=== PATIENT | male | born 1945 | race Caucasian/White ===

== ENCOUNTER → 2016-04-27 | Outpatient (CLI) | payer MEDICARE, OTHER ==
[~2016-04-27] MED LIST: ACET-77 PO; ACET-93 PO; ALLO100T PO; AMLO5TAB2 PO; ASP81TEC PO; ASPI-999 PO; ATOR80TA76 PO; CLOP75TA28 PO; CPR500T PO; LISI-552 PO; LISI40TA PO; METO-274 PO; METO-352 PO; MTP50T PO; NITR0.4T SL; TERA2CAP13 PO; TERA2CAP4 PO; UBID100C17 PO; VICODIN PO
--- NOTE | 2016-04-27 15:31 | Diagnostic Imaging Report ---
PROCEDURE: MRI left upper extremity without contrast. TECHNIQUE: Multiplanar, multisequence MR imaging of the left shoulder was performed without contrast. COMPARISON: None available. INDICATION: Left shoulder pain and weakness. Difficulty raising arm above head. FINDINGS: Rotator cuff: There is a chronic massive superior rotator cuff tear with complete tears of both the supraspinatus and infraspinatus. The torn fibers are retracted centrally to the level of the glenohumeral joint. There is severe fatty atrophy of both the supraspinatus and infraspinatus muscle bellies. Tendinopathy of the subscapularis without full-thickness tear. Teres minor is normal. Glenoid labrum: There is degenerative free edge fraying of the posterior glenoid labrum. No displaced labral tear. Long head of biceps: Long head of biceps is normal in position and intracapsular segment is intact with mild tendinopathy. Bones and cartilage: No fracture of the humeral head. There is superior subluxation of the humeral head due to chronic full-thickness rotator cuff tear. There is associated undersurface remodeling of the acromion. Moderate hypertrophic degenerative change of the acromioclavicular joint. Soft tissues: Mild synovitis of the glenohumeral joint. No appreciable effusion. No MRI findings to suggest adhesive capsulitis. IMPRESSION: 1. Chronic massive superior rotator cuff tear with complete tears of both the supraspinatus and infraspinatus. The torn fibers are retracted centrally to the glenohumeral joint and have a frayed appearance. There is associated severe fatty atrophy of the supraspinatus and infraspinatus muscle bellies. 2. Long head of biceps is intact with mild intracapsular tendinopathy. 3. Moderate degenerative changes of acromioclavicular joint with inferior projecting spurs. 4. Superior subluxation of the humeral head due to chronic full-thickness cuff tear, which results in undersurface remodeling of the acromion. Dictated by: Dictated on workstation # [id number]
== END ==
LOC: RAD 13:10
PROVIDERS: ATTEND Orthopaedic Surgery
DX: M75.102 Unspecified rotator cuff tear or rupture of left shoulder, not specified as traumatic (principal); M19.012 Primary osteoarthritis, left shoulder; S43.082 Other subluxation of left shoulder joint
CPT/HCPCS: 73221

== ENCOUNTER 2016-06-13 08:30 | Outpatient (RCR) | payer MEDICARE, OTHER | END 2016-06-13 09:11 | disposition home or self-care (01) | PROVIDERS: ATTEND Nurse Practitioner Family | DX: M75.102 Unspecified rotator cuff tear or rupture of left shoulder, not specified as traumatic (principal) ==

== ENCOUNTER → 2018-04-10 | Outpatient (CLI) | payer MEDICARE, OTHER ==
[~2018-04-10] MED LIST changes: -AMLO5TAB2 PO; +AMLO5TAB7 PO; -METO-274 PO; +METO-395 PO
--- NOTE | 2018-04-10 11:22 | Diagnostic Imaging Report ---
CLINICAL INDICATION: Patient with left leg swelling. COMPARISON: None. PROCEDURE: Real-time left lower extremity venous Doppler duplex evaluation is performed from the inguinal region through the popliteal fossa. The calf venous structures are also evaluated. FINDINGS: The deep venous system is well visualized and is easily compressible. There is no evidence of deep venous thrombosis, valvular incompetence, or significant collateral circulation. IMPRESSION: There is no ultrasound Doppler evidence of deep venous thrombosis in the left lower extremity. Dictated by: Dictated on workstation # [id number]
== END ==
LOC: RAD 10:29
PROVIDERS: ATTEND Nurse Practitioner Family
DX: M79.89 Other specified soft tissue disorders (principal)

== ENCOUNTER → 2018-04-17 | Outpatient (CLI) | payer MEDICARE, OTHER ==
[2018-04-17 10:46] LABS: ALBUMIN 4.1 GM/DL (3.2-4.5); BILIRUBIN,DIRECT 0.2 MG/DL (0.0-0.3); BILIRUBIN,INDIRECT 0.2 MG/DL; BILIRUBIN,TOTAL 0.4 MG/DL (0.1-1.0); TOTAL PROTEIN 7.1 GM/DL (6.4-8.2)
== END ==
LOC: LAB 10:09
PROVIDERS: ATTEND Internal Medicine Cardiovascular Disease
DX: E78.2 Mixed hyperlipidemia (principal); I25.10 Atherosclerotic heart disease of native coronary artery without angina pectoris; I10 Essential (primary) hypertension; E66.9 Obesity, unspecified; Z82.5 Family history of asthma and other chronic lower respiratory diseases
CPT/HCPCS: 36415; 80061; 80076

== ENCOUNTER → 2018-05-10 | Outpatient (CLI) | payer MEDICARE, OTHER ==
[~2018-05-10] MED LIST changes: -AMLO5TAB7 PO; +AMLO5TAB9 PO
== END ==
LOC: CARD 09:33
PROVIDERS: ATTEND Internal Medicine Cardiovascular Disease
DX: I25.10 Atherosclerotic heart disease of native coronary artery without angina pectoris (principal); I10 Essential (primary) hypertension; E78.2 Mixed hyperlipidemia; E66.9 Obesity, unspecified; Z82.5 Family history of asthma and other chronic lower respiratory diseases
CPT/HCPCS: 93306

== ENCOUNTER → 2018-05-15 | Outpatient (CLI) | payer MEDICARE, OTHER ==
[~2018-05-15] MED LIST changes: +CATHETER FLUSH 10 ML SYR IV PRN; +REGADENOSON 0.4 MG/5 ML SYR (LEXISCAN) IV ONE
[2018-05-15 08:53] VITALS: BP 160/90
[2018-05-15 08:56] VITALS: BP 149/97
--- NOTE | 2018-05-15 14:38 | STRESS TEST ---
DATE OF SERVICE: 05/15/2018 LEXISCAN MYOVIEW STRESS TEST REPORT REFERRING PHYSICIAN: Dr. Aranda. Baseline heart rate is 57, baseline blood pressure is 160/90. Baseline EKG is sinus rhythm with no ischemic changes. In summary, the patient was injected with 10.73 mCi of technetium-99 Myoview and the resting images were obtained. Then, the patient received 0.4 mg of Lexiscan followed by 29.5 mCi of technetium-99 Myoview. Throughout the test, there were no EKG changes. The resting and stress images were reviewed and compared in the short axis, horizontal long axis, and vertical long axis views. Review of the images showed diaphragmatic attenuation affecting the quality of the study. There is mild decreased uptake at the inferoapical and inferolateral wall of the left ventricle. SSS is 6, SDS 2, TID value 1.02. On the gated images, the left ventricle appeared to be in normal size with normal contractility. Calculated ejection fraction 67%. CONCLUSION: 1. The patient tolerated Lexiscan well. 2. Diaphragmatic attenuation with nondiagnostic study with questionable mild ischemia involving the inferoapical and inferolateral wall. 3. Normal left ventricular size with normal contractility. Calculated ejection fraction 67%. Job ID: [id number] DocumentID: [id number] Dictated Date: 05/15/2018 14:03:33 Director Of Supply Chain Date: 05/15/2018 14:37:57 Dictated By: ALEAH VARNER MD
== END ==
LOC: CARD 07:03
PROVIDERS: ATTEND Internal Medicine Cardiovascular Disease
DX: I25.10 Atherosclerotic heart disease of native coronary artery without angina pectoris (principal); I10 Essential (primary) hypertension; E78.2 Mixed hyperlipidemia; E66.9 Obesity, unspecified; Z82.5 Family history of asthma and other chronic lower respiratory diseases
CPT/HCPCS: 78452; 93017

== ENCOUNTER 2018-05-21 10:11 | Outpatient (RCR) | payer MEDICARE, OTHER ==
[~2018-05-21 10:11] MED LIST changes: -CATHETER FLUSH 10 ML SYR IV PRN; -REGADENOSON 0.4 MG/5 ML SYR (LEXISCAN) IV ONE
== END 2018-05-21 17:00 | disposition home or self-care (01) ==
PROVIDERS: ATTEND Nurse Practitioner Family
DX: M62.89 Other specified disorders of muscle (principal)

== ENCOUNTER → 2019-12-18 | Outpatient (CLI) | payer MEDICARE, OTHER ==
[~2019-12-18] MED LIST changes: -ACET-77 PO; +ACET-78 PO; -METO-395 PO; +MTP100TCR PO
--- NOTE | 2019-12-18 14:11 | Diagnostic Imaging Report ---
INDICATION: Left knee pain. Time of exam 1:47 PM 3 views left knee were obtained. Alignment is normal. Joint spaces are fairly well-maintained. There is mild patellofemoral degenerative change noted. There is also very mild medial compartmental narrowing. No fracture or dislocation is identified. There does appear to be a small amount of suprapatellar joint fluid present. IMPRESSION: Mild degenerative changes and small joint effusion. No acute bony abnormality is detected. Dictated by: Dictated on workstation # [id number]
--- NOTE | 2019-12-18 14:21 | Diagnostic Imaging Report ---
PROCEDURE: US left lower extremity venous. TECHNIQUE: Multiple real-time grayscale images were obtained over the left lower extremity in various projections. Additional duplex Doppler and color Doppler images were also obtained. INDICATION: Left knee and lower leg pain and swelling. There is no evidence of left lower extremity DVT. Left lower extremity deep venous system demonstrates normal compressibility with normal response to augmentation and Valsalva. No fluid collection or mass is detected. IMPRESSION: No evidence of left lower extremity DVT. Dictated by: Dictated on workstation # [id number]
== END ==
LOC: RAD 12:52
PROVIDERS: ATTEND Nurse Practitioner Family
DX: M17.12 Unilateral primary osteoarthritis, left knee (principal); M25.462 Effusion, left knee
CPT/HCPCS: 73562

== ENCOUNTER → 2020-07-21 | Outpatient (CLI) | payer MEDICARE, OTHER ==
[~2020-07-21] MED LIST changes: +AMLO-250 PO; -AMLO5TAB9 PO; -LISI-552 PO; +LISI20TA26 PO; -LISI40TA PO; +LISI40TA9 PO
--- NOTE | 2020-07-21 13:44 | Diagnostic Imaging Report ---
PROCEDURE: MRI lumbar spine without contrast. TECHNIQUE: Multiplanar, multisequence MRI of the lumbar spine was performed without contrast. INDICATION: Chronic low back pain. History of prior surgery. COMPARISON: 11/29/2017. FINDINGS: 5 lumbar type vertebral bodies are visualized with the last well-formed disc space designated L5-S1. No acute fracture or dislocation is seen in the lumbar spine. Alignment is anatomic. Vertebral body heights are well-maintained. Endplate degenerative changes are present at the L3-L4 level. Laminectomy is noted from L2 to L4. The conus terminates at the L1 level. No masses are seen associated with the conus or nerve roots of the cauda equina. No epidural collections are identified. Multilevel degenerative changes are seen in the lumbar spine with disc bulges, facet hypertrophy, and buckling of the ligamentum flavum. T12-L1: No significant spinal canal or foraminal stenosis. L1-L2: Facet hypertrophy and buckling of the ligamentum flavum results in mild spinal canal narrowing and mild bilateral foraminal narrowing. L2-L3: Broad-based disc bulge, facet hypertrophy, and buckling of the ligamentum flavum results in no significant spinal canal narrowing and ruyo-jq-dsofputf bilateral foraminal narrowing. L3-L4: Broad-based disc bulge, facet hypertrophy, and buckling of the ligamentum flavum results in no significant spinal canal narrowing and moderate right and euomndry-ua-vtjvbi left foraminal stenosis. L4-L5: Broad-based disc bulge, facet hypertrophy, right synovial cyst and buckling of the ligamentum flavum results in mild spinal canal narrowing, moderate right lateral recess stenosis, and moderate bilateral foraminal stenosis. L5-S1: Broad-based disc bulge, facet hypertrophy, and buckling of the ligamentum flavum results in moderate spinal canal stenosis and gbbb-vh-lftslont bilateral foraminal narrowing. There is atrophy of the paraspinal musculature. IMPRESSION: 1. No acute fracture or dislocation in the lumbar spine. 2. Multilevel degenerative changes in the lumbar spine, greatest at L3-L4 and L4-L5. In particular a new synovial cyst protruding from the right L4-L5 facet joint is causing moderate right lateral recess stenosis. 3. Successful posterior decompression from L2 to L4. 4. Endplate degenerative changes at the L3-L4 level. Dictated by: Dictated on workstation # [id number]
== END ==
LOC: RAD 09:30
PROVIDERS: ATTEND Nurse Practitioner Family
DX: M47.26 Other spondylosis with radiculopathy, lumbar region (principal); M48.061 Spinal stenosis, lumbar region without neurogenic claudication
CPT/HCPCS: 72148

== ENCOUNTER → 2021-05-18 | Outpatient (CLI) | payer MEDICARE, OTHER ==
[~2021-05-18] MED LIST changes: +REGADENOSON 0.4 MG/5 ML SYR (LEXISCAN) IV ONE
[2021-05-18] MEDS: CATHETER FLUSH 10 ML SYR IV PRN ×2 (11:54→13:30)
[2021-05-18 13:29] VITALS: BP 152/86
--- NOTE | 2021-05-18 15:52 | Cardiology Stress Test Report ---
Stress Test Report Date of Procedure/Referring: Date of Procedure: May 18, 2021 PCP Aleah Harrington MD Admitting Physician Heidi Aranda MD Indications: HTN Baseline Heart Rate: 52 Baseline Blood Pressure: Blood Pressure Systolic: 152 Blood Pressure Diastolic: 86 Baseline Vitals Vital Signs Date Time Temp Pulse Resp B/P (MAP) Pulse Ox O2 Delivery O2 Flow Rate FiO2 05/18/21 13:29 64 16 152/86 (108) 98 Room Air Baseline EKG: Baseline EKG: NSR Summary After explaining the procedure to the patient, he signed a consent and then brought to the stress nuclear laboratory. Patient received 0.4 mg Lexiscan for stress test, ECG, heart rate and blood pressure were monitored continuously. Resting and stress dose of radio tracer were injected, imaging was acquired and reviewed in short axis, horizontal long axis and vertical long axis views. TID: 1.06 SSS: 8 SDS: 7 EF: 68 1. Patient tolerated Lexiscan well 2. Diaphragmatic attenuation with decreased uptake involving the whole inferior wall and inferolateral wall with mild reversibility 3. Normal left ventricular size, EF 68% ALEAH HARRINGTON MD May 18, 2021 15:52
== END ==
LOC: CARD 11:30
PROVIDERS: ATTEND Internal Medicine Cardiovascular Disease
DX: I11.9 Hypertensive heart disease without heart failure (principal); I34.0 Nonrheumatic mitral (valve) insufficiency; I25.10 Atherosclerotic heart disease of native coronary artery without angina pectoris
CPT/HCPCS: 78452; 93017; 93306; A9502

== ENCOUNTER 2021-06-01 10:51 | Day surgery (SDC) | payer MEDICARE, OTHER ==
[2021-06-01] VITALS (8 sets, daily range): BP systolic 130–152; BP diastolic 67–85
[~2021-06-01] VITALS: Ht 182.8 cm; Wt 103.5 kg
[~2021-06-01 10:51] MED LIST changes: -REGADENOSON 0.4 MG/5 ML SYR (LEXISCAN) IV ONE
[2021-06-01] MEDS ORDERED: NS IV 1000 ML 1,000 ML IV SCH ×2 (11:00→13:30)
[2021-06-01] MEDS ORDERED: LIDOCAINE 1% INJ 20 ML VIAL ONE (11:01)
[2021-06-01] MEDS ORDERED: NS IV 1000 ML 1,000 ML ONE (11:02)
[2021-06-01] MEDS ORDERED: HEParin (CATH LAB) 1,000 ML IV ONE (11:02)
[2021-06-01] MEDS ORDERED: GABA-490 PO (11:35)
[2021-06-01] MEDS ORDERED: ALLO100T PO (11:35)
[2021-06-01] MEDS ORDERED: LOSA25TA41 PO (11:35)
[2021-06-01] MEDS ORDERED: MIDAZOLAM 5 MG/5 ML (VERSED) VIAL ONE (11:36)
[2021-06-01] MEDS ORDERED: FISH1CAP15 PO (11:36)
[2021-06-01] MEDS ORDERED: VERAPAMIL 5 MG/2 ML (CALAN) VIAL IV ONE (11:36)
[2021-06-01] MEDS ORDERED: fentaNYL INJ 100 MCG/2 ML AMP ONE (11:36)
[2021-06-01] MEDS ORDERED: HEParin 1000 UNIT/ML (10ML VIAL) FOR BOLUS ONE (11:36)
[2021-06-01] MEDS ORDERED: NITRO DRIP 25000 MCG/D5W 250 ML IV ONE (11:37)
[2021-06-01 11:38] LABS: HEMATOCRIT 39 % (40-54); HEMOGLOBIN 13.1 g/dL (13.3-17.7); MEAN CORPUSCULAR HEMOGLOBIN 33 pg (25-34); MEAN CORPUSCULAR HGB CONC 33 g/dL (32-36); MEAN CORPUSCULAR VOLUME 99 fL (80-99); PLATELET COUNT 174 10^3/uL (130-400); WHITE BLOOD COUNT 8.5 10^3/uL (4.3-11.0)
[2021-06-01 11:39] LABS: BILIRUBIN,URINE NEGATIVE (NEGATIVE); CLARITY,URINE CLEAR; COLOR,URINE YELLOW; GLUCOSE, URINE (UA) NEGATIVE (NEGATIVE); KETONES,URINE NEGATIVE (NEGATIVE); LEUKOCYTE ESTERASE ,URINE NEGATIVE (NEGATIVE); NITRITE,URINE NEGATIVE (NEGATIVE); PH,URINE 5.5 (5-9); PROTEIN,URINE NEGATIVE (NEGATIVE)
--- NOTE | 2021-06-01 11:43 | Diagnostic Imaging Report ---
INDICATION: Hypertension, coronary disease COMPARISON: 04/30/2015 FINDINGS: FINDINGS: Single view chest demonstrates slight cardiac enlargement. The lungs are clear. There is no pneumothorax but osseous structures normal. IMPRESSION: No acute cardiopulmonary findings. Dictated by: Dictated on workstation # [id number]
[2021-06-01 11:54] LABS: INR 0.9 (0.8-1.4); PROTHROMBIN TIME PATIENT 12.9 SEC (12.2-14.7)
[2021-06-01 12:01] LABS: ALBUMIN 3.9 GM/DL (3.2-4.5); BILIRUBIN,TOTAL 0.4 MG/DL (0.1-1.0); CALCIUM 9.4 MG/DL (8.5-10.1); CREATININE SERUM 1.96 MG/DL (0.60-1.30)
[2021-06-01 12:16] LABS: BACTERIA,URINE NEGATIVE /HPF
--- NOTE | 2021-06-01 13:32 | Discharge Inst-Post CATH ---
Discharge Inst-CATH/EP Problems Reviewed?: Yes Post Cardiac Cath/EP D/C Inst Follow Up/Plan Appointment with Dr. Harrington's office in 2 to 4 weeks <b>CARDIAC CATH/EP PROCEDURE DISCHARGE INSTRUCTIONS</b> ACTIVITY * Go Home directly and rest. * Limit activity of the leg (or wrist if it was used) for 7 days including aer obics, swimming, jogging, bicycling, etc. * Restrict stair-climbing for 7 days if possible, if not, climb up with your non-cath leg, then bring together on the same step. * Avoid lifting, pushing, pulling or excessive movement of the affected extremi ty for 7 days. * Customary sexual activity may be resumed after 2 days-use caution not to use a position that strains or causes pain to the affected extremity. * No driving for 24 hours. * NO SMOKING. * Avoid straining for bowel movements for 7 days. * Gentle walking on level ground is allowed. * Returning to work will depend on the type of procedure and the results. Your doctor will discuss this with you. CALL YOUR DOCTOR FOR ANY OF THE FOLLOWING: *If bleeding from the puncture site occurs- Apply gentle pressure to site with clean cloth and call your doctor or EMS. * If a knot or lump forms under the skin, increases in size, or causes pain. * If bruising appears to be worsening or moving further down your leg instead of disappearing. * Temperature above 101 F. CARE OF YOUR GROIN INCISION; * Bruising or purple discoloration of the skin near the puncture site is common. * You may shower only, no bathtub bathing for 5 days. Be careful to avoid slipping as your leg may feel stiff. * If a closure device was used on your femoral artery, please see the attached guide regarding care of the device and your leg. * Leave dressing on FOR 24 hours. CARE OF YOUR WRIST INCISION; * Bruising or purple discoloration of the skin near the puncture site is common. * You may shower. * DO NOT submerge wrist. * Leave dressing on FOR 24 hours. ALEAH HARRINGTON MD Jun 01, 2021 13:32
--- NOTE | 2021-06-01 13:35 | Cardiac Cath Report ---
Cardiac Cath Report Physician (s)/Entry Specialists (s) Physician ALEAH VARNER MD Pre-Procedure Diagnosis Pre-Procedure Diagnosis: Coronary artery disease Post-Procedure Note Procedure Start Date: Jun 01, 2021 Name of Procedure: Left heart catheterization Findings/Procedure Note PROCEDURE NOTE: 75 years old gentleman with history of coronary artery disease, multiple interventions in the past, had an abnormal stress test with inferior wall ischemia, scheduled for cardiac catheterization possible PTCA. After explaining the procedure to the patient, all pros and cons were explained, all questions were answered. The patient signed the consent and then he was placed on the cardiac catheterization laboratory. Groin was prepped SL fashion local anesthesia was used. Sheath placed in the right radial artery, Troy catheter was advanced to the left ventricular cavity, pressure was measured, pullback LV to aorta was done, engaged the right and left coronary system, multiple views were obtained. At the end of the procedure the sheath was removed. Vascular band was used FINDINGS: Hemodynamics LV 111/12, end-diastolic pressure of 12 Aorta 111/68 mean of 90 ANATOMY: Left Main is free of obstructive disease Left Anterior Descending has multiple stents with mild to moderate irregularity, there is no obstructive disease, small vessel disease Left Circumflex has mild to moderate disease nonobstructive disease Right Coronary Artery is slightly tortuous artery, dominant artery, stent in the mid right coronary artery with calcification appears to be patent, mild disease distally nonobstructive disease LV Gram was not done, pressure was measured CONCLUSION: 1. Multiple stents in the LAD and 1 stent noted in the right coronary artery, mild to moderate coronary artery disease nonobstructive disease 2. Normal left ventricular end-diastolic pressure DISCUSSION AND RECOMMENDATION: Medical therapy is recommended. Abnormal stress test is probably due to extracardiac attenuation Anesthesia Type: Conscious Sedation Estimated blood loss (mL): 10 ml Contrast Amount: 30 ml Total Radiation Dose: 525 mGy Post-Procedure Diagnosis Post-operative diagnosis: Chest pain Coronary artery disease Hypertension Hyperlipidemia ALEAH VARNER MD Jun 01, 2021 13:35
== END 2021-06-01 16:00 | disposition home or self-care (01) ==
LOC: CATH 10:51 → SDC 13:00 → SURGICAL 13:56 → CATH 16:00
PROVIDERS: ATTEND Internal Medicine Cardiovascular Disease
DX: I25.10 Atherosclerotic heart disease of native coronary artery without angina pectoris (principal); I10 Essential (primary) hypertension; Z95.5 Presence of coronary angioplasty implant and graft; E78.2 Mixed hyperlipidemia; I34.0 Nonrheumatic mitral (valve) insufficiency; I12.9 Hypertensive chronic kidney disease with stage 1 through stage 4 chronic kidney disease, or unspecified chronic kidney disease; N18.9 Chronic kidney disease, unspecified; N40.0 Benign prostatic hyperplasia without lower urinary tract symptoms; I65.23 Occlusion and stenosis of bilateral carotid arteries; Z68.31 Body mass index [BMI] 31.0-31.9, adult; Z79.82 Long term (current) use of aspirin; Z79.899 Other long term (current) drug therapy
CPT/HCPCS: 71045; 80053; 80061; 81000; 85027; 85610; 85730; 87081; 93458; C1894; 36415; 36430

== ENCOUNTER 2021-11-20 06:23 | Emergency (ER) | payer MEDICARE, OTHER ==
[~2021-11-20 06:23] MED LIST changes: +FISH1CAP15 PO; +GABA-490 PO; +LOSA25TA41 PO
[2021-11-20 06:35] VITALS: BP 178/108
--- NOTE | 2021-11-20 06:59 | ED General ---
General Chief Complaint: General Problems/Pain Stated Complaint: BACK/LEG/SHOULDER PAIN Nursing Triage Note: TO ED VIA POV AND AMBULATORY TO ROOM 6 WITH C/O BILATERAL SHOULDER, BILATERAL ARM, BILATERAL LEG, AND BACK PAIN THAT STARTED SUNDAY. LAST TYLENOL AT 0000. DENIES INJURY. Source of Information: Patient Exam Limitations: No Limitations History of Present Illness Date Seen by Provider: Nov 20, 2021 Time Seen by Provider: 06:38 Initial Comments Patient is a 76-year-old male who presents to the emergency department with a chief complaint of pain. Patient states since he has had bilateral leg pain that he describes as a "burning" also in his low back as well as in his shoulders and into his arms. Patient denies any injuries. No excessive gardening or heavy lifting or pushing and pulling over the course of the last week. He has had pain like this in the past related to having back issues and surgery but he states its been about 7 years ago. He has been on gabapentin 300 mg twice daily for 10 years. He describes almost a "vibrating" sensation in his left leg. He has taken some regular strength Tylenol without any relief of symptoms. He rates the burning discomfort in his lower legs at a "10". No loss of bowel or bladder function. No numbness in his groin. No significant increased weakness. He states he has chronic feelings of left lower extremity weakness since his last back surgery. He denies fevers, chills, cough or shortness of breath. He has not seen his primary care doctor for this. All other review of systems reviewed and negative except as stated. Timing/Duration: 3-4 Days Severity: Severe Associated Systoms: Denies Symptoms Allergies and Home Medications Allergies Coded Allergies: Penicillins (Verified Allergy, Unknown, 07/09/08) Patient Home Medication List Home Medication List Reviewed: Yes Acetaminophen (Acetaminophen) 500 Mg Tablet, 1,000 MG PO BID Prescribed by: FRANCIS ROMERO on 03/30/15 1303 Allopurinol (Allopurinol) 100 Mg Tablet, 100 MG PO DAILY, (Reported) Entered as Reported by: STEPHANIE BAIRD on 06/01/21 1135 Aspirin (Aspirin Ec 81 Mg) 81 Mg Tabec, 81 MG PO DAILY, (Reported) Entered as Reported by: ISABELA TURNER on 11/21/13 0847 Fish Oil/Dha/Epa (Fish Oil 1,200 mg Fish Oil) 1 Each Capsule, 1 EACH PO DAILY, (Reported) Entered as Reported by: STEPHANIE BAIRD on 06/01/21 1136 Gabapentin (Gabapentin) 400 Mg Capsule, 300 MG PO BID, (Reported) Entered as Reported by: STEPHANIE BAIRD on 06/01/21 1135 Lisinopril (Lisinopril) 40 Mg Tablet, 20 MG PO DAILY Prescribed by: GUERLINE ARANDA on 05/03/15 0851 Losartan Potassium (Losartan Potassium) 25 Mg Tablet, 25 MG PO DAILY, (Reported) Entered as Reported by: STEPHANIE BAIRD on 06/01/21 1135 Metoprolol Succinate (Metoprolol Succinate) 100 Mg Tab.er.24h, 100 MG PO DAILY Prescribed by: ETHAN DA SILVA on 03/30/15 1256 Nitroglycerin (Nitrostat) 0.4 Mg Tab.subl, 0.4 MG SL PRN PRN for CHEST PAIN Prescribed by: ETHAN DA SILVA on 03/30/15 1256 Terazosin HCl (Terazosin HCl) 2 Mg Capsule, 2 MG PO DAILY, (Reported) Entered as Reported by: PHUONG TENA on 03/26/15 2152 Ubidecarenone (Coq-10) 100 Mg Capsule, 100 MG PO DAILY, (Reported) Entered as Reported by: AYESHA ZHANG on 04/30/15 1539 Review of Systems Review of Systems Constitutional: see HPI EENTM: no symptoms reported Respiratory: no symptoms reported Cardiovascular: no symptoms reported Gastrointestinal: no symptoms reported Genitourinary: no symptoms reported Musculoskeletal: no symptoms reported Skin: no symptoms reported Psychiatric/Neurological: Paresthesia All Other Systems Reviewed Negative Unless Noted: Yes Past Strfyih-Cgkihh-Mroika Hx Patient Social History Tobacco Use?: No Substance use?: No Pt feels they are or have been: No Immunizations Up To Date Tetanus Booster (TDap): More than 5yrs PED Vaccines UTD: Yes COVID19 Vaccine Editor & Co Founder: STATES TOTAL OF 2 VACCINES PLUS 2 BOOSTERS Seasonal Allergies Seasonal Allergies: No Past Medical History Orthopedic Currently Using CPAP: No Currently Using BIPAP: No Coronary Artery Disease, Hypertension Reproductive Disorders: No Sexually Transmitted Disease: No HIV/AIDS: No Gastroesophageal Reflux Arthritis Loss of Vision: Denies Hearing Impairment: Denies Skin Adverse Reaction/Blood Tranf: No Family Medical History Alzheimer's disease 19 FATHER Arthritis 19 MOTHER G8 SISTER Cardiovascular disease 19 MOTHER Cataracts 19 MOTHER Dementia 19 FATHER Diabetes mellitus 19 MOTHER G8 SISTER Hypercholesterolemia 19 MOTHER G8 SISTER Hypertension 19 MOTHER G8 SISTER G8 SISTER Visual disorder G8 SISTER Heart Disease, Diabetes, Hypertension Physical Exam Vital Signs Vital Signs - First Documented 11/20/21 06:35 Temp 36.7 Pulse 82 Resp 16 B/P (MAP) 178/108 (131) Pulse Ox 95 O2 Delivery Room Air Capillary Refill : Less Than 3 Seconds Height, Weight, BMI Height: 6'0.00" Weight: 241lbs. oz. 109.672294pu; BMI Method: General Appearance: No Apparent Distress, WD/WN Eyes: Bilateral Eye Normal Inspection Neck: Full Range of Motion, Non Tender Respiratory: Lungs Clear, Normal Breath Sounds, No Accessory Muscle Use, No Respiratory Distress Cardiovascular: Regular Rate, Rhythm, Normal Peripheral Pulses Gastrointestinal: Normal Bowel Sounds, No Pulsatile Mass, Non Tender, Soft Back: Normal Inspection, Other (Well-healed midline scar over the lumbar vertebrae, no reproducible midline vertebral tenderness; no tenderness over the sciatic nerves bilaterally. Negative straight leg raise. 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 II-XII Norm as Tested, Other (Normal motor strength and sensat ion.) Skin: Normal Color, Warm/Dry, Other (No rashes) Progress/Results/Core Measures Suspected Sepsis SIRS Temperature: Pulse: 82 Respiratory Rate: 16 Blood Pressure 178 /108 Mean: 131 Results/Orders Vital Signs/I&O 11/20/21 06:35 Temp 36.7 Pulse 82 Resp 16 B/P (MAP) 178/108 (131) Pulse Ox 95 O2 Delivery Room Air Capillary Refill : Less Than 3 Seconds Blood Pressure Mean: 131 Departure Impression Primary Impression: Neuropathic pain of both legs Additional Impression: Neuropathic pain of upper extremity Disposition: 01 HOME, SELF-CARE Condition: Stable Departure-Patient Inst. Decision time for Depature: 06:57 Referrals: GUERLINE ARANDA MD (PCP/Family) Primary Care Physician Patient Instructions: Neuropathic Pain Add. Discharge Instructions: Drink plenty of fluids to stay well-hydrated. It is safe for you to increase your gabapentin to 2 300 mg tablets twice a day. *I have written you a prescription today for 600mg tablets - enough for 2 weeks - just ONE of these twice a day.* I have written you prescription for some tramadol for the next couple of days which may also help the pain. This medication may make you a little bit sleepy. Do not drive and take this medication. Be careful getting up and walking as it could increase your risk for fall. Extra strength Tylenol, 500 mg tablets 2 every 6 hours can be taken safely with the tramadol and the gabapentin as needed for pain. Follow-up with your primary care doctor, Dr. Aranda for further management, refills of your gabapentin. Return to the emergency room for any new, concerning or emergent complaints. Scripts Gabapentin (Gabapentin) 600 Mg Tablet 600 MG PO BID, #30 TAB Prov: SHAUNNA REES MD 11/20/21 Tramadol HCl (Tramadol HCl) 50 Mg Tablet 50 MG PO Q6H PRN for PAIN, #10 TAB 0 Refills Prov: SHAUNNA REES MD 11/20/21 Copy Copies To 1: GUERLINE ARANDA MD, KATHRYN M MD Nov 20, 2021 06:59
[2021-11-20] MEDS ORDERED: GBPN600T PO (07:00)
[2021-11-20] MEDS ORDERED: TRM50T PO (07:00)
== END 2021-11-20 07:20 | disposition home or self-care (01) ==
LOC: EDUNIT# 06:23 → ER 06:26
DX: G57.93 Unspecified mononeuropathy of bilateral lower limbs (principal); G56.93 Unspecified mononeuropathy of bilateral upper limbs
CPT/HCPCS: 99283

== ENCOUNTER 2021-11-22 07:03 | Emergency (ER) | payer MEDICARE, OTHER ==
[~2021-11-22] VITALS: Ht 182.8 cm; Wt 104.3 kg
[~2021-11-22 07:03] MED LIST changes: +GBPN600T PO; +TRM50T PO
[2021-11-22] MEDS ORDERED: meTOprolol SUCCINATE 100 MG (TOPROL XL) TAB PO ONE (07:45)
--- NOTE | 2021-11-22 07:45 | ED General ---
General Chief Complaint: Lower Extremity Stated Complaint: BACK,ARM & LEG PX Nursing Triage Note: PT TO RM 5 BY WC WITH CC OF BILAT LEG PAIN, WEAKNESS AND NUMBNESS YESTERDAY. PT REPORTS WENT TO [facility] YESTERDAY. PT A&O4 Source of Information: Patient Exam Limitations: No Limitations History of Present Illness Date Seen by Provider: Nov 22, 2021 Time Seen by Provider: 07:29 Initial Comments Patient is a 76-year-old male who presents to the emergency department today with a chief complaint of low back pain, pain radiating into his bilateral hips, numbness into his legs and lower extremity weakness. He also describes tingling in his bilateral hands. Patient was seen by me in the emergency department a couple of days ago with similar complaints. I increased his gabapentin from 300 mg twice daily to 600 mg twice daily. He has a history of chronic kidney disease. Hypertension. He tells me that he went to the chiropractor yesterday and had his "whole spine" adjusted. He felt well after that visit with improved discomfort but woke up this morning and said that his legs were weak. He fell on his porch onto his bottom due to leg weakness. No loss of bowel or bladder function. States that he is able to urinate when he needs to. But it does feel little "off". He has had previous lumbar spine surgery the last 1 was about 6 years ago. No recent fevers or chills, no productive cough. No shortness of breath. He is COVID vaccinated. No concerns for acute COVID infection. He does state that he has had decreased appetite over the last several days due to his back pain and paresthesias. He is just not felt like eating very much at all. His states that she has been trying to get him to drink fluids. All other review of systems reviewed and negative except as stated. Timing/Duration: 12 Hours Severity: Moderate Associated Systoms: Loss of Appetite, Malaise, Weakness (legs specifically) Allergies and Home Medications Allergies Coded Allergies: Penicillins (Verified Allergy, Unknown, 07/09/08) Patient Home Medication List Home Medication List Reviewed: Yes Acetaminophen (Acetaminophen) 500 Mg Tablet, 1,000 MG PO BID Prescribed by: FRANCIS ROMERO on 03/30/15 1303 Allopurinol (Allopurinol) 100 Mg Tablet, 100 MG PO DAILY, (Reported) Entered as Reported by: STEPHANIE BAIRD on 06/01/21 1135 Aspirin (Aspirin Ec 81 Mg) 81 Mg Tabec, 81 MG PO DAILY, (Reported) Entered as Reported by: ISABELA TURNER on 11/21/13 0847 Fish Oil/Dha/Epa (Fish Oil 1,200 mg Fish Oil) 1 Each Capsule, 1 EACH PO DAILY, (Reported) Entered as Reported by: STEPHANIE BAIRD on 06/01/21 1136 Gabapentin (Gabapentin) 400 Mg Capsule, 300 MG PO BID, (Reported) Entered as Reported by: STEPHANIE BAIRD on 06/01/21 1135 Gabapentin (Gabapentin) 600 Mg Tablet, 600 MG PO BID Prescribed by: SHAUNNA REES on 11/20/21 0700 Lisinopril (Lisinopril) 40 Mg Tablet, 20 MG PO DAILY Prescribed by: GUERLINE ARANDA on 05/03/15 0851 Losartan Potassium (Losartan Potassium) 25 Mg Tablet, 25 MG PO DAILY, (Reported) Entered as Reported by: STEPHANIE BAIRD on 06/01/21 1135 Metoprolol Succinate (Metoprolol Succinate) 100 Mg Tab.er.24h, 100 MG PO DAILY Prescribed by: ETHAN DA SILVA on 03/30/15 1256 Nitroglycerin (Nitrostat) 0.4 Mg Tab.subl, 0.4 MG SL PRN PRN for CHEST PAIN Prescribed by: ETHAN DA SILVA on 03/30/15 1256 Terazosin HCl (Terazosin HCl) 2 Mg Capsule, 2 MG PO DAILY, (Reported) Entered as Reported by: PHUONG TENA on 03/26/152151 Tramadol HCl (Tramadol HCl) 50 Mg Tablet, 50 MG PO Q6H PRN for PAIN Prescribed by: SHAUNNA REES on 11/20/21 0700 Ubidecarenone (Coq-10) 100 Mg Capsule, 100 MG PO DAILY, (Reported) Entered as Reported by: AYESHA ZHANG on 04/30/15 1539 Review of Systems Review of Systems Constitutional: see HPI EENTM: no symptoms reported Respiratory: no symptoms reported Cardiovascular: no symptoms reported Gastrointestinal: loss of appetite Genitourinary: no symptoms reported Musculoskeletal: muscle weakness (legs) Skin: no symptoms reported Psychiatric/Neurological: Paresthesia (hands and legs) All Other Systems Reviewed Negative Unless Noted: Yes Past [id number]-[id number]-Cjuiux Hx Patient Social History Tobacco Use?: No Substance use?: No Alcohol Use?: No Pt feels they are or have been: No Immunizations Up To Date Tetanus Booster (TDap): More than 5yrs PED Vaccines UTD: Yes First/Initial COVID19 Vaccinat: 2020 Second COVID19 Vaccination Erik: 2020 Seasonal Allergies Seasonal Allergies: No Past Medical History Orthopedic Currently Using CPAP: No Currently Using BIPAP: No Coronary Artery Disease, Hypertension Reproductive Disorders: No Sexually Transmitted Disease: No HIV/AIDS: No Gastroesophageal Reflux Arthritis Loss of Vision: Denies Hearing Impairment: Denies Skin Adverse Reaction/Blood Tranf: No Family Medical History Alzheimer's disease 19 FATHER Arthritis 19 MOTHER G8 SISTER Cardiovascular disease 19 MOTHER Cataracts 19 MOTHER Dementia 19 FATHER Diabetes mellitus 19 MOTHER G8 SISTER Hypercholesterolemia 19 MOTHER G8 SISTER Hypertension 19 MOTHER G8 SISTER G8 SISTER Visual disorder G8 SISTER Heart Disease, Diabetes, Hypertension Physical Exam Vital Signs Vital Signs - First Documented 11/22/21 07:11 Temp 36.4 Pulse 62 Resp 16 B/P (MAP) 177/96 (123) Pulse Ox 97 O2 Delivery Room Air Capillary Refill : Less Than 3 Seconds Height, Weight, BMI Height: 6'0.00" Weight: 241lbs. oz. 109.844774uz; 31.00 BMI Method: General Appearance: No Apparent Distress, WD/WN Eyes: Bilateral Eye Normal Inspection, Bilateral Eye PERRL, Bilateral Eye EOMI HEENT: PERRL/EOMI Neck: Normal Inspection, Non Tender Respiratory: Lungs Clear, Normal Breath Sounds, No Accessory Muscle Use, No Respiratory Distress Cardiovascular: Regular Rate, Rhythm, Normal Peripheral Pulses Gastrointestinal: Soft, Tenderness (slight suprapubic discomfort on palpation) Genital/Rectal: Other (no sadlle anesthesia) Back: No Vertebral Tenderness, Other (patient has leg tremors with straight leg raise bilaterally but able to hold legs up for needed duration; normal dorsiflexion of great toes bilaterally; equal sensation; he is apprehensive with reflex testing and i am unable to get good DTR's;) Extremity: Normal Capillary Refill, Normal Inspection, Normal Range of Motion Neurologic/Psychiatric: Alert, Oriented x3, No Motor/Sensory Deficits, Normal Mood/Affect, dye tank tender II-XII Norm as Tested Skin: Normal Color, Warm/Dry Progress/Results/Core Measures Suspected Sepsis SIRS Temperature: Pulse: 62 Respiratory Rate: 16 Laboratory Tests 11/22/21 08:00: White Blood Count 9.0 Blood Pressure 177 /96 Mean: 123 Laboratory Tests 11/22/21 08:00: Creatinine 2.04H, Platelet Count 141, Total Bilirubin 0.6 Results/Orders Lab Results Laboratory Tests Test 11/22/21 07:40 11/22/21 08:00 11/22/21 08:08 Range/Units SARS-CoV-2 RNA (RT-PCR) Not Detected Not Detecte White Blood Count 9.0 4.3-11.0 10^3/uL Red Blood Count 3.97 L 4.30-5.52 10^6/uL Hemoglobin 13.1 L 13.3-17.7 g/dL Hematocrit 38 L 40-54 % Mean Corpuscular Volume 96 80-99 fL Mean Corpuscular Hemoglobin 33 25-34 pg Mean Corpuscular Hemoglobin Concent 34 32-36 g/dL Red Cell Distribution Width 12.7 10.0-14.5 % Platelet Count 141 130-400 10^3/uL Mean Platelet Volume 10.0 9.0-12.2 fL Immature Granulocyte % (Auto) 1 % Neutrophils (%) (Auto) 76 H 42-75 % Lymphocytes (%) (Auto) 10 L 12-44 % Monocytes (%) (Auto) 11 0-12 % Eosinophils (%) (Auto) 2 0-10 % Basophils (%) (Auto) 0 0-10 % Neutrophils # (Auto) 6.9 1.8-7.8 10^3/uL Lymphocytes # (Auto) 0.9 L 1.0-4.0 10^3/uL Monocytes # (Auto) 1.0 0.0-1.0 10^3/uL Eosinophils # (Auto) 0.2 0.0-0.3 10^3/uL Basophils # (Auto) 0.0 0.0-0.1 10^3/uL Immature Granulocyte # (Auto) 0.1 0.0-0.1 10^3/uL Sodium Level 135 135-145 MMOL/L Potassium Level 4.5 3.6-5.0 MMOL/L Chloride Level 105 98-107 MMOL/L Carbon Dioxide Level 19 L 21-32 MMOL/L Anion Gap 11 5-14 MMOL/L Blood Urea Nitrogen 31 H 7-18 MG/DL Creatinine 2.04 H 0.60-1.30 MG/DL Estimat Glomerular Filtration Rate 33 BUN/Creatinine Ratio 15 Glucose Level 118 H 70-105 MG/DL Calcium Level 9.6 8.5-10.1 MG/DL Corrected Calcium 9.7 8.5-10.1 MG/DL Total Bilirubin 0.6 0.1-1.0 MG/DL Aspartate Amino Transf (AST/SGOT) 42 H 5-34 U/L Alanine Aminotransferase (ALT/SGPT) 22 0-55 U/L Alkaline Phosphatase 105 40-136 U/L Total Protein 7.2 6.4-8.2 GM/DL Albumin 3.9 3.2-4.5 GM/DL Urine Color YELLOW Urine Clarity CLEAR Urine pH 6.0 5-9 Urine Specific [place] 1.020 1.016-1.022 Urine Protein 1+ H NEGATIVE Urine Glucose (UA) NEGATIVE NEGATIVE Urine Ketones NEGATIVE NEGATIVE Urine Nitrite NEGATIVE NEGATIVE Urine Bilirubin NEGATIVE NEGATIVE Urine Urobilinogen 0.2 < = 1.0 MG/DL Urine Leukocyte Esterase NEGATIVE NEGATIVE Urine RBC (Auto) NEGATIVE NEGATIVE Urine RBC RARE /HPF Urine WBC NONE /HPF Urine Squamous Epithelial Cells RARE /HPF Urine Crystals NONE /LPF Urine Bacteria NEGATIVE /HPF Urine Casts NONE /LPF Urine Mucus SMALL H /LPF Urine Culture Indicated NO My Orders Orders - SHAUNNA REES MD Metoprolol Succinate (Xl) Tab (Toprol Xl (11/22/21 07:45) Ed Iv/Invasive Line Start (11/22/21 07:37) Cbc With Automated Diff (11/22/21 07:37) Comprehensive Metabolic Panel (11/22/21 07:37) Ua Culture If Indicated (11/22/21 07:37) Covid 19 Inhouse Test (11/22/21 07:37) Isolation Central Supply Req (11/22/21 07:37) Mri Lumbar Spine W/O Contrast (11/22/21 08:54) Tick Panel With Lyme Eia (11/22/21 11:01) Doxycycline Hyclate Tablet (Vibramycin T (11/22/21 11:07) Medications Given in ED Current Medications Medications Dose Ordered Sig/Michelle Route Start Time Stop Time Status Last Admin Dose Admin Metoprolol Succinate 100 mg ONCE ONCE PO 11/22/21 07:45 11/22/21 07:46 DC 11/22/21 08:21 100 MG Vital Signs/I&O 11/22/21 07:11 Temp 36.4 Pulse 62 Resp 16 B/P (MAP) 177/96 (123) Pulse Ox 97 O2 Delivery Room Air Capillary Refill : Less Than 3 Seconds Blood Pressure Mean: 123 Progress Note #1: Time: 08:53 Progress Note Case discussed with Dr Aranda; states that she believes with worsening weakness and inability to hold himself standing that he needs emergent MRI from ED. Progress Note #2: Time: 11:07 Progress Note Reevaluated patient he is sitting comfortably at the side of the bed but still has that feeling of weakness to the bilateral lower extremities. I talked to him about possible tick bite, he does not actually recall one but does recall a mechanism for which he might of injured his back last Sunday. He states he pulled up for large tomato plants. He states he thinks that is the point at which his back started hurting. I talked to him about treatment with doxycycline with 1 dose here in the emergency room for tick related illness. We will draw tick panel. I am going to talk to Dr. Cunningham for rehab admission for strengthening as he says that he cannot stand at home and take care of ADLs. [address] Cunningham - she accepts to inpatient rehab Departure Communication (Admissions) Time/Spoke to Admitting Phy: 11:[address] Cunningham Impression Primary Impression: Back pain Qualified Codes: M54.50 - Low back pain, unspecified Additional Impressions: Paresthesia of both hands Paresthesia of both lower extremities Bilateral leg weakness Disposition: 09 ADMITTED INPATIENT Condition: Stable Admissions Decision to Admit Reason: Admit from ER (General) Decision to Admit/Date: Nov 22, 2021 Time/Decision to Admit Time: 11:14 Departure-Patient Inst. Referrals: GUERLINE ARANDA MD (PCP/Family) Primary Care Physician Copy Copies To 1: GUERLINE ARANDA MD, KATHRYN M MD Nov 22, 2021 07:44
[2021-11-22 08:17] LABS: BASOPHILS % (AUTO) 0 % (0-10); EOSINOPHILS # (AUTO) 0.2 10^3/uL (0.0-0.3); EOSINOPHILS % (AUTO) 2 % (0-10); HEMATOCRIT 38 % (40-54); HEMOGLOBIN 13.1 g/dL (13.3-17.7); LYMPHOCYTES # (AUTO) 0.9 10^3/uL (1.0-4.0); LYMPHOCYTES % (AUTO) 10 % (12-44); MEAN CORPUSCULAR HEMOGLOBIN 33 pg (25-34); MEAN CORPUSCULAR HGB CONC 34 g/dL (32-36); MEAN CORPUSCULAR VOLUME 96 fL (80-99); MONOCYTES % (AUTO) 11 % (0-12); NEUTROPHILS # (AUTO) 6.9 10^3/uL (1.8-7.8); NEUTROPHILS % (AUTO) 76 % (42-75); PLATELET COUNT 141 10^3/uL (130-400)
[2021-11-22 08:23] LABS: ALBUMIN 3.9 GM/DL (3.2-4.5)
[2021-11-22 08:24] LABS: POTASSIUM 4.5 MMOL/L (3.6-5.0)
[2021-11-22 08:25] LABS: CALCIUM 9.6 MG/DL (8.5-10.1)
[2021-11-22 08:26] LABS: TOTAL PROTEIN 7.2 GM/DL (6.4-8.2)
[2021-11-22 08:28] LABS: BILIRUBIN,TOTAL 0.6 MG/DL (0.1-1.0)
[2021-11-22 08:30] LABS: CREATININE SERUM 2.04 MG/DL (0.60-1.30)
[2021-11-22 08:34] LABS: BILIRUBIN,URINE NEGATIVE (NEGATIVE); CLARITY,URINE CLEAR; COLOR,URINE YELLOW; GLUCOSE, URINE (UA) NEGATIVE (NEGATIVE); KETONES,URINE NEGATIVE (NEGATIVE); LEUKOCYTE ESTERASE ,URINE NEGATIVE (NEGATIVE); NITRITE,URINE NEGATIVE (NEGATIVE); PROTEIN,URINE 1+ (NEGATIVE)
[2021-11-22 08:45] LABS: BACTERIA,URINE NEGATIVE /HPF; RBC,URINE RARE /HPF; SQUAMOUS EPITHELIAL CELL,UR RARE /HPF
--- NOTE | 2021-11-22 10:19 | Diagnostic Imaging Report ---
PROCEDURE: MRI lumbar spine. TECHNIQUE: Multiplanar, multisequence MRI of the lumbar spine was performed without contrast. INDICATION: While bending and lifting experienced acute onset low back pain. Compared with lumbar MR dated 07/21/2020. FINDINGS: Lumbar vertebral statures are stable and normal. The alignment is unremarkable. No compression deformity or other fracture pattern is found. There are improvements in the degenerative Modic type I marrow edema across the L3-L4 articular endplates with some new mild Modic type I edematous changes at the anteroinferior endplate of T12. Acute appearing bony abnormality is not identified and the conus appeared unremarkable and there is normal dispersal pattern of the nerves of the cauda equina. No paravertebral mass, hemorrhage or fluid collection. Multilevel mid to lower lumbar laminectomies chronic without fluid collection. T12-L1: There is some increased anterior osteophyte disc material but no resultant stenosis. L1-L2: Disc desiccation stature loss with anterior greater than posterior osteophyte disc material unchanged and no resultant stenosis. L2-L3: Decompressive laminectomy present. The canal widely patent. There is no substantial foraminal or recess encroachment with mild diffuse desiccated disc bulge and endplate osteophytes stable. L3-L4: The canal decompressed by laminectomy. No significant canal or recess stenosis. There is endplate osteophytes and bulging disc material resulting in moderate left and mild right neural foraminal narrowing not significantly changed. L4-L5: There is decompression with laminectomy. There is mild canal stenosis stable. There is mild left greater than right lateral recess impingement stable. There is bulky hypertrophic facet arthrosis chronic. There is disc desiccation, disc bulge and endplate osteophytes resulting in [id number] right and mild left foraminal narrowing perhaps mildly increased. L5-S1: There is disc desiccation, stature loss and endplate osteophytes and facet arthrosis. There is a moderate degree of left greater than right lateral recess impingement owing to the facet overgrowth unchanged. There is moderate to severe chronic canal stenosis stable. There is mild left and mild right neural foraminal stenoses stable. IMPRESSION: 1. Mild progressive truong-lumbar degenerative changes with multilevel stenoses of varying severity as detailed level by level above. 2. However, no acute or posttraumatic abnormalities identified. Alignment stable. No fracture. Dictated by: Dictated on workstation # [id number]
[2021-11-22] MEDS ORDERED: DOXYCYCLINE 100 MG (VIBRAMYCIN) TABLET PO STA (11:07)
[2021-11-22] MEDS ORDERED: HYDROcodone/APAP 5 MG/325 MG (LORTAB) TAB PO ONE (12:15)
--- NOTE | 2021-11-22 12:51 | Progress Note ---
Progress Note SUBJECTIVE CC: Low back pain HPI: PMH: PSH: ALL: MEDS: SH: FH: ROS: OBJECTIVE Cardiovascular: Pulmonary: Abdomen: UE: LE: Lab: Assessment and Plan AI SIMON Nov 22, 2021 12:51
[2021-11-22 12:55] VITALS: BP 137/77
[2021-11-22] MEDS ORDERED: GABA300C PO (16:48)
[2021-11-22] MEDS ORDERED: MTP100TCR PO (16:48)
[2021-11-22] MEDS ORDERED: ROSU5TAB13 PO (16:48)
[2021-11-22] MEDS ORDERED: OXYM30SP25 NSEACH (16:48)
[2021-11-22] MEDS ORDERED: UBID100C17 PO (16:48)
[2021-11-22] MEDS ORDERED: ASPI-999 PO (16:48)
[2021-11-22] MEDS ORDERED: TMSL.4C PO (16:48)
[2021-11-22] MEDS ORDERED: OMEG100032 PO (16:48)
[2021-11-22] MEDS ORDERED: VITA-189 PO (16:48)
== END 2021-11-22 12:55 | disposition other institution (70) ==
LOC: EDUNIT# 07:03 → ER 07:05
DX: M54.50 Low back pain, unspecified (principal); R20.2 Paresthesia of skin; R53.1 Weakness; I12.9 Hypertensive chronic kidney disease with stage 1 through stage 4 chronic kidney disease, or unspecified chronic kidney disease; N18.9 Chronic kidney disease, unspecified; Z98.890 Other specified postprocedural states; Z20.822 Contact with and (suspected) exposure to COVID-19; Z79.899 Other long term (current) drug therapy
CPT/HCPCS: 36415; 72148; 80053; 81000; 85025; 86618; 86666; 86668; 86757; 87636

== ENCOUNTER 2021-11-22 11:15 | Inpatient (IN) | payer MEDICARE, OTHER ==
[~2021-11-22] VITALS: Ht 182.9 cm; Wt 104.0 kg
[2021-11-22 13:00] VITALS: BP 163/88
[2021-11-22] MEDS ORDERED: ONDANSETRON 4 MG (ZOFRAN) ORAL DISSOLVE TAB PO PRN (13:45)
[2021-11-22] MEDS ORDERED: diphenhydrAMINE 25 MG TAB (BENADRYL) PO PRN (13:45)
[2021-11-22] MEDS ORDERED: guaiFENesin/CODEINE (ROBITUSSIN AC) 10ML UDC PO PRN (13:45)
[2021-11-22] MEDS ORDERED: LOPERAMIDE 2 MG (IMODIUM) TABLET PO PRN (13:45)
[2021-11-22] MEDS ORDERED: FLEET ENEMA ADULT 1 EA BTL PR PRN (13:45)
[2021-11-22] MEDS ORDERED: LACTULOSE SYRUP 10GM/15ML (ENULOSE) 30ML UDC PO PRN (13:45)
[2021-11-22] MEDS ORDERED: DOCUSATE SODIUM 100 MG (COLACE) CAP PO PRN (13:45)
[2021-11-22] MEDS ORDERED: BISACODYL 10 MG SUPP (DULCOLAX) PR PRN (13:45)
[2021-11-22] MEDS ORDERED: ACETAMINOPHEN 325 MG TABLET PO PRN (13:45)
--- NOTE | 2021-11-22 13:47 | PM&R Post Admission Assessment ---
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 He came to ER last week for leg pain and Gabapentin was increased but that did not help the progressive weakness. He remains a fall risk. Bowels are not moving so laxatives ordered. Labs reviewed from ER. Debility is severe and needs aggressive therapy in order to return home to independent living. SUBJECTIVE CC: Lower back pain HPI: Patient is a 76yo male who presented to the ED today with a chief complaint of low back pain that radiates into his hips bilaterally. He also expressed that he had numbness into his legs and lower extremity weakness. He was in the ED within the past week with similar complaints at which time his gabapentin was increased from 300mg BID to 600mg BID. The patient claimed that the lower back pain began last (11/17) while picking tomatoes in his garden. This morning, prior to his current admission, he experienced an episode in which his legs felt so weak that he fell while standing on his porch. He is currently admitted to the rehab floor and was working with PT when I spoke with him. PMH: Acute Renal Insufficiency Chest Pain HTN ACS CKD, stage 3 Neuropathic pain of UE+LE Parasthesia of both hands+LE Back pain Bilateral leg weakness PSH: 3 back surgeries Heart surgery ALL: Penicillins MEDS: Tylenol 650mg Q6H PRN PO Xanax tablet 0.25mg Q8H PRN PO Dulcolax 10mg daily PRN Antacid Chewable 500mg TID PRN PO Benadryl Tablet 25mg Q6H PRN PO Colace Capsule 100mg BID PO Lovenox 40mg Q24H SC Robitussin (Codeine) 10ml Q4H PRN PO Enulose 10gm BID PRN Imodium 2mg PRN PO Melatonin 3mg HS PRN PO Zofran 4mg Q6H PRN PO Miralax 17gm BID PO Senna 1ea BID PO Fleet enema 1ea BID PRN Gabapentin 600mg PO BID SH: No tobacco No recreational drugs 1 drink a week FH: Father: Alzheimers dementia Mother: CVD. Diabetes. Hypercholesterolemia. HTN. Arthritis Sister: 2 sisters with HTN. Sister with diabetes, hypercholesterolemia ROS: No abdominal pain. No chest pain. No shortness of breath. OBJECTIVE Cardiovascular: Heart rate and rhythm normal. No murmurs, rubs, gallops Pulmonary Lungs clear bilaterally. Normal breath sounds. No accessory muscle use, no added work of breathing. Abdomen Abdomen soft and non-tender. Normal bowel sounds. LE Sensation intact b/l No pedal edema 2+ dorsalis pedis pulse b/l Labs: Chemistry: BUN=31 Cr=2.04 AST=42 Hm=188 K=4.5 Ig=787 CO2=19 Takeioe=582 CBC: WBC=8.0 HGB=13.1 HCT=38 JSO=713 Imaging: [facility]. [place], [place] NAME: IRAIDAALEX E MED REC#: [id number] PT STATUS: REG ER : 1945 PHYSICIAN: SHAUNNA REES MD ADMIT DATE: 11/22/21/ER Draft Date of Exam:11/22/21 MRI LUMBAR SPINE W/O CONTRAST PROCEDURE: MRI lumbar spine. TECHNIQUE: Multiplanar, multisequence MRI of the lumbar spine was performed without contrast. INDICATION: While bending and lifting experienced acute onset low back pain. Compared with lumbar MR dated 07/21/2020. FINDINGS: Lumbar vertebral statures are stable and normal. The alignment is unremarkable. No compression deformity or other fracture pattern is found. There are improvements in the degenerative Modic type I marrow edema across the L3-L4 articular endplates with some new mild Modic type I edematous changes at the anteroinferior endplate of T12. Acute appearing bony abnormality is not identified and the conus appeared unremarkable and there is normal dispersal pattern of the nerves of the cauda equina. No paravertebral mass, hemorrhage or fluid collection. Multilevel mid to lower lumbar laminectomies chronic without fluid collection. T12-L1: There is some increased anterior osteophyte disc material but no resultant stenosis. L1-L2: Disc desiccation stature loss with anterior greater than posterior osteophyte disc material unchanged and no resultant stenosis. L2-L3: Decompressive laminectomy present. The canal widely patent. There is no substantial foraminal or recess encroachment with mild diffuse desiccated disc bulge and endplate osteophytes stable. L3-L4: The canal decompressed by laminectomy. No significant canal or recess stenosis. There is endplate osteophytes and bulging disc material resulting in moderate left and mild right neural foraminal narrowing not significantly changed. L4-L5: There is decompression with laminectomy. There is mild canal stenosis stable. There is mild left greater than right lateral recess impingement stable. There is bulky hypertrophic facet arthrosis chronic. There is disc desiccation, disc bulge and endplate osteophytes resulting in uxzs-ob-mdrticta right and mild left foraminal narrowing perhaps mildly increased. L5-S1: There is disc desiccation, stature loss and endplate osteophytes and facet arthrosis. There is a moderate degree of left greater than right lateral recess impingement owing to the facet overgrowth unchanged. There is moderate to severe chronic canal stenosis stable. There is mild left and mild right neural foraminal stenoses stable. IMPRESSION: 1. Mild progressive truong-lumbar degenerative changes with multilevel stenoses of varying severity as detailed level by level above. 2. However, no acute or posttraumatic abnormalities identified. Alignment stable. No fracture. Dictated on workstation # [id number] Dict: 11/22/21 1005 Trans: 11/22/21 1019 [id number] Interpreted by: NELLY CHAUDHARI ASSESSMENT AND PLAN Peripheral neuropathy and weakness of LE Continue working with rehab to improve strength and function Continue gabapentin 600mg BID to monitor for pain improvement Meeting with rehab staff on Sunday (11/23) to discuss care CKD, Stage 3 Monitor electrolytes with morning labs Monitor BUN/Cr Past Wnqyrns-Mppxry-Qygtlj Hx Past Med/Social Hx: Reviewed Nursing Past Med/Soc Hx, Reviewed and Corrections made Patient Social History Marrital Status: Employed/Student: employed Alcohol Use: Denies Use Smoking Status: Never a Smoker 2nd Hand Smoke Exposure: No Immunizations Up To Date Tetanus Booster (TDap): More than 5yrs Pediatric: Yes Seasonal Allergies Seasonal Allergies: No Past Medical History Surgeries: Orthopedic Currently Using CPAP: No Currently Using BIPAP: No Cardiac: Coronary Artery Disease, Hypertension Reproductive: No Sexually Transmitted Disease: No HIV/AIDS: No Genitourinary: Renal Failure Gastrointestinal: Gastroesophageal Reflux Musculoskeletal: Arthritis Loss of Vision: Denies Hearing Impairment: Denies Cancer: Skin Adverse Reaction to Blood Hickman: No Family History Alzheimer's disease 19 FATHER Arthritis 19 MOTHER G8 SISTER Cardiovascular disease 19 MOTHER Cataracts 19 MOTHER Dementia 19 FATHER Diabetes mellitus 19 MOTHER G8 SISTER Hypercholesterolemia 19 MOTHER G8 SISTER Hypertension 19 MOTHER G8 SISTER G8 SISTER Visual disorder G8 SISTER Heart Disease, Diabetes, Hypertension PM&R Allergy/Meds/Data Review Allergies Coded Allergies: Penicillins (Verified Allergy, Unknown, 07/09/08) Home Medications Scheduled Allopurinol (Allopurinol), 100 MG PO DAILY, (Reported) Aspirin (Aspirin), 81 MG PO DAILY, (Reported) Gabapentin (Neurontin), 600 MG PO BID, (Reported) Losartan Potassium (Losartan Potassium), 25 MG PO HS, (Reported) Metoprolol Succinate (Metoprolol Succinate), 100 MG PO DAILY, (Reported) [place]-3/Dha/Epa/Fish Oil (Fish Oil 1,000 mg Softgel), 1,000 MG PO DAILY, (Reported) Rosuvastatin Calcium (Rosuvastatin Calcium), 5 MG PO HS, (Reported) Tamsulosin HCl (Flomax), 0.4 MG PO HS, (Reported) Ubidecarenone (Coq-10), 100 MG PO DAILY, (Reported) Vitamin B Complex (B Complex), 1 EACH PO DAILY, (Reported) Scheduled PRN Oxymetazoline HCl (Afrin), 1 SPRAY NSEACH UD PRN for CONGESTION, (Reported) Discontinued Medications Acetaminophen (Acetaminophen), 1,000 MG PO BID Discontinued Reason: No Longer Taking Fish Oil/Dha/Epa (Fish Oil 1,200 mg Fish Oil), 1 EACH PO DAILY, (Reported) Discontinued Reason: No Longer Taking Gabapentin (Gabapentin), 300 MG PO BID, (Reported) Discontinued Reason: Duplicate Order Gabapentin (Gabapentin), 600 MG PO BID Discontinued Reason: Duplicate Order Lisinopril (Lisinopril), 20 MG PO DAILY Discontinued Reason: No Longer Taking Metoprolol Succinate (Metoprolol Succinate), 100 MG PO DAILY Discontinued Reason: Duplicate Order Nitroglycerin (Nitrostat), 0.4 MG SL PRN PRN for CHEST PAIN Discontinued Reason: No Longer Taking Terazosin HCl (Terazosin HCl), 2 MG PO DAILY, (Reported) Discontinued Reason: No Longer Taking Tramadol HCl (Tramadol HCl), 50 MG PO Q6H PRN for PAIN Discontinued Reason: No Longer Taking Ubidecarenone (Coq-10), 100 MG PO DAILY, (Reported) Discontinued Reason: Duplicate Order Current Medications Current Medications Reviewed Review of Systems Constitutional: see HPI, dizziness, malaise, weakness EENTM: no symptoms reported Respiratory: no symptoms reported Cardiovascular: no symptoms reported Gastrointestinal: no symptoms reported Genitourinary: no symptoms reported Musculoskeletal: back pain, joint pain, muscle pain, muscle stiffness Skin: no symptoms reported Psychiatric/Neurological: Anxiety All Other Systems Reviewed Negative Unless Noted: Yes Physical Exam Physical Exam Vital Signs Capillary Refill : Height, Weight, BMI Height: 6'0.00" Weight: 241lbs. oz. [phone]; 31.00 BMI Method: General Appearance: No Apparent Distress, WD/WN, Chronically ill Eyes: Bilateral Eye Normal Inspection, Bilateral Eye PERRL HEENT: PERRL/EOMI, Normal ENT Inspection, Pharynx Normal Neck: Full Range of Motion, Normal Inspection, Non Tender, Supple, Carotid Bruit Respiratory: Chest Non Tender, Lungs Clear, Normal Breath Sounds, No Accessory Muscle Use, No Respiratory Distress Cardiovascular: Regular Rate, Rhythm, No Edema, No Gallop, No JVD, No Murmur, Normal Peripheral Pulses Gastrointestinal: Normal Bowel Sounds, No Organomegaly, No Pulsatile Mass, Non Tender, Soft Back: Normal Inspection, No CVA Tenderness, No Vertebral Tenderness Extremity: Normal Capillary Refill, Normal Inspection, Normal Range of Motion, Non Tender, No Calf Tenderness, No Pedal Edema Neurologic/Psychiatric: Alert, Oriented x3, Normal 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, 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 Norm as Tested, Abnormal Gait, Motor Weakness (severe weakness of legs 3/5) Skin: Normal Color, Warm/Dry Lymphatic: No Adenopathy PM&R Medical Assessment & Plan REHAB/MEDICAL ASSESSMENT AND PLAN: REHAB IMPAIRMENT GROUP: Debility ETIOLOGIC DIAGNOSIS: Debility The comorbidities that impact the patients function and/or functional outcome by: advanced age, severe leg weakness, CKD, HTN REHAB PLAN: The patient is being admitted to our comprehensive inpatient rehabilitation facility and can tolerate the intensity of service consisting of at least: 180 minutes of therapy a day, 5 out of 7 days a week Rehab treatment will consist of: PT OT will focus on regaining function in order to work on ambulation stamina and ADL's in order to return to independent living The patient/family has a good understanding of our discharge process and will benefit from an interdisciplinary inpatient rehabilitation program. The patient has potential to make improvement and is in need of at least two of the foll owing multidisciplinary therapies including but not limited to physical, occupational, speech, and prosthetics and orthotics. Additionally the patient will need services from respiratory, nutritional services, wound care, psychology, etc. (Customize this to each patient). Given the patients complex condition and risk of further medical complications, rehabilitation services cannot be safely or effectively provided at a lower level of care such as a custodial facility. BARRIERS TO DISCHARGE: Weakness ESTIMATED LOS: 7 days DISPOSITION: Home RELEVANT CHANGES SINCE PREADMISSION SCREENING: I have compared the patients medical and functional status at the time of the preadmission screening and there are: no changes PROGNOSIS: Good REHABILITATION GOALS: 1.PT OT will focus on regaining function in order to work on ambulation stamina and ADL's in order to return to independent living All the above goals were reviewed with the patient and he/she is in agreement. By signing this document, I acknowledge that I have personally performed a full physical examination on this patient within 24 hours of admission to this inpatient rehabilitation facility and have determined the patient to be able to tolerate the above course of treatment at an intensive level for a reasonable period of time. I will be completing a detailed individualized Plan of Care for this patient by day #4 of the patients stay based upon the Preadmission Screen, the Post-Admission Evaluation, and the therapy evaluations. Admission Dx/Comorbidities: (1) Bilateral leg weakness Status: Acute ICD Codes: R29.898 - Other symptoms and signs involving the musculoskeletal system (2) Paresthesia of both lower extremities Status: Acute ICD Codes: R20.2 - Paresthesia of skin (3) Paresthesia of both hands Status: Acute ICD Codes: R20.2 - Paresthesia of skin (4) Neuropathic pain of both legs Status: Acute ICD Codes: G57.93 - Unspecified mononeuropathy of bilateral lower limbs (5) Neuropathic pain of upper extremity Status: Acute ICD Codes: M79.2 - Neuralgia and neuritis, unspecified (6) Chronic kidney disease, stage 3 Status: Acute ICD Codes: N18.3 - Chronic kidney disease, stage 3 (7) 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 Status: Acute ICD Codes: I13.10 - 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; N18.3 - Chronic kidney disease, stage 3 (moderate) (8) Presence of stent in LAD coronary artery Status: Acute ICD Codes: Z95.5 - Presence of stent in LAD coronary artery (9) Presence of stent in right coronary artery Status: Acute ICD Codes: Z95.5 - Presence of stent in right coronary artery Assessment/Plan Assessment and Plan Assess & Plan/Chief Complaint Assessment: Severe leg weakness Back pain CKD Stage III HTN CAD HLP Gout Constipation Plan: Pain control PT OT Monitor closely Home meds GUSTAVO SALAZAR DO Nov 22, 2021 13:47
--- NOTE | 2021-11-22 13:49 | Physical Therapy Evaluation ---
PT Evaluation-General Medical Diagnosis Admission Date Nov 22, 2021 at 13:00 Medical Diagnosis: LBP, falls Onset Date: Nov 11, 2021 Therapy Diagnosis Therapy Diagnosis: Gait deficit, strength deficit Height/Weight Height (Feet): 6 Height (Inches): 0.00 Weight (Pounds): 241 Precautions Precautions/Isolations: Fall Prevention Weight Bear Status Right Lower Extremity: Right Full Weight Bearing Left Lower Extremity: Left Full Weight Bearing Referral Physician: Dr. Cunningham Reason for Referral: Evaluation/Treatment Medical History Pertinent Medical History: Back Injury Reviewed History: Yes Social History Home: [facility] Current Living Status: Spouse Entry Into Home: Elevator, Stairs Without Railing PT Steps Into Home: 3 PT Steps Inside Home: 15 Prior Prior Level of Function SCALE: Activities may be completed with or without assistive devices. 9-Ehwidvkjyj-rjsaemj completes the activity by him/herself with no assistance from a helper. 5-Set-up or Clean-up Assistance-helper sets up or cleans up; patient completes activity. [place] assists only prior to or following the activity. 4-Supervision or Touching Assistance-helper provides verbal cues and/or touching/steadying and/or contact guard assistance as patient completes activity. Assistance may be provided throughout the activity or intermittently. 3-Partial/Moderate Assistance-helper does LESS THAN HALF the effort. [place] lifts, holds or supports trunk or limbs, but provides less than half the effort. 2-Substantial/Maximal Assistance-helper does MORE THAN HALF the effort. [place] lifts or holds trunk or limbs and provides more than half the effort. 8-Mxqffexoo-qqrduv does ALL the effort. Patient does none of the effort to complete the activity. Or, the assistance of 2 or more helpers is required for the patient to complete the activity. If activity was not attempted, code reason: 7-Patient Refused. 9-Not Applicable-not attempted and the patient did not perform the activity before the current illness, exacerbation or injury. 10-Not Attempted due to Environmental Limitations-(lack of equipment, weather restraints, etc.). 88-Not Attempted due to Medical Conditions or Safety Concerns. Bed Mobility: 6 Transfers (B,C,W/C): 6 Gait: 6 Stairs: 6 Indoor Mobility (Ambulation): Independent Stairs: Independent Prior Devices Use: Walker PT Evaluation-Current Subjective Patient sitting on edge of bed upon PT arrival, agreeable to treatment. Patient reports 0/10 pain currently but notes his back was hurting prior to nurse administering pain medicine in the ER. Objective Patient Orientation: Person, Place, Time, Situation Attachments: IV ROM/Strength ROM Lower Extremities WFLs bilaterally all planes Strength Lower Extremities Right 4-/5 all planes; Left 3/5 all planes Neuromuscular (Tone, Coordination, Reflexes) intact bilaterally however left LE strength deficit limits motions compared to right LE. Sensory Vision: Wears Glasses Hearing: Functional Sensation Right Lower Extremit: Intact Sensation Left Lower Extremity: Intact Transfers Roll Left & Right (QC): 4 Sit to Lying (QC): 4 Lying to Sitting/Side of Bed(Q: 4 Sit to Stand (QC): 3 Chair/Xen-ed-Rdvvg Xfer(QC): 4 Toilet Transfer (QC): 4 Car Transfer (QC): 4 Gait Does the Patient Walk?: Yes Mode of Locomotion: Walk Anticipated Mode of Locomotion: Walk Walk 10 feet (QC): 4 Walk 50 ft with 2 Turns(QC): 4 Walk 150 ft (QC): 88 Walking 10ft/uneven surface-QC: 4 Distance: 75 feet x 2 Gait Assistive Device: FWW Wheelchair Training Does the Pt Use a Wheelchair?: No Wheel 50 ft with 2 turns (QC): 9 Wheel 150 ft (QC): 9 Stairs #of Steps: 12 1 Step (curb) (QC): 4 4 Steps (QC): 4 12 Steps (QC): 4 Balance Sitting Static: Normal Sitting Dynamic: Normal Standing Static: Fair Standing Dynamic: Poor Picking up an Object (QC): 6 Assessment/Needs Patient tolerated treatment and evaluation well. Reports no increase in LBP during the session. Patient was co-treated by PT/OT with PT focus on gait, balance, LE and core strength, OT focused on ADLs, dressing, bathing, and toileting. Patient performs all observed bed mobility with CGA and sit to stand with min A, all other transfers with CGA. Patient ambulates 75 feet x 2, performs functional transfer training and 4 steps, x 3 with CGA and use of bilateral Rails. Patient performed LE therapeutic exercise consisting of AP, LAQ, Marching x 20 each LE to increase strength and endurance. Performed Nu Step Level 3 x 10 minutes with UEs to increase vascularization and muscular endurance. Patient performs standing therapeutic activities with CGA and verbal cues safety, performance and posture. Patient in chair with OT post treatment. Rehab Potential: Good PT Medical Scribe Goals Medical Scribe Goals PT Medical Scribe Goals Time Frame: Dec 07, 2021 Roll Left & Right (QC): 6 Sit to Lying (QC): 6 Lying-Sitting on Side/Bed(QC): 6 Sit to Stand (QC): 6 Chair/Vmj-kd-Kjidp Xfer(QC): 6 Toilet Transfer (QC): 6 Car Transfer (QC): 6 Does the Patient Walk: Yes Walk 10 feet (QC): 6 Walk 50ft with 2 Turns (QC): 6 Walk 150 ft (QC): 6 Walking 10ft on Uneven Surface: 6 1 Step (curb) (QC): 6 4 Steps (QC): 6 12 Steps (QC): 6 Picking up an Object (QC): 6 Does the Pt use WC or Scooter?: No Wheel 50 feet with 2 turns (QC: 88 Wheel 150 feet: 88 PT Plan Problem List Problem List: Activity Tolerance, Functional Strength, Safety, Balance, Gait, Transfer, Bed Mobility, ROM Treatment/Plan Treatment Plan: Continue Plan of Care Treatment Plan: Bed Mobility, Education, Functional Activity Sherry, Functional Strength, Group Therapy, Gait, Safety, Therapeutic Exercise, Transfers Treatment Duration: Dec 16, 2021 Frequency: At least 5 of 7 days/Wk (IRF) Estimated Hrs Per Day: 1.5 hours per day Patient and/or Family Agrees t: Yes Safety Risks/Education Patient Education: Gait Training, Transfer Techniques Teaching Recipient: Patient Teaching Methods: Demonstration Response to Teaching: Verbalize Understanding Discharge Recommendations Plan Patient will be seen 5 of 7 days per week for treatment consisting of core ad LE strengthening, gait training, therapeutic exercise, therapeutic activity, NMRE, all with focus on improving the above listed functional deficits. Time/GCodes Time In: 1305 Time Out: 1445 Total Billed Treatment Time: 100 Total Billed Treatment Visit, SHILO Gonzales (2) Tyler Goldberg (2) ABHI JULIO PT Nov 22, 2021 13:49
--- NOTE | 2021-11-22 14:05 | Progress Note ---
AI SIMON 11/22/21 1404: Progress Note SUBJECTIVE CC: Lower back pain HPI: Patient is a 76yo male who presented to the ED today with a chief complaint of low back pain that radiates into his hips bilaterally. He also expressed that he had numbness into his legs and lower extremity weakness. He was in the ED within the past week with similar complaints at which time his gabapentin was increased from 300mg BID to 600mg BID. The patient claimed that the lower back pain began last (11/17) while picking tomatoes in his garden. This morning, prior to his current admission, he experienced an episode in which his legs felt so weak that he fell while standing on his porch. He is currently admitted to the rehab floor and was working with PT when I spoke with him. PMH: Acute Renal Insufficiency Chest Pain HTN ACS CKD, stage 3 Neuropathic pain of UE+LE Parasthesia of both hands+LE Back pain Bilateral leg weakness PSH: 3 back surgeries Heart surgery ALL: Penicillins MEDS: Tylenol 650mg Q6H PRN PO Xanax tablet 0.25mg Q8H PRN PO Dulcolax 10mg daily PRN Antacid Chewable 500mg TID PRN PO Benadryl Tablet 25mg Q6H PRN PO Colace Capsule 100mg BID PO Lovenox 40mg Q24H SC Robitussin (Codeine) 10ml Q4H PRN PO Enulose 10gm BID PRN Imodium 2mg PRN PO Melatonin 3mg HS PRN PO Zofran 4mg Q6H PRN PO Miralax 17gm BID PO Senna 1ea BID PO Fleet enema 1ea BID PRN Gabapentin 600mg PO BID SH: No tobacco No recreational drugs 1 drink a week FH: Father: Alzheimers dementia Mother: CVD. Diabetes. Hypercholesterolemia. HTN. Arthritis Sister: 2 sisters with HTN. Sister with diabetes, hypercholesterolemia ROS: No abdominal pain. No chest pain. No shortness of breath. OBJECTIVE Cardiovascular: Heart rate and rhythm normal. No murmurs, rubs, gallops Pulmonary Lungs clear bilaterally. Normal breath sounds. No accessory muscle use, no added work of breathing. Abdomen Abdomen soft and non-tender. Normal bowel sounds. LE Sensation intact b/l No pedal edema 2+ dorsalis pedis pulse b/l Labs: Chemistry: BUN=31 Cr=2.04 AST=42 Kj=190 K=4.5 Xy=385 CO2=19 Nbivaqq=258 CBC: WBC=8.0 HGB=13.1 HCT=38 PPJ=126 [facility] [place], [place] NAME: ALEX KHOURY REC#: [id number] PT STATUS: REG ER : 1945 PHYSICIAN: SHAUNNA REES MD ADMIT DATE: 11/22/21/ER Draft Date of Exam:11/22/21 MRI LUMBAR SPINE W/O CONTRAST PROCEDURE: MRI lumbar spine. TECHNIQUE: Multiplanar, multisequence MRI of the lumbar spine was performed without contrast. INDICATION: While bending and lifting experienced acute onset low back pain. Compared with lumbar MR dated 07/21/2020. FINDINGS: Lumbar vertebral statures are stable and normal. The alignment is unremarkable. No compression deformity or other fracture pattern is found. There are improvements in the degenerative Modic type I marrow edema across the L3-L4 articular endplates with some new mild Modic type I edematous changes at the anteroinferior endplate of T12. Acute appearing bony abnormality is not identified and the conus appeared unremarkable and there is normal dispersal pattern of the nerves of the cauda equina. No paravertebral mass, hemorrhage or fluid collection. Multilevel mid to lower lumbar laminectomies chronic without fluid collection. T12-L1: There is some increased anterior osteophyte disc material but no resultant stenosis. L1-L2: Disc desiccation stature loss with anterior greater than posterior osteophyte disc material unchanged and no resultant stenosis. L2-L3: Decompressive laminectomy present. The canal widely patent. There is no substantial foraminal or recess encroachment with mild diffuse desiccated disc bulge and endplate osteophytes stable. L3-L4: The canal decompressed by laminectomy. No significant canal or recess stenosis. There is endplate osteophytes and bulging disc material resulting in moderate left and mild right neural foraminal narrowing not significantly changed. L4-L5: There is decompression with laminectomy. There is mild canal stenosis stable. There is mild left greater than right lateral recess impingement stable. There is bulky hypertrophic facet arthrosis chronic. There is disc desiccation, disc bulge and endplate osteophytes resulting in aoqs-pp-vrebfttk right and mild left foraminal narrowing perhaps mildly increased. L5-S1: There is disc desiccation, stature loss and endplate osteophytes and facet arthrosis. There is a moderate degree of left greater than right lateral recess impingement owing to the facet overgrowth unchanged. There is moderate to severe chronic canal stenosis stable. There is mild left and mild right neural foraminal stenoses stable. IMPRESSION: 1. Mild progressive truong-lumbar degenerative changes with multilevel stenoses of varying severity as detailed level by level above. 2. However, no acute or posttraumatic abnormalities identified. Alignment stable. No fracture. Dictated on workstation # [id number] Dict: 11/22/21 1005 Trans: 11/22/21 1019 [id number] Interpreted by: NELLY CHAUDHARI ASSESSMENT AND PLAN Peripheral neuropathy and weakness of LE Continue working with rehab to improve strength and function Continue gabapentin 600mg BID to monitor for pain improvement Meeting with rehab staff on Sunday (11/23) to discuss care CKD, Stage 3 Monitor electrolytes with morning labs Monitor BUN/Cr ESTELLA SALAZAR DO 11/23/2127: Supervisory-Addendum Brief Verification & Attestation Participated in pt care: history, MDM, physical Personally performed: exam, history, MDM, supervision of care Care discussed with: Medical Student Procedures: n/a Results interpretation: Verified all documentation Verification and Attestation of Medical Student E/M Service A medical student performed and documented this service in my presence. I rev iewed and verified all information documented by the medical student and made modifications to such information, when appropriate. I personally performed the physical exam and medical decision making. Estella Salazar Nov 23, 2021,05:27 AI SIMON Nov 22, 2021 14:04 ESTELLA SALAZAR DO Nov 23, 2021 05:27
--- NOTE | 2021-11-22 14:18 | Occupational Therapy Eval ---
OT Evaluation-General/PLF Medical Diagnosis Admission Date Nov 22, 2021 at 13:00 Medical Diagnosis: LBP, falls Onset Date: Nov 11, 2021 Therapy Diagnosis Therapy Diagnosis: Reduced adl status, weakness, paresthesia Height/Weight Height (Feet): 6 Height (Inches): 0.00 Weight (Pounds): 241 Precautions Precautions/Isolations: Fall Prevention Referral Physician: Dr. Cunningham Referral Reason: Evaluation/Treatment Medical History Pertinent Medical History: Back Injury, CAD, HTN Current History Per patient, he hurt his back pulling tomato plants. He arrived to ER with c/o bilateral LE weakness, numbness, back pain and post fall at home. MRI reveals multilevel stenosis, no acute abnormalities identified. Pt states he lives with his in a multilevel home. All needs met on main level. Pt was indep with adls and his manages all iadls. Pt was not using any AD prior to admission, but he does own a walker. Reviewed History: Yes Social History Home: Multilevel Current Living Status: Spouse Entry Into Home: Stairs Without Railing Steps Into Home: 3 Steps Inside Home: 15 ADL-Prior Level of Function SCALE: Activities may be completed with or without assistive devices. 2-Nutvrqawme-thmdzvu completes the activity by him/herself with no assistance from a helper. 5-Set-up or Clean-up Assistance-helper sets up or cleans up; patient completes activity. [place] assists only prior to or following the activity. 4-Supervision or Touching Assistance-helper provides verbal cues and/or touching/steadying and/or contact guard assistance as patient completes activity. Assistance may be provided throughout the activity or intermittently. 3-Partial/Moderate Assistance-helper does LESS THAN HALF the effort. [place] lifts, holds or supports trunk or limbs, but provides less than half the effort. 2-Substantial/Maximal Assistance-helper does MORE THAN HALF the effort. [place] lifts or holds trunk or limbs and provides more than half the effort. 6-Hiounpsvp-jyjjwd does ALL the effort. Patient does none of the effort to com plete the activity. Or, the assistance of 2 or more helpers is required for the patient to complete the activity. If activity was not attempted, code reason: 7-Patient Refused. 9-Not Applicable-not attempted and the patient did not perform the activity before the current illness, exacerbation or injury. 10-Not Attempted due to Environmental Limitations-(lack of equipment, weather restraints, etc.). 88-Not Attempted due to Medical Conditions or Safety Concerns. Self Care: Independent Functional Cognition: Independent DME/Equipment: Bath Chair, Grab Bars, Shower Drive Self: Yes OT Current Status Subjective Pt reports back pain as 04/18. Co-treat with PT for part of treatment secondary to high fall risk, poor endurance, poor mobility, and need of 2 skilled clinicians to progress indep and safety with adls and functional mobility. Mental Status/Objective Patient Orientation: Person, Place, Situation Attachments: IV Current Glasses/Contacts: Yes Hearing Aids: No Dentures/Partials: Yes Hand Dominance: Right Upper Extremity ROM WFL Upper Extremity Coordination Fair dysdiadochokinesia Upper Extremity Strength L shoulder: 3/5, pt reports baseline from old injury R shoulder: 3+/5 Elbow-distally: 3+/5 Poor director product safety strength ADL-Treatment Eating (QC): 5 (per clinical judgment) Oral Hygiene (QC): 4 (CGA) Shower/Bathe Self (QC): 3 (min a balance only) Upper Body Dressing (QC): 4 Lower Body Dressing (QC): 3 On/Off Footwear (QC): 4 Toileting Hygiene (QC): 4 (CGA) Shower performed; majority completed in sitting. Min a for balance needed as pt stood to wash josefa area/buttocks. Cues to keep one hand on grab bar for improved balance. While sitting, pt able to wash all body parts without physical assistance. If performed at baseline (standing) pt would require at least min a for balance. Clothing donned seated on shower bench. Significant errors made when donning feet into shorts as pt frequently placed foot into wrong pant leg. He was able to identify mistake with extra time and fix without assistance, extra time only. Initial boost to stand from low surface. Once standing, min a needed as he removed BUE support during clothing management. Again, cues to alte rnate one hand on grab bar at a time. Poor carry over with cues throughout treatment. Prior to adls, education provided on eliminating bending as much as possible in effort to decrease pain. Good flexibility noted with pt able to perform figure 4 method. Due to weakness, he does require intermittent use of UE to lift and cross foot over contralateral knee. Grooming tasks performed in standing. CGA-min a needed for safety/balance. Pt does exhibit several small LOB during adls due to LE weakness but no significant knee buckling observed. Min- mod a needed to recover from all Losses of balance. Other Treatments Pt participated in therapeutic activity (SNAPP' pipe building) with focus on improving short term memory, problem solving, balance, standing tolerance/endurance, UE strengthening, and safety. Puzzle diagram placed ~10 feet away from building station. Post cues on compensatory memory strategies, pt able to recall 3-4 pieces at a time vs 1-2. Mod cues for walker safety/management as pt often lifting walker off floor or pushing too far anteriorly. Instead of walking to diagram for reference pt attempting to twist trunk and look behind him, thus causing him to get off balanced. Intermittent min a required for balance throughout activity. With fatigue, pt often sinks further into flexion, cues to extend knees. Education on body awareness and knowing when to take breaks as he often attempts to push self until his legs begin to tremble. Education OT Patient Education: Correct positioning, Disease process, Energy conservation, Modified ADL techniques, Purpose of tx/functional activities, R eviewed precautions, Rehab process, Safety issues, Transfer techniques Teaching Recipient: Patient Teaching Methods: Demonstration, Discussion Response to Teaching: Verbalize Understanding, Return Demonstration, Reinforcement Needed OT Short Term Goals Short Term Goals Time Frame: Nov 29, 2021 Eatin Oral hygiene: 4 Toileting hygiene: 4 Shower/bathe self: 4 Upper body dressin Lower body dressin Putting on/taking off footwear: 5 OT Rotary Cutter Operator Goals Senior Care Goals Time Frame: Dec 06, 2021 Eating (QC): 6 Oral Hygiene (QC): 6 Toileting Hygiene (QC): 6 Shower/Bathe Self (QC): 5 Upper Body Dressing (QC): 6 Lower Body Dressing (QC): 5 On/Off Footwear (QC): 6 1=Demonstrate adherence to instructed precautions during ADL tasks. 2=Patient will verbalize/demonstrate understanding of assistive devices/mod ifications for ADL. 3=Patient will improve strength/tolerance for activity to enable patient to perform ADL's. OT Education/Plan Problem List/Assessment Assessment: Decreased Activ Tolerance, Decreased Safety Aware, Decreased UE Strength, Impaired Coordination, Impaired Funct Balance, Impaired Self-Care Skills Discharge Recommendations Plan/Recommendations: Continue POC Therapy Discharge Recommendati: Post Acute OT (Home health OT) Treatment Plan/Plan of Care Treatment,Training & Education: Yes Patient would benefit from OT for education, treatment and training to promote independence in ADL's, mobility, safety and/or upper extremity function for ADL's. Plan of Care: ADL Retraining, Concurrent Therapy, Functional Mobility, Group Exercise/Act as Ind, UE Funct Exercise/Act, UE Neuromus Re-Ed/Coord Treatment Duration: Dec 06, 2021 Frequency: At least 5 of 7 days/Wk (IRF) Estimated Hrs Per Day: 1.5 hours per day (75-90 min/day) Agreement: Yes Rehab Potential: Fair Time/GCodes Start Time: 13:20 Stop Time: 14:50 Total Time Billed (hr/min): 90 Billed Treatment Time 1 visit EVM (10 min) ADL x3 (50 min) FA x2 (30 min) Ginny Wells OT Nov 22, 2021 14:18
[2021-11-22] MEDS: ENOXAPARIN 40 MG/0.4 ML (LOVENOX) SYR SC SCH (15:06)
[2021-11-22] MEDS ORDERED: CATHETER FLUSH 10 ML SYR IVP PRN (16:30)
[2021-11-22] MEDS ORDERED: OXYM30SP25 NSEACH (16:48)
[2021-11-22] MEDS ORDERED: UBID100C17 PO (16:48)
[2021-11-22] MEDS ORDERED: ROSU5TAB13 PO (16:48)
[2021-11-22] MEDS ORDERED: OMEG100032 PO (16:48)
[2021-11-22] MEDS ORDERED: MTP100TCR PO (16:48)
[2021-11-22] MEDS ORDERED: ASPI-999 PO (16:48)
[2021-11-22] MEDS ORDERED: TMSL.4C PO (16:48)
[2021-11-22] MEDS ORDERED: VITA-189 PO (16:48)
[2021-11-22] MEDS ORDERED: GABA300C PO (16:48)
[2021-11-22] MEDS ORDERED: OXYMETAZOLINE (AFRIN) 0.05% NA 30 ML BTL PRN (19:00)
[2021-11-22 19:55] VITALS: BP 133/77
[2021-11-22] MEDS ORDERED: HYDROcodone/APAP 5 MG/325 MG (LORTAB) TAB ONE (20:58)
[2021-11-22] MEDS ORDERED: TAMSULOSIN 0.4 MG (FLOMAX) CAP PO ONE (21:11)
[2021-11-22] MEDS ORDERED: GABAPENTIN 300 MG (NEURONTIN) CAP ONE (21:11)
[2021-11-22] MEDS ORDERED: LOSARTAN 25 MG (COZAAR) TAB ONE (21:12)
[2021-11-22] MEDS ORDERED: ROSUVASTATIN 5 MG (CRESTOR) TABLET ONE (21:12)
[2021-11-22] MEDS: LOSARTAN 25 MG (COZAAR) TAB PO SCH (21:31)
[2021-11-22] MEDS: HYDROcodone/APAP 5 MG/325 MG (LORTAB) TAB PO PRN (21:31)
[2021-11-22] MEDS: TAMSULOSIN 0.4 MG (FLOMAX) CAP PO SCH (21:31)
[2021-11-22] MEDS: ROSUVASTATIN 5 MG (CRESTOR) TABLET PO SCH (21:31)
[2021-11-22] MEDS: GABAPENTIN 300 MG (NEURONTIN) CAP PO SCH (21:31)
[2021-11-22] MEDS: DOCUSATE SODIUM 100 MG (COLACE) CAP PO SCH (21:37)
[2021-11-22] MEDS: SENNA W/DOCUSATE (SENOKOT S) TABLET PO SCH (21:38)
[2021-11-22] MEDS: polyethylene glycoL POWDER 17 GM (MIRALAX) PACK PO SCH (21:38)
[2021-11-22] MEDS: CATHETER FLUSH 10 ML SYR IVP SCH (21:48)
[2021-11-23] MEDS: HYDROcodone/APAP 5 MG/325 MG (LORTAB) TAB PO PRN ×5 (02:10→21:59)
[2021-11-23 05:26] LABS: HEMATOCRIT 38 % (40-54); HEMOGLOBIN 12.7 g/dL (13.3-17.7); LYMPHOCYTES % (AUTO) 16 % (12-44); MEAN CORPUSCULAR HEMOGLOBIN 32 pg (25-34); MEAN CORPUSCULAR HGB CONC 34 g/dL (32-36); MEAN CORPUSCULAR VOLUME 96 fL (80-99)
[2021-11-23 05:28] LABS: BASOPHILS # (AUTO) 0.1 10^3/uL (0.0-0.1); BASOPHILS % (AUTO) 1 % (0-10); EOSINOPHILS # (AUTO) 0.3 10^3/uL (0.0-0.3); EOSINOPHILS % (AUTO) 4 % (0-10); LYMPHOCYTES # (AUTO) 1.3 10^3/uL (1.0-4.0); MEAN PLATELET VOLUME 10.1 fL (9.0-12.2); MONOCYTES # (AUTO) 1.1 10^3/uL (0.0-1.0); MONOCYTES % (AUTO) 14 % (0-12); NEUTROPHILS # (AUTO) 5.4 10^3/uL (1.8-7.8); NEUTROPHILS % (AUTO) 66 % (42-75); PLATELET COUNT 138 10^3/uL (130-400); WHITE BLOOD COUNT 8.2 10^3/uL (4.3-11.0)
[2021-11-23 05:35] LABS: ALBUMIN 3.8 GM/DL (3.2-4.5); POTASSIUM 4.5 MMOL/L (3.6-5.0)
[2021-11-23 05:36] LABS: CALCIUM 9.3 MG/DL (8.5-10.1)
[2021-11-23 05:38] LABS: TOTAL PROTEIN 6.9 GM/DL (6.4-8.2)
[2021-11-23 05:40] LABS: BILIRUBIN,TOTAL 0.6 MG/DL (0.1-1.0)
[2021-11-23 05:41] LABS: CREATININE SERUM 2.22 MG/DL (0.60-1.30)
[2021-11-23] MEDS: CATHETER FLUSH 10 ML SYR IVP SCH ×3 (06:25→21:59)
--- NOTE | 2021-11-23 06:53 | PM&R Progress Note ---
Subjective HPI/CC On Admission Date Seen by Provider: Nov 23, 2021 Time Seen by Provider: 10:30 Subjective/Events-last exam 11/23/2021: Pt is doing really well Thinks the bed is too soft and that hurts his back Pain pill was taken at 0200 Bowels are really moving after treatment Review of Systems General: Fatigue, Malaise Objective Exam Vital Signs Vital Signs Date Time Temp Pulse Resp B/P (MAP) Pulse Ox O2 Delivery O2 Flow Rate FiO2 11/23/21 20:33 37.1 66 18 147/66 (93) 96 Room Air Capillary Refill : General Appearance: No Apparent Distress, WD/WN, Chronically ill HEENT: PERRL/EOMI, Normal ENT Inspection, Pharynx Normal Neck: Full Range of Motion, Normal Inspection, Non Tender, Supple, Carotid Bruit Respiratory: Chest Non Tender, Lungs Clear, Normal Breath Sounds, No Accessory Muscle Use, No Respiratory Distress Cardiovascular: Regular Rate, Rhythm, No Edema, No Gallop, No JVD, No Murmur, Normal Peripheral Pulses Gastrointestinal: Normal Bowel Sounds, No Organomegaly, No Pulsatile Mass, Non Tender, Soft Back: Normal Inspection, No CVA Tenderness, No Vertebral Tenderness Extremity: Normal Capillary Refill, Normal Inspection, Normal Range of Motion, Non Tender, No Calf Tenderness, No Pedal Edema Neurologic/Psychiatric: Alert, Oriented x3, Normal Mood/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 FIM Transfers Therapy Code Descriptions/Definitions Functional [place] Measure: 0=Not Assessed/NA 4=Minimal Assistance 1=Total Assistance 5=Supervision or Setup 2=Maximal Assistance 6=Modified [place] 3=Moderate Assistance 7=Complete IndependenceSCALE: Activities may be completed with or without assistive devices. 5-Hlgdaachts-vulrkfo completes the activity by him/herself with no assistance from a helper. 5-Set-up or Clean-up Assistance-helper sets up or cleans up; patient completes activity. [place] assists only prior to or following the activity. 4-Supervision or Touching Assistance-helper provides verbal cues and/or touching/steadying and/or contact guard assistance as patient completes activity. Assistance may be provided throughout the activity or intermittently. 3-Partial/Moderate Assistance-helper does LESS THAN HALF the effort. Gary lifts, holds or supports trunk or limbs, but provides less than half the effort. 2-Substantial/Maximal Assistance-helper does MORE THAN HALF the effort. [place] lifts or holds trunk or limbs and provides more than half the effort. 2-Zqanfxnun-znsepf does ALL the effort. Patient does none of the effort to complete the activity. Or, the assistance of 2 or more helpers is required for the patient to complete the activity. If activity was not attempted, code reason: 7-Patient Refused. 9-Not Applicable-not attempted and the patient did not perform the activity before the current illness, exacerbation or injury. 10-Not Attempted due to Environmental Limitations-(lack of equipment, weather restraints, etc.). 88-Not Attempted due to Medical Conditions or Safety Concerns. Roll Left to Right (QC): 4 Sit to Lying (QC): 4 Sit to Stand (QC): 3 Chair/Jzw-dp-Yfzyv Xfer(QC): 4 Car Transfer (QC): 4 Gait Training Does the Patient Walk?: Yes Walk 10 feet (QC): 4 Walk 50 ft with 2 Turns(QC): 4 Walk 150 ft (QC): 88 Walking 10ft/uneven surface-QC: 4 Gait Assistive Device: FWW Wheelchair Training Does the Pt Use a Wheelchair?: No Wheel 50 ft with 2 turns (QC): 9 Wheel 150 ft (QC): 9 Stair Training #of Steps: 12 1 Step (curb) (QC): 4 4 Steps (QC): 4 12 Steps (QC): 4 Balance Picking up an Object (QC): 6 ADL-Treatment Eating (QC): 5 (per clinical judgment) Oral Hygiene (QC): 4 (CGA) Shower/Bathe Self (QC): 3 (min a balance only) Upper Body Dressing (QC): 4 Lower Body Dressing (QC): 3 On/Off Footwear (QC): 4 Toileting Hygiene (QC): 4 (CGA) Assessment/Plan Assessment and Plan Assess & Plan/Chief Complaint Assessment: Severe leg weakness Back pain CKD Stage III HTN CAD HLP Gout Constipation Plan: Pain control PT OT Monitor closely Home meds 11/23/2021: Change beds Lortab Monitor creat (1) Bilateral leg weakness Status: Acute (2) Paresthesia of both lower extremities Status: Acute (3) Paresthesia of both hands Status: Acute (4) Neuropathic pain of both legs Status: Acute (5) Neuropathic pain of upper extremity Status: Acute (6) Chronic kidney disease, stage 3 Status: Acute (7) 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 Status: Acute (8) Presence of stent in LAD coronary artery Status: Acute (9) Presence of stent in right coronary artery Status: Acute GUSTAVO SALAZAR DO Nov 23, 2021 06:53
--- NOTE | 2021-11-23 06:54 | Individualized Plan of Care ---
Individualized Plan of Care Rehab Nursing IPOC Order Admission Date Nov 22, 2021 at 13:00 Current Orders Orders Admission Arrival Bed Request (11/22/21 13:05) Admission Order(Inpt,Obs,Sdc) (11/22/21 13:44) Vital Signs: Per Unit Policy ( (11/22/21 13:44) Shane Florez (11/22/21 13:44) Sequential Compression Device (11/22/21 13:44) Film Coater-Inpt Rehab Con (11/22/21 13:44) Rehab Nursing Orders-Ipoc (11/22/21 13:44) Physical Therapy Rehab Orders (11/22/21 13:44) Occupational Therapy Rehab Ord (11/22/21 13:44) Speech Therapy Rehab Orders (11/22/21 13:44) Cbc With Automated Diff (11/23/21 06:00) Comprehensive Metabolic Panel (11/23/21 06:00) Precautions (Aru) (11/22/21 13:44) Weekly Weight WEEK (11/22/21 13:44) Rehab-Intensity Of Therapy (11/22/21 13:44) Initiate Admission Nursing Pro .admission (11/22/21 13:44) Alprazolam Tablet (Xanax Tablet) (11/22/21 13:45) Calcium Carbonate Chew Tablet (Antacid C (11/22/21 13:45) Diphenhydramine Tablet (Benadryl Tablet) (11/22/21 13:45) Docusate Sodium Capsule (Colace Capsule) (11/22/21 21:00) Docusate Sodium Capsule (Colace Capsule) (11/22/21 13:45) Bisacodyl Suppository (Dulcolax Supposit (11/22/21 13:45) Lactulose Oral Solution (Enulose Oral So (11/22/21 13:45) Na Phos/Na Biphos Enema (Fleet Enema Fox (11/22/21 13:45) Guaifenesin/Codeine Syrup (Robitussin Ac (11/22/21 13:45) Loperamide Tablet (Imodium Tablet) (11/22/21 13:45) Enoxaparin Injection (Lovenox Injection) (11/22/21 13:45) Melatonin Tablet (Melatonin Tablet) (11/22/21 13:45) Polyethylene Glycol Powder Pkt (Miralax (11/22/21 21:00) Ondansetron Oral Dissolve Tab (Zofran (11/22/21 13:45) Senna S Tablet (Senokot S Tablet) (11/22/21 21:00) Acetaminophen Tablet/Caplet (Tylenol T (11/22/21 13:45) Code/Resuscitation (11/22/21 13:44) General/Regular (11/22/21 Lunch) Patient Visit (11/22/21 ) Pt Eval Moderate Complexity (11/22/21 ) Functional Activities, Ea 15 (11/22/21 ) Gait Training, Ea 15 Min (11/22/21 ) Exercise Therap, Ea 15 Min (11/22/21 ) Sodium Chloride Flush (Catheter Flush Sy (11/22/21 16:30) Sodium Chloride Flush (Catheter Flush Sy (11/22/21 22:00) Allopurinol Tablet (Zyloprim Tablet) (11/23/21 09:00) Aspirin Chewable Tablet (Baby Aspirin Ch (11/23/21 09:00) Gabapentin Capsule/Tablet (Neurontin Cap (11/22/21 21:00) Losartan Tablet (Cozaar Tablet) (11/22/21 21:00) Metoprolol Succinate (Xl) Tab (Toprol Xl (11/23/21 09:00) Oxymetazoline 0.05% Nasal [place] (Afrin 0. (11/22/21 19:00) Rosuvastatin Tablet (Crestor Tablet) (11/22/21 21:00) Tamsulosin Capsule (Flomax Capsule) (11/22/21 21:00) [place] 3 Capsule (Fish Oil Capsule) (11/23/21 09:00) (Nf) Ubidecarenone (Coq-10) (11/23/21 09:00) Therapeutic Multivitamin Tab (Vitamins, (11/23/21 07:00) Hydrocodone/Apap 5/325 Tablet (Lortab 5 (11/22/21 19:00) Gabapentin Capsule/Tablet (Neurontin Cap (11/22/21 21:11) Losartan Tablet (Cozaar Tablet) (11/22/21 21:12) Rosuvastatin Tablet (Crestor Tablet) (11/22/21 21:12) Tamsulosin Capsule (Flomax Capsule) (11/22/21 21:11) Hydrocodone/Apap 5/325 Tablet (Lortab 5 (11/22/21 20:58) Patient Visit (11/23/21 ) Speech Sound Lang Comp (11/23/21 ) Treat. Speech/Lang/Voice (11/23/21 ) Patient Visit (11/23/21 ) Functional Activities, Ea 15 (11/23/21 ) Exercise Therap, Ea 15 Min (11/23/21 ) Gait Training, Ea 15 Min (11/23/21 ) Rehab Nursing Orders: Ongoing Assess. of Cognitive Status, Ongoing Assess. of Function Status, Bladder Management, Bladder Scan, Bladder Training, Bowel Management, Bowel Training, Disease Management & Educaiton, DVT Prophylaxis, Fall Prevention, Fluid/Electrolyte/Nutrition Mgmt, Infection Prevention, Medication Management & Education, Management of Risks & Complications, Management of Skin Intergrity, Nutrition Management, Pain Management, Patient/Family Support, Safety Management Intensity of Therapy to be met Patient to be seen: Min.3h per day/5 of 7d PT IPOC Problem List: Activity Tolerance, Functional Strength, Safety, Balance, Gait, Transfer, Bed Mobility, ROM Treatment Plan: Continue Plan of Care Bed Mobility, Education, Functional Activity Sherry, Functional Strength, Group Therapy, Gait, Safety, Therapeutic Exercise, Transfers Treatment Duration: Dec 16, 2021 Frequency: At least 5 of 7 days/Wk (IRF) Estimated Hrs Per Day: 1.5 hours per day OT IPOC Problems: Decreased Activ Tolerance, Decreased Safety Aware, Decreased UE Strength, Impaired Coordination, Impaired Funct Balance, Impaired Self-Care Skills OT Treatment, Training and Edu: Yes Plan of Care: ADL Retraining, Concurrent Therapy, Functional Mobility, Group Exercise/Act as Ind, UE Funct Exercise/Act, UE Neuromus Re-Ed/Coord Treatment Duration: Dec 06, 2021 Frequency: At least 5 of 7 days/Wk (IRF) Estimated Hrs Per Day: 1.5 hours per day (75-90 min/day) ST IPOC Speech Therapy Treatment Plan: Discontinue ST Treatment Duration: Nov 23, 2021 Frequency: Modified Program (IRF) Estimated Hrs Per Day: Other Film Coater/Case Mgmt Film Coater/Case Managemen: Discharge Planning Dietitian/Vending Mechanic Dietitian/Vending Mechanic to monitor nutritional status and make changes and/or recommendations as needed and work with speech pathology on dietary upgrades as the occur. Physician IPOC Medical Issues being managed closely and that require the 24 hour availability of a physician: Recent severe leg weakness with h/o back surgeries will need close monitoring for any neurological emergency and monitor for decompensation Medical Issues: Bowel/Bladder Function, DVT Prophylaxis, Falls Precautions, Fluid/Electrolyte/Nutrition Balance, Infection Protection, Pain Management Brief Synthesis of Preadmission Screen, Post-Admission Evaluation, and Therapy Evaluations: PT OT will focus on regaining function with use of assistive devices in order to regain function to return to independent living Medical Prognosis: Good Anticipated Length of Stay: 7 days GUSTAVO SALAZAR DO Nov 23, 2021 06:54
[2021-11-23] MEDS: GABAPENTIN 300 MG (NEURONTIN) CAP PO SCH ×2 (08:27→21:58)
[2021-11-23] MEDS: meTOprolol SUCCINATE 100 MG (TOPROL XL) TAB PO SCH (08:27)
[2021-11-23] MEDS: OMEGA 3 (FISH OIL) 1000 MG CAP PO SCH (08:27)
[2021-11-23] MEDS: ALLOPURINOL 100 MG (ZYLOPRIM) TAB PO SCH (08:27)
[2021-11-23] MEDS: ASPIRIN 81 MG CHEW (CHILDREN'S ASA) PO SCH (08:27)
[2021-11-23] MEDS ORDERED: NON-FORMULARY MEDICATION 1 EA EA (Ubidecarenone (Coq-10) 100 MG) PO SCH (09:00)
--- NOTE | 2021-11-23 09:02 | Physical Therapy Daily Note ---
PT Daily Note-Current Subjective Pt. agrees to Rx, shares his recent med Hx, state his pain is presently 2/10 in low back, has pain down bilat LEs and numbness in bilat feet Pain Numeric Pain Scale: 2 Location: Medial Location Body Site: Back (and radiculaopathy) Pain Description: Pressure Mental Status Patient Orientation: Normal For Age Transfers SCALE: Activities may be completed with or without assistive devices. 4-Faitemqslq-xbcdsse completes the activity by him/herself with no assistance from a helper. 5-Set-up or Clean-up Assistance-helper sets up or cleans up; patient completes activity. [place] assists only prior to or following the activity. 4-Supervision or Touching Assistance-helper provides verbal cues and/or touching/steadying and/or contact guard assistance as patient completes activity. Assistance may be provided throughout the activity or intermittently. 3-Partial/Moderate Assistance-helper does LESS THAN HALF the effort. [place] lifts, holds or supports trunk or limbs, but provides less than half the effort. 2-Substantial/Maximal Assistance-helper does MORE THAN HALF the effort. [place] lifts or holds trunk or limbs and provides more than half the effort. 3-Eyevwckxm-wnoqkp does ALL the effort. Patient does none of the effort to complete the activity. Or, the assistance of 2 or more helpers is required for the patient to complete the activity. If activity was not attempted, code reason: 7-Patient Refused. 9-Not Applicable-not attempted and the patient did not perform the activity before the current illness, exacerbation or injury. 10-Not Attempted due to Environmental Limitations-(lack of equipment, weather restraints, etc.). 88-Not Attempted due to Medical Conditions or Safety Concerns. Roll Left & Right (QC): 6 Sit to Lying (QC): 6 Lying to Sitting/Side of Bed(Q: 6 Sit to Stand (QC): 6 Chair/Ajd-lh-Truig Xfer(QC): 6 log roll technique instruction Weight Bearing Right Lower Extremity: Right Full Weight Bearing Left Lower Extremity: Left Full Weight Bearing Gait Training Does the Patient Walk?: Yes Walk 10 feet (QC): 4 Walk 50 ft with 2 Turns(QC): 4 Walk 150 ft (QC): 4 Gait Persons Needed: 1 Gait Assistive Device: FWW slow, flexed at trunk, cuing for broader MELISSA at times Exercises Supine Ex: Ankle pumps, Quad Set, Rolling, Glut sets, Heel Slides, Short Arc Quads, Scooting (up in bed), Hip abd/add Supine Reps: 20 Seated Therapy Exercises: Ankle pumps, Sit to stand, Long arc quads, Hip flexion, Hip abd/add Seated Reps: 15 NuStep Minutes: 10 NuStep Workload: 4 Treatments TRFs, gait, stood in bthrm to brush teeth SBA, LE ex sup and sit and Nustep Assessment Current Status: Good Progress pt. notes progress with less pain and increased strength ad function PT Mcc Goals Mcc Goals PT Metal Casting Trades Worker Goals Time Frame: Dec 07, 2021 Roll Left & Right (QC): 6 Sit to Lying (QC): 6 Lying-Sitting on Side/Bed(QC): 6 Sit to Stand (QC): 6 Chair/Ifa-ea-Ykxxl Xfer(QC): 6 Toilet Transfer (QC): 6 Car Transfer (QC): 6 Does the Patient Walk: Yes Walk 10 feet (QC): 6 Walk 50ft with 2 Turns (QC): 6 Walk 150 ft (QC): 6 Walking 10ft on Uneven Surface: 6 1 Step (curb) (QC): 6 4 Steps (QC): 6 12 Steps (QC): 6 Picking up an Object (QC): 6 Does the Pt use WC or Scooter?: No Wheel 50 feet with 2 turns (QC: 88 Wheel 150 feet: 88 PT Plan Treatment/Plan Treatment Plan: Continue Plan of Care Treatment Plan: Bed Mobility, Education, Functional Activity Sherry, Functional Strength, Group Therapy, Gait, Safety, Therapeutic Exercise, Transfers Treatment Duration: Dec 16, 2021 Frequency: At least 5 of 7 days/Wk (IRF) Estimated Hrs Per Day: 1.5 hours per day Patient and/or Family Agrees t: Yes Safety Risks/Education Patient Education: Gait Training, Transfer Techniques, Correct Positioning, Disease Process, Safety Issues Teaching Recipient: Patient Teaching Methods: Demonstration, Discussion Response to Teaching: Verbalize Understanding, Return Demonstration, Reinforcement Needed Time/GCodes Time In: 800 Time Out: 900 Total Billed Treatment Time: 60 Total Billed Treatment 1,FA15m,EX30m,GT15m SISSY BOBO PTA Nov 23, 2021 09:02
[2021-11-23] MEDS: polyethylene glycoL POWDER 17 GM (MIRALAX) PACK PO SCH ×2 (09:37→22:10)
[2021-11-23] MEDS: MULTIVIT W/MINERALS TAB (THERAGRAN M) PO SCH (09:40)
[2021-11-23] MEDS: SENNA W/DOCUSATE (SENOKOT S) TABLET PO SCH ×2 (09:40→22:11)
[2021-11-23 09:42] VITALS: BP 111/66
[2021-11-23] MEDS: DOCUSATE SODIUM 100 MG (COLACE) CAP PO SCH ×2 (09:42→21:58)
--- NOTE | 2021-11-23 10:57 | Occupational Ther Daily Note ---
OT Current Status-Daily Note Subjective Pt. alert and sitting in recliner. Pt. agrees to therapy. Pt. stated pain 1/10 after pain pill this morning Mental Status/Objective Patient Orientation: Person, Place, Time, Situation ADL-Treatment Pt declined showering and changing clothing, will complete tomorrow. Pt. CGA transfer from recliner to bathroom using walker. Pt. independent to shave sitting at sink. Pt participated in standing balance and gross/fine motor strengthening. Due to B LE weakness pt required sitting half way through. Pt. maneuvered FWW to turn and grab objects from behind, working on foot placement while completing functional tasks. 1lb arm weights placed on wrists for activities. No loss of balance noted. Pt. participated in fine/gross motor and cognition exercise with arm weights (1lb) for strengthening, in sitting. Pt was left in room, laying down. Call light/phone given. All needs met. Therapy Code Descriptions/Definitions Functional State Line Measure: 0=Not Assessed/NA 4=Minimal Assistance 1=Total Assistance 5=Supervision or Setup 2=Maximal Assistance 6=Modified State Line 3=Moderate Assistance 7=Complete IndependenceSCALE: Activities may be completed with or without assistive devices. 9-Mkahnladew-xwjfzzg completes the activity by him/herself with no assistance from a helper. 5-Set-up or Clean-up Assistance-helper sets up or cleans up; patient completes activity. [place] assists only prior to or following the activity. 4-Supervision or Touching Assistance-helper provides verbal cues and/or touching/steadying and/or contact guard assistance as patient completes activity. Assistance may be provided throughout the activity or intermittently. 3-Partial/Moderate Assistance-helper does LESS THAN HALF the effort. [place] lifts, holds or supports trunk or limbs, but provides less than half the effort. 2-Substantial/Maximal Assistance-helper does MORE THAN HALF the effort. [place] lifts or holds trunk or limbs and provides more than half the effort. 8-Wdpzvssqz-ayzjvt does ALL the effort. Patient does none of the effort to complete the activity. Or, the assistance of 2 or more helpers is required for the patient to complete the activity. If activity was not attempted, code reason: 7-Patient Refused. 9-Not Applicable-not attempted and the patient did not perform the activity before the current illness, exacerbation or injury. 10-Not Attempted due to Environmental Limitations-(lack of equipment, weather restraints, etc.). 88-Not Attempted due to Medical Conditions or Safety Concerns. Other Treatment CGA to therapy gym. Pt participated in arm exercises with theraband, 5 exercises 10 reps each. Due to pt's existing L shldr injury, exercises modified. Skilled instruction for correct technique and modifications. OT Short Term Goals Short Term Goals Time Frame: Nov 29, 2021 Eatin Oral hygiene: 4 Toileting hygiene: 4 Shower/bathe self: 4 Upper body dressin Lower body dressin Putting on/taking off footwear: 5 OT Fdc Goals Fdc Goals Time Frame: Dec 06, 2021 Eating (QC): 6 Oral Hygiene (QC): 6 Toileting Hygiene (QC): 6 Shower/Bathe Self (QC): 5 Upper Body Dressing (QC): 6 Lower Body Dressing (QC): 5 On/Off Footwear (QC): 6 1=Demonstrate adherence to instructed precautions during ADL tasks. 2=Patient will verbalize/demonstrate understanding of assistive devices/modifications for ADL. 3=Patient will improve strength/tolerance for activity to enable patient to perform ADL's. OT Education/Plan Problem List/Assessment Assessment: Decreased Activ Tolerance, Decreased UE Strength, Impaired Self- Care Skills Discharge Recommendations Plan/Recommendations: Continue POC Treatment Plan/Plan of Care Patient would benefit from OT for education, treatment and training to promote independence in ADL's, mobility, safety and/or upper extremity function for ADL's. Plan of Care: ADL Retraining, Concurrent Therapy, Functional Mobility, Group Exercise/Act as Ind, UE Funct Exercise/Act, UE Neuromus Re-Ed/Coord Treatment Duration: Dec 06, 2021 Frequency: At least 5 of 7 days/Wk (IRF) Estimated Hrs Per Day: 1.5 hours per day (75-90 min/day) Agreement: Yes Rehab Potential: Fair Time/GCodes Start Time: 09:45 Stop Time: 11:00 Total Time Billed (hr/min): 75 Billed Treatment Time 1 visit-ADL 2 (25 min) EX 3 (50 min) BLOSSOM BROWN Nov 23, 2021 10:57
--- NOTE | 2021-11-23 14:20 | ST Cognitive Linguistic Eval ---
Speech Evaluation-General Medical Diagnosis LBP, falls Onset Date: Nov 11, 2021 Therapy Diagnosis Therapy Diagnosis: Intact Neurocognitive Skills Precautions Precautions: Fall Precautions/Isolations: Fall Prevention, Standard Precautions Referral Referring Physician: Dr. Cunningham Reason for Referral: Evaluation/Treatment Medical History Pertinent Medical History: Back Injury, CAD, HTN Current History The patient is a 76 year old male with a past medical history of acute renal insufficiency, HTN, CKD (stage three), back pain, and lower leg weakness, presented [facility] with a chief complaint of low back pain that radiates into his hips bilaterally. Reviewed History: Yes Social History Current Living Status: Spouse Speech PLF-Current Status Prior Level of Function The patient denied prior challenges or concerns with his speech, language or coginition. Subjective The patient was lying in bed, awake and alert upon entrance to his room by the clinician. The patient greeted the clinician appropriately and was agreeable to participation in the cognitive linguistic assessment. Language Eval: Auditory Comprehends Simple Yes/No Ques: Functional Indent/Objects Multiple Hooks: Functional Ident/Pics in Multiple Hooks: Functional Follows 1-Step Commands: Functional Follows Complex Directions: Functional Follows General Conversations: Functional Language Eval: Verbal Language Completes Spontaneous Greeting: Functional Produces Auto, Serial Info: Functional Imitates Simple Words/Phrases: Functional Word Finding: Functional Requests Basic Needs: Functional States Basic Personal Info: Functional Expresses Complex Ideas: Functional Language Evaluation: Reading Follows Simple Written Direct: Functional Language Evaluation: Writing Writes to Simple Dictation: Functional Cognitive Patient Orientation The patient was independently oriented to self, location, month, day of the week, date and year. Objective Cognitive Domain Attention: WNL Memory: WNL Problem Solving: Functional Executive Functions: WNL Visuospatial Skills: WNL Composite Severity Rating: WNL Clock Drawing Severity Rating: WNL Objective Formal/Standardized Tests [facility] Mental Status Exam (UMS) Results The patient demonstrated a result of +30/30 correlating to cognitive linguistic skills within normal limits. Oral Motor/Speech Production The patient does not display dysarthria or apraxia of speech at this time. The patient remains 100% intelligible in known and unknown contexts. Impression The patient displays intact neurocognitive skills. Speech Patient Assess Expression of Ideas/Wants: Expression (4) Understanding Verbal Content: Understands (4) Brief Interview-Mental Status: Yes Repetition of Three Words: Three (3) Temporal Orientation: Year: Correct (3) Temporal Orientation: Month: Accurate within 5 days(2) Temporal Orientation: Day: Correct (1) Recall : Wear to say "Sock": Yes, no cue required (2) Recall : Color: Yes, no cue required (2) Recall : Bed: Yes, no cue required (2) Memory/Recall Ability: Current season, That he or she is in a hsp/hsp unit Speech-Plan Treatment Plan Speech Therapy Treatment Plan: Discontinue ST Treatment Duration: Nov 23, 2021 Frequency: 4 times per week Estimated Hrs Per Day: .5 hour per day Rehab Potential: Fair Safety Risks/Education Teaching Recipient: Patient Teaching Methods: Discussion Response to Teaching: Verbalize Understanding Education Topics Provided: Results of STUART SAUL Speech Therapy Time In: 11:00 Speech Therapy Time Out: 11:30 Total Billed Time: 30 Billed Treatment Time 1, MARLON CUTLER [facility] ST Nov 23, 2021 14:20
--- NOTE | 2021-11-23 14:27 | Physical Therapy Daily Note ---
PT Daily Note-Current Subjective Pt. in bed. states pain in left leg has increased this afternoon. Pt. is hoping to get a better nights sleep tonight. Pain Numeric Pain Scale: 3 Location: Left Location Body Site: Thigh Pain Description: Tingling Mental Status Patient Orientation: Normal For Age Transfers SCALE: Activities may be completed with or without assistive devices. 0-Tzhdzvkbva-tvnktro completes the activity by him/herself with no assistance from a helper. 5-Set-up or Clean-up Assistance-helper sets up or cleans up; patient completes activity. [place] assists only prior to or following the activity. 4-Supervision or Touching Assistance-helper provides verbal cues and/or touching/steadying and/or contact guard assistance as patient completes activity. Assistance may be provided throughout the activity or intermittently. 3-Partial/Moderate Assistance-helper does LESS THAN HALF the effort. [place] l ifts, holds or supports trunk or limbs, but provides less than half the effort. 2-Substantial/Maximal Assistance-helper does MORE THAN HALF the effort. [place] lifts or holds trunk or limbs and provides more than half the effort. 5-Midlvwoxc-njhobx does ALL the effort. Patient does none of the effort to complete the activity. Or, the assistance of 2 or more helpers is required for t he patient to complete the activity. If activity was not attempted, code reason: 7-Patient Refused. 9-Not Applicable-not attempted and the patient did not perform the activity before the current illness, exacerbation or injury. 10-Not Attempted due to Environmental Limitations-(lack of equipment, weather restraints, etc.). 88-Not Attempted due to Medical Conditions or Safety Concerns. rolling left and right mod I Weight Bearing Right Lower Extremity: Right Full Weight Bearing Left Lower Extremity: Left Full Weight Bearing Exercises Supine Ex: Bridging, Ankle pumps, Pelvic tilt, Quad Set, Rolling (log roll), Glut sets, Heel Slides, Short Arc Quads, Scooting (up in bed indep), Straight leg raise, Hip abd/add Supine Reps: 15 Assessment Current Status: Good Progress PT Coremaker Supervisor Goals Coremaker Supervisor Goals PT Group Home Goals Time Frame: Dec 07, 2021 Roll Left & Right (QC): 6 Sit to Lying (QC): 6 Lying-Sitting on Side/Bed(QC): 6 Sit to Stand (QC): 6 Chair/Vqt-nd-Kddab Xfer(QC): 6 Toilet Transfer (QC): 6 Car Transfer (QC): 6 Does the Patient Walk: Yes Walk 10 feet (QC): 6 Walk 50ft with 2 Turns (QC): 6 Walk 150 ft (QC): 6 Walking 10ft on Uneven Surface: 6 1 Step (curb) (QC): 6 4 Steps (QC): 6 12 Steps (QC): 6 Picking up an Object (QC): 6 Does the Pt use WC or Scooter?: No Wheel 50 feet with 2 turns (QC: 88 Wheel 150 feet: 88 PT Plan Treatment/Plan Treatment Plan: Continue Plan of Care Treatment Plan: Bed Mobility, Education, Functional Activity Sherry, Functional Strength, Group Therapy, Gait, Safety, Therapeutic Exercise, Transfers Treatment Duration: Dec 16, 2021 Frequency: At least 5 of 7 days/Wk (IRF) Estimated Hrs Per Day: 1.5 hours per day Patient and/or Family Agrees t: Yes Safety Risks/Education Patient Education: Correct Positioning Time/GCodes Time In: 1400 Time Out: 1415 Total Billed Treatment Time: 15 Total Billed Treatment 1,EX15m SISSY BOBO TIBCO DEVELOPER Nov 23, 2021 14:27
[2021-11-23] MEDS: ENOXAPARIN 40 MG/0.4 ML (LOVENOX) SYR SC SCH (14:49)
[2021-11-23 20:33] VITALS: BP 147/66
[2021-11-23] MEDS: LOSARTAN 25 MG (COZAAR) TAB PO SCH (21:58)
[2021-11-23] MEDS: ROSUVASTATIN 5 MG (CRESTOR) TABLET PO SCH (21:58)
[2021-11-23] MEDS: ALPRAZolam 0.25 MG (XANAX) TAB PO PRN (21:58)
[2021-11-23] MEDS: TAMSULOSIN 0.4 MG (FLOMAX) CAP PO SCH (21:58)
[2021-11-23] MEDS: MELATONIN 3 MG TABLET PO PRN (21:58)
[2021-11-24] MEDS: HYDROcodone/APAP 5 MG/325 MG (LORTAB) TAB PO PRN ×4 (04:00→20:50)
--- NOTE | 2021-11-24 05:25 | PM&R Progress Note ---
Subjective HPI/CC On Admission Date Seen by Provider: Nov 24, 2021 Time Seen by Provider: 12:00 Subjective/Events-last exam 11/24/2021: Doing well except weaker in legs Conferred with Dr Jay who will be happy to see him in the clinic Back pain improved with Lortab MRI reviewed 11/23/2021: Pt is doing really well Thinks the bed is too soft and that hurts his back Pain pill was taken at 0200 Bowels are really moving after treatment Review of Systems General: Fatigue, Malaise Objective Exam Vital Signs Vital Signs Date Time Temp Pulse Resp B/P (MAP) Pulse Ox O2 Delivery O2 Flow Rate FiO2 11/24/21 20:58 Room Air 11/24/21 20:28 37.3 64 20 145/83 (103) 98 Capillary Refill : General Appearance: No Apparent Distress, WD/WN, Chronically ill HEENT: PERRL/EOMI, Normal ENT Inspection, Pharynx Normal Neck: Full Range of Motion, Normal Inspection, Non Tender, Supple, Carotid Bruit Respiratory: Chest Non Tender, Lungs Clear, Normal Breath Sounds, No Accessory Muscle Use, No Respiratory Distress Cardiovascular: Regular Rate, Rhythm, No Edema, No Gallop, No JVD, No Murmur, Normal Peripheral Pulses Gastrointestinal: Normal Bowel Sounds, No Organomegaly, No Pulsatile Mass, Non Tender, Soft Back: Normal Inspection, No CVA Tenderness, No Vertebral Tenderness Extremity: Normal Capillary Refill, Normal Inspection, Normal Range of Motion, Non Tender, No Calf Tenderness, No Pedal Edema Neurologic/Psychiatric: Alert, Oriented x3, Normal Mood/Affect, office manager II-XII Norm as Tested, Abnormal Gait, Motor Weakness (severe weakness of legs 3/5) Skin: Normal Color, Warm/Dry Lymphatic: No Adenopathy Results/Procedures Lab Patient resulted labs reviewed. FIM Transfers Therapy Code Descriptions/Definitions Functional [place] Measure: 0=Not Assessed/NA 4=Minimal Assistance 1=Total Assistance 5=Supervision or Setup 2=Maximal Assistance 6=Modified [place] 3=Moderate Assistance 7=Complete IndependenceSCALE: Activities may be completed with or without assistive devices. 2-Rbrdmcazze-kbiqqfs completes the activity by him/herself with no assistance from a helper. 5-Set-up or Clean-up Assistance-helper sets up or cleans up; patient completes activity. [place] assists only prior to or following the activity. 4-Supervision or Touching Assistance-helper provides verbal cues and/or touching/steadying and/or contact guard assistance as patient completes activity. Assistance may be provided throughout the activity or intermittently. 3-Partial/Moderate Assistance-helper does LESS THAN HALF the effort. [place] lifts, holds or supports trunk or limbs, but provides less than half the effort. 2-Substantial/Maximal Assistance-helper does MORE THAN HALF the effort. [place] lifts or holds trunk or limbs and provides more than half the effort. 9-Dwyncllms-ajqccf does ALL the effort. Patient does none of the effort to complete the activity. Or, the assistance of 2 or more helpers is required for the patient to complete the activity. If activity was not attempted, code reason: 7-Patient Refused. 9-Not Applicable-not attempted and the patient did not perform the activity before the current illness, exacerbation or injury. 10-Not Attempted due to Environmental Limitations-(lack of equipment, weather restraints, etc.). 88-Not Attempted due to Medical Conditions or Safety Concerns. Roll Left to Right (QC): 6 Sit to Lying (QC): 6 Sit to Stand (QC): 6 Chair/Ifh-hc-Vtseo Xfer(QC): 6 Car Transfer (QC): 4 Gait Training Does the Patient Walk?: Yes Walk 10 feet (QC): 4 Walk 50 ft with 2 Turns(QC): 4 Walk 150 ft (QC): 4 Walking 10ft/uneven surface-QC: 4 Gait Persons Needed: 1 Gait Assistive Device: FWW Wheelchair Training Does the Pt Use a Wheelchair?: No Wheel 50 ft with 2 turns (QC): 9 Wheel 150 ft (QC): 9 Stair Training #of Steps: 12 1 Step (curb) (QC): 4 4 Steps (QC): 4 12 Steps (QC): 4 Balance Picking up an Object (QC): 6 ADL-Treatment Eating (QC): 5 (per clinical judgment) Oral Hygiene (QC): 4 (CGA) Shower/Bathe Self (QC): 3 (min a balance only) Upper Body Dressing (QC): 4 Lower Body Dressing (QC): 3 On/Off Footwear (QC): 4 Toileting Hygiene (QC): 4 (CGA) Assessment/Plan Assessment and Plan Assess & Plan/Chief Complaint Assessment: Severe leg weakness Back pain CKD Stage III HTN CAD HLP Gout Constipation Plan: Pain control PT OT Monitor closely Home meds 11/23/2021: Change beds Lortab Monitor creat 11/24/2021: Monitor closely MRI reviewed (1) Bilateral leg weakness Status: Acute (2) Paresthesia of both lower extremities Status: Acute (3) Paresthesia of both hands Status: Acute (4) Neuropathic pain of both legs Status: Acute (5) Neuropathic pain of upper extremity Status: Acute (6) Chronic kidney disease, stage 3 Status: Acute (7) 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 Status: Acute (8) Presence of stent in LAD coronary artery Status: Acute (9) Presence of stent in right coronary artery Status: Acute GUSTAVO SALAZAR DO Nov 24, 2021 05:25
[2021-11-24] MEDS: CATHETER FLUSH 10 ML SYR IVP SCH ×3 (06:53→20:52)
[2021-11-24] MEDS: MULTIVIT W/MINERALS TAB (THERAGRAN M) PO SCH (06:53)
[2021-11-24] MEDS: polyethylene glycoL POWDER 17 GM (MIRALAX) PACK PO SCH ×2 (07:57→20:44)
[2021-11-24] MEDS: OMEGA 3 (FISH OIL) 1000 MG CAP PO SCH (08:43)
[2021-11-24] MEDS: SENNA W/DOCUSATE (SENOKOT S) TABLET PO SCH ×2 (08:43→20:50)
[2021-11-24] MEDS: meTOprolol SUCCINATE 100 MG (TOPROL XL) TAB PO SCH (08:44)
[2021-11-24] MEDS: DOCUSATE SODIUM 100 MG (COLACE) CAP PO SCH ×2 (08:44→20:51)
[2021-11-24] MEDS: GABAPENTIN 300 MG (NEURONTIN) CAP PO SCH ×2 (08:44→20:50)
[2021-11-24] MEDS: ASPIRIN 81 MG CHEW (CHILDREN'S ASA) PO SCH (08:44)
[2021-11-24] MEDS: ALLOPURINOL 100 MG (ZYLOPRIM) TAB PO SCH (08:44)
[2021-11-24 08:45] VITALS: BP 123/80
--- NOTE | 2021-11-24 11:38 | Occupational Ther Daily Note ---
OT Current Status-Daily Note Subjective Pt alert and awake. Pt visiting with . Pt agrees to therapy. Pt states no back pain after cold pack. Mental Status/Objective Patient Orientation: Person, Place, Time, Situation ADL-Treatment Pt agrees to shower. Pt supine transferred to EOB with HOB raised with CGA. Pt transferred to w/c using FWW with CGA. Sitting on shower bench, pt able to reach all areas except buttocks in sitting then CGA in standing to cleanse buttocks. Pt Min A with transfer to chair. After set up, pt able to don/doff upper body clothing and footwear by self. After set up, pt able to thread lower body clothing over hips then CGA in standing to hike over hips. Therapy Code Descriptions/Definitions Functional [place] Measure: 0=Not Assessed/NA 4=Minimal Assistance 1=Total Assistance 5=Supervision or Setup 2=Maximal Assistance 6=Modified [place] 3=Moderate Assistance 7=Complete IndependenceSCALE: Activities may be completed with or without assistive devices. 1-Wnivhzepxh-yxbdhrs completes the activity by him/herself with no assistance from a helper. 5-Set-up or Clean-up Assistance-helper sets up or cleans up; patient completes activity. [place] assists only prior to or following the activity. 4-Supervision or Touching Assistance-helper provides verbal cues and/or touching/steadying and/or contact guard assistance as patient completes activity. Assistance may be provided throughout the activity or intermittently. 3-Partial/Moderate Assistance-helper does LESS THAN HALF the effort. [place] lifts, holds or supports trunk or limbs, but provides less than half the effort. 2-Substantial/Maximal Assistance-helper does MORE THAN HALF the effort. [place] lifts or holds trunk or limbs and provides more than half the effort. 5-Vljtdvhmo-dfxbiy does ALL the effort. Patient does none of the effort to c omplete the activity. Or, the assistance of 2 or more helpers is required for the patient to complete the activity. If activity was not attempted, code reason: 7-Patient Refused. 9-Not Applicable-not attempted and the patient did not perform the activity before the current illness, exacerbation or injury. 10-Not Attempted due to Environmental Limitations-(lack of equipment, weather restraints, etc.). 88-Not Attempted due to Medical Conditions or Safety Concerns. Oral Hygiene (QC): 4 (In standing CGA) Shower/Bathe Self (QC): 4 Upper Body Dressing (QC): 5 Lower Body Dressing (QC): 4 On/Off Footwear: 5 Other Treatment Pt self propels w/c to therapy gym. Pt completes 10 minutes arm bike at 15 nails resistance while doing cognition activity. Pt. self propels back to room with w/c. Pt CGA from sit to director e learning w/c. Pt transfers from w/c to bed, CGA. Pt completes 1 set of 10 reps, 6 arm exercises to strengthen for daily functional tasks. Skilled instructions required for correct technique and modifications due to decreased mobility in R shldr. Pt sitting up in bed with call light/phone. All needs met. OT Short Term Goals Short Term Goals Time Frame: Nov 29, 2021 Eatin Oral hygiene: 4 Toileting hygiene: 4 Shower/bathe self: 4 Upper body dressin Lower body dressin Putting on/taking off footwear: 5 OT Gifted Teacher Goals Gifted Teacher Goals Time Frame: Dec 06, 2021 Eating (QC): 6 Oral Hygiene (QC): 6 Toileting Hygiene (QC): 6 Shower/Bathe Self (QC): 5 Upper Body Dressing (QC): 6 Lower Body Dressing (QC): 5 On/Off Footwear (QC): 6 1=Demonstrate adherence to instructed precautions during ADL tasks. 2=Patient will verbalize/demonstrate understanding of assistive devices/modifications for ADL. 3=Patient will improve strength/tolerance for activity to enable patient to perform ADL's. OT Education/Plan Problem List/Assessment Assessment: Decreased Activ Tolerance, Decreased UE Strength, Impaired Self- Care Skills Discharge Recommendations Plan/Recommendations: Continue POC Treatment Plan/Plan of Care Patient would benefit from OT for education, treatment and training to promote independence in ADL's, mobility, safety and/or upper extremity function for ADL's. Plan of Care: ADL Retraining, Concurrent Therapy, Functional Mobility, Group Exercise/Act as Ind, UE Funct Exercise/Act, UE Neuromus Re-Ed/Coord Treatment Duration: Dec 06, 2021 Frequency: At least 5 of 7 days/Wk (IRF) Estimated Hrs Per Day: 1.5 hours per day (75-90 min/day) Agreement: Yes Rehab Potential: Fair Time/GCodes Start Time: 10:00 Stop Time: 11:30 Total Time Billed (hr/min): 90 Billed Treatment Time 1 visit-ADL 4 (60 min) EX 2 (30 min) BLOSSOM BROWN Nov 24, 2021 11:38
--- NOTE | 2021-11-24 12:07 | Physical Therapy Daily Note ---
PT Daily Note-Current Subjective Pt. emotional today, cries at one point and states he is very discouraged, in worse pain, did not sleep, states his fingers are numb at tips, "and juve never had that before" states his legs feel tingly and numb like stumps, feet are numb, feels unstable while walking. It is noted that pts right leg/knee gives way slightly durig gait. Pain Numeric Pain Scale: 6 Location: Medial Location Body Site: Back (and LEs) Pain Description: Radiating, Tingling, Numbness Mental Status Patient Orientation: Normal For Age Transfers SCALE: Activities may be completed with or without assistive devices. 9-Cwoqazbcru-fkalchy completes the activity by him/herself with no assistance from a helper. 5-Set-up or Clean-up Assistance-helper sets up or cleans up; patient completes activity. [place] assists only prior to or following the activity. 4-Supervision or Touching Assistance-helper provides verbal cues and/or touching/steadying and/or contact guard assistance as patient completes activity. Assistance may be provided throughout the activity or intermittently. 3-Partial/Moderate Assistance-helper does LESS THAN HALF the effort. [place] lifts, holds or supports trunk or limbs, but provides less than half the effort. 2-Substantial/Maximal Assistance-helper does MORE THAN HALF the effort. [place] lifts or holds trunk or limbs and provides more than half the effort. 5-Xgokcsqkp-mcucel does ALL the effort. Patient does none of the effort to complete the activity. Or, the assistance of 2 or more helpers is required for the patient to complete the activity. If activity was not attempted, code reason: 7-Patient Refused. 9-Not Applicable-not attempted and the patient did not perform the activity before the current illness, exacerbation or injury. 10-Not Attempted due to Environmental Limitations-(lack of equipment, weather restraints, etc.). 88-Not Attempted due to Medical Conditions or Safety Concerns. Roll Left & Right (QC): 5 Sit to Lying (QC): 5 Lying to Sitting/Side of Bed(Q: 5 Sit to Stand (QC): 4 Chair/Zod-me-Kfqxg Xfer(QC): 4 Weight Bearing Right Lower Extremity: Right Full Weight Bearing Left Lower Extremity: Left Full Weight Bearing Gait Training Does the Patient Walk?: Yes Walk 10 feet (QC): 4 Walk 50 ft with 2 Turns(QC): 4 Gait Persons Needed: 1 Gait Assistive Device: FWW pt. with uneven step length, pt. heavy wt bearing on FWW, right knee slight buckling x 2, w/c close behind pt. as he states he feels unstable Exercises Supine Ex: Ankle pumps, Quad Set, Rolling, Glut sets, Heel Slides, Short Arc Quads, Scooting, Hip abd/add Supine Reps: 20 Treatments cold pack x 20 min to mid low back which pt. stated felt very good , LE ex, TRFs, gait as above, pt. shares that he feels his back surgeon Dr Jay should see his recent MRI and be told about his current condition. This was passed on to nurse Assessment Current Status: Fair Progress pt. is limited by greater pain c/o, contd to slightly worse strength, no sleep PT Dual Rate Supervisor Goals Jail Goals PT Dual Rate Supervisor Goals Time Frame: Dec 07, 2021 Roll Left & Right (QC): 6 Sit to Lying (QC): 6 Lying-Sitting on Side/Bed(QC): 6 Sit to Stand (QC): 6 Chair/Uzs-td-Nickw Xfer(QC): 6 Toilet Transfer (QC): 6 Car Transfer (QC): 6 Does the Patient Walk: Yes Walk 10 feet (QC): 6 Walk 50ft with 2 Turns (QC): 6 Walk 150 ft (QC): 6 Walking 10ft on Uneven Surface: 6 1 Step (curb) (QC): 6 4 Steps (QC): 6 12 Steps (QC): 6 Picking up an Object (QC): 6 Does the Pt use WC or Scooter?: No Wheel 50 feet with 2 turns (QC: 88 Wheel 150 feet: 88 PT Plan Treatment/Plan Treatment Plan: Continue Plan of Care Treatment Plan: Bed Mobility, Education, Functional Activity Sherry, Functional Strength, Group Therapy, Gait, Safety, Therapeutic Exercise, Transfers Treatment Duration: Dec 16, 2021 Frequency: At least 5 of 7 days/Wk (IRF) Estimated Hrs Per Day: 1.5 hours per day Patient and/or Family Agrees t: Yes Safety Risks/Education Patient Education: Gait Training, Transfer Techniques, Reviewed Use of Ice, Correct Positioning, Disease Process, Safety Issues Teaching Recipient: Patient Teaching Methods: Demonstration, Discussion Response to Teaching: Verbalize Understanding, Return Demonstration, Reinforcement Needed Time/GCodes Time In: 900 Time Out: 1000 Total Billed Treatment Time: 60 Total Billed Treatment 1,EX20m,GT25m,FA15m SISSY BOBO COPPER MINER Nov 24, 2021 12:07
[2021-11-24] MEDS: ENOXAPARIN 40 MG/0.4 ML (LOVENOX) SYR SC SCH (13:51)
--- NOTE | 2021-11-24 14:18 | Physical Therapy Daily Note ---
PT Daily Note-Current Subjective Pt. sitting up EOB upon entering. Agrees to Rx. Pt. states he carl like to have cold pack again after Rx. Pt. rated pain 5/10 and climbing as he begins to move for therapy. Pt. states he is anxious for the OS who had treated his back previously to see his MRI etc. Pain Numeric Pain Scale: 5-Moderate Pain Location: Medial Location Body Site: Back (legs) Pain Description: Burning, Tingling, Numbness Mental Status Patient Orientation: Normal For Age Transfers SCALE: Activities may be completed with or without assistive devices. 7-Rqxtcpxhqw-htvjgrf completes the activity by him/herself with no assistance from a helper. 5-Set-up or Clean-up Assistance-helper sets up or cleans up; patient completes activity. [place] assists only prior to or following the activity. 4-Supervision or Touching Assistance-helper provides verbal cues and/or touching/steadying and/or contact guard assistance as patient completes activity. Assistance may be provided throughout the activity or intermittently. 3-Partial/Moderate Assistance-helper does LESS THAN HALF the effort. [place] lifts, holds or supports trunk or limbs, but provides less than half the effort. 2-Substantial/Maximal Assistance-helper does MORE THAN HALF the effort. [place] lifts or holds trunk or limbs and provides more than half the effort. 2-Qsictlzdz-lnumue does ALL the effort. Patient does none of the effort to complete the activity. Or, the assistance of 2 or more helpers is required for the patient to complete the activity. If activity was not attempted, code reason: 7-Patient Refused. 9-Not Applicable-not attempted and the patient did not perform the activity before the current illness, exacerbation or injury. 10-Not Attempted due to Environmental Limitations-(lack of equipment, weather restraints, etc.). 88-Not Attempted due to Medical Conditions or Safety Concerns. sit to stands CGA, sit to sup min to mod assist LEs Weight Bearing Right Lower Extremity: Right Full Weight Bearing Left Lower Extremity: Left Full Weight Bearing Gait Training Gait Assistive Device: FWW 10 ft x 2, side and back slow, some difficulty coordinating feet etc for side stepping to right Exercises Seated Therapy Exercises: Sit to stand, Hip abd/add Seated Reps: 12 Treatments TRFs, gait, cold pack to mid and low back in supine x 20m Assessment Current Status: Fair Progress PT Integration Lead Goals Half-Way Goals PT Integration Lead Goals Time Frame: Dec 07, 2021 Roll Left & Right (QC): 6 Sit to Lying (QC): 6 Lying-Sitting on Side/Bed(QC): 6 Sit to Stand (QC): 6 Chair/Zev-gw-Bzrxi Xfer(QC): 6 Toilet Transfer (QC): 6 Car Transfer (QC): 6 Does the Patient Walk: Yes Walk 10 feet (QC): 6 Walk 50ft with 2 Turns (QC): 6 Walk 150 ft (QC): 6 Walking 10ft on Uneven Surface: 6 1 Step (curb) (QC): 6 4 Steps (QC): 6 12 Steps (QC): 6 Picking up an Object (QC): 6 Does the Pt use WC or Scooter?: No Wheel 50 feet with 2 turns (QC: 88 Wheel 150 feet: 88 PT Plan Treatment/Plan Treatment Plan: Continue Plan of Care Treatment Plan: Bed Mobility, Education, Functional Activity Sherry, Functional Strength, Group Therapy, Gait, Safety, Therapeutic Exercise, Transfers Treatment Duration: Dec 16, 2021 Frequency: At least 5 of 7 days/Wk (IRF) Estimated Hrs Per Day: 1.5 hours per day Patient and/or Family Agrees t: Yes Safety Risks/Education Patient Education: Gait Training, Transfer Techniques, Reviewed Use of Ice, Correct Positioning, Safety Issues Teaching Recipient: Patient Teaching Methods: Demonstration, Discussion Response to Teaching: Verbalize Understanding, Return Demonstration, Reinforcement Needed Time/GCodes Time In: 1345 Time Out: 1415 Total Billed Treatment Time: 30 Total Billed Treatment 1,FA20m,EX10m SISSY BOBO BANDAGE MAKER Nov 24, 2021 14:18
[2021-11-24 20:28] VITALS: BP 145/83
[2021-11-24] MEDS: ROSUVASTATIN 5 MG (CRESTOR) TABLET PO SCH (20:50)
[2021-11-24] MEDS: TAMSULOSIN 0.4 MG (FLOMAX) CAP PO SCH (20:51)
[2021-11-24] MEDS: LOSARTAN 25 MG (COZAAR) TAB PO SCH (20:51)
[2021-11-24] MEDS: ALPRAZolam 0.25 MG (XANAX) TAB PO PRN (21:48)
[2021-11-24] MEDS: MELATONIN 3 MG TABLET PO PRN (21:48)
[2021-11-24] MEDS ORDERED: morphine INJ 10 MG/ML 1ML (SYR OR VIAL) IVP STA (22:05)
[2021-11-24] MEDS ORDERED: morphine INJ 4 MG/ML 1 ML (VIAL/SYRINGE) ONE (22:08)
[2021-11-24] MEDS ORDERED: morphine INJ 4 MG/ML 1 ML (VIAL/SYRINGE) IV STA (22:11)
[2021-11-25] VITALS (7 sets, daily range): BP systolic 82–129; BP diastolic 52–85
--- NOTE | 2021-11-25 03:31 | PM&R Progress Note ---
Subjective HPI/CC On Admission Date Seen by Provider: Nov 25, 2021 Time Seen by Provider: 06:00 Subjective/Events-last exam 11/25/2021: Doing about the same Legs weak Hypotension noted MSO4 given last night 11/24/2021: Doing well except weaker in legs Conferred with Dr Jay who will be happy to see him in the clinic Back pain improved with Lortab MRI reviewed 11/23/2021: Pt is doing really well Thinks the bed is too soft and that hurts his back Pain pill was taken at 0200 Bowels are really moving after treatment Review of Systems General: Fatigue, Malaise Objective Exam Vital Signs Vital Signs Date Time Temp Pulse Resp B/P (MAP) Pulse Ox O2 Delivery O2 Flow Rate FiO2 11/25/21 20:10 36.6 71 18 129/82 (98) 98 Room Air Capillary Refill : General Appearance: No Apparent Distress, WD/WN, Chronically ill HEENT: PERRL/EOMI, Normal ENT Inspection, Pharynx Normal Neck: Full Range of Motion, Normal Inspection, Non Tender, Supple, Carotid Bruit Respiratory: Chest Non Tender, Lungs Clear, Normal Breath Sounds, No Accessory Muscle Use, No Respiratory Distress Cardiovascular: Regular Rate, Rhythm, No Edema, No Gallop, No JVD, No Murmur, Normal Peripheral Pulses Gastrointestinal: Normal Bowel Sounds, No Organomegaly, No Pulsatile Mass, Non Tender, Soft Back: Normal Inspection, No CVA Tenderness, No Vertebral Tenderness Extremity: Normal Capillary Refill, Normal Inspection, Normal Range of Motion, Non Tender, No Calf Tenderness, No Pedal Edema Neurologic/Psychiatric: Alert, Oriented x3, Normal Mood/Affect, assurance senior manager II-XII Norm as Tested, Abnormal Gait, Motor Weakness (severe weakness of legs 3/5) Skin: Normal Color, Warm/Dry Lymphatic: No Adenopathy Results/Procedures Lab Patient resulted labs reviewed. FIM Transfers Therapy Code Descriptions/Definitions Functional [place] Measure: 0=Not Assessed/NA 4=Minimal Assistance 1=Total Assistance 5=Supervision or Setup 2=Maximal Assistance 6=Modified [place] 3=Moderate Assistance 7=Complete IndependenceSCALE: Activities may be completed with or without assistive devices. 9-Douykecfmn-ncgtcfp completes the activity by him/herself with no assistance from a helper. 5-Set-up or Clean-up Assistance-helper sets up or cleans up; patient completes activity. Only assists only prior to or following the activity. 4-Supervision or Touching Assistance-helper provides verbal cues and/or touching/steadying and/or contact guard assistance as patient completes activity. Assistance may be provided throughout the activity or intermittently. 3-Partial/Moderate Assistance-helper does LESS THAN HALF the effort. Only lifts, holds or supports trunk or limbs, but provides less than half the effort. 2-Substantial/Maximal Assistance-helper does MORE THAN HALF the effort. Only lifts or holds trunk or limbs and provides more than half the effort. 4-Ftcfvwhed-anggxa does ALL the effort. Patient does none of the effort to complete the activity. Or, the assistance of 2 or more helpers is required for the patient to complete the activity. If activity was not attempted, code reason: 7-Patient Refused. 9-Not Applicable-not attempted and the patient did not perform the activity before the current illness, exacerbation or injury. 10-Not Attempted due to Environmental Limitations-(lack of equipment, weather restraints, etc.). 88-Not Attempted due to Medical Conditions or Safety Concerns. Roll Left to Right (QC): 5 Sit to Lying (QC): 5 Sit to Stand (QC): 4 Chair/Uhj-sb-Hrqyn Xfer(QC): 4 Car Transfer (QC): 4 Gait Training Does the Patient Walk?: Yes Walk 10 feet (QC): 4 Walk 50 ft with 2 Turns(QC): 4 Walk 150 ft (QC): 4 Walking 10ft/uneven surface-QC: 4 Gait Persons Needed: 1 Gait Assistive Device: FWW Wheelchair Training Does the Pt Use a Wheelchair?: No Wheel 50 ft with 2 turns (QC): 9 Wheel 150 ft (QC): 9 Stair Training #of Steps: 12 1 Step (curb) (QC): 4 4 Steps (QC): 4 12 Steps (QC): 4 Balance Picking up an Object (QC): 6 ADL-Treatment Eating (QC): 5 (per clinical judgment) Oral Hygiene (QC): 4 (In standing CGA) Shower/Bathe Self (QC): 4 Upper Body Dressing (QC): 5 Lower Body Dressing (QC): 4 On/Off Footwear (QC): 5 Toileting Hygiene (QC): 4 (CGA) Assessment/Plan Assessment and Plan Assess & Plan/Chief Complaint Assessment: Severe leg weakness Back pain CKD Stage III HTN CAD HLP Gout Constipation Plan: Pain control PT OT Monitor closely Home meds 11/23/2021: Change beds Lortab Monitor creat 11/24/2021: Monitor closely MRI reviewed 11/25/2021: Pain control Monitor BP (1) Bilateral leg weakness Status: Acute (2) Paresthesia of both lower extremities Status: Acute (3) Paresthesia of both hands Status: Acute (4) Neuropathic pain of both legs Status: Acute (5) Neuropathic pain of upper extremity Status: Acute (6) Chronic kidney disease, stage 3 Status: Acute (7) 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 Status: Acute (8) Presence of stent in LAD coronary artery Status: Acute (9) Presence of stent in right coronary artery Status: Acute GUSTAVO SALAZAR DO Nov 25, 2021 03:31
[2021-11-25] MEDS: CATHETER FLUSH 10 ML SYR IVP SCH ×3 (06:02→19:15)
[2021-11-25] MEDS: HYDROcodone/APAP 5 MG/325 MG (LORTAB) TAB PO PRN ×3 (06:02→17:56)
[2021-11-25] MEDS: MULTIVIT W/MINERALS TAB (THERAGRAN M) PO SCH (06:02)
[2021-11-25] MEDS: ALLOPURINOL 100 MG (ZYLOPRIM) TAB PO SCH (08:08)
[2021-11-25] MEDS: ASPIRIN 81 MG CHEW (CHILDREN'S ASA) PO SCH (08:08)
[2021-11-25] MEDS: OMEGA 3 (FISH OIL) 1000 MG CAP PO SCH (08:08)
[2021-11-25] MEDS: GABAPENTIN 300 MG (NEURONTIN) CAP PO SCH ×2 (08:08→19:13)
--- NOTE | 2021-11-25 08:58 | Occupational Ther Daily Note ---
OT Current Status-Daily Note Subjective Pt in chair and alert. Pt agrees to therapy. Complaints of dizziness. Monitored BP throughout session due to low BP reported by nrsg. BP-87/54 at beginning of session then 91/55 at end of session. Mental Status/Objective Patient Orientation: Person, Place, Time, Situation Attachments: IV ADL-Treatment Pt declines shower and changing clothing today. Agrees to complete grooming and oral care at sink. During SPT from recliner to w/c, pt became dizzy and 'frozen' in place. Assistance needed for safe transfer, BP taken see above. Pt recovered quickly from dizziness and then complete oral care/grooming indepen dently sitting at sink. Pt c/o R fingers increased in numbness. Stretch and massage to R scapular area to decrease tightness. After therapy, pt lying in bed with call light/phone in reach. All needs met in room. Therapy Code Descriptions/Definitions Functional [place] Measure: 0=Not Assessed/NA 4=Minimal Assistance 1=Total Assistance 5=Supervision or Setup 2=Maximal Assistance 6=Modified [place] 3=Moderate Assistance 7=Complete IndependenceSCALE: Activities may be completed with or without assistive devices. 1-Ajoouumtrf-zzvldsy completes the activity by him/herself with no assistance from a helper. 5-Set-up or Clean-up Assistance-helper sets up or cleans up; patient completes activity. [place] assists only prior to or following the activity. 4-Supervision or Touching Assistance-helper provides verbal cues and/or touching/steadying and/or contact guard assistance as patient completes activity . Assistance may be provided throughout the activity or intermittently. 3-Partial/Moderate Assistance-helper does LESS THAN HALF the effort. Anderson lifts, holds or supports trunk or limbs, but provides less than half the effort. 2-Substantial/Maximal Assistance-helper does MORE THAN HALF the effort. [place] lifts or holds trunk or limbs and provides more than half the effort. 6-Dswtjxlaa-szbqeh does ALL the effort. Patient does none of the effort to complete the activity. Or, the assistance of 2 or more helpers is required for the patient to complete the activity. If activity was not attempted, code reason: 7-Patient Refused. 9-Not Applicable-not attempted and the patient did not perform the activity before the current illness, exacerbation or injury. 10-Not Attempted due to Environmental Limitations-(lack of equipment, weather restraints, etc.). 88-Not Attempted due to Medical Conditions or Safety Concerns. Oral Hygiene (QC): 6 OT Short Term Goals Short Term Goals Time Frame: Nov 29, 2021 Eatin Oral hygiene: 4 Toileting hygiene: 4 Shower/bathe self: 4 Upper body dressin Lower body dressin Putting on/taking off footwear: 5 OT Hat Lining Blocker Goals Assisted Goals Time Frame: Dec 06, 2021 Eating (QC): 6 Oral Hygiene (QC): 6 Toileting Hygiene (QC): 6 Shower/Bathe Self (QC): 5 Upper Body Dressing (QC): 6 Lower Body Dressing (QC): 5 On/Off Footwear (QC): 6 1=Demonstrate adherence to instructed precautions during ADL tasks. 2=Patient will verbalize/demonstrate understanding of assistive devices/modifications for ADL. 3=Patient will improve strength/tolerance for activity to enable patient to perform ADL's. OT Education/Plan Problem List/Assessment Assessment: Decreased Activ Tolerance, Decreased UE Strength Discharge Recommendations Plan/Recommendations: Continue POC Treatment Plan/Plan of Care Patient would benefit from OT for education, treatment and training to promote independence in ADL's, mobility, safety and/or upper extremity function for ADL's. Plan of Care: ADL Retraining, Concurrent Therapy, Functional Mobility, Group Exercise/Act as Ind, UE Funct Exercise/Act, UE Neuromus Re-Ed/Coord Treatment Duration: Dec 06, 2021 Frequency: At least 5 of 7 days/Wk (IRF) Estimated Hrs Per Day: 1.5 hours per day (75-90 min/day) Agreement: Yes Rehab Potential: Fair Time/GCodes Start Time: 08:30 Stop Time: 09:30 Total Time Billed (hr/min): 60 Billed Treatment Time 1 visit-ADL 2 (30 min) FA 2 (30 min) BLOSSOM BROWN Nov 25, 2021 08:58
[2021-11-25] MEDS ORDERED: NS IV 500 ML 500 ML IV STA (10:19)
[2021-11-25] MEDS ORDERED: NS IV 500 ML 500 ML ONE (10:22)
[2021-11-25] MEDS: DOCUSATE SODIUM 100 MG (COLACE) CAP PO SCH ×2 (10:51→19:13)
[2021-11-25] MEDS: polyethylene glycoL POWDER 17 GM (MIRALAX) PACK PO SCH ×2 (10:51→19:17)
[2021-11-25] MEDS: SENNA W/DOCUSATE (SENOKOT S) TABLET PO SCH ×2 (10:52→19:13)
--- NOTE | 2021-11-25 10:55 | Physical Therapy Daily Note ---
PT Daily Note-Current Subjective Pt. in bed asleep. When awakened states he had sever pain last night and was given morphine. Pt. stated this did get rid of his pain and he finally slept last night, however at present time pt. is supine and is having issues with low BP. see readings below recorded during Rx. Pain Location: No Pain Reported Mental Status Patient Orientation: Normal For Age Attachments: IV Transfers SCALE: Activities may be completed with or without assistive devices. 4-Gpuolwdqnd-wdnlobs completes the activity by him/herself with no assistance from a helper. 5-Set-up or Clean-up Assistance-helper sets up or cleans up; patient completes activity. [place] assists only prior to or following the activity. 4-Supervision or Touching Assistance-helper provides verbal cues and/or touching/steadying and/or contact guard assistance as patient completes activity. Assistance may be provided throughout the activity or intermittently. 3-Partial/Moderate Assistance-helper does LESS THAN HALF the effort. [place] lifts, holds or supports trunk or limbs, but provides less than half the effort. 2-Substantial/Maximal Assistance-helper does MORE THAN HALF the effort. [place] lifts or holds trunk or limbs and provides more than half the effort. 4-Dktoovopg-vjcncl does ALL the effort. Patient does none of the effort to complete the activity. Or, the assistance of 2 or more helpers is required for the patient to complete the activity. If activity was not attempted, code reason: 7-Patient Refused. 9-Not Applicable-not attempted and the patient did not perform the activity before the current illness, exacerbation or injury. 10-Not Attempted due to Environmental Limitations-(lack of equipment, weather restraints, etc.). 88-Not Attempted due to Medical Conditions or Safety Concerns. Roll Left & Right (QC): 6 Sit to Lying (QC): 3 Lying to Sitting/Side of Bed(Q: 3 Sit to Stand (QC): 4 Weight Bearing Right Lower Extremity: Right Full Weight Bearing Left Lower Extremity: Left Full Weight Bearing Exercises Supine Ex: Bridging, Ankle pumps, Quad Set, Rolling, Glut sets, Heel Slides, Short Arc Quads, Straight leg raise, Hip abd/add Supine Reps: 20 Seated Therapy Exercises: Ankle pumps, Sit to stand (3), Long arc quads Seated Reps: 10 Treatments Pt. with low BP issues was monitored closely while in complete supine, then HOB up , then seated bedside. Pts. BP slowly tana to good level. pt. was encouraged to drink fluids, nurse stared IV and LE exercises were done as well as bed mob and sitting EOB and a few stand ups as tolerated. Initial BP 88/55, 10m later 108/65, 144/70, then 133/67, all in sup with or without HOB up. tried several times and unable to get a reading in seated position or standing position. Pt. did not c/o dizziness. Sup and sit ex done Assessment Current Status: Fair Progress limited ivette for Rx secondary to low bP issues PT Half-Way Goals Half-Way Goals PT [place] Drafter Goals Time Frame: Dec 07, 2021 Roll Left & Right (QC): 6 Sit to Lying (QC): 6 Lying-Sitting on Side/Bed(QC): 6 Sit to Stand (QC): 6 Chair/Lmy-qj-Ilgmf Xfer(QC): 6 Toilet Transfer (QC): 6 Car Transfer (QC): 6 Does the Patient Walk: Yes Walk 10 feet (QC): 6 Walk 50ft with 2 Turns (QC): 6 Walk 150 ft (QC): 6 Walking 10ft on Uneven Surface: 6 1 Step (curb) (QC): 6 4 Steps (QC): 6 12 Steps (QC): 6 Picking up an Object (QC): 6 Does the Pt use WC or Scooter?: No Wheel 50 feet with 2 turns (QC: 88 Wheel 150 feet: 88 PT Plan Treatment/Plan Treatment Plan: Continue Plan of Care Treatment Plan: Bed Mobility, Education, Functional Activity Sherry, Functional Strength, Group Therapy, Gait, Safety, Therapeutic Exercise, Transfers Treatment Duration: Dec 16, 2021 Frequency: At least 5 of 7 days/Wk (IRF) Estimated Hrs Per Day: 1.5 hours per day Patient and/or Family Agrees t: Yes Safety Risks/Education Patient Education: Transfer Techniques, Correct Positioning, Disease Process, Safety Issues Teaching Recipient: Patient Teaching Methods: Demonstration, Discussion Response to Teaching: Verbalize Understanding, Return Demonstration, Reinforcement Needed Time/GCodes Time In: 945 Time Out: 1045 Total Billed Treatment Time: 60 Total Billed Treatment 1,EX20m,FA40m 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
--- NOTE | 2021-11-25 13:39 | Progress Note ---
AI SIMON 11/25/21 1339: Progress Note SUBJECTIVE CC: Bilateral LE Weakness HPI: Alex is a 76yo male who presented to the ED on 11/22/2021 with a chief complaint of low back pain with radiation into both LE. He also expressed that he had numbness into his legs and lower extremity weakness. The weakness was significant enough to cause him to fall at home. He has tolerated rehab well, and initially had well managed pain in his low back. On his second night he complained of increased low back pain due to the mattress being too soft, and the patient changed beds. On 11/24 the patient experienced increased lower back pain with radiation into his LE, and also had a feeling of numbness in both feet. He was given a shot of morphine which now has his pain well controlled and allowed him to sleep comfortably. He started experiencing dizziness upon stand ing on 11/25 and his blood pressure showed the patient was consistently hypotensive. He is currently laying in bed to avoid more spells of dizziness. OBJECTIVE Temp=36.8 BP=91/85 Pulse=80 RR=21 O2=96 on RA PE: General: Patient appears tired, oral mucosa appears dry CVS: HRRR Pulmonary: CTAB Abdomen: Soft, nontender Imaging: NAME: ALEX KHOURY [facility] REC#: [id number] PT STATUS: DEP ER : 1945 PHYSICIAN: SHAUNNA REES MD ADMIT DATE: 11/22/21/ER Signed Date of Exam:11/22/21 MRI LUMBAR SPINE W/O CONTRAST PROCEDURE: MRI lumbar spine. TECHNIQUE: Multiplanar, multisequence MRI of the lumbar spine was performed without contrast. INDICATION: While bending and lifting experienced acute onset low back pain. Compared with lumbar MR dated 07/21/2020. FINDINGS: Lumbar vertebral statures are stable and normal. The alignment is unremarkable. No compression deformity or other fracture pattern is found. There are improvements in the degenerative Modic type I marrow edema across the L3-L4 articular endplates with some new mild Modic type I edematous changes at the anteroinferior endplate of T12. Acute appearing bony abnormality is not identified and the conus appeared unremarkable and there is normal dispersal pattern of the nerves of the cauda equina. No paravertebral mass, hemorrhage or fluid collection. Multilevel mid to lower lumbar laminectomies chronic without fluid collection. T12-L1: There is some increased anterior osteophyte disc material but no resultant stenosis. L1-L2: Disc desiccation stature loss with anterior greater than posterior osteophyte disc material unchanged and no resultant stenosis. L2-L3: Decompressive laminectomy present. The canal widely patent. There is no substantial foraminal or recess encroachment with mild diffuse desiccated disc bulge and endplate osteophytes stable. L3-L4: The canal decompressed by laminectomy. No significant canal or recess stenosis. There is endplate osteophytes and bulging disc material resulting in moderate left and mild right neural foraminal narrowing not significantly changed. L4-L5: There is decompression with laminectomy. There is mild canal stenosis stable. There is mild left greater than right lateral recess impingement stable. There is bulky hypertrophic facet arthrosis chronic. There is disc desiccation, disc bulge and endplate osteophytes resulting in jajt-vz-mjqdjcqz right and mild left foraminal narrowing perhaps mildly increased. L5-S1: There is disc desiccation, stature loss and endplate osteophytes and facet arthrosis. There is a moderate degree of left greater than right lateral recess impingement owing to the facet overgrowth unchanged. There is moderate to severe chronic canal stenosis stable. There is mild left and mild right neural foraminal stenoses stable. IMPRESSION: 1. Mild progressive truong-lumbar degenerative changes with multilevel stenoses of varying severity as detailed level by level above. 2. However, no acute or posttraumatic abnormalities identified. Alignment stable. No fracture. Dictated by: Dictated on workstation # [id number] Dict: 11/22/21 1005 Trans: 11/22/21 1612 [id number] Interpreted by: NELLY CHAUDHARI Electronically signed by: NELLY CHAUDHARI 11/22/21 1612 ASSESSMENT AND PLAN Low Back Pain Continue pain control regimen Continue working with rehab staff to increase strength and function MRI sent to Dr. Jay Gabapentin 600mg BID Hypotension Encourage pt. to drink more fluids Metoprolol dosage changed from 100mg to 50mg ESTELLA SALAZAR DO 11/25/217: Supervisory-Addendum Brief Verification & Attestation Participated in pt care: history, MDM, physical Personally performed: exam, history, MDM, supervision of care Care discussed with: Medical Student Procedures: n/a Results interpretation: Verified all documentation Verification and Attestation of Medical Student E/M Service A medical student performed and documented this service in my presence. I reviewed and verified all information documented by the medical student and made modifications to such information, when appropriate. I personally performed the physical exam and medical decision making. Estella Salazar, Nov 25, 2021,21:15 AI SIMON Nov 25, 2021 13:39 ESTELLA SALAZAR DO Nov 25, 2021 21:15
--- NOTE | 2021-11-25 14:27 | Therapy Group Daily Note ---
Therapy Daily Group Note Patient Education Topic Other List Below (TRF skills, adaptive equip) Exercises LE Seated Exercise, Sit to/from Stand, UE Exercise Session Ratio (pt:therapist): 3:1 Goal of Session: Education on ARU Expectations, UE/LE Strengthing, Safety with Transfers, Use of Adaptive Equipment Goal Met for this Session: Yes Pt Benefit of Group: Increased Functional Safety, Increased Functional Strength, Socialization Other/Notes Pt. participated in group PT OT session this date. Pt. ambulated to from group with FWW and w/c close behind. Pts. introduced themselves to one another and shared ad jackie, pts participated in seated U&L ext exercises . Demonstration and instruction was given with equipment for bed TRFs, car TRFs, shower/bath TRFs ad sit to stand from chair TRFs. Pt. 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
[2021-11-25] MEDS: ENOXAPARIN 40 MG/0.4 ML (LOVENOX) SYR SC SCH (14:34)
[2021-11-25] MEDS: TAMSULOSIN 0.4 MG (FLOMAX) CAP PO SCH (19:13)
[2021-11-25] MEDS: ROSUVASTATIN 5 MG (CRESTOR) TABLET PO SCH (19:13)
[2021-11-25] MEDS: ALPRAZolam 0.25 MG (XANAX) TAB PO PRN (19:13)
[2021-11-25] MEDS: MELATONIN 3 MG TABLET PO PRN (19:13)
[2021-11-25] MEDS: morphine INJ 4 MG/ML 1 ML (VIAL/SYRINGE) IVP PRN ×3 (19:15→21:05)
[2021-11-26] MEDS: CATHETER FLUSH 10 ML SYR IVP SCH ×3 (02:15→20:21)
[2021-11-26] MEDS: morphine INJ 4 MG/ML 1 ML (VIAL/SYRINGE) IVP PRN ×2 (02:15→05:07)
[2021-11-26] MEDS: MULTIVIT W/MINERALS TAB (THERAGRAN M) PO SCH (05:08)
[2021-11-26] MEDS ORDERED: morphine INJ 4 MG/ML 1 ML (VIAL/SYRINGE) IVP PRN (06:00)
[2021-11-26] MEDS ORDERED: BISACODYL 10 MG SUPP (DULCOLAX) PR ONE (06:15)
[2021-11-26] MEDS ORDERED: LACTULOSE SYRUP 10GM/15ML (ENULOSE) 30ML UDC PO ONE (06:15)
[2021-11-26 07:44] VITALS: BP 123/71
--- NOTE | 2021-11-26 08:03 | PM&R Progress Note ---
Subjective HPI/CC On Admission Date Seen by Provider: Nov 26, 2021 Time Seen by Provider: 06:00 Subjective/Events-last exam 11/26/2021: Doing the same The only concerns are pain issues Took morphine every hour last night which is not sustainable Extended release morphine will be started Counseling that epidural pain injections will need to be done as an outpatient 11/25/2021: Doing about the same Legs weak Hypotension noted MSO4 given last night 11/24/2021: Doing well except weaker in legs Conferred with Dr Jay who will be happy to see him in the clinic Back pain improved with Lortab MRI reviewed 11/23/2021: Pt is doing really well Thinks the bed is too soft and that hurts his back Pain pill was taken at 0200 Bowels are really moving after treatment Review of Systems General: Fatigue, Malaise Objective Exam Vital Signs Vital Signs Date Time Temp Pulse Resp B/P (MAP) Pulse Ox O2 Delivery O2 Flow Rate FiO2 11/26/21 07:44 36.9 77 18 123/71 (88) 98 Room Air Capillary Refill : General Appearance: No Apparent Distress, WD/WN, Chronically ill HEENT: PERRL/EOMI, Normal ENT Inspection, Pharynx Normal Neck: Full Range of Motion, Normal Inspection, Non Tender, Supple, Carotid Bruit Respiratory: Chest Non Tender, Lungs Clear, Normal Breath Sounds, No Accessory Muscle Use, No Respiratory Distress Cardiovascular: Regular Rate, Rhythm, No Edema, No Gallop, No JVD, No Murmur, Normal Peripheral Pulses Gastrointestinal: Normal Bowel Sounds, No Organomegaly, No Pulsatile Mass, Non Tender, Soft Back: Normal Inspection, No CVA Tenderness, No Vertebral Tenderness Extremity: Normal Capillary Refill, Normal Inspection, Normal Range of Motion, Non Tender, No Calf Tenderness, No Pedal Edema Neurologic/Psychiatric: Alert, Oriented x3, Normal Mood/Affect, welder plastic II-XII Norm as Tested, Abnormal Gait, Motor Weakness (severe weakness of legs 3/5) Skin: Normal Color, Warm/Dry Lymphatic: No Adenopathy Results/Procedures Lab Patient resulted labs reviewed. FIM Transfers Therapy Code Descriptions/Definitions Functional [place] Measure: 0=Not Assessed/NA 4=Minimal Assistance 1=Total Assistance 5=Supervision or Setup 2=Maximal Assistance 6=Modified [place] 3=Moderate Assistance 7=Complete IndependenceSCALE: Activities may be completed with or without assistive devices. 8-Ggcjlmweab-rfiwauy completes the activity by him/herself with no assistance from a helper. 5-Set-up or Clean-up Assistance-helper sets up or cleans up; patient completes activity. [place] assists only prior to or following the activity. 4-Supervision or Touching Assistance-helper provides verbal cues and/or touching/steadying and/or contact guard assistance as patient completes activity. Assistance may be provided throughout the activity or intermittently. 3-Partial/Moderate Assistance-helper does LESS THAN HALF the effort. [place] lifts, holds or supports trunk or limbs, but provides less than half the effort. 2-Substantial/Maximal Assistance-helper does MORE THAN HALF the effort. [place] lifts or holds trunk or limbs and provides more than half the effort. 4-Rgtumlygo-poxkew does ALL the effort. Patient does none of the effort to complete the activity. Or, the assistance of 2 or more helpers is required for the patient to complete the activity. If activity was not attempted, code reason: 7-Patient Refused. 9-Not Applicable-not attempted and the patient did not perform the activity before the current illness, exacerbation or injury. 10-Not Attempted due to Environmental Limitations-(lack of equipment, weather restraints, etc.). 88-Not Attempted due to Medical Conditions or Safety Concerns. Roll Left to Right (QC): 6 Sit to Lying (QC): 3 Sit to Stand (QC): 4 Chair/Chu-fs-Qiver Xfer(QC): 4 Car Transfer (QC): 4 Gait Training Does the Patient Walk?: Yes Walk 10 feet (QC): 4 Walk 50 ft with 2 Turns(QC): 4 Walk 150 ft (QC): 4 Walking 10ft/uneven surface-QC: 4 Gait Persons Needed: 1 Gait Assistive Device: FWW Wheelchair Training Does the Pt Use a Wheelchair?: No Wheel 50 ft with 2 turns (QC): 9 Wheel 150 ft (QC): 9 Stair Training #of Steps: 12 1 Step (curb) (QC): 4 4 Steps (QC): 4 12 Steps (QC): 4 Balance Picking up an Object (QC): 6 ADL-Treatment Eating (QC): 5 (per clinical judgment) Oral Hygiene (QC): 6 Shower/Bathe Self (QC): 4 Upper Body Dressing (QC): 5 Lower Body Dressing (QC): 4 On/Off Footwear (QC): 5 Toileting Hygiene (QC): 4 (CGA) Assessment/Plan Assessment and Plan Assess & Plan/Chief Complaint Assessment: Severe leg weakness Back pain CKD Stage III HTN CAD HLP Gout Constipation Plan: Pain control PT OT Monitor closely Home meds 11/23/2021: Change beds Lortab Monitor creat 11/24/2021: Monitor closely MRI reviewed 11/25/2021: Pain control Monitor BP 11/26/2021: MS Contin to start Minimize IV morphine (1) Bilateral leg weakness Status: Acute (2) Paresthesia of both lower extremities Status: Acute (3) Paresthesia of both hands Status: Acute (4) Neuropathic pain of both legs Status: Acute (5) Neuropathic pain of upper extremity Status: Acute (6) Chronic kidney disease, stage 3 Status: Acute (7) 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 Status: Acute (8) Presence of stent in LAD coronary artery Status: Acute (9) Presence of stent in right coronary artery Status: Acute GUSTAVO SALAZAR DO Nov 26, 2021 08:03
[2021-11-26] MEDS: meTOproloL SUCCINATE 50 MG (TOPROL XL) TAB PO SCH (08:55)
[2021-11-26] MEDS: SENNA W/DOCUSATE (SENOKOT S) TABLET PO SCH ×2 (08:55→20:26)
[2021-11-26] MEDS: DOCUSATE SODIUM 100 MG (COLACE) CAP PO SCH ×2 (08:55→20:25)
[2021-11-26] MEDS: ASPIRIN 81 MG CHEW (CHILDREN'S ASA) PO SCH (08:55)
[2021-11-26] MEDS: morphine ER 30 MG (MS CONTIN) TAB PO SCH ×2 (08:55→20:21)
[2021-11-26] MEDS: GABAPENTIN 300 MG (NEURONTIN) CAP PO SCH ×2 (08:55→20:21)
[2021-11-26] MEDS: ALLOPURINOL 100 MG (ZYLOPRIM) TAB PO SCH (08:55)
[2021-11-26] MEDS: OMEGA 3 (FISH OIL) 1000 MG CAP PO SCH (08:55)
[2021-11-26] MEDS: polyethylene glycoL POWDER 17 GM (MIRALAX) PACK PO SCH ×2 (09:00→20:26)
[2021-11-26] MEDS ORDERED: ONDANSETRON 4 MG (ZOFRAN) ORAL DISSOLVE TAB PO SCH (11:30)
--- NOTE | 2021-11-26 11:53 | Physical Therapy Daily Note ---
PT Daily Note-Current Subjective Pt. agrees to Rx but states he has had another really bad night, states his pain was 10/10 and he had 3 doses of morphine before he got control of pain. Pt. comments on more weakness today, "Im just now hearing about this tick borne illness test, I dont understand" Pain Numeric Pain Scale: 4 Location: Medial Location Body Site: Back Pain Description: Ache Appearance pt appears very tired Mental Status Patient Orientation: Normal For Age Transfers SCALE: Activities may be completed with or without assistive devices. 4-Hyxaunjket-khcysqn completes the activity by him/herself with no assistance from a helper. 5-Set-up or Clean-up Assistance-helper sets up or cleans up; patient completes activity. [place] assists only prior to or following the activity. 4-Supervision or Touching Assistance-helper provides verbal cues and/or touching/steadying and/or contact guard assistance as patient completes activity. Assistance may be provided throughout the activity or intermittently. 3-Partial/Moderate Assistance-helper does LESS THAN HALF the effort. [place] lifts, holds or supports trunk or limbs, but provides less than half the effort. 2-Substantial/Maximal Assistance-helper does MORE THAN HALF the effort. [place] lifts or holds trunk or limbs and provides more than half the effort. 2-Rroibxxaj-kxvwmj does ALL the effort. Patient does none of the effort to complete the activity. Or, the assistance of 2 or more helpers is required for the patient to complete the activity. If activity was not attempted, code reason: 7-Patient Refused. 9-Not Applicable-not attempted and the patient did not perform the activity b efore the current illness, exacerbation or injury. 10-Not Attempted due to Environmental Limitations-(lack of equipment, weather restraints, etc.). 88-Not Attempted due to Medical Conditions or Safety Concerns. Roll Left & Right (QC): 6 Sit to Stand (QC): 4 Toilet Transfer (QC): 3 Weight Bearing Right Lower Extremity: Right Full Weight Bearing Left Lower Extremity: Left Full Weight Bearing Gait Training Does the Patient Walk?: Yes Walk 10 feet (QC): 4 Walk 50 ft with 2 Turns(QC): 4 Gait Persons Needed: 1 (and w/c close behind) Gait Assistive Device: FWW pt. with uneven steps, bilat knees melting at times, poor control, w/c right behind pt.for gait safety Wheelchair Training Does the Pt Use a Wheelchair?: Yes Type of Wheelchair: Manual 50 ft x 2 pt. struggling to step each foot forward to propel chair, fatigues very quickly Exercises Seated Therapy Exercises: Ankle pumps, Sit to stand, Long arc quads, Hip flexion, Hip abd/add Seated Reps: 12 Standing: Hip Abduction, Heel/toe raises, Marching, Side steps Standing Reps: 15 Treatments TRFs, LE ex, gait, toilet TRF Assessment Current Status: Fair Progress LE instability and weakness, gait instability, fatigue, numbness and tingling cont PT Charter Boat Captain Goals Charter Boat Captain Goals PT Charter Boat Captain Goals Time Frame: Dec 07, 2021 Roll Left & Right (QC): 6 Sit to Lying (QC): 6 Lying-Sitting on Side/Bed(QC): 6 Sit to Stand (QC): 6 Chair/Vaz-fb-Lwywp Xfer(QC): 6 Toilet Transfer (QC): 6 Car Transfer (QC): 6 Does the Patient Walk: Yes Walk 10 feet (QC): 6 Walk 50ft with 2 Turns (QC): 6 Walk 150 ft (QC): 6 Walking 10ft on Uneven Surface: 6 1 Step (curb) (QC): 6 4 Steps (QC): 6 12 Steps (QC): 6 Picking up an Object (QC): 6 Does the Pt use WC or Scooter?: No Wheel 50 feet with 2 turns (QC: 88 Wheel 150 feet: 88 PT Plan Treatment/Plan Treatment Plan: Continue Plan of Care Treatment Plan: Bed Mobility, Education, Functional Activity Sherry, Functional Strength, Group Therapy, Gait, Safety, Therapeutic Exercise, Transfers Treatment Duration: Dec 16, 2021 Frequency: At least 5 of 7 days/Wk (IRF) Estimated Hrs Per Day: 1.5 hours per day Patient and/or Family Agrees t: Yes Safety Risks/Education Patient Education: Gait Training, Transfer Techniques, Correct Positioning, W/C Management, Disease Process, Safety Issues Teaching Recipient: Patient Teaching Methods: Demonstration, Discussion Response to Teaching: Verbalize Understanding, Return Demonstration, Reinforcement Needed Time/GCodes Time In: 1000 Time Out: 1050 Total Billed Treatment Time: 50 Total Billed Treatment 1,GT20m,FA15m,EX15m SISSY BOBO RICE FARMER Nov 26, 2021 11:53
[2021-11-26] MEDS: ENOXAPARIN 40 MG/0.4 ML (LOVENOX) SYR SC SCH (13:31)
[2021-11-26 20:00] VITALS: BP 144/81
[2021-11-26] MEDS: TAMSULOSIN 0.4 MG (FLOMAX) CAP PO SCH (20:21)
[2021-11-26] MEDS: ROSUVASTATIN 5 MG (CRESTOR) TABLET PO SCH (20:21)
[2021-11-27] MEDS: CATHETER FLUSH 10 ML SYR IVP SCH (06:11)
[2021-11-27] MEDS: MULTIVIT W/MINERALS TAB (THERAGRAN M) PO SCH (06:11)
[2021-11-27 07:30] VITALS: BP 125/81
--- NOTE | 2021-11-27 08:09 | PM&R Progress Note ---
Subjective HPI/CC On Admission Date Seen by Provider: Nov 27, 2021 Time Seen by Provider: 13:00 Subjective/Events-last exam 11/27/2021: Doing well Pain improved MS Contin working well Tick borne disease panel reviewed and it is IgG 11/26/2021: Doing the same The only concerns are pain issues Took morphine every hour last night which is not sustainable Extended release morphine will be started Counseling that epidural pain injections will need to be done as an outpatient 11/25/2021: Doing about the same Legs weak Hypotension noted MSO4 given last night 11/24/2021: Doing well except weaker in legs Conferred with Dr Jay who will be happy to see him in the clinic Back pain improved with Lortab MRI reviewed 11/23/2021: Pt is doing really well Thinks the bed is too soft and that hurts his back Pain pill was taken at 0200 Bowels are really moving after treatment Review of Systems General: Fatigue, Malaise Musculoskeletal: back pain Objective Exam Vital Signs Vital Signs Date Time Temp Pulse Resp B/P (MAP) Pulse Ox O2 Delivery O2 Flow Rate FiO2 11/27/21 09:07 Room Air 11/27/21 07:30 37.2 68 18 125/81 (96) 96 Capillary Refill : General Appearance: No Apparent Distress, WD/WN, Chronically ill HEENT: PERRL/EOMI, Normal ENT Inspection, Pharynx Normal Neck: Full Range of Motion, Normal Inspection, Non Tender, Supple, Carotid Bruit Respiratory: Chest Non Tender, Lungs Clear, Normal Breath Sounds, No Accessory Muscle Use, No Respiratory Distress Cardiovascular: Regular Rate, Rhythm, No Edema, No Gallop, No JVD, No Murmur, Normal Peripheral Pulses Gastrointestinal: Normal Bowel Sounds, No Organomegaly, No Pulsatile Mass, Non Tender, Soft Back: Normal Inspection, No CVA Tenderness, No Vertebral Tenderness Extremity: Normal Capillary Refill, Normal Inspection, Normal Range of Motion, Non Tender, No Calf Tenderness, No Pedal Edema Neurologic/Psychiatric: Alert, Oriented x3, Normal Mood/Affect, dog or horse racing official II-XII Norm as Tested, Abnormal Gait, Motor Weakness (severe weakness of legs 3/5) Skin: Normal Color, Warm/Dry Lymphatic: No Adenopathy Results/Procedures Lab Patient resulted labs reviewed. FIM Transfers Therapy Code Descriptions/Definitions Functional [place] Measure: 0=Not Assessed/NA 4=Minimal Assistance 1=Total Assistance 5=Supervision or Setup 2=Maximal Assistance 6=Modified [place] 3=Moderate Assistance 7=Complete IndependenceSCALE: Activities may be completed with or without assistive devices. 2-Dcxtwtauhk-zomwpbj completes the activity by him/herself with no assistance from a helper. 5-Set-up or Clean-up Assistance-helper sets up or cleans up; patient completes activity. [place] assists only prior to or following the activity. 4-Supervision or Touching Assistance-helper provides verbal cues and/or touching/steadying and/or contact guard assistance as patient completes activity. Assistance may be provided throughout the activity or intermittently. 3-Partial/Moderate Assistance-helper does LESS THAN HALF the effort. [place] lifts, holds or supports trunk or limbs, but provides less than half the effort. 2-Substantial/Maximal Assistance-helper does MORE THAN HALF the effort. [place] lifts or holds trunk or limbs and provides more than half the effort. 1-Zzqlefzcy-jtpjjk does ALL the effort. Patient does none of the effort to complete the activity. Or, the assistance of 2 or more helpers is required for the patient to complete the activity. If activity was not attempted, code reason: 7-Patient Refused. 9-Not Applicable-not attempted and the patient did not perform the activity before the current illness, exacerbation or injury. 10-Not Attempted due to Environmental Limitations-(lack of equipment, weather restraints, etc.). 88-Not Attempted due to Medical Conditions or Safety Concerns. Roll Left to Right (QC): 6 Sit to Lying (QC): 3 Sit to Stand (QC): 4 Chair/Vpl-kc-Ikyln Xfer(QC): 4 Car Transfer (QC): 4 Gait Training Does the Patient Walk?: Yes Walk 10 feet (QC): 4 Walk 50 ft with 2 Turns(QC): 4 Walk 150 ft (QC): 4 Walking 10ft/uneven surface-QC: 4 Gait Persons Needed: 1 (and w/c close behind) Gait Assistive Device: FWW Wheelchair Training Does the Pt Use a Wheelchair?: Yes Wheel 50 ft with 2 turns (QC): 9 Wheel 150 ft (QC): 9 Type of Wheelchair: Manual Stair Training #of Steps: 12 1 Step (curb) (QC): 4 4 Steps (QC): 4 12 Steps (QC): 4 Balance Picking up an Object (QC): 6 ADL-Treatment Eating (QC): 5 (per clinical judgment) Oral Hygiene (QC): 6 Shower/Bathe Self (QC): 4 Upper Body Dressing (QC): 5 Lower Body Dressing (QC): 4 On/Off Footwear (QC): 5 Toileting Hygiene (QC): 4 (CGA) Assessment/Plan Assessment and Plan Assess & Plan/Chief Complaint Assessment: Severe leg weakness Back pain CKD Stage III HTN CAD HLP Gout Constipation Plan: Pain control PT OT Monitor closely Home meds 11/23/2021: Change beds Lortab Monitor creat 11/24/2021: Monitor closely MRI reviewed 11/25/2021: Pain control Monitor BP 11/26/2021: MS Contin to start Minimize IV morphine 11/27/2021: Monitor closely (1) Bilateral leg weakness Status: Acute (2) Paresthesia of both lower extremities Status: Acute (3) Paresthesia of both hands Status: Acute (4) Neuropathic pain of both legs Status: Acute (5) Neuropathic pain of upper extremity Status: Acute (6) Chronic kidney disease, stage 3 Status: Acute (7) 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
[2021-11-27] MEDS: ALLOPURINOL 100 MG (ZYLOPRIM) TAB PO SCH (08:13)
[2021-11-27] MEDS: ASPIRIN 81 MG CHEW (CHILDREN'S ASA) PO SCH (08:13)
[2021-11-27] MEDS: OMEGA 3 (FISH OIL) 1000 MG CAP PO SCH (08:13)
[2021-11-27] MEDS: GABAPENTIN 300 MG (NEURONTIN) CAP PO SCH ×2 (08:13→20:20)
[2021-11-27] MEDS: meTOproloL SUCCINATE 50 MG (TOPROL XL) TAB PO SCH (08:13)
[2021-11-27] MEDS: morphine ER 30 MG (MS CONTIN) TAB PO SCH ×2 (08:13→20:20)
[2021-11-27] MEDS: SENNA W/DOCUSATE (SENOKOT S) TABLET PO SCH ×3 (08:15→20:20)
[2021-11-27] MEDS: DOCUSATE SODIUM 100 MG (COLACE) CAP PO SCH ×3 (08:15→20:20)
[2021-11-27] MEDS: polyethylene glycoL POWDER 17 GM (MIRALAX) PACK PO SCH ×2 (08:15→19:31)
[2021-11-27] MEDS: ENOXAPARIN 40 MG/0.4 ML (LOVENOX) SYR SC SCH (13:56)
[2021-11-27] MEDS: CALCIUM CARBONATE 500 MG (TUMS) TAB.CHEW PO PRN (18:11)
[2021-11-27 19:54] VITALS: BP 125/63
[2021-11-27] MEDS: ROSUVASTATIN 5 MG (CRESTOR) TABLET PO SCH (20:20)
[2021-11-27] MEDS: TAMSULOSIN 0.4 MG (FLOMAX) CAP PO SCH (20:20)
--- NOTE | 2021-11-28 05:37 | PM&R Progress Note ---
Subjective HPI/CC On Admission Date Seen by Provider: Nov 28, 2021 Time Seen by Provider: 08:30 Subjective/Events-last exam 11/28/2021: Pt is doing well MS Contin really helps the pain Will obtain appt with Dr. 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 11/26/2021: Doing the same The only concerns are pain issues Took morphine every hour last night which is not sustainable Extended release morphine will be started Counseling that epidural pain injections will need to be done as an outpatient 11/25/2021: Doing about the same Legs weak Hypotension noted MSO4 given last night 11/24/2021: Doing well except weaker in legs Conferred with Dr Jay who will be happy to see him in the clinic Back pain improved with Lortab MRI reviewed 11/23/2021: Pt is doing really well Thinks the bed is too soft and that hurts his back Pain pill was taken at 0200 Bowels are really moving after treatment Review of Systems General: Fatigue, Malaise Objective Exam Vital Signs Vital Signs Date Time Temp Pulse Resp B/P (MAP) Pulse Ox O2 Delivery O2 Flow Rate FiO2 11/28/21 20:00 Room Air 11/28/21 19:39 37.2 64 16 108/70 (83) 95 Capillary Refill : General Appearance: No Apparent Distress, WD/WN, Chronically ill HEENT: PERRL/EOMI, Normal ENT Inspection, Pharynx Normal Neck: Full Range of Motion, Normal Inspection, Non Tender, Supple, Carotid Bruit Respiratory: Chest Non Tender, Lungs Clear, Normal Breath Sounds, No Accessory Muscle Use, No Respiratory Distress Cardiovascular: Regular Rate, Rhythm, No Edema, No Gallop, No JVD, No Murmur, Normal Peripheral Pulses Gastrointestinal: Normal Bowel Sounds, No Organomegaly, No Pulsatile Mass, Non Tender, Soft Back: Normal Inspection, No CVA Tenderness, No Vertebral Tenderness Extremity: Normal Capillary Refill, Normal Inspection, Normal Range of Motion, Non Tender, No Calf Tenderness, No Pedal Edema Neurologic/Psychiatric: Alert, Oriented x3, Normal 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 FIM Transfers Therapy Code Descriptions/Definitions Functional [place] Measure: 0=Not Assessed/NA 4=Minimal Assistance 1=Total Assistance 5=Supervision or Setup 2=Maximal Assistance 6=Modified [place] 3=Moderate Assistance 7=Complete IndependenceSCALE: Activities may be completed with or without assistive devices. 2-Xtzeshzlon-kcnrvkt completes the activity by him/herself with no assistance from a helper. 5-Set-up or Clean-up Assistance-helper sets up or cleans up; patient completes activity. [place] assists only prior to or following the activity. 4-Supervision or Touching Assistance-helper provides verbal cues and/or touching/steadying and/or contact guard assistance as patient completes activity. Assistance may be provided throughout the activity or intermittently. 3-Partial/Moderate Assistance-helper does LESS THAN HALF the effort. [place] lifts, holds or supports trunk or limbs, but provides less than half the effort. 2-Substantial/Maximal Assistance-helper does MORE THAN HALF the effort. [place] lifts or holds trunk or limbs and provides more than half the effort. 7-Ygealvffv-avoyiw does ALL the effort. Patient does none of the effort to complete the activity. Or, the assistance of 2 or more helpers is required for the patient to complete the activity. If activity was not attempted, code reason: 7-Patient Refused. 9-Not Applicable-not attempted and the patient did not perform the activity before the current illness, exacerbation or injury. 10-Not Attempted due to Environmental Limitations-(lack of equipment, weather restraints, etc.). 88-Not Attempted due to Medical Conditions or Safety Concerns. Roll Left to Right (QC): 6 Sit to Lying (QC): 3 Sit to Stand (QC): 4 Chair/Dwd-rt-Lbjpd Xfer(QC): 4 Car Transfer (QC): 4 Gait Training Does the Patient Walk?: Yes Walk 10 feet (QC): 4 Walk 50 ft with 2 Turns(QC): 4 Walk 150 ft (QC): 4 Walking 10ft/uneven surface-QC: 4 Gait Persons Needed: 1 (and w/c close behind) Gait Assistive Device: FWW Wheelchair Training Does the Pt Use a Wheelchair?: Yes Wheel 50 ft with 2 turns (QC): 9 Wheel 150 ft (QC): 9 Type of Wheelchair: Manual Stair Training #of Steps: 12 1 Step (curb) (QC): 4 4 Steps (QC): 4 12 Steps (QC): 4 Balance Picking up an Object (QC): 6 ADL-Treatment Eating (QC): 5 (per clinical judgment) Oral Hygiene (QC): 6 Shower/Bathe Self (QC): 4 Upper Body Dressing (QC): 5 Lower Body Dressing (QC): 4 On/Off Footwear (QC): 5 Toileting Hygiene (QC): 4 (CGA) Assessment/Plan Assessment and Plan Assess & Plan/Chief Complaint Assessment: Severe leg weakness Back pain CKD Stage III HTN CAD HLP Gout Constipation resolved Oversedation with MS Contin due to CKD so changed to Oxycontin Plan: Pain control PT OT Monitor closely Home meds 11/23/2021: Change beds Lortab Monitor creat 11/24/2021: Monitor closely MRI reviewed 11/25/2021: Pain control Monitor BP 11/26/2021: MS Contin to start Minimize IV morphine 11/27/2021: Monitor closely 11/28/2021: Change MS Contin to Oxycontin (1) Bilateral leg weakness Status: Acute (2) Paresthesia of both lower extremities Status: Acute (3) Paresthesia of both hands Status: Acute (4) Neuropathic pain of both legs Status: Acute (5) Neuropathic pain of upper extremity Status: Acute (6) Chronic kidney disease, stage 3 Status: Acute (7) 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 Status: Acute (8) Presence of stent in LAD coronary artery Status: Acute (9) Presence of stent in right coronary artery Status: Acute GUSTAVO SALAZAR DO Nov 28, 2021 05:37
[2021-11-28] MEDS: MULTIVIT W/MINERALS TAB (THERAGRAN M) PO SCH (06:06)
[2021-11-28 06:40] LABS: BASOPHILS # (AUTO) 0.1 10^3/uL (0.0-0.1); BASOPHILS % (AUTO) 1 % (0-10); EOSINOPHILS # (AUTO) 0.3 10^3/uL (0.0-0.3); EOSINOPHILS % (AUTO) 5 % (0-10); HEMATOCRIT 36 % (40-54); LYMPHOCYTES # (AUTO) 1.5 10^3/uL (1.0-4.0); LYMPHOCYTES % (AUTO) 24 % (12-44); MEAN CORPUSCULAR HEMOGLOBIN 33 pg (25-34); MEAN CORPUSCULAR HGB CONC 33 g/dL (32-36); MEAN CORPUSCULAR VOLUME 99 fL (80-99); MEAN PLATELET VOLUME 9.8 fL (9.0-12.2); MONOCYTES # (AUTO) 0.7 10^3/uL (0.0-1.0); MONOCYTES % (AUTO) 12 % (0-12); NEUTROPHILS # (AUTO) 3.7 10^3/uL (1.8-7.8); NEUTROPHILS % (AUTO) 58 % (42-75); PLATELET COUNT 176 10^3/uL (130-400); WHITE BLOOD COUNT 6.4 10^3/uL (4.3-11.0)
[2021-11-28 07:04] LABS: ALBUMIN 3.6 GM/DL (3.2-4.5); POTASSIUM 4.5 MMOL/L (3.6-5.0)
[2021-11-28 07:06] LABS: CALCIUM 9.1 MG/DL (8.5-10.1)
[2021-11-28 07:07] LABS: TOTAL PROTEIN 6.6 GM/DL (6.4-8.2)
[2021-11-28 07:09] LABS: BILIRUBIN,TOTAL 0.4 MG/DL (0.1-1.0)
[2021-11-28 07:10] LABS: CREATININE SERUM 2.01 MG/DL (0.60-1.30)
[2021-11-28 07:18] VITALS: BP 133/71
[2021-11-28] MEDS: DOCUSATE SODIUM 100 MG (COLACE) CAP PO SCH ×2 (07:23→20:50)
[2021-11-28] MEDS: OMEGA 3 (FISH OIL) 1000 MG CAP PO SCH (07:23)
[2021-11-28] MEDS: morphine ER 30 MG (MS CONTIN) TAB PO SCH (07:23)
[2021-11-28] MEDS: ASPIRIN 81 MG CHEW (CHILDREN'S ASA) PO SCH (07:23)
[2021-11-28] MEDS: GABAPENTIN 300 MG (NEURONTIN) CAP PO SCH ×2 (07:23→20:44)
[2021-11-28] MEDS: meTOproloL SUCCINATE 50 MG (TOPROL XL) TAB PO SCH (07:23)
[2021-11-28] MEDS: ALLOPURINOL 100 MG (ZYLOPRIM) TAB PO SCH (07:23)
[2021-11-28] MEDS: SENNA W/DOCUSATE (SENOKOT S) TABLET PO SCH ×2 (07:24→20:50)
[2021-11-28] MEDS: polyethylene glycoL POWDER 17 GM (MIRALAX) PACK PO SCH ×2 (08:00→19:50)
--- NOTE | 2021-11-28 11:14 | Physical Therapy Daily Note ---
PT Daily Note-Current Subjective Pt sitting in recliner upon arrival. Pt agrees to PT. Pain Location: Right, Left Location Body Site: Thigh Pain Description: Tingling, Numbness Comment: B LE Neuropathy type feeling Mental Status Patient Orientation: Person, Place, Time, Situation Transfers SCALE: Activities may be completed with or without assistive devices. 6-Olhom[place]ozi-yiptelo completes the activity by him/herself with no assistance from a helper. 5-Set-up or Clean-up Assistance-helper sets up or cleans up; patient completes activity. [place] assists only prior to or following the activity. 4-Supervision or Touching Assistance-helper provides verbal cues and/or touching/steadying and/or contact guard assistance as patient completes activity. Assistance may be provided throughout the activity or intermittently. 3-Partial/Moderate Assistance-helper does LESS THAN HALF the effort. [place] lifts, holds or supports trunk or limbs, but provides less than half the effort. 2-Substantial/Maximal Assistance-helper does MORE THAN HALF the effort. [place] lifts or holds trunk or limbs and provides more than half the effort. 8-Npgsiggza-gjnyjr does ALL the effort. Patient does none of the effort to complete the activity. Or, the assistance of 2 or more helpers is required for the patient to complete the activity. If activity was not attempted, code reason: 7-Patient Refused. 9-Not Applicable-not attempted and the patient did not perform the activity before the current illness, exacerbation or injury. 10-Not Attempted due to Environmental Limitations-(lack of equipment, weather restraints, etc.). 88-Not Attempted due to Medical Conditions or Safety Concerns. Sit to Stand (QC): 4 Weight Bearing Right Lower Extremity: Right Full Weight Bearing Left Lower Extremity: Left Full Weight Bearing Gait Training Does the Patient Walk?: Yes Distance: 100', 150', 60' Walk 10 feet (QC): 4 Walk 50 ft with 2 Turns(QC): 4 Walk 150 ft (QC): 4 Gait Persons Needed: 1 Gait Assistive Device: FWW B knee buckling w/o warning Wheelchair Training Does the Pt Use a Wheelchair?: Yes Type of Wheelchair: Manual Stair Training Stair Training: Handrails/: 2 handrails #of Steps: 4 1 Step (curb) (QC): 4 4 Steps (QC): 4 Stairs: Pattern: Step to Exercises NuStep Minutes: 15 NuStep Workload: 5 Treatments TF to standing, declines need for BR. Pt amb. in hallway, taking RB as needed. Pt uses NuStep, followed by short RB. Pt amb. in hallway until pt needs to rest then propels WCH in hallway, returning to room at end of tx. All needs met, call light in hand. Assessment Current Status: Fair Progress Pt is nervous about walking mostly because pt gets B knee buckling w/o warning. Pt pushes self and completes tasks as pt is able to. PT Duplex Trimmer Goals Duplex Trimmer Goals PT Duplex Trimmer Goals Time Frame: Dec 07, 2021 Roll Left & Right (QC): 6 Sit to Lying (QC): 6 Lying-Sitting on Side/Bed(QC): 6 Sit to Stand (QC): 6 Chair/Nqq-dk-Lwhhy Xfer(QC): 6 Toilet Transfer (QC): 6 Car Transfer (QC): 6 Does the Patient Walk: Yes Walk 10 feet (QC): 6 Walk 50ft with 2 Turns (QC): 6 Walk 150 ft (QC): 6 Walking 10ft on Uneven Surface: 6 1 Step (curb) (QC): 6 4 Steps (QC): 6 12 Steps (QC): 6 Picking up an Object (QC): 6 Does the Pt use WC or Scooter?: No Wheel 50 feet with 2 turns (QC: 88 Wheel 150 feet: 88 PT Plan Problem List Problem List: Activity Tolerance, Functional Strength, Gait Treatment/Plan Treatment Plan: Continue Plan of Care Treatment Plan: Bed Mobility, Education, Functional Activity Sherry, Functional Strength, Group Therapy, Gait, Safety, Therapeutic Exercise, Transfers Treatment Duration: Dec 16, 2021 Frequency: At least 5 of 7 days/Wk (IRF) Estimated Hrs Per Day: 1.5 hours per day Patient and/or Family Agrees t: Yes Safety Risks/Education Patient Education: Gait Training, Transfer Techniques, Correct Positioning, Safety Issues Teaching Recipient: Patient Teaching Methods: Discussion Response to Teaching: Verbalize Understanding Time/GCodes Time In: 900 Time Out: 1000 Total Billed Treatment Time: 60 Total Billed Treatment 1, GT x2 (30m), WCH (15m) & EX (15m) ADY GILLETTE HEAD WELL PULLER Nov 28, 2021 11:14
--- NOTE | 2021-11-28 12:00 | Occupational Ther Daily Note ---
OT Current Status-Daily Note Subjective Pt alert and sitting in recliner talking to guest. Pt agrees to therapy. Pt states his pain is a 1/10. Mental Status/Objective Patient Orientation: Person, Place, Time, Situation ADL-Treatment Pt agrees to take a shower. Pt ambulates to toilet from recliner using FWW, SBA. Pt SBA for toiletiing using grabbars and FWW. Pt transfers from FWW to shower bench, using grabbars, CGA. Pt cleanses 90% of body by self sitting on shower bench, mod A needed to stand due to balance while cleanse josefa area/buttocks by self. Pt transferred shower bench to WC, using grabbars and CGA. Pt able to retrieve clothing from counter using FWW by self. Pt independent in upper body dressing. Pt Min A in Lower body dressing, due to assist in standing to hike pants over hips. Pt was able to sit at sink and complete shaving and oral care independently. Pt ambulates from bathroom to recliner, SBA. Pt states that he does feel dizzy and feet were numb. Assist to don RICHAR hose and socks. Patient left in recliner with call light/phone in reach. All needs met in room. Therapy Code Descriptions/Definitions Functional [place] Measure: 0=Not Assessed/NA 4=Minimal Assistance 1=Total Assistance 5=Supervision or Setup 2=Maximal Assistance 6=Modified [place] 3=Moderate Assistance 7=Complete IndependenceSCALE: Activities may be completed with or without assistive devices. 4-Cqcviyjrwt-odqelpz completes the activity by him/herself with no assistance from a helper. 5-Set-up or Clean-up Assistance-helper sets up or cleans up; patient completes activity. [place] assists only prior to or following the activity. 4-Supervision or Touching Assistance-helper provides verbal cues and/or touching/steadying and/or contact guard assistance as patient completes activity. Assistance may be provided throughout the activity or intermittently. 3-Partial/Moderate Assistance-helper does LESS THAN HALF the effort. [place] lifts, holds or supports trunk or limbs, but provides less than half the effort. 2-Substantial/Maximal Assistance-helper does MORE THAN HALF the effort. [place] lifts or holds trunk or limbs and provides more than half the effort. 7-Jbnfnvwoq-eurrrc does ALL the effort. Patient does none of the effort to complete the activity. Or, the assistance of 2 or more helpers is required for the patient to complete the activity. If activity was not attempted, code reason: 7-Patient Refused. 9-Not Applicable-not attempted and the patient did not perform the activity before the current illness, exacerbation or injury. 10-Not Attempted due to Environmental Limitations-(lack of equipment, weather restraints, etc.). 88-Not Attempted due to Medical Conditions or Safety Concerns. Oral Hygiene (QC): 6 Shower/Bathe Self (QC): 3 (Mod A) Upper Body Dressing (QC): 6 Lower Body Dressing (QC): 3 (Min A) Toileting Hygiene (QC): 3 (SBA) Toilet Transfer (QC): 4 OT Short Term Goals Short Term Goals Time Frame: Nov 29, 2021 Eatin Oral hygiene: 4 Toileting hygiene: 4 Shower/bathe self: 4 Upper body dressin Lower body dressin Putting on/taking off footwear: 5 OT File Conversion Operator Goals Longterm Goals Time Frame: Dec 06, 2021 Eating (QC): 6 Oral Hygiene (QC): 6 Toileting Hygiene (QC): 6 Shower/Bathe Self (QC): 5 Upper Body Dressing (QC): 6 Lower Body Dressing (QC): 5 On/Off Footwear (QC): 6 1=Demonstrate adherence to instructed precautions during ADL tasks. 2=Patient will verbalize/demonstrate understanding of assistive devices/modifications for ADL. 3=Patient will improve strength/tolerance for activity to enable patient to perform ADL's. OT Education/Plan Problem List/Assessment Assessment: Decreased Activ Tolerance, Decreased Safety Aware, Impaired Funct Balance, Impaired Self-Care Skills Discharge Recommendations Plan/Recommendations: Continue POC Treatment Plan/Plan of Care Patient would benefit from OT for education, treatment and training to promote independence in ADL's, mobility, safety and/or upper extremity function for ADL's. Plan of Care: ADL Retraining, Concurrent Therapy, Functional Mobility, Group Exercise/Act as Ind, UE Funct Exercise/Act, UE Neuromus Re-Ed/Coord Treatment Duration: Dec 06, 2021 Frequency: At least 5 of 7 days/Wk (IRF) Estimated Hrs Per Day: 1.5 hours per day (75-90 min/day) Agreement: Yes Rehab Potential: Fair Time/GCodes Start Time: 10:00 Stop Time: 11:30 Total Time Billed (hr/min): 90 Billed Treatment Time 1 visit-ADL 6 (90 min) BLOSSOM BROWN Nov 28, 2021 12:00
[2021-11-28] MEDS: ENOXAPARIN 40 MG/0.4 ML (LOVENOX) SYR SC SCH (14:03)
--- NOTE | 2021-11-28 14:04 | Physical Therapy Daily Note ---
PT Daily Note-Current Subjective Pt asleep in recliner upon arrival. Pt is very drowsy and difficult to awaken. Pt agrees to PT. Mental Status Patient Orientation: Person, Place, Time, Situation Transfers SCALE: Activities may be completed with or without assistive devices. 4-Flllsdaucm-swcybgm completes the activity by him/herself with no assistance from a helper. 5-Set-up or Clean-up Assistance-helper sets up or cleans up; patient completes activity. [place] assists only prior to or following the activity. 4-Supervision or Touching Assistance-helper provides verbal cues and/or touching/steadying and/or contact guard assistance as patient completes ac tivity. Assistance may be provided throughout the activity or intermittently. 3-Partial/Moderate Assistance-helper does LESS THAN HALF the effort. [place] lifts, holds or supports trunk or limbs, but provides less than half the effort. 2-Substantial/Maximal Assistance-helper does MORE THAN HALF the effort. [place] lifts or holds trunk or limbs and provides more than half the effort. 6-Quqsvdbwb-plbdxr does ALL the effort. Patient does none of the effort to complete the activity. Or, the assistance of 2 or more helpers is required for the patient to complete the activity. If activity was not attempted, code reason: 7-Patient Refused. 9-Not Applicable-not attempted and the patient did not perform the activity before the current illness, exacerbation or injury. 10-Not Attempted due to Environmental Limitations-(lack of equipment, weather restraints, etc.). 88-Not Attempted due to Medical Conditions or Safety Concerns. Weight Bearing Right Lower Extremity: Right Full Weight Bearing Left Lower Extremity: Left Full Weight Bearing Exercises Supine Ex: Ankle pumps, Quad Set, Glut sets, Heel Slides, Straight leg raise, Hip abd/add Supine Reps: 15 Seated Therapy Exercises: Ankle pumps, Long arc quads, Hip flexion, Glut set Seated Reps: 15 Treatments Pt completes Supine and Seated EX at recliner. Pt declines need for BR. Pt resting at end of tx w/all needs met, call light in hand. Assessment Current Status: Good Progress Pt is sleepy during tx. PT Rotary Derrick Operator Goals Rotary Derrick Operator Goals PT Rotary Derrick Operator Goals Time Frame: Dec 07, 2021 Roll Left & Right (QC): 6 Sit to Lying (QC): 6 Lying-Sitting on Side/Bed(QC): 6 Sit to Stand (QC): 6 Chair/Kxa-op-Ouncj Xfer(QC): 6 Toilet Transfer (QC): 6 Car Transfer (QC): 6 Does the Patient Walk: Yes Walk 10 feet (QC): 6 Walk 50ft with 2 Turns (QC): 6 Walk 150 ft (QC): 6 Walking 10ft on Uneven Surface: 6 1 Step (curb) (QC): 6 4 Steps (QC): 6 12 Steps (QC): 6 Picking up an Object (QC): 6 Does the Pt use WC or Scooter?: No Wheel 50 feet with 2 turns (QC: 88 Wheel 150 feet: 88 PT Plan Problem List Problem List: Activity Tolerance, Functional Strength Treatment/Plan Treatment Plan: Continue Plan of Care Treatment Plan: Bed Mobility, Education, Functional Activity Sherry, Functional Strength, Group Therapy, Gait, Safety, Therapeutic Exercise, Transfers Treatment Duration: Dec 16, 2021 Frequency: At least 5 of 7 days/Wk (IRF) Estimated Hrs Per Day: 1.5 hours per day Patient and/or Family Agrees t: Yes Time/GCodes Time In: 1330 Time Out: 1400 Total Billed Treatment Time: 30 Total Billed Treatment 1, EX x2 (30m) ADY GILLETTE AVIONICS SYSTEMS REPAIRER Nov 28, 2021 14:04
[2021-11-28 19:39] VITALS: BP 108/70
[2021-11-28] MEDS: TAMSULOSIN 0.4 MG (FLOMAX) CAP PO SCH (20:44)
[2021-11-28] MEDS: ROSUVASTATIN 5 MG (CRESTOR) TABLET PO SCH (20:44)
--- NOTE | 2021-11-29 06:17 | PM&R Progress Note ---
Subjective HPI/CC On Admission Date Seen by Provider: Nov 29, 2021 Time Seen by Provider: 09:00 Subjective/Events-last exam 11/29/2021: Pt is doing well Oxycontin declined by the pt since Morphine made him so sleepy Bowels moved on 11/27 giving laxatives 11/28/2021: Pt is doing well MS Contin really helps the pain Will obtain appt with Dr. 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 11/26/2021: Doing the same The only concerns are pain issues Took morphine every hour last night which is not sustainable Extended release morphine will be started Counseling that epidural pain injections will need to be done as an outpatient 11/25/2021: Doing about the same Legs weak Hypotension noted MSO4 given last night 11/24/2021: Doing well except weaker in legs Conferred with Dr Jay who will be happy to see him in the clinic Back pain improved with Lortab MRI reviewed 11/23/2021: Pt is doing really well Thinks the bed is too soft and that hurts his back Pain pill was taken at 0200 Bowels are really moving after treatment Review of Systems General: Fatigue Musculoskeletal: back pain Objective Exam Vital Signs Vital Signs Date Time Temp Pulse Resp B/P (MAP) Pulse Ox O2 Delivery O2 Flow Rate FiO2 11/29/21 20:10 Room Air 11/29/21 16:57 37.7 87 20 154/85 (108) 96 Capillary Refill : General Appearance: No Apparent Distress, WD/WN, Chronically ill HEENT: PERRL/EOMI, Normal ENT Inspection, Pharynx Normal Neck: Full Range of Motion, Normal Inspection, Non Tender, Supple, Carotid Bruit Respiratory: Chest Non Tender, Lungs Clear, Normal Breath Sounds, No Accessory Muscle Use, No Respiratory Distress Cardiovascular: Regular Rate, Rhythm, No Edema, No Gallop, No JVD, No Murmur, Normal Peripheral Pulses Gastrointestinal: Normal Bowel Sounds, No Organomegaly, No Pulsatile Mass, Non Tender, Soft Back: Normal Inspection, No CVA Tenderness, No Vertebral Tenderness Extremity: Normal Capillary Refill, Normal Inspection, Normal Range of Motion, Non Tender, No Calf Tenderness, No Pedal Edema Neurologic/Psychiatric: Alert, Oriented x3, Normal Mood/Affect, wheel molder II-XII Norm as Tested, Abnormal Gait, Motor Weakness (severe weakness of legs 3/5) Skin: Normal Color, Warm/Dry Lymphatic: No Adenopathy Results/Procedures Lab Patient resulted labs reviewed. FIM Transfers Therapy Code Descriptions/Definitions Functional [place] Measure: 0=Not Assessed/NA 4=Minimal Assistance 1=Total Assistance 5=Supervision or Setup 2=Maximal Assistance 6=Modified [place] 3=Moderate Assistance 7=Complete IndependenceSCALE: Activities may be completed with or without assistive devices. 3-Tytlbmkrrs-jjekbtv completes the activity by him/herself with no assistance from a helper. 5-Set-up or Clean-up Assistance-helper sets up or cleans up; patient completes activity. [place] assists only prior to or following the activity. 4-Supervision or Touching Assistance-helper provides verbal cues and/or touching/steadying and/or contact guard assistance as patient completes activity. Assistance may be provided throughout the activity or intermittently. 3-Partial/Moderate Assistance-helper does LESS THAN HALF the effort. [place] lifts, holds or supports trunk or limbs, but provides less than half the effort. 2-Substantial/Maximal Assistance-helper does MORE THAN HALF the effort. [place] lifts or holds trunk or limbs and provides more than half the effort. 0-Xxjoecvrg-plocrh does ALL the effort. Patient does none of the effort to complete the activity. Or, the assistance of 2 or more helpers is required for the patient to complete the activity. If activity was not attempted, code reason: 7-Patient Refused. 9-Not Applicable-not attempted and the patient did not perform the activity before the current illness, exacerbation or injury. 10-Not Attempted due to Environmental Limitations-(lack of equipment, weather restraints, etc.). 88-Not Attempted due to Medical Conditions or Safety Concerns. Roll Left to Right (QC): 6 Sit to Lying (QC): 3 Sit to Stand (QC): 4 Chair/Ukl-gw-Ogymi Xfer(QC): 4 Car Transfer (QC): 4 Gait Training Does the Patient Walk?: Yes Distance: 100', 150', 60' Walk 10 feet (QC): 4 Walk 50 ft with 2 Turns(QC): 4 Walk 150 ft (QC): 4 Walking 10ft/uneven surface-QC: 4 Gait Persons Needed: 1 Gait Assistive Device: FWW Wheelchair Training Does the Pt Use a Wheelchair?: Yes Wheel 50 ft with 2 turns (QC): 9 Wheel 150 ft (QC): 9 Type of Wheelchair: Manual Stair Training Stair Training: Handrails/: 2 handrails #of Steps: 4 1 Step (curb) (QC): 4 4 Steps (QC): 4 12 Steps (QC): 4 Stairs: Pattern: Step to Balance Picking up an Object (QC): 6 ADL-Treatment Eating (QC): 5 (per clinical judgment) Oral Hygiene (QC): 6 Shower/Bathe Self (QC): 3 Upper Body Dressing (QC): 6 Lower Body Dressing (QC): 3 (Min A) On/Off Footwear (QC): 5 Toileting Hygiene (QC): 3 Toilet Transfer (QC): 4 Assessment/Plan Assessment and Plan Assess & Plan/Chief Complaint Assessment: Severe leg weakness Back pain CKD Stage III HTN CAD HLP Gout Constipation resolved Oversedation with MS Contin due to CKD so changed to Oxycontin Plan: Pain control PT OT Monitor closely Home meds 11/23/2021: Change beds Lortab Monitor creat 11/24/2021: Monitor closely MRI reviewed 11/25/2021: Pain control Monitor BP 11/26/2021: MS Contin to start Minimize IV morphine 11/27/2021: Monitor closely 11/28/2021: Change MS Contin to Oxycontin 11/29/2021: Monitor closely Fall risk Dr Jay appt next week (1) Bilateral leg weakness Status: Acute (2) Paresthesia of both lower extremities Status: Acute (3) Paresthesia of both hands Status: Acute (4) Neuropathic pain of both legs Status: Acute (5) Neuropathic pain of upper extremity Status: Acute (6) Chronic kidney disease, stage 3 Status: Acute (7) 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
[2021-11-29] MEDS: MULTIVIT W/MINERALS TAB (THERAGRAN M) PO SCH (06:25)
[2021-11-29] MEDS: ASPIRIN 81 MG CHEW (CHILDREN'S ASA) PO SCH (07:56)
[2021-11-29] MEDS: ALLOPURINOL 100 MG (ZYLOPRIM) TAB PO SCH (07:56)
[2021-11-29] MEDS: meTOproloL SUCCINATE 50 MG (TOPROL XL) TAB PO SCH (07:56)
[2021-11-29] MEDS: OMEGA 3 (FISH OIL) 1000 MG CAP PO SCH (07:57)
[2021-11-29] MEDS: GABAPENTIN 300 MG (NEURONTIN) CAP PO SCH ×2 (07:57→20:03)
[2021-11-29 08:02] VITALS: BP 131/75
[2021-11-29] MEDS: CALCIUM CARBONATE 500 MG (TUMS) TAB.CHEW PO PRN (08:08)
--- NOTE | 2021-11-29 08:43 | Occupational Ther Daily Note ---
OT Current Status-Daily Note Subjective Pt alert and sitting in recliner. Pt agrees to therapy. Pt stated pain 04/18 but had an increase in numbness of his left leg and foot. Mental Status/Objective Patient Orientation: Person, Place, Time, Situation ADL-Treatment Pt declines needing to change clothes. Assist to don RICHAR hose then attempted to don socks. Increase in L LE numbness, mod A to don shoes. Pt ambulates from rec liner to sink using FWW, CGA due to increase in numbness in L LE. Pt completes oral hygiene independent sitting at sink. Pt ambulates from room to therapy gym, CGA with one break due to fatigue. Pt completed 4 B UE exercises using dowel cindy with 3# wt attached, 2 sets of 15 reps. When completing shldr flexion exercise pt c/o pain in L shldr, no wt when completing exercise then modified to decrease ROM. Due to complaint of numbness in L LE pt used WC to return to room. Pt left in recliner with call light/phone in reach. All needs met in room. Therapy Code Descriptions/Definitions Functional [place] Measure: 0=Not Assessed/NA 4=Minimal Assistance 1=Total Assistance 5=Supervision or Setup 2=Maximal Assistance 6=Modified [place] 3=Moderate Assistance 7=Complete IndependenceSCALE: Activities may be completed with or without assistive devices. 9-Wuniibyxhk-nrjgcsf completes the activity by him/herself with no assistance from a helper. 5-Set-up or Clean-up Assistance-helper sets up or cleans up; patient completes activity. [place] assists only prior to or following the activity. 4-Supervision or Touching Assistance-helper provides verbal cues and/or t ouching/steadying and/or contact guard assistance as patient completes activity. Assistance may be provided throughout the activity or intermittently. 3-Partial/Moderate Assistance-helper does LESS THAN HALF the effort. [place] lifts, holds or supports trunk or limbs, but provides less than half the effort. 2-Substantial/Maximal Assistance-helper does MORE THAN HALF the effort. [place] lifts or holds trunk or limbs and provides more than half the effort. 4-Davzaycek-wnpbff does ALL the effort. Patient does none of the effort to complete the activity. Or, the assistance of 2 or more helpers is required for the patient to complete the activity. If activity was not attempted, code reason: 7-Patient Refused. 9-Not Applicable-not attempted and the patient did not perform the activity before the current illness, exacerbation or injury. 10-Not Attempted due to Environmental Limitations-(lack of equipment, weather restraints, etc.). 88-Not Attempted due to Medical Conditions or Safety Concerns. Eating (QC): 6 Oral Hygiene (QC): 6 On/Off Footwear: 3 (Mod A) OT Short Term Goals Short Term Goals Time Frame: Nov 29, 2021 Eatin Oral hygiene: 4 Toileting hygiene: 4 Shower/bathe self: 4 Upper body dressin Lower body dressin Putting on/taking off footwear: 5 OT Auto Phone Installer Goals Auto Phone Installer Goals Time Frame: Dec 06, 2021 Eating (QC): 6 Oral Hygiene (QC): 6 Toileting Hygiene (QC): 6 Shower/Bathe Self (QC): 5 Upper Body Dressing (QC): 6 Lower Body Dressing (QC): 5 On/Off Footwear (QC): 6 1=Demonstrate adherence to instructed precautions during ADL tasks. 2=Patient will verbalize/demonstrate understanding of assistive devices/modifications for ADL. 3=Patient will improve strength/tolerance for activity to enable patient to perform ADL's. OT Education/Plan Problem List/Assessment Assessment: Decreased Activ Tolerance, Impaired Coordination, Impaired Funct Balance Discharge Recommendations Plan/Recommendations: Continue POC Treatment Plan/Plan of Care Patient would benefit from OT for education, treatment and training to promote independence in ADL's, mobility, safety and/or upper extremity function for ADL's. Plan of Care: ADL Retraining, Concurrent Therapy, Functional Mobility, Group Exercise/Act as Ind, UE Funct Exercise/Act, UE Neuromus Re-Ed/Coord Treatment Duration: Dec 06, 2021 Frequency: At least 5 of 7 days/Wk (IRF) Estimated Hrs Per Day: 1.5 hours per day (75-90 min/day) Agreement: Yes Rehab Potential: Fair Time/GCodes Start Time: 07:30 Stop Time: 08:30 Total Time Billed (hr/min): 60 Billed Treatment Time 1 visit-ADL 2 (30 min) EX 2 (30 min) BLOSSOM BRWON Nov 29, 2021 08:43
[2021-11-29] MEDS ORDERED: oxyCODONE ER 10 MG (OxyCONTIN CR) TAB PO SCH (09:00)
[2021-11-29] MEDS ORDERED: oxyCODONE ER 10 MG (OxyCONTIN CR) TAB PO PRN (09:00)
[2021-11-29] MEDS: SENNA W/DOCUSATE (SENOKOT S) TABLET PO SCH ×2 (09:53→20:03)
[2021-11-29] MEDS: DOCUSATE SODIUM 100 MG (COLACE) CAP PO SCH ×2 (09:53→20:03)
[2021-11-29] MEDS: polyethylene glycoL POWDER 17 GM (MIRALAX) PACK PO SCH ×2 (09:53→19:29)
--- NOTE | 2021-11-29 12:12 | Physical Therapy Daily Note ---
PT Daily Note-Current Subjective Pt sitting in BR upon arrival. Pt agrees to PT. Pain Location: Right, Left Pain Description: Tingling, Numbness Comment: Reports B LE numbness & tingling Mental Status Patient Orientation: Person, Place, Time, Situation Transfers SCALE: Activities may be completed with or without assistive devices. 0-Urdtdymlqb-lyhwipx completes the activity by him/herself with no assistance from a helper. 5-Set-up or Clean-up Assistance-helper sets up or cleans up; patient completes activity. [place] assists only prior to or following the activity. 4-Supervision or Touching Assistance-helper provides verbal cues and/or touching/steadying and/or contact guard assistance as patient completes activity. Assistance may be provided throughout the activity or intermittently. 3-Partial/Moderate Assistance-helper does LESS THAN HALF the effort. [place] lifts, holds or supports trunk or limbs, but provides less than half the effort. 2-Substantial/Maximal Assistance-helper does MORE THAN HALF the effort. [place] lifts or holds trunk or limbs and provides more than half the effort. 0-Biajmgkrq-svpgya does ALL the effort. Patient does none of the effort to complete the activity. Or, the assistance of 2 or more helpers is required for the patient to complete the activity. If activity was not attempted, code reason: 7-Patient Refused. 9-Not Applicable-not attempted and the patient did not perform the activity before the current illness, exacerbation or injury. 10-Not Attempted due to Environmental Limitations-(lack of equipment, weather restraints, etc.). 88-Not Attempted due to Medical Conditions or Safety Concerns. Sit to Stand (QC): 5 Toilet Transfer (QC): 5 Weight Bearing Right Lower Extremity: Right Full Weight Bearing Left Lower Extremity: Left Full Weight Bearing Gait Training Does the Patient Walk?: Yes Distance: 175', 150' Walk 10 feet (QC): 4 Walk 50 ft with 2 Turns(QC): 4 Walk 150 ft (QC): 4 Gait Persons Needed: 1 Gait Assistive Device: FWW Stair Training Stair Training: Handrails/: 2 handrails #of Steps: 4 1 Step (curb) (QC): 4 4 Steps (QC): 4 Stairs: Pattern: Step to Exercises NuStep Minutes: 15 NuStep Workload: 5 Treatments After finishing toileting, pt is able to complete pericare and washing hands. Pt amb. in hallway and completes set of stairs. Pt takes RB then amb to Therapy Gym and uses NuStep. Pt is given written HEP for Supine & Seated Ex and pt amb. back to room. Pt resting in recliner with Sp and all needs met, call light in hand. Assessment Current Status: Good Progress Pt takes RB as needed and still reporting numbness & tingling in B LE. PT Sole Ruffer Goals Snf Goals PT Snf Goals Time Frame: Dec 07, 2021 Roll Left & Right (QC): 6 Sit to Lying (QC): 6 Lying-Sitting on Side/Bed(QC): 6 Sit to Stand (QC): 6 Chair/Ezq-ox-Btbep Xfer(QC): 6 Toilet Transfer (QC): 6 Car Transfer (QC): 6 Does the Patient Walk: Yes Walk 10 feet (QC): 6 Walk 50ft with 2 Turns (QC): 6 Walk 150 ft (QC): 6 Walking 10ft on Uneven Surface: 6 1 Step (curb) (QC): 6 4 Steps (QC): 6 12 Steps (QC): 6 Picking up an Object (QC): 6 Does the Pt use WC or Scooter?: No Wheel 50 feet with 2 turns (QC: 88 Wheel 150 feet: 88 PT Plan Problem List Problem List: Activity Tolerance, Functional Strength Treatment/Plan Treatment Plan: Continue Plan of Care Treatment Plan: Bed Mobility, Education, Functional Activity Sherry, Functional Strength, Group Therapy, Gait, Safety, Therapeutic Exercise, Transfers Treatment Duration: Dec 16, 2021 Frequency: At least 5 of 7 days/Wk (IRF) Estimated Hrs Per Day: 1.5 hours per day Patient and/or Family Agrees t: Yes Safety Risks/Education Patient Education: Steps, Issued Written HEP Teaching Recipient: Patient Teaching Methods: Discussion Response to Teaching: Verbalize Understanding Time/GCodes Time In: 1100 Time Out: 1200 Total Billed Treatment Time: 60 Total Billed Treatment 1, GT (20m), EX x2 (30m) & FA (10m) ADY GILLETTE CRIMINAL INTELLIGENCE ANALYST Nov 29, 2021 12:12
[2021-11-29] MEDS: ENOXAPARIN 40 MG/0.4 ML (LOVENOX) SYR SC SCH (14:07)
--- NOTE | 2021-11-29 14:58 | Therapy Group Daily Note ---
Therapy Daily Group Note Patient Education Topic Energy Cons, Other List Below (Community Access) Exercises LE Seated Exercise, UE Exercise Session Ratio (pt:therapist): 3:1 Goal of Session: Education on ARU Expectations, Energy Conservation Tech., UE/LE Strengthing Goal Met for this Session: Yes Pt Benefit of Group: Contributions to Others, F/U Use of Strategies @Home, Increased Functional Safety, Increased Functional Strength, Improved Cognition, Recognition of Peers, Socialization Other/Notes Pt ambulated to PT/OT Group using FWW. PT/OT group consisted of introductions (name, place living, favorite restaurant), socialization, B UE/LE seated exercises and educational topics of energy conservation/community access. Pt actively listened to peers and appropriately introduced self. Pt was able to complete B UE/LE seated exercises correctly with skilled instruction. Pt was able to demonstrate understanding of educational topics by giving own personal strategies and routines. After therapy, pt lying in bed with call light/phone in reach. All needs met in room. Start Time: 13:00 Stop Time: 14:00 Total Billed Treatment Time: 60 Total Billed Treatment 1, GRP MARYBETHADY BAILEY LOCKSTITCH LINING SETTER Nov 29, 2021 14:58
[2021-11-29 16:57] VITALS: BP 154/85
[2021-11-29] MEDS: TAMSULOSIN 0.4 MG (FLOMAX) CAP PO SCH (20:03)
[2021-11-29] MEDS: ROSUVASTATIN 5 MG (CRESTOR) TABLET PO SCH (20:03)
[2021-11-29 20:30] VITALS: BP 122/67
--- NOTE | 2021-11-30 06:19 | PM&R Progress Note ---
Subjective HPI/CC On Admission Date Seen by Provider: Nov 30, 2021 Time Seen by Provider: 08:30 Subjective/Events-last exam 11/30/2021: 11/29/2021: Pt is doing well Oxycontin declined by the pt since Morphine made him so sleepy Bowels moved on 11/27 giving laxatives 11/28/2021: Pt is doing well MS Contin really helps the pain Will obtain appt with Dr. 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 11/26/2021: Doing the same The only concerns are pain issues Took morphine every hour last night which is not sustainable Extended release morphine will be started Counseling that epidural pain injections will need to be done as an outpatient 11/25/2021: Doing about the same Legs weak Hypotension noted MSO4 given last night 11/24/2021: Doing well except weaker in legs Conferred with Dr Jay who will be happy to see him in the clinic Back pain improved with Lortab MRI reviewed 11/23/2021: Pt is doing really well Thinks the bed is too soft and that hurts his back Pain pill was taken at 0200 Bowels are really moving after treatment Review of Systems General: Fatigue, Malaise Focused Exam Lactate Level 11/30/21 09:18: Lactic Acid Level 1.11 Objective Exam Vital Signs Vital Signs Date Time Temp Pulse Resp B/P (MAP) Pulse Ox O2 Delivery O2 Flow Rate FiO2 11/30/21 09:00 Room Air 11/30/21 07:46 36.5 62 18 135/69 (91) 93 Capillary Refill : General Appearance: No Apparent Distress, WD/WN, Chronically ill HEENT: PERRL/EOMI, Normal ENT Inspection, Pharynx Normal Neck: Full Range of Motion, Normal Inspection, Non Tender, Supple, Carotid Bruit Respiratory: Chest Non Tender, Lungs Clear, Normal Breath Sounds, No Accessory Muscle Use, No Respiratory Distress Cardiovascular: Regular Rate, Rhythm, No Edema, No Gallop, No JVD, No Murmur, Normal Peripheral Pulses Gastrointestinal: Normal Bowel Sounds, No Organomegaly, No Pulsatile Mass, Non Tender, Soft Back: Normal Inspection, No CVA Tenderness, No Vertebral Tenderness Extremity: Normal Capillary Refill, Normal Inspection, Normal Range of Motion, Non Tender, No Calf Tenderness, No Pedal Edema Neurologic/Psychiatric: Alert, Oriented x3, Normal 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 FIM Transfers Therapy Code Descriptions/Definitions Functional [place] Measure: 0=Not Assessed/NA 4=Minimal Assistance 1=Total Assistance 5=Supervision or Setup 2=Maximal Assistance 6=Modified [place] 3=Moderate Assistance 7=Complete IndependenceSCALE: Activities may be completed with or without assistive devices. 6-Uxhgwrtgnv-gulkigs completes the activity by him/herself with no assistance from a helper. 5-Set-up or Clean-up Assistance-helper sets up or cleans up; patient completes activity. [place] assists only prior to or following the activity. 4-Supervision or Touching Assistance-helper provides verbal cues and/or touching/steadying and/or contact guard assistance as patient completes activity. Assistance may be provided throughout the activity or intermittently. 3-Partial/Moderate Assistance-helper does LESS THAN HALF the effort. [place] lifts, holds or supports trunk or limbs, but provides less than half the effort. 2-Substantial/Maximal Assistance-helper does MORE THAN HALF the effort. [place] lifts or holds trunk or limbs and provides more than half the effort. 9-Eatouvejz-isbrwu does ALL the effort. Patient does none of the effort to complete the activity. Or, the assistance of 2 or more helpers is required for the patient to complete the activity. If activity was not attempted, code reason: 7-Patient Refused. 9-Not Applicable-not attempted and the patient did not perform the activity before the current illness, exacerbation or injury. 10-Not Attempted due to Environmental Limitations-(lack of equipment, weather restraints, etc.). 88-Not Attempted due to Medical Conditions or Safety Concerns. Roll Left to Right (QC): 6 Sit to Lying (QC): 3 Sit to Stand (QC): 5 Chair/Dlx-pn-Dtfue Xfer(QC): 4 Car Transfer (QC): 4 Gait Training Does the Patient Walk?: Yes Distance: 175', 150' Walk 10 feet (QC): 4 Walk 50 ft with 2 Turns(QC): 4 Walk 150 ft (QC): 4 Walking 10ft/uneven surface-QC: 4 Gait Persons Needed: 1 Gait Assistive Device: FWW Wheelchair Training Does the Pt Use a Wheelchair?: Yes Wheel 50 ft with 2 turns (QC): 9 Wheel 150 ft (QC): 9 Type of Wheelchair: Manual Stair Training Stair Training: Handrails/: 2 handrails #of Steps: 4 1 Step (curb) (QC): 4 4 Steps (QC): 4 12 Steps (QC): 4 Stairs: Pattern: Step to Balance Picking up an Object (QC): 6 ADL-Treatment Eating (QC): 6 Oral Hygiene (QC): 6 Shower/Bathe Self (QC): 3 Upper Body Dressing (QC): 6 Lower Body Dressing (QC): 3 (Min A) On/Off Footwear (QC): 3 (Mod A) Toileting Hygiene (QC): 3 Toilet Transfer (QC): 4 Assessment/Plan Assessment and Plan Assess & Plan/Chief Complaint Assessment: Severe leg weakness Back pain CKD Stage III HTN CAD HLP Gout Constipation resolved Oversedation with MS Contin due to CKD so changed to Oxycontin Plan: Pain control PT OT Monitor closely Home meds 11/23/2021: Change beds Lortab Monitor creat 11/24/2021: Monitor closely MRI reviewed 11/25/2021: Pain control Monitor BP 11/26/2021: MS Contin to start Minimize IV morphine 11/27/2021: Monitor closely 11/28/2021: Change MS Contin to Oxycontin 11/29/2021: Monitor closely Fall risk Dr Jay appt next week 11/30/2021: (1) Bilateral leg weakness Status: Acute (2) Paresthesia of both lower extremities Status: Acute (3) Paresthesia of both hands Status: Acute (4) Neuropathic pain of both legs Status: Acute (5) Neuropathic pain of upper extremity Status: Acute (6) Chronic kidney disease, stage 3 Status: Acute (7) 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
[2021-11-30] MEDS: MULTIVIT W/MINERALS TAB (THERAGRAN M) PO SCH (06:53)
[2021-11-30] MEDS: SENNA W/DOCUSATE (SENOKOT S) TABLET PO SCH (07:44)
[2021-11-30] MEDS: meTOproloL SUCCINATE 50 MG (TOPROL XL) TAB PO SCH (07:44)
[2021-11-30] MEDS: GABAPENTIN 300 MG (NEURONTIN) CAP PO SCH (07:44)
[2021-11-30] MEDS: DOCUSATE SODIUM 100 MG (COLACE) CAP PO SCH (07:44)
[2021-11-30] MEDS: polyethylene glycoL POWDER 17 GM (MIRALAX) PACK PO SCH (07:44)
[2021-11-30] MEDS: ASPIRIN 81 MG CHEW (CHILDREN'S ASA) PO SCH (07:44)
[2021-11-30] MEDS: OMEGA 3 (FISH OIL) 1000 MG CAP PO SCH (07:44)
[2021-11-30] MEDS: ALLOPURINOL 100 MG (ZYLOPRIM) TAB PO SCH (07:44)
[2021-11-30 07:46] VITALS: BP 135/69
--- NOTE | 2021-11-30 08:57 | Physical Therapy Daily Note ---
PT Daily Note-Current Subjective Pt sitting in recliner upon arrival. Pt reports feeling weaker and that numbness/tingling sensation has spread to both UE & LE. Pt agrees to PT but wants to QC score today so pt can leave [facility]. Pain Location: Right, Left Pain Description: Tingling, Numbness Comment: Reports but doesn't rate for both LE & UE Mental Status Patient Orientation: Person, Place, Time, Situation Transfers SCALE: Activities may be completed with or without assistive devices. 4-Sywugngzbh-qbmugmu completes the activity by him/herself with no assistance f rom a helper. 5-Set-up or Clean-up Assistance-helper sets up or cleans up; patient completes activity. [place] assists only prior to or following the activity. 4-Supervision or Touching Assistance-helper provides verbal cues and/or touching/steadying and/or contact guard assistance as patient completes activity. Assistance may be provided throughout the activity or intermittently. 3-Partial/Moderate Assistance-helper does LESS THAN HALF the effort. [place] lifts, holds or supports trunk or limbs, but provides less than half the effort. 2-Substantial/Maximal Assistance-helper does MORE THAN HALF the effort. [place] lifts or holds trunk or limbs and provides more than half the effort. 2-Nselkfvsq-ztesxd does ALL the effort. Patient does none of the effort to complete the activity. Or, the assistance of 2 or more helpers is required for the patient to complete the activity. If activity was not attempted, code reason: 7-Patient Refused. 9-Not Applicable-not attempted and the patient did not perform the activity before the current illness, exacerbation or injury. 10-Not Attempted due to Environmental Limitations-(lack of equipment, weather restraints, etc.). 88-Not Attempted due to Medical Conditions or Safety Concerns. Sit to Stand (QC): 5 Chair/Tgq-jp-Xusuf Xfer(QC): 5 Toilet Transfer (QC): 5 Car Transfer (QC): 4 Weight Bearing Right Lower Extremity: Right Full Weight Bearing Left Lower Extremity: Left Full Weight Bearing Gait Training Does the Patient Walk?: Yes Distance: 175' Walk 10 feet (QC): 4 Walk 50 ft with 2 Turns(QC): 4 Walk 150 ft (QC): 4 Walking 10ft/uneven surface-QC: 4 Gait Persons Needed: 1 Gait Assistive Device: FWW Weakness demonstrated and quickly fatigues. Knees will buckle w/o warning so CGA with amb. Stair Training Stair Training: Handrails/: 2 handrails #of Steps: 4 1 Step (curb) (QC): 4 4 Steps (QC): 4 12 Steps (QC): 7 Stairs: Pattern: Step to Balance Picking up an Object (QC): 5 Treatments Pt completes QC except bed mobility in morning session due to bed being made during tx. Pt returns to room to rest in recliner. All needs met, call light next to pt. Assessment Current Status: Fair Progress Pt tries hard to push self but weakness is demonstrated and getting more prono unced. PT Bone Char Puller Goals Long-Term Goals PT Bone Char Puller Goals Time Frame: Dec 07, 2021 Roll Left & Right (QC): 6 Sit to Lying (QC): 6 Lying-Sitting on Side/Bed(QC): 6 Sit to Stand (QC): 6 Chair/Qox-wu-Yjokn Xfer(QC): 6 Toilet Transfer (QC): 6 Car Transfer (QC): 6 Does the Patient Walk: Yes Walk 10 feet (QC): 6 Walk 50ft with 2 Turns (QC): 6 Walk 150 ft (QC): 6 Walking 10ft on Uneven Surface: 6 1 Step (curb) (QC): 6 4 Steps (QC): 6 12 Steps (QC): 6 Picking up an Object (QC): 6 Does the Pt use WC or Scooter?: No Wheel 50 feet with 2 turns (QC: 88 Wheel 150 feet: 88 PT Plan Problem List Problem List: Activity Tolerance, Functional Strength, Gait Treatment/Plan Treatment Plan: Continue Plan of Care Treatment Plan: Bed Mobility, Education, Functional Activity Sherry, Functional Strength, Group Therapy, Gait, Safety, Therapeutic Exercise, Transfers Treatment Duration: Dec 16, 2021 Frequency: At least 5 of 7 days/Wk (IRF) Estimated Hrs Per Day: 1.5 hours per day Patient and/or Family Agrees t: Yes Safety Risks/Education Patient Education: Gait Training, Steps, Correct Positioning, Safety Issues Teaching Recipient: Patient Teaching Methods: Discussion Response to Teaching: Verbalize Understanding Time/GCodes Time In: 800 Time Out: 900 Total Billed Treatment Time: 60 Total Billed Treatment 1, GT (15m), FA x3 (45m) ADY GILLETTE EXPLOSIVE ORDNANCE SPECIALIST Nov 30, 2021 08:57
[2021-11-30 09:26] LABS: BASOPHILS # (AUTO) 0.1 10^3/uL (0.0-0.1); BASOPHILS % (AUTO) 1 % (0-10); EOSINOPHILS # (AUTO) 0.2 10^3/uL (0.0-0.3); EOSINOPHILS % (AUTO) 3 % (0-10); HEMATOCRIT 34 % (40-54); HEMOGLOBIN 11.3 g/dL (13.3-17.7); LYMPHOCYTES # (AUTO) 0.9 10^3/uL (1.0-4.0); LYMPHOCYTES % (AUTO) 11 % (12-44); MEAN CORPUSCULAR HEMOGLOBIN 33 pg (25-34); MEAN CORPUSCULAR HGB CONC 34 g/dL (32-36); MEAN CORPUSCULAR VOLUME 99 fL (80-99); MEAN PLATELET VOLUME 9.3 fL (9.0-12.2); MONOCYTES # (AUTO) 0.8 10^3/uL (0.0-1.0); MONOCYTES % (AUTO) 9 % (0-12); NEUTROPHILS # (AUTO) 6.2 10^3/uL (1.8-7.8); NEUTROPHILS % (AUTO) 75 % (42-75); PLATELET COUNT 166 10^3/uL (130-400); WHITE BLOOD COUNT 8.2 10^3/uL (4.3-11.0)
[2021-11-30] MEDS ORDERED: CYANOCOBALAMIN INJ 1000 MCG/ML IM NR (09:30)
[2021-11-30 09:37] LABS: ALBUMIN 3.5 GM/DL (3.2-4.5); POTASSIUM 4.5 MMOL/L (3.6-5.0)
[2021-11-30 09:39] LABS: CALCIUM 9.4 MG/DL (8.5-10.1)
[2021-11-30 09:40] LABS: TOTAL PROTEIN 6.4 GM/DL (6.4-8.2)
[2021-11-30 09:42] LABS: BILIRUBIN,TOTAL 0.5 MG/DL (0.1-1.0)
[2021-11-30 09:44] LABS: CREATININE SERUM 1.83 MG/DL (0.60-1.30)
[2021-11-30 10:09] LABS: FREE T4 (FREE THYROXINE) 1.02 NG/DL (0.70-1.48)
[2021-11-30 10:22] LABS: ERYTHROCYTE SEDIMENTATION RATE 37 MM/HR (0-30)
--- NOTE | 2021-11-30 11:10 | Occupational Ther Daily Note ---
OT Current Status-Daily Note Subjective Pt alert in recliner. Pt is going home tomorrow. Mental Status/Objective Patient Orientation: Person, Place, Time, Situation ADL-Treatment Pt agrees to shower. Pt ambulates from recliner with FWW to bathroom, CGA. Pt able to collect clothes on way to bathroom, using FWW. Pt CGA to transfer to shower bench. Pt completed 90% of shower sitting on shower bench by self then CGA for balance support while pt cleansed buttocks. CGA to transfer from shower bench to . Pt CGA, for lower body dressing. Independent oral care sitting at sink, Pt educated in donning of socks with sock aid in case of fatigue. Skilled instruction given with verbal and demonstration to use sock aid. Pt donned socks using figure 4 method with increased time after set up. Pt completed 3 B UE medium resistance theraband exercises, 2 sets of 15 reps. Skilled instruction given for proper technique and modified for L shoulder weakness. Pt left in recliner with call light/phone. All needs met in room. Therapy Code Descriptions/Definitions Functional [place] Measure: 0=Not Assessed/NA 4=Minimal Assistance 1=Total Assistance 5=Supervision or Setup 2=Maximal Assistance 6=Modified [place] 3=Moderate Assistance 7=Complete IndependenceSCALE: Activities may be completed with or without assistive devices. 5-Falzsylnfz-eagwzbm completes the activity by him/herself with no assistance from a helper. 5-Set-up or Clean-up Assistance-helper sets up or cleans up; patient completes activity. [place] assists only prior to or following the activity. 4-Supervision or Touching Assistance-helper provides verbal cues and/or touching/steadying and/or contact guard assistance as patient completes activity. Assistance may be provided throughout the activity or intermittently. 3-Partial/Moderate Assistance-helper does LESS THAN HALF the effort. [place] lifts, holds or supports trunk or limbs, but provides less than half the effort. 2-Substantial/Maximal Assistance-helper does MORE THAN HALF the effort. [place] lifts or holds trunk or limbs and provides more than half the effort. 3-Voxncmeal-gcjuic does ALL the effort. Patient does none of the effort to complete the activity. Or, the assistance of 2 or more helpers is required for the patient to complete the activity. If activity was not attempted, code reason: 7-Patient Refused. 9-Not Applicable-not attempted and the patient did not perform the activity before the current illness, exacerbation or injury. 10-Not Attempted due to Environmental Limitations-(lack of equipment, weather restraints, etc.). 88-Not Attempted due to Medical Conditions or Safety Concerns. Shower/Bathe Self (QC): 3 (CGA) Upper Body Dressing (QC): 6 Lower Body Dressing (QC): 3 (CGA) On/Off Footwear: 5 Toileting Hygiene (QC): 4 (CGA for safety, per clinical judment.) Toilet Transfer (QC): 4 (CGA for safety per clinical judment.) OT Short Term Goals Short Term Goals Time Frame: Nov 29, 2021 Eatin Oral hygiene: 4 Toileting hygiene: 4 Shower/bathe self: 4 Upper body dressin Lower body dressin Putting on/taking off footwear: 5 OT Custodial Goals New Client Banking Services Clerk Goals Time Frame: Dec 06, 2021 Eating (QC): 6 (met) Oral Hygiene (QC): 6 (met) Toileting Hygiene (QC): 6 (not met) Shower/Bathe Self (QC): 5 (not met) Upper Body Dressing (QC): 6 (met) Lower Body Dressing (QC): 5 (not met) On/Off Footwear (QC): 6 1=Demonstrate adherence to instructed precautions during ADL tasks. 2=Patient will verbalize/demonstrate understanding of assistive devices/modifications for ADL. 3=Patient will improve strength/tolerance for activity to enable patient to p erform ADL's. OT Education/Plan Problem List/Assessment Assessment: Decreased Activ Tolerance, Decreased Safety Aware, Impaired Funct Balance Discharge Recommendations Plan/Recommendations: Continue POC Treatment Plan/Plan of Care Patient would benefit from OT for education, treatment and training to promote independence in ADL's, mobility, safety and/or upper extremity function for ADL's. Plan of Care: ADL Retraining, Concurrent Therapy, Functional Mobility, Group Exercise/Act as Ind, UE Funct Exercise/Act, UE Neuromus Re-Ed/Coord Treatment Duration: Dec 06, 2021 Frequency: At least 5 of 7 days/Wk (IRF) Estimated Hrs Per Day: 1.5 hours per day (75-90 min/day) Agreement: Yes Rehab Potential: Fair Time/GCodes Start Time: 10:30 Stop Time: 12:00 Total Time Billed (hr/min): 90 Billed Treatment Time 1 Visit ADL 5 (75 min) EX 1 (15 min) BLOSSOM BROWN Nov 30, 2021 11:10
--- NOTE | 2021-11-30 11:18 | Discharge Summary ---
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 so changed to Oxycontin Plan: Pain control PT OT Monitor closely Home meds 11/23/2021: Change beds Lortab Monitor creat 11/24/2021: Monitor closely MRI reviewed 11/25/2021: Pain control Monitor BP 11/26/2021: MS Contin to start Minimize IV morphine 11/27/2021: Monitor closely 11/28/2021: Change MS Contin to Oxycontin 11/29/2021: Monitor closely Fall risk Dr Jay appt next week (1) Bilateral leg weakness Status: Acute (2) Paresthesia of both lower extremities Status: Acute (3) Paresthesia of both hands Status: Acute (4) Neuropathic pain of both legs Status: Acute (5) Neuropathic pain of upper extremity Status: Acute (6) Chronic kidney disease, stage 3 Status: Acute (7) 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 Status: Acute (8) Presence of stent in LAD coronary artery Status: Acute (9) Presence of stent in right coronary artery Status: Acute Discharge Summary Discharge Physical Examination Allergies: Coded Allergies: Penicillins (Verified Allergy, Unknown, 07/09/08) Vitals & I&Os Vital Signs Date Time Temp Pulse Resp B/P (MAP) Pulse Ox O2 Delivery O2 Flow Rate FiO2 11/30/21 18:46 36.5 62 18 135/69 93 Room Air Hospital Course Was the Problem List Reviewed?: Yes Hospital course: Patient had a lengthy hospital course and he was doing very well until the last 2 days he began to have more lower extremity weakness even falling off the toilet and needed 2 person assist to get up. Labs remained stable no evidence of any infectious causes no sepsis and TSH was normal no evidence of thyroid induced myopathy and the tingling in his legs and hands were concerning for some sort of neurological progression dysfunction status so the decision was made to go to [facility] for transfer for higher level of care and neurology evaluation. Labs (last 24 hrs) Laboratory Tests 11/23/21 05:10: White Blood Count 8.2, Red Blood Count 3.93L, Hemoglobin 12.7L, Hematocrit 38L, Mean Corpuscular Volume 96, Mean Corpuscular Hemoglobin 32, Mean Corpuscular Hemoglobin Concent 34, Red Cell Distribution Width 12.6, Platelet Count 138, Mean Platelet Volume 10.1, Immature Granulocyte % (Auto) 1, Neutrophils (%) (Auto) 66, Lymphocytes (%) (Auto) 16, Monocytes (%) (Auto) 14H, Eosinophils (%) (Auto) 4, Basophils (%) (Auto) 1, Neutrophils # (Auto) 5.4, Lymphocytes # (Auto) 1.3, Monocytes # (Auto) 1.1H, Eosinophils # (Auto) 0.3, Basophils # (Auto) 0.1, Immature Granulocyte # (Auto) 0.0, Percent Immature Platelet Fraction 2.9, Sodium Level 133L, Potassium Level 4.5, Chloride Level 103, Carbon Dioxide Level 19L, Anion Gap 11, Blood Urea Nitrogen 40H, Creatinine 2.22H, Estimat Glomerular Filtration Rate 30, BUN/Creatinine Ratio 18, Glucose Level 100, Calcium Level 9.3, Corrected Calcium 9.5, Total Bilirubin 0.6, Aspartate Amino Transf (AST/SGO T) 44H, Alanine Aminotransferase (ALT/SGPT) 23, Alkaline Phosphatase 91, Total Protein 6.9, Albumin 3.8 11/28/21 06:35: White Blood Count 6.4, Red Blood Count 3.64L, Hemoglobin 12.0L, Hematocrit 36L, Mean Corpuscular Volume 99, Mean Corpuscular Hemoglobin 33, Mean Corpuscular Hemoglobin Concent 33, Red Cell Distribution Width 13.1, Platelet Count 176, Mean Platelet Volume 9.8, Immature Granulocyte % (Auto) 1, Neutrophils (%) (Auto) 58, Lymphocytes (%) (Auto) 24, Monocytes (%) (Auto) 12, Eosinophils (%) (Auto) 5, Basophils (%) (Auto) 1, Neutrophils # (Auto) 3.7, Lymphocytes # (Auto) 1.5, Monocytes # (Auto) 0.7, Eosinophils # (Auto) 0.3, Basophils # (Auto) 0.1, Immature Granulocyte # (Auto) 0.1, Sodium Level 137, Potassium Level 4.5, Chloride Level 105, Carbon Dioxide Level 20L, Anion Gap 12, Blood Urea Nitrogen 52H, Creatinine 2.01H, Estimat Glomerular Filtration Rate 34, BUN/Creatinine Ratio 26, Glucose Level 114H, Calcium Level 9.1, Corrected Calcium 9.4, Total Bilirubin 0.4, Aspartate Amino Transf (AST/SGOT) 36H, Alanine Aminotransferase (ALT/SGPT) 20, Alkaline Phosphatase 108, Total Protein 6.6, Albumin 3.6 11/30/21 09:18: White Blood Count 8.2, Red Blood Count 3.40L, Hemoglobin 11.3L, Hematocrit 34L, Mean Corpuscular Volume 99, Mean Corpuscular Hemoglobin 33, Mean Corpuscular Hemoglobin Concent 34, Red Cell Distribution Width 12.6, Platelet Count 166, Misti n Platelet Volume 9.3, Immature Granulocyte % (Auto) 1, Neutrophils (%) (Auto) 75, Lymphocytes (%) (Auto) 11L, Monocytes (%) (Auto) 9, Eosinophils (%) (Auto) 3, Basophils (%) (Auto) 1, Neutrophils # (Auto) 6.2, Lymphocytes # (Auto) 0.9L, Monocytes # (Auto) 0.8, Eosinophils # (Auto) 0.2, Basophils # (Auto) 0.1, Immature Granulocyte # (Auto) 0.1, Sodium Level 138, Potassium Level 4.5, Chloride Level 106, Carbon Dioxide Level 23, Anion Gap 9, Blood Urea Nitrogen 47H, Creatinine 1.83H, Estimat Glomerular Filtration Rate 38, BUN/Creatinine Ratio 26, Glucose Level 111H, Calcium Level 9.4, Corrected Calcium 9.8, Total Bilirubin 0.5, Aspartate Amino Transf (AST/SGOT) 42H, Alanine Aminotransferase (ALT/SGPT) 19, Alkaline Phosphatase 104, Total Protein 6.4, Albumin 3.5, Erythrocyte Sedimentation Rate 37H, Lactic Acid Level 1.11, Total Creatine Kinase 125, C-Reactive Protein High Sensitivity 0.60H, Thyroid Stimulating Hormone (TSH) 0.38, Free Thyroxine 1.02 Pending Labs Laboratory Tests 11/23/21 05:10: White Blood Count 8.2, Red Blood Count 3.93, Hemoglobin 12.7, Hematocrit 38, Mean Corpuscular Volume 96, Mean Corpuscular Hemoglobin 32, Mean Corpuscular Hemoglobin Concent 34, Red Cell Distribution Width 12.6, Platelet Count 138, Mean Platelet Volume 10.1, Immature Granulocyte % (Auto) 1, Neutrophils (%) (Auto) 66, Lymphocytes (%) (Auto) 16, Monocytes (%) (Auto) 14, Eosinophils (%) (Auto) 4, Basophils (%) (Auto) 1, Neutrophils # (Auto) 5.4, Lymphocytes # (Auto) 1.3, Monocytes # (Auto) 1.1, Eosinophils # (Auto) 0.3, Basophils # (Auto) 0.1, Immature Granulocyte # (Auto) 0.0, Percent Immature Platelet Fraction 2.9, Sodium Level 133, Potassium Level 4.5, Chloride Level 103, Carbon Dioxide Level 19, Anion Gap 11, Blood Urea Nitrogen 40, Creatinine 2.22, Estimat Glomerular Filtration Rate 30, BUN/Creatinine Ratio 18, Glucose Level 100, Calcium Level 9.3, Corrected Calcium 9.5, Total Bilirubin 0.6, Aspartate Amino Transf (AST/SGOT) 44, Alanine Aminotransferase (ALT/SGPT) 23, Alkaline Phosphatase 91, Total Protein 6.9, Albumin 3.8 11/28/21 06:35: White Blood Count 6.4, Red Blood Count 3.64, Hemoglobin 12.0, Hematocrit 36, Mean Corpuscular Volume 99, Mean Corpuscular Hemoglobin 33, Mean Corpuscular Hemoglobin Concent 33, Red Cell Distribution Width 13.1, Platelet Count 176, Mean Platelet Volume 9.8, Immature Granulocyte % (Auto) 1, Neutrophils (%) (Auto) 58, Lymphocytes (%) (Auto) 24, Monocytes (%) (Auto) 12, Eosinophils (%) (Auto) 5, Basophils (%) (Auto) 1, Neutrophils # (Auto) 3.7, Lymphocytes # (Auto) 1.5, Monocytes # (Auto) 0.7, Eosinophils # (Auto) 0.3, Basophils # (Auto) 0.1, Immature Granulocyte # (Auto) 0.1, Sodium Level 137, Potassium Level 4.5, Chloride Level 105, Carbon Dioxide Level 20, Anion Gap 12, Blood Urea Nitrogen 52, Creatinine 2.01, Estimat Glomerular Filtration Rate 34, BUN/Creatinine Ratio 26, Glucose Level 114, Calcium Level 9.1, Corrected Calcium 9.4, Total Bilirubin 0.4, Aspartate Amino Transf (AST/SGOT) 36, Alanine Aminotransferase (ALT/SGPT) 20, Alkaline Phosphatase 108, Total Protein 6.6, Albumin 3.6 11/30/21 09:18: White Blood Count 8.2, Red Blood Count 3.40, Hemoglobin 11.3, Hematocrit 34, Mean Corpuscular Volume 99, Mean Corpuscular Hemoglobin 33, Mean Corpuscular Hemoglobin Concent 34, Red Cell Distribution Width 12.6, Platelet Count 166, Mean Platelet Volume 9.3, Immature Granulocyte % (Auto) 1, Neutrophils (%) (Auto) 75, Lymphocytes (%) (Auto) 11, Monocytes (%) (Auto) 9, Eosinophils (%) (Auto) 3, Basophils (%) (Auto) 1, Neutrophils # (Auto) 6.2, Lymphocytes # (Auto) 0.9, Monocytes # (Auto) 0.8, Eosinophils # (Auto) 0.2, Basophils # (Auto) 0.1, Immature Granulocyte # (Auto) 0.1, Sodium Level 138, Potassium Level 4.5, Chloride Level 106, Carbon Dioxide Level 23, Anion Gap 9, Blood Urea Nitrogen 47, Creatinine 1.83, Estimat Glomerular Filtration Rate 38, BUN/Creatinine Ratio 26, Glucose Level 111, Calcium Level 9.4, Corrected Calcium 9.8, Total Bilirubin 0.5, Aspartate Amino Transf (AST/SGOT) 42, Alanine Aminotransferase (ALT/SGPT) 19, Alkaline Phosphatase 104, Total Protein 6.4, Albumin 3.5, Erythrocyte Sedimentation Rate 37, Lactic Acid Level 1.11, Total Creatine Kinase 125, C- Reactive Protein High Sensitivity 0.60, Vitamin B12 Level [Pending], Folate [Pending], Thyroid Stimulating Hormone (TSH) 0.38, Free Thyroxine 1.02 Discharge Home Medications: Active Scripts Active Reported Afrin (Oxymetazoline HCl) 0.05 % [place] 1 [place] NSEACH UD PRN Aspirin 81 Mg Tab.chew 81 Mg PO DAILY Fish Oil 1,000 mg Softgel ([place]-3/Dha/Epa/Fish Oil) 1,000 Mg (120 Mg-180 Mg) Capsule 1,000 Mg PO DAILY B Complex (Vitamin B Complex) 1 Each Tablet 1 Each PO DAILY Coq-10 (Ubidecarenone) 100 Mg Capsule 100 Mg PO DAILY Rosuvastatin Calcium 5 Mg Tablet 5 Mg PO HS Metoprolol Succinate 100 Mg Tab.er.24h 100 Mg PO DAILY Flomax (Tamsulosin HCl) 0.4 Mg Cap 0.4 Mg PO HS Neurontin (Gabapentin) 300 Mg Capsule 600 Mg PO BID TAKES 2 (300MG) CAPS Allopurinol 100 Mg Tablet 100 Mg PO DAILY Losartan Potassium 25 Mg Tablet 25 Mg PO HS Instructions to patient/family Please see electronic discharge instructions given to patient. Diagnosis/Problems Diagnosis/Problems (1) Bilateral leg weakness Status: Acute (2) Paresthesia of both lower extremities Status: Acute (3) Paresthesia of both hands Status: Acute (4) Neuropathic pain of both legs Status: Acute (5) Neuropathic pain of upper extremity Status: Acute (6) Chronic kidney disease, stage 3 Status: Acute (7) 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 Status: Acute (8) Presence of stent in LAD coronary artery Status: Acute (9) Presence of stent in right coronary artery Status: Acute GUSTAVO SALAZAR DO Nov 30, 2021 11:18
--- NOTE | 2021-11-30 13:31 | Physical Therapy Daily Note ---
PT Daily Note-Current Subjective Pt is sitting in recliner upon arrival. Pt agrees to PT to finish QC scoring and use BR. Pain Location: Right, Left Pain Description: Tingling, Numbness Comment: Pt reports tingling & numbness in B LE and increasing in UE Mental Status Patient Orientation: Person, Place, Time, Situation Transfers SCALE: Activities may be completed with or without assistive devices. 1-Jzwbroyrsw-suhhdrx completes the activity by him/herself with no assistance from a helper. 5-Set-up or Clean-up Assistance-helper sets up or cleans up; patient completes activity. [place] assists only prior to or following the activity. 4-Supervision or Touching Assistance-helper provides verbal cues and/or touching/steadying and/or contact guard assistance as patient completes activity. Assistance may be provided throughout the activity or intermittently. 3-Partial/Moderate Assistance-helper does LESS THAN HALF the effort. [place] lifts, holds or supports trunk or limbs, but provides less than half the effort. 2-Substantial/Maximal Assistance-helper does MORE THAN HALF the effort. [place] lifts or holds trunk or limbs and provides more than half the effort. 7-Cwlxpxjuw-hsucrr does ALL the effort. Patient does none of the effort to complete the activity. Or, the assistance of 2 or more helpers is required for the patient to complete the activity. If activity was not attempted, code reason: 7-Patient Refused. 9-Not Applicable-not attempted and the patient did not perform the activity before the current illness, exacerbation or injury. 10-Not Attempted due to Environmental Limitations-(lack of equipment, weather restraints, etc.). 88-Not Attempted due to Medical Conditions or Safety Concerns. Roll Left & Right (QC): 5 Sit to Lying (QC): 5 Lying to Sitting/Side of Bed(Q: 5 Sit to Stand (QC): 4 Toilet Transfer (QC): 4 Weight Bearing Right Lower Extremity: Right Full Weight Bearing Left Lower Extremity: Left Full Weight Bearing Gait Training Does the Patient Walk?: Yes Distance: 30' Walk 10 feet (QC): 4 Gait Assistive Device: FWW Treatments TF to standing and sits at EOB then completes bed mobility before asking to use BR. Pt returns to bed at end of tx with all needs met, call light in hand. Assessment Current Status: Fair Progress Pt continues to demonstrate weakness and reports continued numbness & tingling. PT School Child Care Attendant Goals Assisted Goals PT Assisted Goals Time Frame: Dec 07, 2021 Roll Left & Right (QC): 6 Sit to Lying (QC): 6 Lying-Sitting on Side/Bed(QC): 6 Sit to Stand (QC): 6 Chair/Dru-vw-Hcoqd Xfer(QC): 6 Toilet Transfer (QC): 6 Car Transfer (QC): 6 Does the Patient Walk: Yes Walk 10 feet (QC): 6 Walk 50ft with 2 Turns (QC): 6 Walk 150 ft (QC): 6 Walking 10ft on Uneven Surface: 6 1 Step (curb) (QC): 6 4 Steps (QC): 6 12 Steps (QC): 6 Picking up an Object (QC): 6 Does the Pt use WC or Scooter?: No Wheel 50 feet with 2 turns (QC: 88 Wheel 150 feet: 88 PT Plan Problem List Problem List: Activity Tolerance, Functional Strength Treatment/Plan Treatment Plan: Continue Plan of Care Treatment Plan: Bed Mobility, Education, Functional Activity Sherry, Functional Strength, Group Therapy, Gait, Safety, Therapeutic Exercise, Transfers Treatment Duration: Dec 16, 2021 Frequency: At least 5 of 7 days/Wk (IRF) Estimated Hrs Per Day: 1.5 hours per day Patient and/or Family Agrees t: Yes Time/GCodes Time In: 1300 Time Out: 1330 Total Billed Treatment Time: 30 Total Billed Treatment 1, FA x2 (30m) ADY GILLETTE BULK COOLERS INSTALLER Nov 30, 2021 13:31
[2021-11-30] MEDS: ENOXAPARIN 40 MG/0.4 ML (LOVENOX) SYR SC SCH (14:41)
[2021-11-30 18:46] VITALS: BP 135/69
--- NOTE | 2021-12-01 14:30 | Therapy Team Discharge Summary ---
Therapy Discharge Summary Discharge Recommendations Date of Discharge Nov 30, 2021 at 18:46 Physical Therapy Roll Left to Right (QC): 5 Sit to Lying (QC): 5 Lying to Sitting/Side of Bed(Q: 5 Sit to Stand (QC): 4 Chair/Hyo-oi-Pkwrs Xfer(QC): 5 Toilet Transfer (QC): 3 Car Transfer (QC): 4 Does the Patient Walk: Yes Mode of Locomotion: Walk Anticipated Mode of Locomotion: Walk Walk 10 feet (QC): 4 Walk 50 ft with 2 Turns(QC): 4 Walk 150 ft (QC): 4 Walking 10ft on uneven surface: 4 Distance: 75 feet x 2 Gait Assistive Device: FWW Does the Pt Use a Wheelchair: Yes Wheel 50 ft with 2 turns (QC): 9 Wheel 150 ft (QC): 9 Type of Wheelchair: Manual #of Steps: 4 1 Step (curb) (QC): 4 4 Steps (QC): 4 12 Steps (QC): 7 Balance Sitting Static: Normal Balance Sitting Dynamic: Normal Balance-Standing Static: Fair Picking up an Object (QC): 5 Occupational Therapy Pt admitted to ARU with BLE weakness. At time of evaluation, he was min a for lower body dressing and bathing, cga for toileting and oral care, sba for upper body dressing and footwear and set up for eating. During his rehab stay, OT focused on balance, safety, endurance, strengthening, energy conservation strategies, and compensatory techniques in order to improve performance and independence in self cares and functional mobility. 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 He did not meet his goals for toileting, bathing, or lower body dressing. See below for current levels of assist. Pt has discharged from this facility and will be discharged from OT at this time. Decreased Activ Tolerance, Decreased Safety Aware, Impaired Funct Balance Eating (QC): 6 Oral Hygiene (QC): 6 Shower/Bathe Self (QC): 3 (CGA) Upper Body Dressing (QC): 6 Lower Body Dressing (QC): 3 (CGA) On/Off Footwear (QC): 5 Toileting Hygiene (QC): 4 (CGA for safety, per clinical judment.) PT Plant And Maintenance Technician Goals Plant And Maintenance Technician Goals PT Half-Way Goals Time Frame: Dec 07, 2021 Roll Left to Right (QC): 6 Sit to Lying (QC): 6 Lying-Sitting on Side/Bed(QC): 6 Sit to Stand (QC): 6 Chair/Tkq-jf-Ndpig Xfer(QC): 6 Car Transfer (QC): 6 Does the Patient Walk: Yes Walk 10 feet (QC): 6 Walk 10ft-Uneven Surface(QC): 6 Walk 50ft with 2 Turns (QC): 6 Walk 150 ft (QC): 6 Does the Pt use WC or Scooter?: No Wheel 50 feet with 2 turns (QC: 88 1 Step (curb) (QC): 6 4 Steps (QC): 6 12 Steps (QC): 6 Picking up an Object (QC): 6 OT Half-Way Goals Plant And Maintenance Technician Goals Time Frame: Dec 06, 2021 Eating (QC): 6 (met) Oral Hygiene (QC): 6 (met) Shower/Bathe Self (QC): 5 (not met) Upper Body Dressing (QC): 6 (met) Lower Body Dressing (QC): 5 (not met) On/Off Footwear (QC): 6 Toileting Hygiene (QC): 6 (not met) Toilet/Commode Transfer (QC): 6 1=Demonstrate adherence to instructed precautions during ADL tasks. 2=Patient will verbalize/demonstrate understanding of assistive devices/modifica tions for ADL. 3=Patient will improve strength/tolerance for activity to enable patient to perform ADL's. Ginny Wells OT Dec 01, 2021 14:29
--- NOTE | 2021-12-01 15:23 | Therapy Team Discharge Summary ---
Therapy Discharge Summary Discharge Recommendations Date of Discharge Nov 30, 2021 at 18:46 Physical Therapy Patient came to rehab with LBP and falls. Upon evaluation patient performed rolling and supine <-> sit with SBA/CGA, sit <-> stand with min/mod assist, transfers and car transfer with CGA/SBA, ambulated 75' with a rolling walker with CGA/SBA (including 50' with at least 2 turns of 90 degrees and 10' over an uneven surface), went up and down 12 steps using 2 handrails with CGA/SBA, and picked up an object from the floor with CGA/SBA using a gas brazer. Patient has been performing bed mobility and transfer training, balance and endurance training, functional strengthening, stair training, gait training, and education. Patient has made some progress in some areas but has declined in others, but has not met any of his senior living goals. Now, patient performs rolling and supine <-> sit with setup, sit <-> stand and transfers with setup, car transfer CGA/SBA, ambulates 175' with a rolling walker with CGA/SBA (including 50' with at least 2 turns of 90 degrees and 10' over an uneven surface), can go up and down 4 steps using 2 handrails with CGA/SBA, and can bulk picker an object from the floor using a gas brazer with setup. Patient has been discharged from this facility and will be discharged from PT at this time. Roll Left to Right (QC): 5 Sit to Lying (QC): 5 Lying to Sitting/Side of Bed(Q: 5 Sit to Stand (QC): 4 Chair/Tce-ej-Hnryd Xfer(QC): 5 Toilet Transfer (QC): 3 Car Transfer (QC): 4 Does the Patient Walk: Yes Mode of Locomotion: Walk Anticipated Mode of Locomotion: Walk Walk 10 feet (QC): 4 Walk 50 ft with 2 Turns(QC): 4 Walk 150 ft (QC): 4 Walking 10ft on uneven surface: 4 Distance: 75 feet x 2 Gait Assistive Device: FWW Does the Pt Use a Wheelchair: Yes Wheel 50 ft with 2 turns (QC): 9 Wheel 150 ft (QC): 9 Type of Wheelchair: Manual #of Steps: 4 1 Step (curb) (QC): 4 4 Steps (QC): 4 12 Steps (QC): 7 Balance Sitting Static: Normal Balance Sitting Dynamic: Normal Balance-Standing Static: Fair Picking up an Object (QC): 5 Occupational Therapy Decreased Activ Tolerance, Decreased Safety Aware, Impaired Funct Balance Eating (QC): 6 Oral Hygiene (QC): 6 Shower/Bathe Self (QC): 3 (CGA) Upper Body Dressing (QC): 6 Lower Body Dressing (QC): 3 (CGA) On/Off Footwear (QC): 5 Toileting Hygiene (QC): 4 (CGA for safety, per clinical judment.) PT Inner Tube Tuber Machine Operator Goals Alf Goals PT Alf Goals Time Frame: Dec 07, 2021 Roll Left to Right (QC): 6 Sit to Lying (QC): 6 Lying-Sitting on Side/Bed(QC): 6 Sit to Stand (QC): 6 Chair/Hrm-ih-Ymrsm Xfer(QC): 6 Car Transfer (QC): 6 Does the Patient Walk: Yes Walk 10 feet (QC): 6 Walk 10ft-Uneven Surface(QC): 6 Walk 50ft with 2 Turns (QC): 6 Walk 150 ft (QC): 6 Does the Pt use WC or Scooter?: No Wheel 50 feet with 2 turns (QC: 88 1 Step (curb) (QC): 6 4 Steps (QC): 6 12 Steps (QC): 6 Picking up an Object (QC): 6 OT Inner Tube Tuber Machine Operator Goals Inner Tube Tuber Machine Operator Goals Time Frame: Dec 06, 2021 Eating (QC): 6 (met) Oral Hygiene (QC): 6 (met) Shower/Bathe Self (QC): 5 (not met) Upper Body Dressing (QC): 6 (met) Lower Body Dressing (QC): 5 (not met) On/Off Footwear (QC): 6 Toileting Hygiene (QC): 6 (not met) Toilet/Commode Transfer (QC): 6 1=Demonstrate adherence to instructed precautions during ADL tasks. 2=Patient will verbalize/demonstrate understanding of assistive devices/modifications for ADL. 3=Patient will improve strength/tolerance for activity to enable patient to perform ADL's. GUSTAVO BAH PT Dec 01, 2021 15:23
[2021-12-02] MEDS ORDERED: CYANOCOBALAMIN 1,000 MCG (VITAMIN B-12) TABLET PO SCH (07:00)
== END 2021-11-30 18:46 | disposition short-term general hospital (02) | DRG 74 ==
PROVIDERS: ADMIT Internal Medicine; ATTEND Internal Medicine
DX: G62.9 Polyneuropathy, unspecified (principal); I12.9 Hypertensive chronic kidney disease with stage 1 through stage 4 chronic kidney disease, or unspecified chronic kidney disease; N18.30 Chronic kidney disease, stage 3 unspecified; I25.10 Atherosclerotic heart disease of native coronary artery without angina pectoris; K21.9 Gastro-esophageal reflux disease without esophagitis; M19.91 Primary osteoarthritis, unspecified site; E78.5 Hyperlipidemia, unspecified; M10.9 Gout, unspecified; K59.00 Constipation, unspecified; Z95.5 Presence of coronary angioplasty implant and graft; Z88.0 Allergy status to penicillin; Z79.82 Long term (current) use of aspirin; Z82.61 Family history of arthritis; Z82.49 Family history of ischemic heart disease and other diseases of the circulatory system
CPT/HCPCS: 36415; 80053; 82550; 82607; 82746; 83605; 84439; 84443; 85025; 85652; 86141

== ENCOUNTER 2021-12-16 08:37 | Inpatient (IN) | payer MEDICARE, OTHER ==
[~2021-12-16] VITALS: Ht 182.8 cm; Wt 98.4 kg
[2021-12-16 08:30] VITALS: BP 106/58
[~2021-12-16 08:37] MED LIST changes: +GABA300C PO; +OMEG100032 PO; +OXYM30SP25 NSEACH; +ROSU5TAB13 PO; +TMSL.4C PO; +VITA-189 PO
--- NOTE | 2021-12-16 09:17 | Physical Therapy Evaluation ---
PT Evaluation-General Medical Diagnosis Admission Date Dec 16, 2021 at 08:37 Medical Diagnosis: Back pain Onset Date: Dec 16, 2021 Therapy Diagnosis Therapy Diagnosis: Strength deficit Height/Weight Height (Feet): 6 Height (Inches): 0.00 Weight (Pounds): 241 Precautions Precautions/Isolations: Fall Prevention Weight Bear Status Right Lower Extremity: Right Full Weight Bearing Left Lower Extremity: Left Full Weight Bearing Referral Physician: Dr. Cunningham Reason for Referral: Evaluation/Treatment Medical History Pertinent Medical History: Back Injury, CAD, HTN Reviewed History: Yes Social History Home: Multilevel Current Living Status: Spouse Entry Into Home: Stairs With Railing PT Steps Into Home: 2 PT Steps Inside Home: 5 Prior Prior Level of Function SCALE: Activities may be completed with or without assistive devices. 6-Ychnxbjdxf-tzmpvne completes the activity by him/herself with no assistance from a helper. 5-Set-up or Clean-up Assistance-helper sets up or cleans up; patient completes activity. [place] assists only prior to or following the activity. 4-Supervision or Touching Assistance-helper provides verbal cues and/or touching/steadying and/or contact guard assistance as patient completes activ ity. Assistance may be provided throughout the activity or intermittently. 3-Partial/Moderate Assistance-helper does LESS THAN HALF the effort. [place] lifts, holds or supports trunk or limbs, but provides less than half the effort. 2-Substantial/Maximal Assistance-helper does MORE THAN HALF the effort. [place] lifts or holds trunk or limbs and provides more than half the effort. 3-Nwtcygcth-wkadur does ALL the effort. Patient does none of the effort to complete the activity. Or, the assistance of 2 or more helpers is required for the patient to complete the activity. If activity was not attempted, code reason: 7-Patient Refused. 9-Not Applicable-not attempted and the patient did not perform the activity before the current illness, exacerbation or injury. 10-Not Attempted due to Environmental Limitations-(lack of equipment, weather restraints, etc.). 88-Not Attempted due to Medical Conditions or Safety Concerns. Bed Mobility: 6 Transfers (B,C,W/C): 6 Gait: 6 Stairs: 6 Indoor Mobility (Ambulation): Independent Stairs: Independent Prior Devices Use: Walker PT Evaluation-Current Subjective Patient ambulates into the hospital after being dropped off by his . He rode the elevator to the second floor where he ambulated to his room. Patient was seen by PATIENT SERVICE SPECIALIST getting off the elevator and she ambulated with him until this PT began walking with him. Patient agreeable to evaluation. Patient reports after he was discharged from [place] last Sunday he went home and still felt weak. He reports the next day, Sunday, he fell and twisted his knee. He reports he has not sought medical treatment for the knee, but rates its pain at 6/10 currently. He presents to this floor donning a left knee brace. Objective Patient Orientation: Person, Place, Time, Situation ROM/Strength ROM Lower Extremities WFLs bilaterally all planes Strength Lower Extremities Right LE 3/5 all planes; Left LE 3+/5 all planes except knee extension 2+/5 with pain Sensory Vision: Wears Glasses Hearing: Functional Sensation Right Lower Extremit: Intact Sensation Left Lower Extremity: Intact Transfers Roll Left & Right (QC): 6 Sit to Lying (QC): 6 Lying to Sitting/Side of Bed(Q: 6 Sit to Stand (QC): 3 Chair/Cez-dd-Rbogn Xfer(QC): 4 Toilet Transfer (QC): 4 Car Transfer (QC): 4 Gait Does the Patient Walk?: Yes Mode of Locomotion: Walk Anticipated Mode of Locomotion: Walk Walk 10 feet (QC): 6 Walk 50 ft with 2 Turns(QC): 6 Walk 150 ft (QC): 6 Walking 10ft/uneven surface-QC: 4 Gait Assistive Device: FWW Wheelchair Training Does the Pt Use a Wheelchair?: No Wheel 50 ft with 2 turns (QC): 9 Wheel 150 ft (QC): 9 Stairs #of Steps: 12 1 Step (curb) (QC): 4 4 Steps (QC): 4 12 Steps (QC): 4 Balance Sitting Static: Normal Sitting Dynamic: Normal Standing Static: Good Standing Dynamic: Fair Picking up an Object (QC): 4 Assessment/Needs Patient tolerated treatment well. Ambulates > 150 feet from the front door of the hospital to this floor with FWW with [place]. Patient demonstrates some difficulty with sit to stand from the chair and requires min A. Patient performs all other transfers with SBA. He is able to ascend/descend 4 steps x 3 reps with bilateral handrails and CGA. Patient in chair post treatment with all needs met, nursing notified, call light in hand. Rehab Potential: Good PT Senior Care Goals Progressive Assembler And Fitter Goals PT Progressive Assembler And Fitter Goals Time Frame: Jan 06, 2022 Roll Left & Right (QC): 6 Sit to Lying (QC): 6 Lying-Sitting on Side/Bed(QC): 6 Sit to Stand (QC): 6 Chair/Ywv-xf-Iltzv Xfer(QC): 6 Toilet Transfer (QC): 6 Car Transfer (QC): 6 Does the Patient Walk: Yes Walk 10 feet (QC): 6 Walk 50ft with 2 Turns (QC): 6 Walk 150 ft (QC): 6 Walking 10ft on Uneven Surface: 6 1 Step (curb) (QC): 6 4 Steps (QC): 6 12 Steps (QC): 4 Picking up an Object (QC): 6 Does the Pt use WC or Scooter?: No Wheel 50 feet with 2 turns (QC: 9 Wheel 150 feet: 9 PT Plan Problem List Problem List: Activity Tolerance, Functional Strength, Safety, Balance, Gait, Transfer, Bed Mobility, ROM Treatment/Plan Treatment Plan: Continue Plan of Care Treatment Plan: Bed Mobility, Education, Functional Activity Sherry, Functional Strength, Group Therapy, Gait, Safety, Therapeutic Exercise, Transfers Treatment Duration: Jan 06, 2022 Frequency: At least 5 of 7 days/Wk (IRF) Estimated Hrs Per Day: 1.5 hours per day Patient and/or Family Agrees t: Yes Safety Risks/Education Patient Education: Gait Training, Transfer Techniques, Steps Teaching Recipient: Patient Teaching Methods: Demonstration, Discussion Response to Teaching: Verbalize Understanding, Return Demonstration Time/GCodes Time In: 830 Time Out: 915 Total Billed Treatment Time: 45 Total Billed Treatment Visit, EVm (10) FA (20), Gait (15) ABHI JULIO PT Dec 16, 2021 09:17
[2021-12-16] MEDS ORDERED: MELATONIN 3 MG TABLET PO PRN (10:15)
[2021-12-16] MEDS ORDERED: ONDANSETRON 4 MG (ZOFRAN) ORAL DISSOLVE TAB PO PRN (10:15)
[2021-12-16] MEDS ORDERED: CALCIUM CARBONATE 500 MG (TUMS) TAB.CHEW PO PRN (10:15)
[2021-12-16] MEDS ORDERED: LOPERAMIDE 2 MG (IMODIUM) TABLET PO PRN (10:15)
[2021-12-16] MEDS ORDERED: FLEET ENEMA ADULT 1 EA BTL PR PRN (10:15)
[2021-12-16] MEDS ORDERED: diphenhydrAMINE 25 MG TAB (BENADRYL) PO PRN (10:15)
[2021-12-16] MEDS ORDERED: BISACODYL 10 MG SUPP (DULCOLAX) PR PRN (10:15)
[2021-12-16] MEDS ORDERED: guaiFENesin/CODEINE (ROBITUSSIN AC) 10ML UDC PO PRN (10:15)
[2021-12-16] MEDS ORDERED: ALPRAZolam 0.25 MG (XANAX) TAB PO PRN (10:15)
[2021-12-16] MEDS ORDERED: DOCUSATE SODIUM 100 MG (COLACE) CAP PO PRN (10:15)
--- NOTE | 2021-12-16 10:15 | PM&R Post Admission Assessment ---
PM&R Date of Visit: Dec 16, 2021 Time of Visit: 13:00 History of Present Illness CC: Debility with bilateral lower extremity weakness due to cervical spine stenosis HPI: This is a 76 yr old male who was just discharged from in-patient rehab 11/30/21 to go to [facility] for neurology care. He presents with continued lower extremity weakness in need of therapy to attend a family wedding and ultimately have a second opinion from on the cervical spine stenosis. He continues to think it is a lyme or tick borne illness. I reviewed that with other specialists and there was no evidence of any acute illness. He would like another tick borne illness. I told him there was no indication and I will talk to infectious disease once again. Past Uboyqld-Hntekq-Ffplog Hx Past Med/Social Hx: Reviewed Nursing Past Med/Soc Hx, Reviewed and Corrections made Patient Social History Marrital Status: Employed/Student: employed Alcohol Use: Denies Use Smoking Status: Never a Smoker 2nd Hand Smoke Exposure: No Immunizations Up To Date Tetanus Booster (TDap): More than 5yrs Pediatric: Yes Seasonal Allergies Seasonal Allergies: No Past Medical History Surgeries: Orthopedic Currently Using CPAP: No Currently Using BIPAP: No Cardiac: Coronary Artery Disease, Hypertension Reproductive: No Sexually Transmitted Disease: No HIV/AIDS: No Genitourinary: Renal Failure Gastrointestinal: Gastroesophageal Reflux Musculoskeletal: Arthritis Loss of Vision: Denies Hearing Impairment: Denies Cancer: Skin Adverse Reaction to Blood [place]: No Family History Alzheimer's disease 19 FATHER Arthritis 19 MOTHER G8 SISTER Cardiovascular disease 19 MOTHER Cataracts 19 MOTHER Dementia 19 FATHER Diabetes mellitus 19 MOTHER G8 SISTER Hypercholesterolemia 19 MOTHER G8 SISTER Hypertension 19 MOTHER G8 SISTER G8 SISTER Visual disorder G8 SISTER Heart Disease, Diabetes, Hypertension Prior Level of Function Bed Mobility: 6 Transfers: 6 Gait: 6 Stairs: 6 Indoor Mobility (Ambulation): Independent Stairs: Independent Prior Devices Use: Walker Current Level of Fuctioning Roll Left to Right: 6 Sit to Lyin Lying to Sitting/Side of Bed: 6 Sit to Stand: 3 Chair/Ses-rs-Gsvwr Xfer: 4 Car Transfer: 4 Does the Patient Walk: Yes Mode of Locomotion: Walk Anticipated Mode of Locomotion: Walk Walk 10 feet: 6 Walk 50 ft with 2 Turns: 6 Walk 150 ft: 6 Walking 10ft on uneven surface: 4 Gait Assistive Device: FWW Does the Pt Use a Wheelchair: No Wheel 50 ft with 2 turns: 9 Wheel 150 ft: 9 #of Steps: 12 1 Step (curb): 4 4 Steps: 4 12 Steps: 4 Picking up an Object: 4 PM&R Allergy/Meds/Data Review Allergies Coded Allergies: Penicillins (Verified Allergy, Unknown, 07/09/08) Home Medications Scheduled Allopurinol (Allopurinol), 100 MG PO DAILY, (Reported) Aspirin (Aspirin), 81 MG PO DAILY, (Reported) Gabapentin (Neurontin), 900 MG PO BID, (Reported) Losartan Potassium (Losartan Potassium), 25 MG PO DAILY, (Reported) Metoprolol Succinate (Metoprolol Succinate), 100 MG PO HS, (Reported) [place]-3/Dha/Epa/Fish Oil (Fish Oil 1,000 mg Softgel), 1,000 MG PO DAILY, (Reported) Rosuvastatin Calcium (Rosuvastatin Calcium), 5 MG PO HS, (Reported) Tamsulosin HCl (Flomax), 0.4 MG PO HS, (Reported) Ubidecarenone (Coq-10), 100 MG PO DAILY, (Reported) Vitamin B Complex (B Complex), 1 EACH PO DAILY, (Reported) Scheduled PRN Oxymetazoline HCl (Afrin), 1 SPRAY NSEACH UD PRN for CONGESTION, (Reported) Current Medications Current Medications Reviewed Review of Systems Constitutional: see HPI, malaise, weakness EENTM: no symptoms reported Respiratory: no symptoms reported Cardiovascular: no symptoms reported Gastrointestinal: no symptoms reported Genitourinary: no symptoms reported Musculoskeletal: back pain, joint pain Skin: no symptoms reported Psychiatric/Neurological: Depressed, Numbness, Tingling, Weakness All Other Systems Reviewed Negative Unless Noted: Yes Physical Exam Physical Exam Vital Signs Vital Signs - First Documented 12/16/21 08:30 Temp 36.5 Pulse 81 Resp 18 B/P (MAP) 106/58 (74) Pulse Ox 96 O2 Delivery Room Air Capillary Refill : Height, Weight, BMI Height: 6'0.00" Weight: 241lbs. oz. 109.832367hv; 31.17 BMI Method: General Appearance: No Apparent Distress, WD/WN, Chronically ill Eyes: Bilateral Eye Normal Inspection, Bilateral Eye PERRL HEENT: PERRL/EOMI, Normal ENT Inspection, Pharynx Normal Neck: Full Range of Motion, Normal Inspection, Non Tender, Supple, Carotid Bruit Respiratory: Chest Non Tender, Lungs Clear, Normal Breath Sounds, No Accessory Muscle Use, No Respiratory Distress Cardiovascular: Regular Rate, Rhythm, No Edema, No Gallop, No JVD, No Murmur, Normal Peripheral Pulses Gastrointestinal: Normal Bowel Sounds, No Organomegaly, No Pulsatile Mass, Non Tender, Soft Back: Normal Inspection, No CVA Tenderness, No Vertebral Tenderness Extremity: Normal Capillary Refill, Normal Inspection, Normal Range of Motion, Non Tender, No Calf Tenderness, No Pedal Edema Neurologic/Psychiatric: Alert, Oriented x3, Normal Mood/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, 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-XII Norm as Tested, Abnormal Gait, Motor Weakness (generalized in both legs and arms) Skin: Normal Color, Warm/Dry Lymphatic: No Adenopathy PM&R Medical Assessment & Plan REHAB/MEDICAL ASSESSMENT AND PLAN: REHAB IMPAIRMENT GROUP: Cervical spine myelopathy ETIOLOGIC DIAGNOSIS: Cervical spine myelopathy The comorbidities that impact the patients function and/or functional outcome by: cervical spine stenosis, weakness of legs, CKD, loss of stamina REHAB PLAN: The patient is being admitted to our comprehensive inpatient rehabilitation facility and can tolerate the intensity of service consisting of at least: 180 minutes of therapy a day, 5 out of 7 days a week Rehab treatment will consist of: PT OT will focus on regaining stamina and function with lower legs and increase independence in ADL's The patient/family has a good understanding of our discharge process and will benefit from an interdisciplinary inpatient rehabilitation program. The patient has potential to make improvement and is in need of at least two of the following multidisciplinary therapies including but not limited to physical, occupational, speech, and prosthetics and orthotics. Additionally the patient will need services from respiratory, nutritional services, wound care, psychology, etc. (Customize this to each patient). Given the patients complex condition and risk of further medical complications, rehabilitation services cannot be safely or effectively provided at a lower level of care such as a [facility] facility. BARRIERS TO DISCHARGE: Needs cervical spine surgery to resolve the issue ESTIMATED LOS: 7 days DISPOSITION: Home RELEVANT CHANGES SINCE PREADMISSION SCREENING: I have compared the patients medical and functional status at the time of the preadmission screening and there are: no changes PROGNOSIS: Good REHABILITATION GOALS: 1. PT OT will focus on regaining stamina and function with lower legs and increase independence in ADL's All the above goals were reviewed with the patient and he/she is in agreement. By signing this document, I acknowledge that I have personally performed a full physical examination on this patient within 24 hours of admission to this inpatient rehabilitation facility and have determined the patient to be able to tolerate the above course of treatment at an intensive level for a reasonable period of time. I will be completing a detailed individualized Plan of Care for this patient by day #4 of the patients stay based upon the Preadmission Screen, the Post-Admission Evaluation, and the therapy evaluations. 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
--- NOTE | 2021-12-16 10:40 | Occupational Therapy Eval ---
OT Evaluation-General/PLF Medical Diagnosis Admission Date Dec 16, 2021 at 08:37 Medical Diagnosis: Back pain Onset Date: Dec 16, 2021 Therapy Diagnosis Therapy Diagnosis: reduced adl status Height/Weight Height (Feet): 6 Height (Inches): 0.00 Weight (Pounds): 241 Precautions Precautions/Isolations: Fall Prevention, Standard Precautions Referral Physician: Dr. Cunningham Referral Reason: Evaluation/Treatment Medical History Pertinent Medical History: Back Injury, CAD, HTN Current History Pt direct admit from home. He states that the past couple of days he has gotten weaker, had a fall, and had increased numbness/tingling in his bilateral fingers. He also states that at times, he will have a sharp "jolt feeling" from his shoulder down to his middle finger but that it quickly goes away. Pt states that he lives with his in a multilevel home. All needs can be met on main level. Pt was indep with adls (except shoes) and his manages all iadls. He was using a walker prior to arrival. Reviewed History: Yes Social History Home: Multilevel Current Living Status: Spouse Entry Into Home: Stairs With Railing Steps Into Home: 2 Steps Inside Home: 5 ADL-Prior Level of Function SCALE: Activities may be completed with or without assistive devices. 2-Njofnodsar-ptgdkdc completes the activity by him/herself with no assistance from a helper. 5-Set-up or Clean-up Assistance-helper sets up or cleans up; patient completes activity. [place] assists only prior to or following the activity. 4-Supervision or Touching Assistance-helper provides verbal cues and/or touching/steadying and/or contact guard assistance as patient completes activity . Assistance may be provided throughout the activity or intermittently. 3-Partial/Moderate Assistance-helper does LESS THAN HALF the effort. [place] lifts, holds or supports trunk or limbs, but provides less than half the effort. 2-Substantial/Maximal Assistance-helper does MORE THAN HALF the effort. [place] lifts or holds trunk or limbs and provides more than half the effort. 6-Gihzejnxr-cdatyy does ALL the effort. Patient does none of the effort to complete the activity. Or, the assistance of 2 or more helpers is required for the patient to complete the activity. If activity was not attempted, code reason: 7-Patient Refused. 9-Not Applicable-not attempted and the patient did not perform the activity before the current illness, exacerbation or injury. 10-Not Attempted due to Environmental Limitations-(lack of equipment, weather restraints, etc.). 88-Not Attempted due to Medical Conditions or Safety Concerns. Self Care: Needed Some Help Functional Cognition: Independent DME/Equipment: Bath Chair, Shower Drive Self: No OT Current Status Subjective Pt verbalizes that a doctor from [facility] recommends cervical surgery however he wants to be able to go to his granddaughters wedding in 2 weeks. Thus, he is here to "get stronger." Appearance Pt returned to sitting in recliner, all needs within reach at OT departure. Mental Status/Objective Patient Orientation: Person, Place, Situation Current Glasses/Contacts: Yes Hearing Aids: No Dentures/Partials: No Hand Dominance: Right Upper Extremity ROM WFL except thumb/5th digit opposition. Upper Extremity Sensation Intact, 10/10 light touch Upper Extremity Strength L shoulder: 3/5, pt reports baseline from old injury R shoulder: 4/5 Elbow-distally: 4/5 Poor test engineering technician strength ADL-Treatment Eating (QC): 5 (per clinical judgment) Oral Hygiene (QC): 5 (per clinical judgment.) Shower/Bathe Self (QC): 5 Upper Body Dressing (QC): 5 Lower Body Dressing (QC): 3 On/Off Footwear (QC): 1 Toileting Hygiene (QC): 6 Sit<>stand transfers were mod assist from a lower surface (toilet and recliner). Mod assist x2 for bath bench due to fatigue post shower. 100% of shower completed in sitting, pt able to reach all body parts post set up. After the shower, he donned shirt. Extra time and mod verbal cues and education on technique for donning underwear and shorts. Min assist still needed to thread L LE through shorts. Dependent for donning shoes. Throughout session he c/o of tingling and numbness in both hands, with more emphasis on his R 4th and 5th digits. Education OT Patient Education: Correct positioning, Disease process, Energy conservation, Modified ADL techniques, Progress toward Goal/Update tx plan, Purpose of tx/functional activities, Rehab process, Safety issues, Transfer techniques Teaching Recipient: Patient Teaching Methods: Demonstration, Discussion Response to Teaching: Verbalize Understanding, Return Demonstration OT Short Term Goals Short Term Goals Time Frame: Dec 23, 2021 Eatin Oral hygiene: 6 Toileting hygiene: 6 Shower/bathe self: 5 Upper body dressin Lower body dressin Putting on/taking off footwear: 3 OT Senior Care Goals [place] Goals Time Frame: Dec 30, 2021 Eating (QC): 6 Oral Hygiene (QC): 6 Toileting Hygiene (QC): 6 Shower/Bathe Self (QC): 6 Upper Body Dressing (QC): 6 Lower Body Dressing (QC): 5 On/Off Footwear (QC): 4 Additional Goals: 1-Demonstrate ADL Tasks, 2-Verbalize Understanding, 3- ImproveStrength/Sherry 1=Demonstrate adherence to instructed precautions during ADL tasks. 2=Patient will verbalize/demonstrate understanding of assistive devices/mo difications for ADL. 3=Patient will improve strength/tolerance for activity to enable patient to perform ADL's. OT Education/Plan Problem List/Assessment Assessment: Decreased Activ Tolerance, Decreased UE Strength, Impaired Coordination, Impaired I ADL's, Impaired Self-Care Skills Discharge Recommendations Plan/Recommendations: Continue POC Therapy Discharge Recommendati: Home & Family, Post Acute OT Treatment Plan/Plan of Care Treatment,Training & Education: Yes Patient would benefit from OT for education, treatment and training to promote independence in ADL's, mobility, safety and/or upper extremity function for ADL's. Plan of Care: ADL Retraining, Functional Mobility, Group Exercise/Act as Ind, UE Funct Exercise/Act, UE Neuromus Re-Ed/Coord Treatment Duration: Dec 30, 2021 Frequency: At least 5 of 7 days/Wk (IRF) Estimated Hrs Per Day: 1.5 hours per day (75-90 minutes) Agreement: Yes Rehab Potential: Good Time/GCodes Start Time: 09:30 Stop Time: 10:40 Total Time Billed (hr/min): 70 Billed Treatment Time 1 visit EVM (10 minutes) ADL x4 (60 minutes) Ginny Wells OT Dec 16, 2021 10:40
[2021-12-16 11:00] LABS: BASOPHILS # (AUTO) 0.1 10^3/uL (0.0-0.1); BASOPHILS % (AUTO) 1 % (0-10); EOSINOPHILS # (AUTO) 0.3 10^3/uL (0.0-0.3); EOSINOPHILS % (AUTO) 3 % (0-10); HEMATOCRIT 37 % (40-54); HEMOGLOBIN 12.2 g/dL (13.3-17.7); LYMPHOCYTES # (AUTO) 1.4 10^3/uL (1.0-4.0); LYMPHOCYTES % (AUTO) 16 % (12-44); MEAN CORPUSCULAR HEMOGLOBIN 33 pg (25-34); MEAN CORPUSCULAR HGB CONC 33 g/dL (32-36); MEAN CORPUSCULAR VOLUME 99 fL (80-99); MEAN PLATELET VOLUME 9.3 fL (9.0-12.2); MONOCYTES # (AUTO) 0.9 10^3/uL (0.0-1.0); MONOCYTES % (AUTO) 10 % (0-12); NEUTROPHILS # (AUTO) 6.1 10^3/uL (1.8-7.8); NEUTROPHILS % (AUTO) 70 % (42-75); PLATELET COUNT 203 10^3/uL (130-400); WHITE BLOOD COUNT 8.8 10^3/uL (4.3-11.0)
[2021-12-16 11:15] LABS: ALBUMIN 3.9 GM/DL (3.2-4.5); POTASSIUM 4.5 MMOL/L (3.6-5.0)
[2021-12-16 11:16] LABS: CALCIUM 9.8 MG/DL (8.5-10.1)
[2021-12-16 11:18] LABS: TOTAL PROTEIN 6.9 GM/DL (6.4-8.2)
[2021-12-16 11:20] LABS: BILIRUBIN,TOTAL 0.6 MG/DL (0.1-1.0)
[2021-12-16 11:21] LABS: CREATININE SERUM 2.1 MG/DL (0.60-1.30)
[2021-12-16] MEDS: ENOXAPARIN 40 MG/0.4 ML (LOVENOX) SYR SC SCH (11:33)
--- NOTE | 2021-12-16 12:00 | ST Cognitive Linguistic Eval ---
Speech Evaluation-General Medical Diagnosis Back Pain Onset Date: Dec 16, 2021 Therapy Diagnosis Therapy Diagnosis: Intact Neurocognitive Skills Precautions Precautions: Fall Precautions/Isolations: Fall Prevention, Standard Precautions Referral Referring Physician: Dr. Cunningham Reason for Referral: Evaluation/Treatment Medical History Pertinent Medical History: Back Injury, CAD, HTN Current History The patient is a 76 year-old male with a past medical history of back injury, CAD, and HTN, who was admitted to acute rehabilitation due to weakness and a fall. Reviewed History: Yes Social History Current Living Status: Spouse Speech PLF-Current Status Prior Level of Function The patient denied any current or recent concerns with his speech, language, or cognition. Subjective The patient was seated upright in his recliner, awake and alert upon entrance to the patient's room by the clinician. The patient greeted the clinician appropriately and was agreeable to participation in the cognitive linguistic assessment. Language Eval: Auditory Comprehends Simple Yes/No Ques: Functional Indent/Objects Multiple Hooks: Functional Ident/Pics in Multiple Hooks: Functional Follows 1-Step Commands: Functional Follows Complex Directions: Functional Follows General Conversations: Functional Language Eval: Verbal Language Completes Spontaneous Greeting: Functional Produces Auto, Serial Info: Functional Imitates Simple Words/Phrases: Functional Word Finding: Functional Requests Basic Needs: Functional States Basic Personal Info: Functional Expresses Complex Ideas: Functional Language Evaluation: Reading Follows Simple Written Direct: Functional Language Evaluation: Writing Writes to Simple Dictation: Functional Cognitive Patient Orientation The patient was independently oriented to self, location, month, day of week, date and year. Objective Cognitive Domain Attention: WNL Memory: WNL Problem Solving: Functional Executive Functions: WNL Visuospatial Skills: WNL Composite Severity Rating: WNL Clock Drawing Severity Rating: WNL Objective Formal/Standardized Tests [facility] Mental Status Exam (UMS) Results The patient demonstrated a result of +29/30 on the SLUMS correlating to neurocognitive skills within normal limits. Oral Motor/Speech Production The patient does not display dysarthria or apraxia of speech at this time. The patient is 100% intelligible in known and unknown contexts. Impression The patient demonstrates cognitive linguistic skills within normal limits. Speech Patient Assess Expression of Ideas/Wants: Expression (4) Understanding Verbal Content: Understands (4) Brief Interview-Mental Status: Yes Repetition of Three Words: Three (3) Temporal Orientation: Year: Correct (3) Temporal Orientation: Month: Accurate within 5 days(2) Temporal Orientation: Day: Correct (1) Recall : Wear to say "Sock": Yes, no cue required (2) Recall : Color: Yes, no cue required (2) Recall : Bed: Yes, no cue required (2) Memory/Recall Ability: Current season, Location of own room, Staff names and faces, That he or she is in a hsp/hsp unit Speech-Plan Treatment Plan Speech Therapy Treatment Plan: Discontinue ST Treatment Duration: Dec 16, 2021 Frequency: 1 time per week Estimated Hrs Per Day: .5 hour per day Rehab Potential: Good Safety Risks/Education Teaching Recipient: Patient Teaching Methods: Discussion Response to Teaching: Verbalize Understanding Education Topics Provided: Results, Recommendations, Plan of Care Time Speech Therapy Time In: 11:30 Speech Therapy Time Out: 12:00 Total Billed Time: 30 Billed Treatment Time 1, MARLON CUTLER ELIZABETH ST Dec 16, 2021 12:00
--- NOTE | 2021-12-16 14:54 | Therapy Group Daily Note ---
Therapy Daily Group Note Patient Education Topic Other List Below (pain management) Exercises LE Seated Exercise, UE Exercise Session Ratio (pt:therapist): 4:1 Goal of Session: Education on ARU Expectations, UE/LE Strengthing, Other (list) (pain management) Goal Met for this Session: Yes Pt Benefit of Group: Contributions to Others, F/U Use of Strategies @Home, Increased Functional Safety, Increased Functional Strength, Improved Cognition, Recognition of Peers, Socialization Other/Notes Pt ambulated using FWW to [facility] area for OT/PT group. Group consisted of introductions (name, place, worst fall), socialization, B UE/LE exercises and education on pain management. Pt introduced self appropriately and actively listened to peers. Pt able to complete B UE/LE exercises. Pt demonstrated understanding of educational topic by giving personal strategies and active listening. After session, pt sitting in recliner with call light/phone in reach. All needs met in room. Start Time: 13:00 Stop Time: 14:20 Total Billed Treatment Time: 80 Total Billed Treatment 1-GRP BLOSSOM BROWN Dec 16, 2021 14:54
[2021-12-16] MEDS: polyethylene glycoL POWDER 17 GM (MIRALAX) PACK PO SCH (19:58)
[2021-12-16 20:08] VITALS: BP 161/79
[2021-12-16] MEDS: SENNA W/DOCUSATE (SENOKOT S) TABLET PO SCH (20:20)
[2021-12-16] MEDS: DOCUSATE SODIUM 100 MG (COLACE) CAP PO SCH (20:20)
[2021-12-16] MEDS ORDERED: OXYMETAZOLINE (AFRIN) 0.05% NA 30 ML BTL PRN (20:45)
[2021-12-16] MEDS: GABAPENTIN 300 MG (NEURONTIN) CAP PO SCH (22:22)
[2021-12-16] MEDS: ROSUVASTATIN 5 MG (CRESTOR) TABLET PO SCH (22:22)
[2021-12-16] MEDS: meTOprolol SUCCINATE 100 MG (TOPROL XL) TAB PO SCH (22:22)
[2021-12-16] MEDS: TAMSULOSIN 0.4 MG (FLOMAX) CAP PO SCH (22:23)
[2021-12-16] MEDS: ACETAMINOPHEN 325 MG TABLET PO PRN (22:23)
[2021-12-17] MEDS: ACETAMINOPHEN 325 MG TABLET PO PRN (05:33)
[2021-12-17 06:37] LABS: BASOPHILS # (AUTO) 0.1 10^3/uL (0.0-0.1); BASOPHILS % (AUTO) 1 % (0-10); EOSINOPHILS # (AUTO) 0.3 10^3/uL (0.0-0.3); EOSINOPHILS % (AUTO) 4 % (0-10); HEMATOCRIT 34 % (40-54); HEMOGLOBIN 11.6 g/dL (13.3-17.7); LYMPHOCYTES # (AUTO) 1.6 10^3/uL (1.0-4.0); LYMPHOCYTES % (AUTO) 23 % (12-44); MEAN CORPUSCULAR HEMOGLOBIN 33 pg (25-34); MEAN CORPUSCULAR HGB CONC 34 g/dL (32-36); MEAN CORPUSCULAR VOLUME 96 fL (80-99); MEAN PLATELET VOLUME 9.7 fL (9.0-12.2); MONOCYTES # (AUTO) 0.8 10^3/uL (0.0-1.0); MONOCYTES % (AUTO) 12 % (0-12); NEUTROPHILS # (AUTO) 4.1 10^3/uL (1.8-7.8); NEUTROPHILS % (AUTO) 60 % (42-75); PLATELET COUNT 182 10^3/uL (130-400); WHITE BLOOD COUNT 6.8 10^3/uL (4.3-11.0)
[2021-12-17 06:54] LABS: ALBUMIN 3.5 GM/DL (3.2-4.5)
[2021-12-17 06:55] LABS: POTASSIUM 4.2 MMOL/L (3.6-5.0)
[2021-12-17 06:56] LABS: CALCIUM 9.5 MG/DL (8.5-10.1)
[2021-12-17 06:57] LABS: TOTAL PROTEIN 6.2 GM/DL (6.4-8.2)
[2021-12-17 06:59] LABS: BILIRUBIN,TOTAL 0.4 MG/DL (0.1-1.0)
[2021-12-17 07:01] LABS: CREATININE SERUM 1.81 MG/DL (0.60-1.30)
--- NOTE | 2021-12-17 07:25 | Individualized Plan of Care ---
Individualized Plan of Care Rehab Nursing IPOC Order Admission Date Dec 16, 2021 at 08:37 Current Orders Orders Admission Arrival Bed Request (12/16/21 08:37) Admission Order(Inpt,Obs,Sdc) (12/16/21 10:01) Vital Signs: Per Unit Policy ( ,16,00 (12/16/21 10:01) Shane Florez (12/16/21 10:01) Sequential Compression Device (12/16/21 10:01) House Manager-Inpt Rehab Con (12/16/21 10:01) Rehab Nursing Orders-Ipoc (12/16/21 10:01) Physical Therapy Rehab Orders (12/16/21 10:01) Occupational Therapy Rehab Ord (12/16/21 10:01) Speech Therapy Rehab Orders (12/16/21 10:01) Cbc With Automated Diff (12/17/21 06:00) Comprehensive Metabolic Panel (12/17/21 06:00) Precautions (Aru) (12/16/21 10:01) Weekly Weight WEEK (12/16/21 10:01) Rehab-Intensity Of Therapy (12/16/21 10:01) Initiate Admission Nursing Pro .admission (12/16/21 10:01) Alprazolam Tablet (Xanax Tablet) (12/16/21 10:15) Calcium Carbonate Chew Tablet (Antacid C (12/16/21 10:15) Diphenhydramine Tablet (Benadryl Tablet) (12/16/21 10:15) Docusate Sodium Capsule (Colace Capsule) (12/16/21 21:00) Docusate Sodium Capsule (Colace Capsule) (12/16/21 10:15) Bisacodyl Suppository (Dulcolax Supposit (12/16/21 10:15) Lactulose Oral Solution (Enulose Oral So (12/16/21 10:15) Na Phos/Na Biphos Enema (Fleet Enema Fox (12/16/21 10:15) Guaifenesin/Codeine Syrup (Robitussin Ac (12/16/21 10:15) Loperamide Tablet (Imodium Tablet) (12/16/21 10:15) Enoxaparin Injection (Lovenox Injection) (12/16/21 11:00) Melatonin Tablet (Melatonin Tablet) (12/16/21 10:15) Polyethylene Glycol Powder Pkt (Miralax (12/16/21 21:00) Ondansetron Oral Dissolve Tab (Zofran (12/16/21 10:15) Senna S Tablet (Senokot S Tablet) (12/16/21 21:00) Acetaminophen Tablet/Caplet (Tylenol T (12/16/21 10:15) Code/Resuscitation (12/16/21 10:01) Initiate Admission Nursing Pro .admission (12/16/21 10:01) Cbc With Automated Diff (12/16/21 10:15) Comprehensive Metabolic Panel (12/16/21 10:15) Patient Visit (12/16/21 ) Pt Eval Moderate Complexity (12/16/21 ) Gait Training, Ea 15 Min (12/16/21 ) Exercise Therap, Ea 15 Min (12/16/21 ) Patient Visit (12/16/21 ) Speech Sound Lang Comp (12/16/21 ) Treat. Speech/Lang/Voice (12/16/21 ) General/Regular (12/16/21 Lunch) Patient Visit (12/16/21 ) Allopurinol Tablet (Zyloprim Tablet) (12/17/21 09:00) Aspirin Chewable Tablet (Baby Aspirin Ch (12/17/21 09:00) Gabapentin Capsule/Tablet (Neurontin Cap (12/16/21 21:00) Losartan Tablet (Cozaar Tablet) (12/17/21 09:00) Metoprolol Succinate (Xl) Tab (Toprol Xl (12/16/21 21:00) Oxymetazoline 0.05% Nasal [place] (Afrin 0. (12/16/21 20:45) Rosuvastatin Tablet (Crestor Tablet) (12/16/21 21:00) Tamsulosin Capsule (Flomax Capsule) (12/16/21 21:00) [place] 3 Capsule (Fish Oil Capsule) (12/17/21 09:00) (Nf) Ubidecarenone (Coq-10) (12/17/21 09:00) (Nf) Vitamin B Complex (B Complex) (12/17/21 09:00) Tramadol Tablet (Ultram Tablet) (12/16/21 23:00) Tramadol Tablet (Ultram Tablet) (12/16/21 22:51) Acetaminophen Tablet/Caplet (Tylenol T (12/17/21 13:00) Diclofenac 1% Gel (Voltaren 1% Gel) (12/17/21 13:00) Pharmacy Consult/Message (12/17/21 10:59) Knee, Left, 3 Views (12/17/21 11:05) Patient Visit (12/17/21 ) Gait Training, Ea 15 Min (12/17/21 ) Exercise Therap, Ea 15 Min (12/17/21 ) Rehab Nursing Orders: Ongoing Assess. of Function Status, Bladder Management, Bladder Scan, Bladder Training, Bowel Management, Bowel Training, Disease Manage ment & Educaiton, DVT Prophylaxis, Fall Prevention, Fluid/Electrolyte/Nutrition Mgmt, Infection Prevention, Medication Management & Education, Management of Risks & Complications, Management of Skin Intergrity, Nutrition Management, Pain Management, Patient/Family Support, Safety Management Intensity of Therapy to be met Patient to be seen: Min.3h per day/5 of 7d PT IPOC Problem List: Activity Tolerance, Functional Strength, Safety, Balance, Gait, Transfer, Bed Mobility, ROM Treatment Plan: Continue Plan of Care Bed Mobility, Education, Functional Activity Sherry, Functional Strength, Group Therapy, Gait, Safety, Therapeutic Exercise, Transfers Treatment Duration: Jan 06, 2022 Frequency: At least 5 of 7 days/Wk (IRF) Estimated Hrs Per Day: 1.5 hours per day OT IPOC Problems: Decreased Activ Tolerance, Decreased UE Strength, Impaired Coordination, Impaired I ADL's, Impaired Self-Care Skills OT Treatment, Training and Edu: Yes Plan of Care: ADL Retraining, Functional Mobility, Group Exercise/Act as Ind, UE Funct Exercise/Act, UE Neuromus Re-Ed/Coord Treatment Duration: Dec 30, 2021 Frequency: At least 5 of 7 days/Wk (IRF) Estimated Hrs Per Day: 1.5 hours per day (75-90 minutes) ST IPOC Speech Therapy Treatment Plan: Discontinue ST Treatment Duration: Dec 16, 2021 Frequency: 1 time per week Estimated Hrs Per Day: .5 hour per day House Manager/Case Mgmt House Manager/Case Managemen: Discharge Planning Dietitian/Guide Dietitian/Guide to monitor nutritional status and make changes and/or recommendations as needed and work with speech pathology on dietary upgrades as the occur. Physician IPOC Medical Issues being managed closely and that require the 24 hour availability of a physician: Recent worsened weakness due to cervical spine stenosis will require close monitoring for fall risk increase and will be at risk for decompensation due to CKD issues Medical Issues: Bowel/Bladder Function, DVT Prophylaxis, Falls Precautions, Fluid/Electrolyte/Nutrition Balance, Infection Protection, Pain Management Brief Synthesis of Preadmission Screen, Post-Admission Evaluation, and Therapy Evaluations: PT OT will focus on regaining function with lower extremities with use of AD in order to regain enough function for granddaughter's wedding in 2 weeks then will need cervical spine surgery Medical Prognosis: Good Anticipated Length of Stay: 7 days GUSTAVO SALAZAR DO Dec 17, 2021 07:25
--- NOTE | 2021-12-17 07:25 | PM&R Progress Note ---
Subjective HPI/CC On Admission Date Seen by Provider: Dec 17, 2021 Time Seen by Provider: 10:00 Subjective/Events-last exam 12/17/2021: Improved status Walking pretty well Had ID at [facility] review tick borne illness panel ordered by ER doctor on first admit and all in agreement there is not an active tick borne illness causing his symptoms it is the cervical spine stenosis BM+ Ultram additional doses were required last night at 1230am requiring my intervention Review of Systems General: Fatigue, Malaise Neurological: Weakness, Incoordination Objective Exam Vital Signs Vital Signs Date Time Temp Pulse Resp B/P (MAP) Pulse Ox O2 Delivery O2 Flow Rate FiO2 12/17/21 20:07 Room Air 12/17/21 19:59 36.6 66 16 146/85 (105) 99 Capillary Refill : General Appearance: No Apparent Distress, WD/WN, Chronically ill HEENT: PERRL/EOMI, Normal ENT Inspection, Pharynx Normal Neck: Full Range of Motion, Normal Inspection, Non Tender, Supple, Carotid Bruit Respiratory: Chest Non Tender, Lungs Clear, Normal Breath Sounds, No Accessory Muscle Use, No Respiratory Distress Cardiovascular: Regular Rate, Rhythm, No Edema, No Gallop, No JVD, No Murmur, Normal Peripheral Pulses Gastrointestinal: Normal Bowel Sounds, No Organomegaly, No Pulsatile Mass, Non Tender, Soft Back: Normal Inspection, No CVA Tenderness, No Vertebral Tenderness Extremity: Normal Capillary Refill, Normal Inspection, Normal Range of Motion, Non Tender, No Calf Tenderness, No Pedal Edema Neurologic/Psychiatric: Alert, Oriented x3, Normal Mood/Affect, casing flusher II-XII Norm as Tested, Abnormal Gait, Motor Weakness (generalized in both legs and arms) Skin: Normal Color, Warm/Dry Lymphatic: No Adenopathy Results/Procedures Lab Laboratory Tests 12/17/21 05:32 Patient resulted labs reviewed. FIM Transfers Therapy Code Descriptions/Definitions Functional [place] Measure: 0=Not Assessed/NA 4=Minimal Assistance 1=Total Assistance 5=Supervision or Setup 2=Maximal Assistance 6=Modified [place] 3=Moderate Assistance 7=Complete IndependenceSCALE: Activities may be completed with or without assistive devices. 2-Wlglhiynnn-kittscn completes the activity by him/herself with no assistance from a helper. 5-Set-up or Clean-up Assistance-helper sets up or cleans up; patient completes activity. [place] assists only prior to or following the activity. 4-Supervision or Touching Assistance-helper provides verbal cues and/or touching/steadying and/or contact guard assistance as patient completes activity . Assistance may be provided throughout the activity or intermittently. 3-Partial/Moderate Assistance-helper does LESS THAN HALF the effort. [place] lifts, holds or supports trunk or limbs, but provides less than half the effort. 2-Substantial/Maximal Assistance-helper does MORE THAN HALF the effort. [place] lifts or holds trunk or limbs and provides more than half the effort. 1-Ccxgamsaq-qplzsy does ALL the effort. Patient does none of the effort to complete the activity. Or, the assistance of 2 or more helpers is required for the patient to complete the activity. If activity was not attempted, code reason: 7-Patient Refused. 9-Not Applicable-not attempted and the patient did not perform the activity before the current illness, exacerbation or injury. 10-Not Attempted due to Environmental Limitations-(lack of equipment, weather restraints, etc.). 88-Not Attempted due to Medical Conditions or Safety Concerns. Roll Left to Right (QC): 6 Sit to Lying (QC): 6 Sit to Stand (QC): 3 Chair/Nvh-zm-Znljb Xfer(QC): 4 Car Transfer (QC): 4 Gait Training Does the Patient Walk?: Yes Walk 10 feet (QC): 6 Walk 50 ft with 2 Turns(QC): 6 Walk 150 ft (QC): 6 Walking 10ft/uneven surface-QC: 4 Gait Assistive Device: FWW Wheelchair Training Does the Pt Use a Wheelchair?: No Wheel 50 ft with 2 turns (QC): 9 Wheel 150 ft (QC): 9 Stair Training #of Steps: 12 1 Step (curb) (QC): 4 4 Steps (QC): 4 12 Steps (QC): 4 Balance Picking up an Object (QC): 4 ADL-Treatment Eating (QC): 5 (per clinical judgment) Oral Hygiene (QC): 5 (per clinical judgment.) Shower/Bathe Self (QC): 5 Upper Body Dressing (QC): 5 Lower Body Dressing (QC): 3 On/Off Footwear (QC): 1 Toileting Hygiene (QC): 6 Assessment/Plan Assessment and Plan Assess & Plan/Chief Complaint Assessment: Severe leg weakness due to cervical spine stenosis causing myelopathy Back pain with lumbar spine disease CKD Stage III usual baseline creat 2.1 HTN CAD HLP Gout Plan: Pain control PT OT Needs cervical spine surgery second opinion so clouded up images to Dr Leo WINTERS 12/17/2021: Monitor closely PT OT (1) Myelopathy due to cervical spondylosis GUSTAVO SALAZAR DO Dec 17, 2021 07:25
[2021-12-17 07:30] VITALS: BP 109/63
[2021-12-17] MEDS: SENNA W/DOCUSATE (SENOKOT S) TABLET PO SCH ×2 (08:47→20:02)
[2021-12-17] MEDS: DOCUSATE SODIUM 100 MG (COLACE) CAP PO SCH ×2 (08:47→20:02)
[2021-12-17] MEDS: GABAPENTIN 300 MG (NEURONTIN) CAP PO SCH ×2 (08:47→20:02)
[2021-12-17] MEDS: OMEGA 3 (FISH OIL) 1000 MG CAP PO SCH (08:47)
[2021-12-17] MEDS: LOSARTAN 25 MG (COZAAR) TAB PO SCH (08:47)
[2021-12-17] MEDS: ASPIRIN 81 MG CHEW (CHILDREN'S ASA) PO SCH (08:47)
[2021-12-17] MEDS: ALLOPURINOL 100 MG (ZYLOPRIM) TAB PO SCH (08:47)
[2021-12-17] MEDS: polyethylene glycoL POWDER 17 GM (MIRALAX) PACK PO SCH ×2 (08:48→20:06)
[2021-12-17] MEDS ORDERED: NON-FORMULARY MEDICATION 1 EA EA (Vitamin B Complex (B Complex) 1 EACH) PO SCH (09:00)
[2021-12-17] MEDS ORDERED: NON-FORMULARY MEDICATION 1 EA EA (Ubidecarenone (Coq-10) 100 MG) PO SCH (09:00)
--- NOTE | 2021-12-17 11:14 | Physical Therapy Daily Note ---
PT Daily Note-Current Subjective Pt. agrees to Rx, son comes during Rx surprising patient, pt emotional. Son ( a dentist) states he is looking in to having a consult at [facility] for his father as he is not clear on the Dx and prognosis and plan of care. Pt has c/o pain last night at 8/10 in hands and distal legs/feet Pain Numeric Pain Scale: 4 Location: [place] Location Body Site: Hand Pain Description: Burning Mental Status Patient Orientation: Normal For Age Transfers SCALE: Activities may be completed with or without assistive devices. 3-Soiwhumptx-mlseoiy completes the activity by him/herself with no assistance from a helper. 5-Set-up or Clean-up Assistance-helper sets up or cleans up; patient completes activity. [place] assists only prior to or following the activity. 4-Supervision or Touching Assistance-helper provides verbal cues and/or touching/steadying and/or contact guard assistance as patient completes a ctivity. Assistance may be provided throughout the activity or intermittently. 3-Partial/Moderate Assistance-helper does LESS THAN HALF the effort. [place] lifts, holds or supports trunk or limbs, but provides less than half the effort. 2-Substantial/Maximal Assistance-helper does MORE THAN HALF the effort. [place] lifts or holds trunk or limbs and provides more than half the effort. 7-Dhipdthup-tampmi does ALL the effort. Patient does none of the effort to complete the activity. Or, the assistance of 2 or more helpers is required for the patient to complete the activity. If activity was not attempted, code reason: 7-Patient Refused. 9-Not Applicable-not attempted and the patient did not perform the activity before the current illness, exacerbation or injury. 10-Not Attempted due to Environmental Limitations-(lack of equipment, weather restraints, etc.). 88-Not Attempted due to Medical Conditions or Safety Concerns. all sit to stands min to CGA Weight Bearing Right Lower Extremity: Right Full Weight Bearing Left Lower Extremity: Left Full Weight Bearing Gait Training Gait Assistive Device: FWW 165 ft x 2 FWW CGA n LOB or melt Exercises cervical stretching, pecs stretching, cervical massage, rot, lat flexion NuStep Minutes: 12 NuStep Workload: 5 Treatments gait, TRFs, ex Assessment Current Status: Good Progress PT Care Home Goals Campus Police Officer Goals PT Campus Police Officer Goals Time Frame: Jan 06, 2022 Roll Left & Right (QC): 6 Sit to Lying (QC): 6 Lying-Sitting on Side/Bed(QC): 6 Sit to Stand (QC): 6 Chair/Ttz-pn-Tqpgn Xfer(QC): 6 Toilet Transfer (QC): 6 Car Transfer (QC): 6 Does the Patient Walk: Yes Walk 10 feet (QC): 6 Walk 50ft with 2 Turns (QC): 6 Walk 150 ft (QC): 6 Walking 10ft on Uneven Surface: 6 1 Step (curb) (QC): 6 4 Steps (QC): 6 12 Steps (QC): 4 Picking up an Object (QC): 6 Does the Pt use WC or Scooter?: No Wheel 50 feet with 2 turns (QC: 9 Wheel 150 feet: 9 PT Plan Treatment/Plan Treatment Plan: Continue Plan of Care Treatment Plan: Bed Mobility, Education, Functional Activity Sherry, Functional Strength, Group Therapy, Gait, Safety, Therapeutic Exercise, Transfers Treatment Duration: Jan 06, 2022 Frequency: At least 5 of 7 days/Wk (IRF) Estimated Hrs Per Day: 1.5 hours per day Patient and/or Family Agrees t: Yes Safety Risks/Education Patient Education: Gait Training, Transfer Techniques, Correct Positioning Time/GCodes Time In: 1040 Time Out: 1115 Total Billed Treatment Time: 35 Total Billed Treatment 1,GT20m,EX15m SISSY BOBO PTA Dec 17, 2021 11:14
[2021-12-17] MEDS: ENOXAPARIN 40 MG/0.4 ML (LOVENOX) SYR SC SCH (11:31)
--- NOTE | 2021-12-17 11:59 | Diagnostic Imaging Report ---
EXAMINATION: Left knee 3 views HISTORY: Knee injury COMPARISON: 12/17/2021 FINDINGS: There is mild tricompartmental osteoarthritis. No acute fracture. No dislocation. There is a small effusion. IMPRESSION: 1. Small effusion and mild osteoarthritis without acute fracture. Dictated by: Dictated on workstation # [id number]
[2021-12-17] MEDS: DICLOFENAC 1% GEL 100 GM (VOLTAREN) TUBE TOP SCH ×3 (13:28→20:04)
[2021-12-17] MEDS: ACETAMINOPHEN 325 MG TABLET PO SCH ×3 (13:28→20:02)
[2021-12-17 19:59] VITALS: BP 146/85
[2021-12-17] MEDS: TAMSULOSIN 0.4 MG (FLOMAX) CAP PO SCH (20:02)
[2021-12-17] MEDS: meTOprolol SUCCINATE 100 MG (TOPROL XL) TAB PO SCH (20:03)
[2021-12-17] MEDS: ROSUVASTATIN 5 MG (CRESTOR) TABLET PO SCH (20:03)
[2021-12-18] MEDS: ACETAMINOPHEN 325 MG TABLET PO PRN (05:41)
[2021-12-18 08:00] VITALS: BP 137/83
[2021-12-18] MEDS: ALLOPURINOL 100 MG (ZYLOPRIM) TAB PO SCH (08:02)
[2021-12-18] MEDS: OMEGA 3 (FISH OIL) 1000 MG CAP PO SCH (08:02)
[2021-12-18] MEDS: ASPIRIN 81 MG CHEW (CHILDREN'S ASA) PO SCH (08:02)
[2021-12-18] MEDS: GABAPENTIN 300 MG (NEURONTIN) CAP PO SCH ×2 (08:02→20:26)
[2021-12-18] MEDS: DOCUSATE SODIUM 100 MG (COLACE) CAP PO SCH ×2 (08:02→20:26)
[2021-12-18] MEDS: SENNA W/DOCUSATE (SENOKOT S) TABLET PO SCH ×2 (08:02→20:26)
--- NOTE | 2021-12-18 08:02 | PM&R Progress Note ---
Subjective HPI/CC On Admission Date Seen by Provider: Dec 18, 2021 Time Seen by Provider: 12:00 Subjective/Events-last exam 12/18/2021: Improved status Walking well Weakness still present Surgery is scheduled by Dr Thorpe and it appears it is 6 months before appt can be attained at 12/17/2021: Improved status Walking pretty well Had ID at review tick borne illness panel ordered by ER doctor on first admit and all in agreement there is not an active tick borne illness causing his symptoms it is the cervical spine stenosis BM+ Ultram additional doses were required last night at 1230am requiring my intervention Review of Systems General: Fatigue, Malaise Objective Exam Vital Signs Vital Signs Date Time Temp Pulse Resp B/P (MAP) Pulse Ox O2 Delivery O2 Flow Rate FiO2 12/18/21 09:05 Room Air 12/18/21 08:00 36.8 64 20 137/83 (101) 97 Capillary Refill : General Appearance: No Apparent Distress, WD/WN, Chronically ill HEENT: PERRL/EOMI, Normal ENT Inspection, Pharynx Normal Neck: Full Range of Motion, Normal Inspection, Non Tender, Supple, Carotid Bruit Respiratory: Chest Non Tender, Lungs Clear, Normal Breath Sounds, No Accessory Muscle Use, No Respiratory Distress Cardiovascular: Regular Rate, Rhythm, No Edema, No Gallop, No JVD, No Murmur, Normal Peripheral Pulses Gastrointestinal: Normal Bowel Sounds, No Organomegaly, No Pulsatile Mass, Non Tender, Soft Back: Normal Inspection, No CVA Tenderness, No Vertebral Tenderness Extremity: Normal Capillary Refill, Normal Inspection, Normal Range of Motion, Non Tender, No Calf Tenderness, No Pedal Edema Neurologic/Psychiatric: Alert, Oriented x3, Normal 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 FIM Transfers Therapy Code Descriptions/Definitions Functional [place] Measure: 0=Not Assessed/NA 4=Minimal Assistance 1=Total Assistance 5=Supervision or Setup 2=Maximal Assistance 6=Modified [place] 3=Moderate Assistance 7=Complete IndependenceSCALE: Activities may be completed with or without assistive devices. 3-Jkrzpmjdzg-akophwp completes the activity by him/herself with no assistance from a helper. 5-Set-up or Clean-up Assistance-helper sets up or cleans up; patient completes activity. [place] assists only prior to or following the activity. 4-Supervision or Touching Assistance-helper provides verbal cues and/or touching/steadying and/or contact guard assistance as patient completes activity. Assistance may be provided throughout the activity or intermittently. 3-Partial/Moderate Assistance-helper does LESS THAN HALF the effort. [place] lifts, holds or supports trunk or limbs, but provides less than half the effort. 2-Substantial/Maximal Assistance-helper does MORE THAN HALF the effort. [place] lifts or holds trunk or limbs and provides more than half the effort. 6-Owybdlhit-dxhebj does ALL the effort. Patient does none of the effort to complete the activity. Or, the assistance of 2 or more helpers is required for the patient to complete the activity. If activity was not attempted, code reason: 7-Patient Refused. 9-Not Applicable-not attempted and the patient did not perform the activity before the current illness, exacerbation or injury. 10-Not Attempted due to Environmental Limitations-(lack of equipment, weather restraints, etc.). 88-Not Attempted due to Medical Conditions or Safety Concerns. Roll Left to Right (QC): 6 Sit to Lying (QC): 6 Sit to Stand (QC): 3 Chair/Odw-hj-Lusvf Xfer(QC): 4 Car Transfer (QC): 4 Gait Training Does the Patient Walk?: Yes Walk 10 feet (QC): 6 Walk 50 ft with 2 Turns(QC): 6 Walk 150 ft (QC): 6 Walking 10ft/uneven surface-QC: 4 Gait Assistive Device: FWW Wheelchair Training Does the Pt Use a Wheelchair?: No Wheel 50 ft with 2 turns (QC): 9 Wheel 150 ft (QC): 9 Stair Training #of Steps: 12 1 Step (curb) (QC): 4 4 Steps (QC): 4 12 Steps (QC): 4 Balance Picking up an Object (QC): 4 ADL-Treatment Eating (QC): 5 (per clinical judgment) Oral Hygiene (QC): 5 (per clinical judgment.) Shower/Bathe Self (QC): 5 Upper Body Dressing (QC): 5 Lower Body Dressing (QC): 3 On/Off Footwear (QC): 1 Toileting Hygiene (QC): 6 Assessment/Plan Assessment and Plan Assess & Plan/Chief Complaint Assessment: Severe leg weakness due to cervical spine stenosis causing myelopathy Back pain with lumbar spine disease CKD Stage III usual baseline creat 2.1 HTN CAD HLP Gout Plan: Pain control PT OT Needs cervical spine surgery second opinion so clouded up images to Dr Leo WINTERS 12/17/2021: Monitor closely PT OT 12/18/2021: Monitor closely (1) Myelopathy due to cervical spondylosis GUSTAVO SALAZAR DO Dec 18, 2021 08:02
[2021-12-18] MEDS: polyethylene glycoL POWDER 17 GM (MIRALAX) PACK PO SCH ×2 (08:03→20:34)
[2021-12-18] MEDS: ACETAMINOPHEN 325 MG TABLET PO SCH ×4 (09:02→20:27)
[2021-12-18] MEDS: LOSARTAN 25 MG (COZAAR) TAB PO SCH (09:02)
[2021-12-18] MEDS: DICLOFENAC 1% GEL 100 GM (VOLTAREN) TUBE TOP SCH ×4 (09:04→20:28)
[2021-12-18] MEDS: ENOXAPARIN 40 MG/0.4 ML (LOVENOX) SYR SC SCH (10:53)
[2021-12-18] MEDS: ROSUVASTATIN 5 MG (CRESTOR) TABLET PO SCH (20:26)
[2021-12-18] MEDS: meTOprolol SUCCINATE 100 MG (TOPROL XL) TAB PO SCH (20:27)
[2021-12-18] MEDS: TAMSULOSIN 0.4 MG (FLOMAX) CAP PO SCH (20:27)
[2021-12-18 20:41] VITALS: BP 114/72
[2021-12-19] MEDS: ACETAMINOPHEN 325 MG TABLET PO PRN (05:14)
--- NOTE | 2021-12-19 06:06 | PM&R Progress Note ---
Subjective HPI/CC On Admission Date Seen by Provider: Dec 19, 2021 Time Seen by Provider: 09:00 Subjective/Events-last exam 12/19/2021: Improved status Surgery scheduled by Dr Thorpe but he is still not sure he wants to have surgery as planned Patient really needs this surgery to recover leg strength 12/18/2021: Improved status Walking well Weakness still present Surgery is scheduled by Dr Thorpe and it appears it is 6 months before appt can be attained at 12/17/2021: Improved status Walking pretty well Had ID at review tick borne illness panel ordered by ER doctor on first admit and all in agreement there is not an active tick borne illness causing his symptoms it is the cervical spine stenosis BM+ Ultram additional doses were required last night at 1230am requiring my intervention Review of Systems General: Fatigue Objective Exam Vital Signs Vital Signs Date Time Temp Pulse Resp B/P (MAP) Pulse Ox O2 Delivery O2 Flow Rate FiO2 12/19/21 20:30 Room Air 12/19/21 20:07 36.8 73 16 136/83 (100) 97 Capillary Refill : General Appearance: No Apparent Distress, WD/WN, Chronically ill HEENT: PERRL/EOMI, Normal ENT Inspection, Pharynx Normal Neck: Full Range of Motion, Normal Inspection, Non Tender, Supple, Carotid Bruit Respiratory: Chest Non Tender, Lungs Clear, Normal Breath Sounds, No Accessory Muscle Use, No Respiratory Distress Cardiovascular: Regular Rate, Rhythm, No Edema, No Gallop, No JVD, No Murmur, Normal Peripheral Pulses Gastrointestinal: Normal Bowel Sounds, No Organomegaly, No Pulsatile Mass, Non Tender, Soft Back: Normal Inspection, No CVA Tenderness, No Vertebral Tenderness Extremity: Normal Capillary Refill, Normal Inspection, Normal Range of Motion, Non Tender, No Calf Tenderness, No Pedal Edema Neurologic/Psychiatric: Alert, Oriented x3, Normal 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 FIM Transfers Therapy Code Descriptions/Definitions Functional [place] Measure: 0=Not Assessed/NA 4=Minimal Assistance 1=Total Assistance 5=Supervision or Setup 2=Maximal Assistance 6=Modified [place] 3=Moderate Assistance 7=Complete IndependenceSCALE: Activities may be completed with or without assistive devices. 4-Mtuwhknbud-aklfdcr completes the activity by him/herself with no assistance from a helper. 5-Set-up or Clean-up Assistance-helper sets up or cleans up; patient completes activity. [place] assists only prior to or following the activity. 4-Supervision or Touching Assistance-helper provides verbal cues and/or touching/steadying and/or contact guard assistance as patient completes activi ty. Assistance may be provided throughout the activity or intermittently. 3-Partial/Moderate Assistance-helper does LESS THAN HALF the effort. [place] lifts, holds or supports trunk or limbs, but provides less than half the effort. 2-Substantial/Maximal Assistance-helper does MORE THAN HALF the effort. [place] lifts or holds trunk or limbs and provides more than half the effort. 8-[place]-uuenbm does ALL the effort. Patient does none of the effort to complete the activity. Or, the assistance of 2 or more helpers is required for the patient to complete the activity. If activity was not attempted, code reason: 7-Patient Refused. 9-Not Applicable-not attempted and the patient did not perform the activity before the current illness, exacerbation or injury. 10-Not Attempted due to Environmental Limitations-(lack of equipment, weather restraints, etc.). 88-Not Attempted due to Medical Conditions or Safety Concerns. Roll Left to Right (QC): 6 Sit to Lying (QC): 6 Sit to Stand (QC): 3 Chair/Ivk-yq-Lovwa Xfer(QC): 4 Car Transfer (QC): 4 Gait Training Does the Patient Walk?: Yes Walk 10 feet (QC): 6 Walk 50 ft with 2 Turns(QC): 6 Walk 150 ft (QC): 6 Walking 10ft/uneven surface-QC: 4 Gait Assistive Device: FWW Wheelchair Training Does the Pt Use a Wheelchair?: No Wheel 50 ft with 2 turns (QC): 9 Wheel 150 ft (QC): 9 Stair Training #of Steps: 12 1 Step (curb) (QC): 4 4 Steps (QC): 4 12 Steps (QC): 4 Balance Picking up an Object (QC): 4 ADL-Treatment Eating (QC): 5 (per clinical judgment) Oral Hygiene (QC): 5 (per clinical judgment.) Shower/Bathe Self (QC): 5 Upper Body Dressing (QC): 5 Lower Body Dressing (QC): 3 On/Off Footwear (QC): 1 Toileting Hygiene (QC): 6 Assessment/Plan Assessment and Plan Assess & Plan/Chief Complaint Assessment: Severe leg weakness due to cervical spine stenosis causing myelopathy Back pain with lumbar spine disease CKD Stage III usual baseline creat 2.1 HTN CAD HLP Gout Plan: Pain control PT OT Needs cervical spine surgery second opinion so clouded up images to Dr Leo WINTERS 12/17/2021: Monitor closely PT OT 12/18/2021: Monitor closely 12/19/2021: Supportive care (1) Myelopathy due to cervical spondylosis GUSTAVO SALAZAR DO Dec 19, 2021 06:06
[2021-12-19 08:00] VITALS: BP 149/73
--- NOTE | 2021-12-19 08:58 | Physical Therapy Daily Note ---
PT Daily Note-Current Subjective Patient sitting chair upon PT arrival, agreeable to treatment. Rates pain in left knee, feet and hands at 2/10 currently. Transfers SCALE: Activities may be completed with or without assistive devices. 3-Gymqrsyldv-annuyic completes the activity by him/herself with no assistance from a helper. 5-Set-up or Clean-up Assistance-helper sets up or cleans up; patient completes activity. [place] assists only prior to or following the activity. 4-Supervision or Touching Assistance-helper provides verbal cues and/or touching/steadying and/or contact guard assistance as patient completes activity. Assistance may be provided throughout the activity or intermittently. 3-Partial/Moderate Assistance-helper does LESS THAN HALF the effort. [place] lifts, holds or supports trunk or limbs, but provides less than half the effort. 2-Substantial/Maximal Assistance-helper does MORE THAN HALF the effort. [place] lifts or holds trunk or limbs and provides more than half the effort. 3-Ooplaryhw-nrwhnk does ALL the effort. Patient does none of the effort to complete the activity. Or, the assistance of 2 or more helpers is required for the patient to complete the activity. If activity was not attempted, code reason: 7-Patient Refused. 9-Not Applicable-not attempted and the patient did not perform the activity before the current illness, exacerbation or injury. 10-Not Attempted due to Environmental Limitations-(lack of equipment, weather restraints, etc.). 88-Not Attempted due to Medical Conditions or Safety Concerns. Roll Left & Right (QC): 4 Sit to Lying (QC): 4 Lying to Sitting/Side of Bed(Q: 4 Sit to Stand (QC): 4 Chair/Dkd-in-Wrntd Xfer(QC): 6 Weight Bearing Right Lower Extremity: Right Full Weight Bearing Left Lower Extremity: Left Full Weight Bearing Gait Training Does the Patient Walk?: Yes Distance: 250 Walk 10 feet (QC): 6 Walk 50 ft with 2 Turns(QC): 4 Walk 150 ft (QC): 4 Gait Persons Needed: 1 Gait Assistive Device: FWW Exercises Supine Ex: Ankle pumps, Quad Set, Glut sets Supine Reps: 20 Patient performed chin tucks 2 x 10, upper trapezius stretch 2 x 30 seconds each direction and levator scapulae stretch 2 x 30 seconds each direction post manual therapy. NuStep Minutes: 10 NuStep Workload: 3 Treatments Patient received manual therapy of STM to cervical and upper thoracic paraspinals, upper trapezius, levator scapulae, sub-occipital musculature. Manual cervical unloading to decrease pain and tightness. Grade 2 joint mobs of C3-7 into right and left sidebend with overpressure stretch to patient tolerance to increase ROM and decrease pain. Assessment Current Status: Fair Progress Patient tolerated treatment well. Demonstrates continued good overall performance of gait ambulating 250 feet with FWW, with SBA and verbal cues for posture. Patient demonstrates moderately tight cervical and thoracic paraspinals, decreased overall cervical ROM and tight anterior scapula/shoulder musculature. Patient will continue to benefit from PT treatment to improve the above listed deficits. PT Custodial Goals Custodial Goals PT Custodial Goals Time Frame: Jan 06, 2022 Roll Left & Right (QC): 6 Sit to Lying (QC): 6 Lying-Sitting on Side/Bed(QC): 6 Sit to Stand (QC): 6 Chair/Ffn-ud-Quesp Xfer(QC): 6 Toilet Transfer (QC): 6 Car Transfer (QC): 6 Does the Patient Walk: Yes Walk 10 feet (QC): 6 Walk 50ft with 2 Turns (QC): 6 Walk 150 ft (QC): 6 Walking 10ft on Uneven Surface: 6 1 Step (curb) (QC): 6 4 Steps (QC): 6 12 Steps (QC): 4 Picking up an Object (QC): 6 Does the Pt use WC or Scooter?: No Wheel 50 feet with 2 turns (QC: 9 Wheel 150 feet: 9 PT Plan Treatment/Plan Treatment Plan: Continue Plan of Care Treatment Plan: Bed Mobility, Education, Functional Activity Sherry, Functional Strength, Group Therapy, Gait, Safety, Therapeutic Exercise, Transfers Treatment Duration: Jan 06, 2022 Frequency: At least 5 of 7 days/Wk (IRF) Estimated Hrs Per Day: 1.5 hours per day Patient and/or Family Agrees t: Yes Safety Risks/Education Patient Education: Gait Training, Transfer Techniques Teaching Recipient: Patient Teaching Methods: Demonstration, Discussion Response to Teaching: Verbalize Understanding, Return Demonstration Time/GCodes Time In: 800 Time Out: 900 Total Billed Treatment Time: 60 Total Billed Treatment Visit, Gait, Ex (30), manual therapy ABHI JULIO PT Dec 19, 2021 08:58
[2021-12-19] MEDS: ASPIRIN 81 MG CHEW (CHILDREN'S ASA) PO SCH (09:22)
[2021-12-19] MEDS: ACETAMINOPHEN 325 MG TABLET PO SCH ×4 (09:22→21:12)
[2021-12-19] MEDS: OMEGA 3 (FISH OIL) 1000 MG CAP PO SCH (09:22)
[2021-12-19] MEDS: LOSARTAN 25 MG (COZAAR) TAB PO SCH (09:22)
[2021-12-19] MEDS: GABAPENTIN 300 MG (NEURONTIN) CAP PO SCH ×2 (09:22→21:11)
[2021-12-19] MEDS: ALLOPURINOL 100 MG (ZYLOPRIM) TAB PO SCH (09:22)
[2021-12-19] MEDS: DICLOFENAC 1% GEL 100 GM (VOLTAREN) TUBE TOP SCH ×4 (09:27→21:13)
[2021-12-19] MEDS: polyethylene glycoL POWDER 17 GM (MIRALAX) PACK PO SCH ×2 (09:28→19:55)
[2021-12-19] MEDS: SENNA W/DOCUSATE (SENOKOT S) TABLET PO SCH ×2 (09:35→21:12)
[2021-12-19] MEDS: DOCUSATE SODIUM 100 MG (COLACE) CAP PO SCH ×2 (09:35→21:12)
--- NOTE | 2021-12-19 10:21 | Occupational Ther Daily Note ---
OT Current Status-Daily Note Subjective Pt alert sitting in recliner. Pt agrees to therapy. No c/o pain at this time. Mental Status/Objective Patient Orientation: Person, Place, Time, Situation ADL-Treatment Pt agrees to shower. Pt required CGA for toilet transfer using FWW and BSC to increase height. Using FWW, pt able to complete toileting independently. Pt ambulated using FWW to bathroom sink, CGA. Pt completed oral care and personal hygiene sitting at sink. Pt ambulated with FWW to shower. Pt transferred to shower bench using grabbars and FWW. Pt CGA from sit to stand to doff LB clothing. Pt independent in shower sitting on shower bench 100% of the time using long handled sponge to cleanse lower legs/feet and buttocks. Pt donned UB clothing after set up. Pt CGA for LB clothing to stand and hike pants over hips took increased time due to finger numbness. Pt donned socks using the figure 4 method. Pt ambulated to recliner using FWW. Pt left in recliner with call light/phone in reach. All needs met in room. Therapy Code Descriptions/Definitions Functional [place] Measure: 0=Not Assessed/NA 4=Minimal Assistance 1=Total Assistance 5=Supervision or Setup 2=Maximal Assistance 6=Modified [place] 3=Moderate Assistance 7=Complete IndependenceSCALE: Activities may be completed with or without assistive devices. 7-Goqnqeknor-ycdqvbl completes the activity by him/herself with no assistance from a helper. 5-Set-up or Clean-up Assistance-helper sets up or cleans up; patient completes activity. [place] assists only prior to or following the activity. 4-Supervision or Touching Assistance-helper provides verbal cues and/or touching/steadying and/or contact guard assistance as patient completes acti vity. Assistance may be provided throughout the activity or intermittently. 3-Partial/Moderate Assistance-helper does LESS THAN HALF the effort. [place] lifts, holds or supports trunk or limbs, but provides less than half the effort. 2-Substantial/Maximal Assistance-helper does MORE THAN HALF the effort. [place] lifts or holds trunk or limbs and provides more than half the effort. 5-Fssvbmxuv-ofyrly does ALL the effort. Patient does none of the effort to complete the activity. Or, the assistance of 2 or more helpers is required for the patient to complete the activity. If activity was not attempted, code reason: 7-Patient Refused. 9-Not Applicable-not attempted and the patient did not perform the activity before the current illness, exacerbation or injury. 10-Not Attempted due to Environmental Limitations-(lack of equipment, weather restraints, etc.). 88-Not Attempted due to Medical Conditions or Safety Concerns. Eating (QC): 6 (per clinical judgment) Oral Hygiene (QC): 6 Bathing Location: L Arm, R Arm, L Upper Leg, R Upper Leg, L Lower Leg (including foot), R Lower Leg (including foot), Chest, Abdomen, Buttocks, Perineal Area Shower/Bathe Self (QC): 6 Upper Body Dressing (QC): 5 Lower Body Dressing (QC): 4 On/Off Footwear: 5 Toileting Hygiene (QC): 6 Toilet Transfer (QC): 4 OT Short Term Goals Short Term Goals Time Frame: Dec 23, 2021 Eatin Oral hygiene: 6 Toileting hygiene: 6 Shower/bathe self: 5 Upper body dressin Lower body dressin Putting on/taking off footwear: 3 OT Rewind Operator Goals Rewind Operator Goals Time Frame: Dec 30, 2021 Eating (QC): 6 Oral Hygiene (QC): 6 Toileting Hygiene (QC): 6 Shower/Bathe Self (QC): 6 Upper Body Dressing (QC): 6 Lower Body Dressing (QC): 5 On/Off Footwear (QC): 4 Additional Goals: 1-Demonstrate ADL Tasks, 2-Verbalize Understanding, 3- ImproveStrength/[place] 1=Demonstrate adherence to instructed precautions during ADL tasks. 2=Patient will verbalize/demonstrate understanding of assistive devices/modifications for ADL. 3=Patient will improve strength/tolerance for activity to enable patient to perform ADL's. OT Education/Plan Problem List/Assessment Assessment: Decreased Activ Tolerance, Decreased Safety Aware, Decreased UE Strength, Impaired Coordination, Impaired Funct Balance Discharge Recommendations Plan/Recommendations: Continue POC Treatment Plan/Plan of Care Patient would benefit from OT for education, treatment and training to promote independence in ADL's, mobility, safety and/or upper extremity function for ADL's. Plan of Care: ADL Retraining, Functional Mobility, Group Exercise/Act as Ind, UE Funct Exercise/Act, UE Neuromus Re-Ed/Coord Treatment Duration: Dec 30, 2021 Frequency: At least 5 of 7 days/Wk (IRF) Estimated Hrs Per Day: 1.5 hours per day (75-90 minutes) Agreement: Yes Rehab Potential: Good Time/GCodes Start Time: 09:15 Stop Time: 10:15 Total Time Billed (hr/min): 60 Billed Treatment Time 1 visit ADL 4 (60 min) BLOSSOM BROWN Dec 19, 2021 10:21
[2021-12-19] MEDS: ENOXAPARIN 40 MG/0.4 ML (LOVENOX) SYR SC SCH (10:43)
--- NOTE | 2021-12-19 11:46 | Consultation-Cardiology ---
HPI-Cardiology Cardiology Consultation Date of Consultation 12/19/21 Date of Admission Time Seen by Provider: 09:00 Indication: CAD, needing cardiac clearance HPI Patient is a 76 y/o male with history of CAD, HTN, cervical spinal stenosis. Currently in IRF d/t progressive arm and leg weakness d/t spinal stenosis. Was evaluated by neurosurgeon at [facility] [place] and planning to undergo surgery 01/05/22. Denies any chest pain or dyspnea. Denies any dizziness, lightheadedness or syncope. Home Medications & Allergies Allergies: Coded Allergies: Penicillins (Verified Allergy, Unknown, 07/09/08) Home Medication List Reviewed: Yes UDF-Eihaoy-Tvncok Hx Patient Social History Marital Status: Employed/Student: employed Smoking Status: Never a Smoker 2nd Hand Smoke Exposure: No Have you traveled recently?: No Alcohol Use?: No Immunizations Up To Date Tetanus Booster (TDap): More than 5yrs Family Medical History Significant Family History: Heart Disease, Diabetes, Hypertension Family History: Alzheimer's disease 19 FATHER Arthritis 19 MOTHER G8 SISTER Cardiovascular disease 19 MOTHER Cataracts 19 MOTHER Dementia 19 FATHER Diabetes mellitus 19 MOTHER G8 SISTER Hypercholesterolemia 19 MOTHER G8 SISTER Hypertension 19 MOTHER G8 SISTER G8 SISTER Visual disorder G8 SISTER Review of Systems-General Review of Systems Constitutional: see HPI, malaise, weakness EENTM: see HPI, no symptoms reported Respiratory: no symptoms reported, see HPI; No dyspnea on exertion Cardiovascular: no symptoms reported, see HPI; No chest pain; Hx of Intervention, vascular heart diseas Gastrointestinal: no symptoms reported Genitourinary: no symptoms reported Musculoskeletal: back pain, joint pain Skin: no symptoms reported Psychiatric/Neurological: Depressed, Numbness, Tingling, Weakness All Other Systems Reviewed Negative Unless Noted: Yes Physical Exam Physical Exam Vital Signs Vital Signs - First Documented 12/16/21 08:30 Temp 36.5 Pulse 81 Resp 18 B/P (MAP) 106/58 (74) Pulse Ox 96 O2 Delivery Room Air Capillary Refill : Height, Weight, BMI Height: 6'0.00" Weight: 241lbs. oz. 109.840333wl; 29.44 BMI Method: General Appearance: No Apparent Distress, WD/WN, Chronically ill Eyes: Bilateral Eye Normal Inspection, Bilateral Eye PERRL HEENT: PERRL/EOMI, Normal ENT Inspection, Pharynx Normal Neck: Full Range of Motion, Normal Inspection, Non Tender, Supple, Carotid Bruit Respiratory: Chest Non Tender, Lungs Clear, Normal Breath Sounds, No Accessory Muscle Use, No Respiratory Distress Cardiovascular: Regular Rate, Rhythm, No Edema, No Gallop, No JVD, No Murmur, Normal Peripheral Pulses Gastrointestinal: Normal Bowel Sounds, No Organomegaly, No Pulsatile Mass, Non Tender, Soft Back: Normal Inspection, No CVA Tenderness, No Vertebral Tenderness Extremity: Normal Capillary Refill, Normal Inspection, Normal Range of Motion, Non Tender, No Calf Tenderness, No Pedal Edema Neurologic/Psychiatric: Alert, Oriented x3, Normal Mood/Affect, lead level designer II-XII Norm as Tested, Abnormal Gait, Motor Weakness (generalized in both legs and arms) Skin: Normal Color, Warm/Dry Lymphatic: No Adenopathy A/P-Cardiology Admission Diagnosis Cervical spinal stenosis CAD HTN HLP Assessment/Plan Upper and lower extremity weakness d/t spinal stenosis, planning for surgery later this month with Dr. Barraza at [place]. Coronary artery disease, -Status post multiple stents to the coronary system done in March 2015, Promus Premier 3.532 proximal LAD, 3.024 mid LAD, 3.021 coronary artery. Otherwise mild disease nonobstructive disease, Stress test done on May 18, 2021 showing diaphragmatic attenuation with decreased uptake involving the whole inferior wall and inferolateral wall with no reversibility, stress score 8, SDS 7, ejection fraction 68%. Cardiac catheterization carried out on June 01, 2021 showing multiple stents in the LAD and 1 stent noted in the right coronary artery, there is mild to m oderate disease nonobstructive disease. Normal left ventricular end-diastolic pressure. Medical therapy is recommended 2D echo was done on May 18, 2021 showing normal LV size with EF 60 to 65%, mild MR, PA pressure 20 mmHg. Continue to monitor Syncope/near syncopal episode, occurred in March 2015 after discharge from the hospital, no further episodes were reported. Continue to monitor at this time. Chronic renal insufficiency, continue to monitor renal function Hypertension, controlled, continue to monitor Hyperlipidemia, reports intolerance to Lipitor secondary to myalgias, tolerating Crestor, lipid profile was done on June 01, 2021 showing total cholesterol 103, triglyceride 112, HDL 37, LDL 43. Continue to monitor Benign prostatic hypertrophy, treated medically Mild bilateral carotid stenosis, last ultrasound was done in February 2021, continue to monitor Claudication pain with left lower extremity, SHELLEY done in May 2016 and it was normal. continue to monitor Obesity, BMI is 31, we discussed weight loss and exercise. Status post laminectomy done in January 2018 and reporting significant improvement. Continue to monitor Overall, patient is considered intermediate risk for perioperative cardiovascular complications. Risk vs benefits will be deferred to surgeon. Thank you for allowing us to participate in the management of Mr. Ramirez. This is Tammy Jorgensen PA-C, as a scribe for Dr. Harrington. Patient was seen and evaluated with Tammy, still having generalized weakness Denied any chest pain or shortness of breath Overall he is considered at intermediate risk for perioperative cardiovascular complication Finding on the cardiac catheterization from May 2021 was discussed. Continue on current medication monitor blood pressure and lipids TAMMY SPRINGER Dec 19, 2021 11:46 ALEAH HARRINGTON MD Dec 19, 2021 12:46
--- NOTE | 2021-12-19 14:33 | Therapy Group Daily Note ---
Therapy Daily Group Note Patient Education Topic Other List Below (modifications for home environment) Session Ratio (pt:therapist): 3:1 Goal of Session: Energy Conservation Tech., Home Safety Strategies, Use of Adaptive Equipment Goal Met for this Session: Yes Pt Benefit of Group: Contributions to Others, F/U Use of Strategies @Home, Increased Functional Safety, Increased Functional Strength, Improved Cognition, Recognition of Peers, Socialization Other/Notes Pt ambulation using FWW to therapy gym for OT/PT group. Group consisted of introductions (name, place living, remembered historic event), socializations, educational topic of ergonomic/modifications for functional mobility and ADL tasks. Pt introduced self appropriately and actively listened to peers. Pt then was able to verbalize own strategies for modifications around the home while acknowledging understanding of educational topic. After session, pt sitting in recliner with call light/phone in reach. All needs met in room. Start Time: 13:00 Stop Time: 14:25 Total Billed Treatment Time: 85 Total Billed Treatment 1-GRP BLOSSOM BROWN Dec 19, 2021 14:33
[2021-12-19] MEDS: LACTULOSE SYRUP 10GM/15ML (ENULOSE) 30ML UDC PO PRN (17:31)
[2021-12-19 20:07] VITALS: BP 136/83
[2021-12-19] MEDS: ROSUVASTATIN 5 MG (CRESTOR) TABLET PO SCH (21:12)
[2021-12-19] MEDS: TAMSULOSIN 0.4 MG (FLOMAX) CAP PO SCH (21:12)
[2021-12-19] MEDS: meTOprolol SUCCINATE 100 MG (TOPROL XL) TAB PO SCH (21:12)
[2021-12-19] MEDS: MICONAZOLE 2% POWDER (DESENEX AF) 90 GM TOP SCH (21:13)
[2021-12-20] MEDS: ACETAMINOPHEN 325 MG TABLET PO PRN (01:24)
--- NOTE | 2021-12-20 06:28 | PM&R Progress Note ---
Subjective HPI/CC On Admission Date Seen by Provider: Dec 20, 2021 Time Seen by Provider: 08:30 Subjective/Events-last exam 12/20/2021: No major issues No pain No falls DC tomorrow 12/19/2021: Improved status Surgery scheduled by Dr Thorpe but he is still not sure he wants to have surgery as planned Patient really needs this surgery to recover leg strength 12/18/2021: Improved status Walking well Weakness still present Surgery is scheduled by Dr Thorpe and it appears it is 6 months before appt can be attained at 12/17/2021: Improved status Walking pretty well Had ID at review tick borne illness panel ordered by ER doctor on first admit and all in agreement there is not an active tick borne illness causing his symptoms it is the cervical spine stenosis BM+ Ultram additional doses were required last night at 1230am requiring my intervention Review of Systems General: Fatigue, Malaise Objective Exam Vital Signs Vital Signs Date Time Temp Pulse Resp B/P (MAP) Pulse Ox O2 Delivery O2 Flow Rate FiO2 12/20/21 20:20 Room Air 12/20/21 20:00 37.2 72 18 140/81 (100) 96 Capillary Refill : General Appearance: No Apparent Distress, WD/WN, Chronically ill HEENT: PERRL/EOMI, Normal ENT Inspection, Pharynx Normal Neck: Full Range of Motion, Normal Inspection, Non Tender, Supple, Carotid Bruit Respiratory: Chest Non Tender, Lungs Clear, Normal Breath Sounds, No Accessory Muscle Use, No Respiratory Distress Cardiovascular: Regular Rate, Rhythm, No Edema, No Gallop, No JVD, No Murmur, Normal Peripheral Pulses Gastrointestinal: Normal Bowel Sounds, No Organomegaly, No Pulsatile Mass, Non Tender, Soft Back: Normal Inspection, No CVA Tenderness, No Vertebral Tenderness Extremity: Normal Capillary Refill, Normal Inspection, Normal Range of Motion, Non Tender, No Calf Tenderness, No Pedal Edema Neurologic/Psychiatric: Alert, Oriented x3, Normal Mood/Affect, cone treater II-XII Norm as Tested, Abnormal Gait, Motor Weakness (generalized in both legs and arms) Skin: Normal Color, Warm/Dry Lymphatic: No Adenopathy Results/Procedures Lab Patient resulted labs reviewed. FIM Transfers Therapy Code Descriptions/Definitions Functional [place] Measure: 0=Not Assessed/NA 4=Minimal Assistance 1=Total Assistance 5=Supervision or Setup 2=Maximal Assistance 6=Modified [place] 3=Moderate Assistance 7=Complete IndependenceSCALE: Activities may be completed with or without assistive devices. 1-Exatruusmq-wfwrsyp completes the activity by him/herself with no assistance from a helper. 5-Set-up or Clean-up Assistance-helper sets up or cleans up; patient completes activity. [place] assists only prior to or following the activity. 4-Supervision or Touching Assistance-helper provides verbal cues and/or touching/steadying and/or contact guard assistance as patient completes activity. Assistance may be provided throughout the activity or intermittently. 3-Partial/Moderate Assistance-helper does LESS THAN HALF the effort. Am[place] lifts, holds or supports trunk or limbs, but provides less than half the effort. 2-Substantial/Maximal Assistance-helper does MORE THAN HALF the effort. Amoret lifts or holds trunk or limbs and provides more than half the effort. 0-Syqvrfgbu-riqjem does ALL the effort. Patient does none of the effort to complete the activity. Or, the assistance of 2 or more helpers is required for the patient to complete the activity. If activity was not attempted, code reason: 7-Patient Refused. 9-Not Applicable-not attempted and the patient did not perform the activity before the current illness, exacerbation or injury. 10-Not Attempted due to Environmental Limitations-(lack of equipment, weather restraints, etc.). 88-Not Attempted due to Medical Conditions or Safety Concerns. Roll Left to Right (QC): 4 Sit to Lying (QC): 4 Sit to Stand (QC): 4 Chair/Wcw-ha-Rehvb Xfer(QC): 6 Car Transfer (QC): 4 Gait Training Does the Patient Walk?: Yes Distance: 250 Walk 10 feet (QC): 6 Walk 50 ft with 2 Turns(QC): 4 Walk 150 ft (QC): 4 Walking 10ft/uneven surface-QC: 4 Gait Persons Needed: 1 Gait Assistive Device: FWW Wheelchair Training Does the Pt Use a Wheelchair?: No Wheel 50 ft with 2 turns (QC): 9 Wheel 150 ft (QC): 9 Stair Training #of Steps: 12 1 Step (curb) (QC): 4 4 Steps (QC): 4 12 Steps (QC): 4 Balance Picking up an Object (QC): 4 ADL-Treatment Eating (QC): 6 (per clinical judgment) Oral Hygiene (QC): 6 Bathing Location: L Arm, R Arm, L Upper Leg, R Upper Leg, L Lower Leg (includ ing foot), R Lower Leg (including foot), Chest, Abdomen, Buttocks, Perineal Area Shower/Bathe Self (QC): 6 Upper Body Dressing (QC): 5 Lower Body Dressing (QC): 4 On/Off Footwear (QC): 5 Toileting Hygiene (QC): 6 Toilet Transfer (QC): 4 Assessment/Plan Assessment and Plan Assess & Plan/Chief Complaint Assessment: Severe leg weakness due to cervical spine stenosis causing myelopathy Back pain with lumbar spine disease CKD Stage III usual baseline creat 2.1 HTN CAD HLP Gout Plan: Pain control PT OT Needs cervical spine surgery second opinion so clouded up images to Dr Leo WINTERS 12/17/2021: Monitor closely PT OT 12/18/2021: Monitor closely 12/19/2021: Supportive care 12/20/2021: DIANDRA tomorrow (1) Myelopathy due to cervical spondylosis GUSTAVO SALAZAR DO Dec 20, 2021 06:28
[2021-12-20 07:21] VITALS: BP 147/98
--- NOTE | 2021-12-20 08:11 | Consultation - Ortho ---
Consult - Ortho Subjective Date of Exam 12/20/21 Chief Complaint Left Knee Pain HPI/Events since last exam had a fall and twisted knee, has been using a brace with therapy, no trouble with weakness or giving way, has some ongoing soreness on the medial side of the knee Medical, Surgical History Surgeries: Orthopedic Currently Using CPAP: No Currently Using BIPAP: No Cardiac: Coronary Artery Disease, Hypertension Reproductive: No Sexually Transmitted Disease: No HIV/AIDS: No Genitourinary: Renal Failure Gastrointestinal: Gastroesophageal Reflux Musculoskeletal: Arthritis Loss of Vision: Denies Hearing Impairment: Denies Cancer: Skin Adverse Reaction to Blood Hickman: No Social History Nonsmoker Family History Noncontributory to knee pain Review of Systems Negative Allergies: Coded Allergies: Penicillins (Verified Allergy, Unknown, 07/09/08) Home Meds Reported Medications Oxymetazoline HCl (Afrin) 0.05 % [place], 1 SPRAY NSEACH UD PRN for CONGESTION, EACH 11/22/21 Aspirin (Aspirin) 81 Mg Tab.chew, 81 MG PO DAILY, TAB 11/22/21 Swink-3/Dha/Epa/Fish Oil (Fish Oil 1,000 mg Softgel) 1,000 Mg (120 Mg-180 Mg) Capsule, 1000 MG PO DAILY, CAP 11/22/21 Vitamin B Complex (B Complex) 1 Each Tablet, 1 EACH PO DAILY, TAB 11/22/21 Ubidecarenone (Coq-10) 100 Mg Capsule, 100 MG PO DAILY, CAP 11/22/21 Rosuvastatin Calcium (Rosuvastatin Calcium) 5 Mg Tablet, 5 MG PO HS, TAB 11/22/21 Metoprolol Succinate (Metoprolol Succinate) 100 Mg Tab.er.24h, 100 MG PO HS, TAB 11/22/21 Tamsulosin HCl (Flomax) 0.4 Mg Cap, 0.4 MG PO HS, CAP 11/22/21 Gabapentin (Neurontin) 300 Mg Capsule, 900 MG PO BID, CAP TAKES 3 (300MG) CAPS 11/22/21 Allopurinol (Allopurinol) 100 Mg Tablet, 100 MG PO DAILY, TAB 06/01/21 Losartan Potassium (Losartan Potassium) 25 Mg Tablet, 25 MG PO DAILY, TAB 06/01/21 Objective Exam Left Knee: No effusion, some soft tissue swelling medially, nontender anteriorly and across the joint lines, does have tenderness over MCL origin, stable but tender to stress of MCL, stable to LCL stress, negative drawer, extends 0 degrees, flexes 110 degrees while supine Vital Signs Vital Signs Date Time Temp Pulse Resp B/P (MAP) Pulse Ox O2 Delivery O2 Flow Rate FiO2 12/20/21 07:21 36.6 80 22 147/98 (114) 96 Room Air 12/19/21 20:30 Room Air 12/19/21 20:07 36.8 73 16 136/83 (100) 97 Room Air 12/19/21 09:20 Room Air Imaging 3 views of the left knee were reviewed from PACS and demonstrated mild degenerative change, no acute osseous injury Assessment and Plan Assessment Left Knee Medial Collateral Sprain Problem List Left Knee Medial Collateral Sprain Plan Continue PT; patient has brace with stays that can be used during PT Can upgrade to hinged brace if patient having difficulty with therapy Final Diagonsis Left Knee Medial Collateral Sprain Level of the visit: Level 3 (level 2 consult) GLORIA TOLEDO MD Dec 20, 2021 08:11
[2021-12-20] MEDS: DOCUSATE SODIUM 100 MG (COLACE) CAP PO SCH ×2 (08:16→21:20)
[2021-12-20] MEDS: ALLOPURINOL 100 MG (ZYLOPRIM) TAB PO SCH (08:16)
[2021-12-20] MEDS: ASPIRIN 81 MG CHEW (CHILDREN'S ASA) PO SCH (08:16)
[2021-12-20] MEDS: polyethylene glycoL POWDER 17 GM (MIRALAX) PACK PO SCH ×2 (08:16→21:32)
[2021-12-20] MEDS: SENNA W/DOCUSATE (SENOKOT S) TABLET PO SCH ×2 (08:16→21:20)
[2021-12-20] MEDS: OMEGA 3 (FISH OIL) 1000 MG CAP PO SCH (08:16)
[2021-12-20] MEDS: LOSARTAN 25 MG (COZAAR) TAB PO SCH (08:16)
[2021-12-20] MEDS: ACETAMINOPHEN 325 MG TABLET PO SCH ×4 (08:17→21:19)
[2021-12-20] MEDS: DICLOFENAC 1% GEL 100 GM (VOLTAREN) TUBE TOP SCH ×4 (08:17→21:20)
[2021-12-20] MEDS: GABAPENTIN 300 MG (NEURONTIN) CAP PO SCH ×2 (08:17→21:20)
--- NOTE | 2021-12-20 08:40 | Cardiology Progress Note ---
Subjective Date Seen by Provider: Dec 20, 2021 Time Seen by Provider: 08:40 Subjective/Events-last exam Patient is sitting up in chair, no new complaints. Objective-Cardiology Exam Last Set of Vital Signs Vital Signs 12/20/21 12/20/21 07:21 09:00 Temp 36.6 Pulse 80 Resp 22 B/P (MAP) 147/98 (114) Pulse Ox 96 O2 Delivery Room Air General: Alert, Oriented X3, Cooperative HEENT: Atraumatic, PERRLA Lungs: Clear to Auscultation, Normal Air Movement Heart: Regular Rate, Normal S1, Normal S2 Abdomen: Normal Bowel Sounds, Soft Extremities: No Edema Skin: No Rashes, No Significant Lesion Neuro: Normal Speech Psych/Mental Status: Mental Status NL, Mood NL A/P-Cardiology Admission Diagnosis Cervical spinal stenosis CAD HTN HLP Assessment/Plan Upper and lower extremity weakness d/t spinal stenosis, planning for surgery later this month with Dr. Barraza at [place]. Coronary artery disease, -Status post multiple stents to the coronary system done in March 2015, Promus Premier 3.532 proximal LAD, 3.024 mid LAD, 3.021 coronary artery. Otherwise mild disease nonobstructive disease, Stress test done on May 18, 2021 showing diaphragmatic attenuation with decreased uptake involving the whole inferior wall and inferolateral wall with no reversibility, stress score 8, SDS 7, ejection fraction 68%. Cardiac catheterization carried out on June 01, 2021 showing multiple stents in the LAD and 1 stent noted in the right coronary artery, there is mild to moderate disease nonobstructive disease. Normal left ventricular end-diastolic pressure. Medical therapy is recommended 2D echo was done on May 18, 2021 showing normal LV size with EF 60 to 65%, mild MR, PA pressure 20 mmHg. Continue to monitor Syncope/near syncopal episode, occurred in March 2015 after discharge from the hospital, no further episodes were reported. Continue to monitor at this time. Chronic renal insufficiency, continue to monitor renal function Hypertension, controlled, continue to monitor Hyperlipidemia, reports intolerance to Lipitor secondary to myalgias, tolerating Crestor, lipid profile was done on June 01, 2021 showing total cholesterol 103, triglyceride 112, HDL 37, LDL 43. Continue to monitor Benign prostatic hypertrophy, treated medically Mild bilateral carotid stenosis, last ultrasound was done in February 2021, continue to monitor Claudication pain with left lower extremity, SHELLEY done in May 2016 and it was normal. continue to monitor Obesity, BMI is 31, we discussed weight loss and exercise. Status post laminectomy done in January 2018 and reporting significant improvement. Continue to monitor Overall, patient is considered intermediate risk for perioperative cardiovascular complications. Risk vs benefits will be deferred to surgeon. Supervisory-Addendum Brief Supervisory Addendum Participated in pt care: history, MDM, physical Personally performed: exam, history, MDM Care discussed with: RANDA Results interpretation: Verified all documentation Notes: Patient was seen and evaluated with Tammy, examination performed, management plan was discussed, agree with the current scribed note, I made few changes to the note using Italic font Was seen at bedside, laying down comfortably Generalized weakness. No changes are recommended. TAMMY SPRINGER Dec 20, 2021 08:40 ALEAH VARNER MD Dec 20, 2021 12:53
[2021-12-20] MEDS: ENOXAPARIN 40 MG/0.4 ML (LOVENOX) SYR SC SCH (11:05)
[2021-12-20] MEDS: MICONAZOLE 2% POWDER (DESENEX AF) 90 GM TOP SCH ×2 (11:06→21:19)
--- NOTE | 2021-12-20 12:01 | Occupational Ther Daily Note ---
OT Current Status-Daily Note Subjective Pt sitting in recliner alert. Pt agrees to therapy. No c/o pain at this time. Pt stated that his legs were more tired than usual today. Mental Status/Objective Patient Orientation: Person, Place, Time, Situation ADL-Treatment Pt ambulates from recliner to bathroom using FWW, CGA. Pt completes oral care and shaving tasks, sitting at sink independently. Pt ambulates to therapy gym u sing FWW, CGA. Therapy Code Descriptions/Definitions Functional [place] Measure: 0=Not Assessed/NA 4=Minimal Assistance 1=Total Assistance 5=Supervision or Setup 2=Maximal Assistance 6=Modified [place] 3=Moderate Assistance 7=Complete IndependenceSCALE: Activities may be completed with or without assistive devices. 7-Fnozhyniqo-ubgocve completes the activity by him/herself with no assistance from a helper. 5-Set-up or Clean-up Assistance-helper sets up or cleans up; patient completes activity. [place] assists only prior to or following the activity. 4-Supervision or Touching Assistance-helper provides verbal cues and/or touching/steadying and/or contact guard assistance as patient completes activity. Assistance may be provided throughout the activity or intermittently. 3-Partial/Moderate Assistance-helper does LESS THAN HALF the effort. [place] lifts, holds or supports trunk or limbs, but provides less than half the effort. 2-Substantial/Maximal Assistance-helper does MORE THAN HALF the effort. [place] lifts or holds trunk or limbs and provides more than half the effort. 3-Uqcwourpj-eohkvh does ALL the effort. Patient does none of the effort to complete the activity. Or, the assistance of 2 or more helpers is required for the patient to complete the activity. If activity was not attempted, code reason: 7-Patient Refused. 9-Not Applicable-not attempted and the patient did not perform the activity before the current illness, exacerbation or injury. 10-Not Attempted due to Environmental Limitations-(lack of equipment, weather restraints, etc.). 88-Not Attempted due to Medical Conditions or Safety Concerns. Oral Hygiene (QC): 6 Other Treatment Pt completed pinch/commercial loan reviewer strengthening using medium resistance theraputty. Pt was able to find small beads in theraputty and place in designated area with minimal difficulty. 2# wrist wts applied to wrists while completing fine motor tasks to increase strength for daily functional tasks. After session, pt lying in bed with call light/phone in reach. OT Short Term Goals Short Term Goals Time Frame: Dec 23, 2021 Eatin Oral hygiene: 6 Toileting hygiene: 6 Shower/bathe self: 5 Upper body dressin Lower body dressin Putting on/taking off footwear: 3 OT Director Of Grants Goals Director Of Grants Goals Time Frame: Dec 30, 2021 Eating (QC): 6 Oral Hygiene (QC): 6 Toileting Hygiene (QC): 6 Shower/Bathe Self (QC): 6 Upper Body Dressing (QC): 6 Lower Body Dressing (QC): 5 On/Off Footwear (QC): 4 Additional Goals: 1-Demonstrate ADL Tasks, 2-Verbalize Understanding, 3- ImproveStrength/Sherry 1=Demonstrate adherence to instructed precautions during ADL tasks. 2=Patient will verbalize/demonstrate understanding of assistive devices/modifications for ADL. 3=Patient will improve strength/tolerance for activity to enable patient to perform ADL's. OT Education/Plan Problem List/Assessment Assessment: Decreased Activ Tolerance, Decreased Safety Aware, Decreased UE Strength, Impaired Coordination, Impaired Funct Balance Discharge Recommendations Plan/Recommendations: Continue POC Treatment Plan/Plan of Care Patient would benefit from OT for education, treatment and training to promote independence in ADL's, mobility, safety and/or upper extremity function for ADL's. Plan of Care: ADL Retraining, Functional Mobility, Group Exercise/Act as Ind, UE Funct Exercise/Act, UE Neuromus Re-Ed/Coord Treatment Duration: Dec 30, 2021 Frequency: At least 5 of 7 days/Wk (IRF) Estimated Hrs Per Day: 1.5 hours per day (75-90 minutes) Agreement: Yes Rehab Potential: Good Time/GCodes Start Time: 11:00 Stop Time: 12:00 Total Time Billed (hr/min): 60 Billed Treatment Time 1 visit ADL 2 (30 min) EX 2 (30 min) BLOSSOM BROWN Dec 20, 2021 12:01
--- NOTE | 2021-12-20 13:34 | Occupational Ther Daily Note ---
OT Current Status-Daily Note Subjective Pt alert sitting in recliner finishing lunch. Pt agrees to therapy. No c/o pain at this time. Mental Status/Objective Patient Orientation: Person, Place, Time, Situation ADL-Treatment Therapy Code Descriptions/Definitions Functional [place] Measure: 0=Not Assessed/NA 4=Minimal Assistance 1=Total Assistance 5=Supervision or Setup 2=Maximal Assistance 6=Modified [place] 3=Moderate Assistance 7=Complete IndependenceSCALE: Activities may be completed with or without assistive devices. 6-Uvzmntbpej-hyipjte completes the activity by him/herself with no assistance from a helper. 5-Set-up or Clean-up Assistance-helper sets up or cleans up; patient completes activity. [place] assists only prior to or following the activity. 4-Supervision or Touching Assistance-helper provides verbal cues and/or touching/steadying and/or contact guard assistance as patient completes activity. Assistance may be provided throughout the activity or intermittently. 3-Partial/Moderate Assistance-helper does LESS THAN HALF the effort. [place] lifts, holds or supports trunk or limbs, but provides less than half the effort. 2-Substantial/Maximal Assistance-helper does MORE THAN HALF the effort. [place] lifts or holds trunk or limbs and provides more than half the effort. 4-Jboeanfwl-gaytbe does ALL the effort. Patient does none of the effort to complete the activity. Or, the assistance of 2 or more helpers is required for the patient to complete the activity. If activity was not attempted, code reason: 7-Patient Refused. 9-Not Applicable-not attempted and the patient did not perform the activity before the current illness, exacerbation or injury. 10-Not Attempted due to Environmental Limitations-(lack of equipment, weather restraints, etc.). 88-Not Attempted due to Medical Conditions or Safety Concerns. Other Treatment Pt requested to stay in room for therapy due to increased B LE fatigue. Pt completed fine motor exercise with cognitive component, 2 lb weights on wrists to strengthen B UE, for everyday functional tasks. Pt given medium/heavy resistance theraband to complete 3 B UE exercises 3 sets 10 reps to increase strength for ADL's. Pt left in recliner call light/phone in reach. All needs met in room. OT Short Term Goals Short Term Goals Time Frame: Dec 23, 2021 Eatin Oral hygiene: 6 Toileting hygiene: 6 Shower/bathe self: 5 Upper body dressin Lower body dressin Putting on/taking off footwear: 3 OT Fpc Goals Gi Tech Goals Time Frame: Dec 30, 2021 Eating (QC): 6 Oral Hygiene (QC): 6 Toileting Hygiene (QC): 6 Shower/Bathe Self (QC): 6 Upper Body Dressing (QC): 6 Lower Body Dressing (QC): 5 On/Off Footwear (QC): 4 Additional Goals: 1-Demonstrate ADL Tasks, 2-Verbalize Understanding, 3- ImproveStrength/Sherry 1=Demonstrate adherence to instructed precautions during ADL tasks. 2=Patient will verbalize/demonstrate understanding of assistive devices/modifications for ADL. 3=Patient will improve strength/tolerance for activity to enable patient to perform ADL's. OT Education/Plan Problem List/Assessment Assessment: Decreased Activ Tolerance, Decreased UE Strength, Impaired Coordination, Impaired Funct Balance Discharge Recommendations Plan/Recommendations: Continue POC Treatment Plan/Plan of Care Patient would benefit from OT for education, treatment and training to promote independence in ADL's, mobility, safety and/or upper extremity function for ADL's. Plan of Care: ADL Retraining, Functional Mobility, Group Exercise/Act as Ind, UE Funct Exercise/Act, UE Neuromus Re-Ed/Coord Treatment Duration: Dec 30, 2021 Frequency: At least 5 of 7 days/Wk (IRF) Estimated Hrs Per Day: 1.5 hours per day (75-90 minutes) Agreement: Yes Rehab Potential: Good Time/GCodes Start Time: 13:00 Stop Time: 13:30 Total Time Billed (hr/min): 30 Billed Treatment Time 1 visit EX 2 (30 min) BLOSSOM BROWN Dec 20, 2021 13:34
--- NOTE | 2021-12-20 15:08 | Physical Therapy Daily Note ---
PT Daily Note-Current Subjective Pt sitting in recliner upon arrival. Pt agrees to PT for QC scoring for anticipated d/c tomorrow. Pain Location: No Pain Reported Mental Status Patient Orientation: Person, Place, Time, Situation Transfers SCALE: Activities may be completed with or without assistive devices. 0-Smkpjapjyz-cbdrulv completes the activity by him/herself with no assistance from a helper. 5-Set-up or Clean-up Assistance-helper sets up or cleans up; patient completes activity. [place] assists only prior to or following the activity. 4-Supervision or Touching Assistance-helper provides verbal cues and/or touching/steadying and/or contact guard assistance as patient completes activity. Assistance may be provided throughout the activity or intermittently. 3-Partial/Moderate Assistance-helper does LESS THAN HALF the effort. [place] lifts, holds or supports trunk or limbs, but provides less than half the effort. 2-Substantial/Maximal Assistance-helper does MORE THAN HALF the effort. [place] lifts or holds trunk or limbs and provides more than half the effort. 0-Jncwibxkf-zatdxt does ALL the effort. Patient does none of the effort to complete the activity. Or, the assistance of 2 or more helpers is required for the patient to complete the activity. If activity was not attempted, code reason: 7-Patient Refused. 9-Not Applicable-not attempted and the patient did not perform the activity before the current illness, exacerbation or injury. 10-Not Attempted due to Environmental Limitations-(lack of equipment, weather restraints, etc.). 88-Not Attempted due to Medical Conditions or Safety Concerns. Roll Left & Right (QC): 6 Sit to Lying (QC): 6 Lying to Sitting/Side of Bed(Q: 6 Sit to Stand (QC): 5 Chair/Nha-zl-Zqqln Xfer(QC): 5 Toilet Transfer (QC): 5 Car Transfer (QC): 5 Weight Bearing Right Lower Extremity: Right Full Weight Bearing Left Lower Extremity: Left Full Weight Bearing Gait Training Does the Patient Walk?: Yes Distance: 250' Walk 10 feet (QC): 5 Walk 50 ft with 2 Turns(QC): 5 Walk 150 ft (QC): 5 Walking 10ft/uneven surface-QC: 5 Gait Assistive Device: FWW Wheelchair Training Does the Pt Use a Wheelchair?: No Stair Training Stair Training: Handrails/: 2 handrails #of Steps: 8 1 Step (curb) (QC): 5 4 Steps (QC): 5 12 Steps (QC): 7 Stairs: Pattern: Step to Balance Picking up an Object (QC): 6 Special Test Comments Pt uses consumer loan underwriter to brain picker object. Treatments [id number]: Pt & Sp present upon arrival. Pt completes QC scoring items listed above including focus on ambulating. Pt returns to room to use BR then rest in recliner with all needs met, call light in hand. [id number]: Pt stands from recliner and amb. in hallway (~250'), taking RB as needed. Pt returns to room to rest in recliner with all needs met, call light in hand. Assessment Current Status: Good Progress Pt has gained strength and activity tolerance as well mobility while on ARU. PT Store Protection Specialist Goals Detention Goals PT Detention Goals Time Frame: Jan 06, 2022 Roll Left & Right (QC): 6 Sit to Lying (QC): 6 Lying-Sitting on Side/Bed(QC): 6 Sit to Stand (QC): 6 Chair/Ive-al-Fscai Xfer(QC): 6 Toilet Transfer (QC): 6 Car Transfer (QC): 6 Does the Patient Walk: Yes Walk 10 feet (QC): 6 Walk 50ft with 2 Turns (QC): 6 Walk 150 ft (QC): 6 Walking 10ft on Uneven Surface: 6 1 Step (curb) (QC): 6 4 Steps (QC): 6 12 Steps (QC): 4 Picking up an Object (QC): 6 Does the Pt use WC or Scooter?: No Wheel 50 feet with 2 turns (QC: 9 Wheel 150 feet: 9 PT Plan Treatment/Plan Treatment Plan: Continue Plan of Care Treatment Plan: Bed Mobility, Education, Functional Activity Sherry, Functional Strength, Group Therapy, Gait, Safety, Therapeutic Exercise, Transfers Treatment Duration: Jan 06, 2022 Frequency: At least 5 of 7 days/Wk (IRF) Estimated Hrs Per Day: 1.5 hours per day Patient and/or Family Agrees t: Yes Safety Risks/Education Patient Education: Gait Training, Transfer Techniques, Steps, Correct Positioning, Safety Issues Teaching Recipient: Patient Teaching Methods: Discussion Response to Teaching: Verbalize Understanding Time/GCodes Time In: 1000 Time Out: 1100 Total Billed Treatment Time: 60 Total Billed Treatment [id number]: 1, GT (20m) & FA x3 (40m) [id number]: 1, GT x2 (30m) ADY GILLETTE HOTEL DINING ROOM CASHIER Dec 20, 2021 15:08
[2021-12-20 20:00] VITALS: BP 140/81
[2021-12-20] MEDS ORDERED: TRM50T PO (21:10)
[2021-12-20] MEDS: TAMSULOSIN 0.4 MG (FLOMAX) CAP PO SCH (21:19)
[2021-12-20] MEDS: LACTULOSE SYRUP 10GM/15ML (ENULOSE) 30ML UDC PO PRN (21:19)
[2021-12-20] MEDS: meTOprolol SUCCINATE 100 MG (TOPROL XL) TAB PO SCH (21:19)
[2021-12-20] MEDS: ROSUVASTATIN 5 MG (CRESTOR) TABLET PO SCH (21:20)
[2021-12-21 07:41] VITALS: BP 142/81
--- NOTE | 2021-12-21 08:36 | Cardiology Progress Note ---
Subjective Date Seen by Provider: Dec 21, 2021 Time Seen by Provider: 08:35 Subjective/Events-last exam Patient is sitting up in chair, no new complaints. Denies any chest pain or dyspnea. Objective-Cardiology Exam Last Set of Vital Signs Vital Signs 12/21/21 12/21/21 07:41 08:00 Temp 36.0 Pulse 71 Resp 18 B/P (MAP) 142/81 (101) Pulse Ox 95 O2 Delivery Room Air General: Alert, Oriented X3, Cooperative HEENT: Atraumatic, PERRLA Lungs: Clear to Auscultation, Normal Air Movement Heart: Regular Rate, Normal S1, Normal S2 Abdomen: Normal Bowel Sounds, Soft Extremities: No Edema Skin: No Rashes, No Significant Lesion Neuro: Normal Speech Psych/Mental Status: Mental Status NL, Mood NL A/P-Cardiology Admission Diagnosis Cervical spinal stenosis CAD HTN HLP Assessment/Plan Upper and lower extremity weakness d/t spinal stenosis, planning for surgery later this month with Dr. Barraza at [place]. Coronary artery disease, -Status post multiple stents to the coronary system done in March 2015, Promus Premier 3.532 proximal LAD, 3.024 mid LAD, 3.021 coronary artery. Otherwise mild disease nonobstructive disease, Stress test done on May 18, 2021 showing diaphragmatic attenuation with decreased uptake involving the whole inferior wall and inferolateral wall with no reversibility, stress score 8, SDS 7, ejection fraction 68%. Cardiac catheterization carried out on June 01, 2021 showing multiple stents in the LAD and 1 stent noted in the right coronary artery, there is mild to moderate disease nonobstructive disease. Normal left ventricular end-diastolic pressure. Medical therapy is recommended 2D echo was done on May 18, 2021 showing normal LV size with EF 60 to 65%, mild MR, PA pressure 20 mmHg. Continue to monitor Syncope/near syncopal episode, occurred in March 2015 after discharge from the hospital, no further episodes were reported. Continue to monitor at this time. Chronic renal insufficiency, continue to monitor renal function Hypertension, controlled, continue to monitor Hyperlipidemia, reports intolerance to Lipitor secondary to myalgias, tolerating Crestor, lipid profile was done on June 01, 2021 showing total cholesterol 103, triglyceride 112, HDL 37, LDL 43. Continue to monitor Benign prostatic hypertrophy, treated medically Mild bilateral carotid stenosis, last ultrasound was done in February 2021, continue to monitor Claudication pain with left lower extremity, SHELLEY done in May 2016 and it was normal. continue to monitor Obesity, BMI is 31, we discussed weight loss and exercise. Status post laminectomy done in January 2018 and reporting significant improvement. Continue to monitor Overall, patient is considered intermediate risk for perioperative cardiovascular complications. Risk vs benefits will be deferred to surgeon. OK for discharge from cardiology standpoint. F/u up in office in 4-6 weeks. Supervisory-Addendum Brief Supervisory Addendum Participated in pt care: history, MDM, physical Personally performed: exam, history, MDM Care discussed with: RANDA Results interpretation: Verified all documentation Notes: Patient was seen and evaluated with Tammy, examination performed, management plan was discussed, agree with the current scribed note, I made few changes to the note using Italic font Patient was seen at bedside, sitting comfortably Still having numbness and weakness in his upper and lower extremities Planning for discharge today Patient is scheduled for spine surgery on January 05. Okay for discharge from cardiology standpoint and arrange for follow-up as an outpatient TAMMY SPRINGER Dec 21, 2021 08:36 ALEAH VARNER MD Dec 21, 2021 10:07
[2021-12-21] MEDS: ACETAMINOPHEN 325 MG TABLET PO SCH (08:38)
[2021-12-21] MEDS: ASPIRIN 81 MG CHEW (CHILDREN'S ASA) PO SCH (08:39)
[2021-12-21] MEDS: SENNA W/DOCUSATE (SENOKOT S) TABLET PO SCH (08:39)
[2021-12-21] MEDS: DOCUSATE SODIUM 100 MG (COLACE) CAP PO SCH (08:39)
[2021-12-21] MEDS: OMEGA 3 (FISH OIL) 1000 MG CAP PO SCH (08:39)
[2021-12-21] MEDS: LOSARTAN 25 MG (COZAAR) TAB PO SCH (08:39)
[2021-12-21] MEDS: ALLOPURINOL 100 MG (ZYLOPRIM) TAB PO SCH (08:39)
[2021-12-21] MEDS: GABAPENTIN 300 MG (NEURONTIN) CAP PO SCH (08:39)
[2021-12-21] MEDS: DICLOFENAC 1% GEL 100 GM (VOLTAREN) TUBE TOP SCH (08:40)
[2021-12-21] MEDS: polyethylene glycoL POWDER 17 GM (MIRALAX) PACK PO SCH (08:40)
[2021-12-21] MEDS: MICONAZOLE 2% POWDER (DESENEX AF) 90 GM TOP SCH (08:40)
--- NOTE | 2021-12-21 10:59 | Therapy Team Discharge Summary ---
Therapy Discharge Summary Discharge Recommendations Date of Discharge Therapy D/C Recommendations: Home w/ Family Support Physical Therapy Roll Left to Right (QC): 6 Sit to Lying (QC): 6 Lying to Sitting/Side of Bed(Q: 6 Sit to Stand (QC): 5 Chair/Ehk-wq-Dhzmc Xfer(QC): 5 Toilet Transfer (QC): 4 Car Transfer (QC): 5 Does the Patient Walk: Yes Mode of Locomotion: Walk Anticipated Mode of Locomotion: Walk Walk 10 feet (QC): 5 Walk 50 ft with 2 Turns(QC): 5 Walk 150 ft (QC): 5 Walking 10ft on uneven surface: 5 Gait Assistive Device: FWW Does the Pt Use a Wheelchair: No Wheel 50 ft with 2 turns (QC): 9 Wheel 150 ft (QC): 9 #of Steps: 8 1 Step (curb) (QC): 5 4 Steps (QC): 5 12 Steps (QC): 7 Balance Sitting Static: Normal Balance Sitting Dynamic: Normal Balance-Standing Static: Good Picking up an Object (QC): 6 Occupational Therapy Pt admitted to ARU with lumbar stenosis. At time of evaluation he was, dependent for footwear, mod a for lower body dressing, set up for eating, oral care, bathing, and upper body dressing, and independent with eating. During his rehab stay, OT focused on safety, balance, AE, energy conservation, conservative strategies, and UE strengthening on order to improve performance and independence in adls. Pt made good progress and met all of his long term care administrator goals except UB dressing (which he was set up for). See below for current levels of assist. Pt will be discharging from this facility today and will be discharged from OT at this time. Decreased Activ Tolerance, Decreased UE Strength, Impaired Coordination, Impaired Funct Balance Eating (QC): 6 (per clinical judgment) Oral Hygiene (QC): 6 Shower/Bathe Self (QC): 6 Upper Body Dressing (QC): 5 Lower Body Dressing (QC): 4 On/Off Footwear (QC): 5 Toileting Hygiene (QC): 6 PT Fpc Goals Die Repair Goals PT Fpc Goals Time Frame: Jan 06, 2022 Roll Left to Right (QC): 6 Sit to Lying (QC): 6 Lying-Sitting on Side/Bed(QC): 6 Sit to Stand (QC): 6 Chair/Egc-li-Epovd Xfer(QC): 6 Car Transfer (QC): 6 Does the Patient Walk: Yes Walk 10 feet (QC): 6 Walk 10ft-Uneven Surface(QC): 6 Walk 50ft with 2 Turns (QC): 6 Walk 150 ft (QC): 6 Does the Pt use WC or Scooter?: No Wheel 50 feet with 2 turns (QC: 9 1 Step (curb) (QC): 6 4 Steps (QC): 6 12 Steps (QC): 4 Picking up an Object (QC): 6 OT Fpc Goals Die Repair Goals Time Frame: Dec 30, 2021 Eating (QC): 6 (met) Oral Hygiene (QC): 6 (met) Shower/Bathe Self (QC): 6 (met) Upper Body Dressing (QC): 6 (not met, set up) Lower Body Dressing (QC): 5 (met) On/Off Footwear (QC): 4 (met) Toileting Hygiene (QC): 6 (met) Toilet/Commode Transfer (QC): 6 (met) Additional Goals: 1-Demonstrate ADL Tasks, 2-Verbalize Understanding, 3- ImproveStrength/Sherry 1=Demonstrate adherence to instructed precautions during ADL tasks. 2=Patient will verbalize/demonstrate understanding of assistive devices/modifications for ADL. 3=Patient will improve strength/tolerance for activity to enable patient to perform ADL's. Ginny Wells OT Dec 21, 2021 10:59
--- NOTE | 2021-12-21 11:53 | Discharge Summary ---
Diagnosis/Chief Complaint Date of Admission Dec 16, 2021 at 08:37 Date of Discharge Dec 21, 2021 at 11:10 Discharge Date: Dec 21, 2021 Discharge Diagnosis Assessment: Severe leg weakness due to cervical spine stenosis causing myelopathy Back pain with lumbar spine disease CKD Stage III usual baseline creat 2.1 HTN CAD HLP Gout Plan: Pain control PT OT Needs cervical spine surgery second opinion so clouded up images to Dr Leo WINTERS 12/17/2021: Monitor closely PT OT 12/18/2021: Monitor closely 12/19/2021: Supportive care 12/20/2021: DC tomorrow (1) Myelopathy due to cervical spondylosis Discharge Summary Discharge Physical Examination Allergies: Coded Allergies: Penicillins (Verified Allergy, Unknown, 07/09/08) Vitals & I&Os Vital Signs Date Time Temp Pulse Resp B/P (MAP) Pulse Ox O2 Delivery O2 Flow Rate FiO2 12/21/21 11:13 12/21/21 08:00 Room Air 12/21/21 07:41 36.0 71 18 95 General Appearance: Alert, Oriented X3, Cooperative Respiratory: Clear to Auscultation Cardiovascular: Regular Rate Psych/Mental Status: Mental Status NL Hospital Course Was the Problem List Reviewed?: Yes Short course after admitted from home after he DC from [facility] where we moved him for neurology evaluation who diagnosed him with cervical spine myelopathy as the cause of his arm and leg weakness. No evidence of any tick borne illness after he inquired about this possibility multiple times during the course along with other family members inquiring about tick born infection as source of his ails but ID was consulted at who reviewed the panel which was ordered by ER doctor on first admit and revealed no evidence of any infection. It appeared he was in denial about the confirmed cervical spine issue as the source of his problem and did not want to have surgery which was scheduled later this month by Dr Thorpe at [facility] and he ultimately decided to proceed on with that plan after it was assessed VIANEY second opinion would take 6 months for appt just for consultation. Patient regained function and remained stable and was DC in improved condition with therapy orders. Labs (last 24 hrs) Laboratory Tests 12/16/21 10:50: White Blood Count 8.8, Red Blood Count 3.74L, Hemoglobin 12.2L, Hematocrit 37L, Mean Corpuscular Volume 99, Mean Corpuscular Hemoglobin 33, Mean Corpuscular Hemoglobin Concent 33, Red Cell Distribution Width 12.9, Platelet Count 203, Mean Platelet Volume 9.3, Immature Granulocyte % (Auto) 1, Neutrophils (%) (Auto) 70, Lymphocytes (%) (Auto) 16, Monocytes (%) (Auto) 10, Eosinophils (%) (Auto) 3, Basophils (%) (Auto) 1, Neutrophils # (Auto) 6.1, Lymphocytes # (Auto) 1.4, Monocytes # (Auto) 0.9, Eosinophils # (Auto) 0.3, Basophils # (Auto) 0.1, Immature Granulocyte # (Auto) 0.0, Sodium Level 138, Potassium Level 4.5, Chlo ride Level 108H, Carbon Dioxide Level 18L, Anion Gap 12, Blood Urea Nitrogen 53H , Creatinine 2.10H, Estimat Glomerular Filtration Rate 32, BUN/Creatinine Ratio 25, Glucose Level 112H, Calcium Level 9.8, Corrected Calcium 9.9, Total Bilirubin 0.6, Aspartate Amino Transf (AST/SGOT) 42H, Alanine Aminotransferase (ALT/SGPT) 26, Alkaline Phosphatase 123, Total Protein 6.9, Albumin 3.9 12/17/21 05:32: White Blood Count 6.8, Red Blood Count 3.53L, Hemoglobin 11.6L, Hematocrit 34L, Mean Corpuscular Volume 96, Mean Corpuscular Hemoglobin 33, Mean Corpuscular Hemoglobin Concent 34, Red Cell Distribution Width 12.9, Platelet Count 182, Mean Platelet Volume 9.7, Immature Granulocyte % (Auto) 0, Neutrophils (%) (Auto) 60, Lymphocytes (%) (Auto) 23, Monocytes (%) (Auto) 12, Eosinophils (%) (Auto) 4, Basophils (%) (Auto) 1, Neutrophils # (Auto) 4.1, Lymphocytes # (Auto) 1.6, Monocytes # (Auto) 0.8, Eosinophils # (Auto) 0.3, Basophils # (Auto) 0.1, Immature Granulocyte # (Auto) 0.0, Sodium Level 137, Potassium Level 4.2, Chloride Level 109H, Carbon Dioxide Level 17L, Anion Gap 11, Blood Urea Nitrogen 46H, Creatinine 1.81H, Estimat Glomerular Filtration Rate 39, BUN/Creatinine Ratio 25, Glucose Level 105, Calcium Level 9.5, Corrected Calcium 9.9, Total Bilirubin 0.4, Aspartate Amino Transf (AST/SGOT) 40H, Alanine Aminotransferase (ALT/SGPT) 25, Alkaline Phosphatase 119, Total Protein 6.2L, Albumin 3.5 Pending Labs Laboratory Tests 12/16/21 10:50: White Blood Count 8.8, Red Blood Count 3.74, Hemoglobin 12.2, Hematocrit 37, Mean Corpuscular Volume 99, Mean Corpuscular Hemoglobin 33, Mean Corpuscular Hemoglobin Concent 33, Red Cell Distribution Width 12.9, Platelet Count 203, Mean Platelet Volume 9.3, Immature Granulocyte % (Auto) 1, Neutrophils (%) (Auto) 70, Lymphocytes (%) (Auto) 16, Monocytes (%) (Auto) 10, Eosinophils (%) (Auto) 3, Basophils (%) (Auto) 1, Neutrophils # (Auto) 6.1, Lymphocytes # (Auto) 1.4, Monocytes # (Auto) 0.9, Eosinophils # (Auto) 0.3, Basophils # (Auto) 0.1, Immature Granulocyte # (Auto) 0.0, Sodium Level 138, Potassium Level 4.5, Chloride Level 108, Carbon Dioxide Level 18, Anion Gap 12, Blood Urea Nitrogen 53, Creatinine 2.10, Estimat Glomerular Filtration Rate 32, BUN/Creatinine Ratio 25, Glucose Level 112, Calcium Level 9.8, Corrected Calcium 9.9, Total Bilirubin 0.6, Aspartate Amino Transf (AST/SGOT) 42, Alanine Aminotransferase (ALT/SGPT) 26, Alkaline Phosphatase 123, Total Protein 6.9, Albumin 3.9 12/17/21 05:32: White Blood Count 6.8, Red Blood Count 3.53, Hemoglobin 11.6, Hematocrit 34, Mean Corpuscular Volume 96, Mean Corpuscular Hemoglobin 33, Mean Corpuscular Hemoglobin Concent 34, Red Cell Distribution Width 12.9, Platelet Count 182, Mean Platelet Volume 9.7, Immature Granulocyte % (Auto) 0, Neutrophils (%) (Auto) 60, Lymphocytes (%) (Auto) 23, Monocytes (%) (Auto) 12, Eosinophils (%) (Auto) 4, Basophils (%) (Auto) 1, Neutrophils # (Auto) 4.1, Lymphocytes # (Auto) 1.6, Monocytes # (Auto) 0.8, Eosinophils # (Auto) 0.3, Basophils # (Auto) 0.1, Immature Granulocyte # (Auto) 0.0, Sodium Level 137, Potassium Level 4.2, Chloride Level 109, Carbon Dioxide Level 17, Anion Gap 11, Blood Urea Nitrogen 46, Creatinine 1.81, Estimat Glomerular Filtration Rate 39, BUN/Creatinine Ratio 25, Glucose Level 105, Calcium Level 9.5, Corrected Calcium 9.9, Total Bilirubin 0.4, Aspartate Amino Transf (AST/SGOT) 40, Alanine Aminotransferase (ALT/SGPT) 25, Alkaline Phosphatase 119, Total Protein 6.2, Albumin 3.5 Discharge Home Medications: Active Scripts Active Tramadol HCl 50 Mg Tablet 50 Mg PO Q4H PRN Reported Afrin (Oxymetazoline HCl) 0.05 % [place] 1 Austin NSEACH UD PRN Aspirin 81 Mg Tab.chew 81 Mg PO DAILY Fish Oil 1,000 mg Softgel ([place]-3/Dha/Epa/Fish Oil) 1,000 Mg (120 Mg-180 Mg) Capsule 1,000 Mg PO DAILY B Complex (Vitamin B Complex) 1 Each Tablet 1 Each PO DAILY Coq-10 (Ubidecarenone) 100 Mg Capsule 100 Mg PO DAILY Rosuvastatin Calcium 5 Mg Tablet 5 Mg PO HS Metoprolol Succinate 100 Mg Tab.er.24h 100 Mg PO HS Flomax (Tamsulosin HCl) 0.4 Mg Cap 0.4 Mg PO HS Neurontin (Gabapentin) 300 Mg Capsule 900 Mg PO BID TAKES 3 (300MG) CAPS Allopurinol 100 Mg Tablet 100 Mg PO DAILY Losartan Potassium 25 Mg Tablet 25 Mg PO DAILY Instructions to patient/family Please see electronic discharge instructions given to patient. Diagnosis/Problems Diagnosis/Problems (1) Myelopathy due to cervical spondylosis GUSTAVO SALAZAR DO Dec 21, 2021 11:53
--- NOTE | 2021-12-21 15:45 | Therapy Team Discharge Summary ---
Therapy Discharge Summary Discharge Recommendations Date of Discharge Dec 21, 2021 at 11:10 Therapy D/C Recommendations: Home w/ Family Support Physical Therapy Patient came to rehab with back pain. Upon evaluation patient performed rolling and supine <-> sit with independence, sit <-> stand min/mod assist, transfers CGA/SBA, car transfer CGA/SBA, ambulated 150' with a rolling walker with independence (including 50' with at least 2 turns of 90 degrees but needs CGA/SBA for 10' over an uneven surface), could go up and down 12 steps using 2 handrails with CGA/SBA, and could grape picker an object from the floor with CGA/SBA. Patient has been performing bed mobility and transfer training, balance and endurance training, functional strengthening, stair training, gait training, and education. Patient has made fair progress but has only met his fci goals for rolling and supine <-> sit and picking up an object from the floor. Now, patient performs rolling and supine <-> sit with independence, sit <-> stand and transfers with setup, car transfer setup, ambulates 250' with a rolling walker with setup (including 50' with at least 2 turns of 90 degrees and 10' over an uneven surface), can go up and down 8 steps using 2 handrails with SBA, and can grape picker an object from the floor using a oncology rep specialist with independence. Patient has been discharged from this facility and will be discharged from PT at this time. Roll Left to Right (QC): 6 Sit to Lying (QC): 6 Lying to Sitting/Side of Bed(Q: 6 Sit to Stand (QC): 5 Chair/Aiy-kq-Dqzer Xfer(QC): 5 Toilet Transfer (QC): 4 Car Transfer (QC): 5 Does the Patient Walk: Yes Mode of Locomotion: Walk Anticipated Mode of Locomotion: Walk Walk 10 feet (QC): 5 Walk 50 ft with 2 Turns(QC): 5 Walk 150 ft (QC): 5 Walking 10ft on uneven surface: 5 Gait Assistive Device: FWW Does the Pt Use a Wheelchair: No Wheel 50 ft with 2 turns (QC): 9 Wheel 150 ft (QC): 9 #of Steps: 8 1 Step (curb) (QC): 5 4 Steps (QC): 5 12 Steps (QC): 7 Balance Sitting Static: Normal Balance Sitting Dynamic: Normal Balance-Standing Static: Good Picking up an Object (QC): 6 Occupational Therapy Decreased Activ Tolerance, Decreased UE Strength, Impaired Coordination, Impaired Funct Balance Eating (QC): 6 (per clinical judgment) Oral Hygiene (QC): 6 Shower/Bathe Self (QC): 6 Upper Body Dressing (QC): 5 Lower Body Dressing (QC): 4 On/Off Footwear (QC): 5 Toileting Hygiene (QC): 6 PT Nursing Home Goals Nursing Home Goals PT Nursing Home Goals Time Frame: Jan 06, 2022 Roll Left to Right (QC): 6 Sit to Lying (QC): 6 Lying-Sitting on Side/Bed(QC): 6 Sit to Stand (QC): 6 Chair/Rsx-bi-Wsgqu Xfer(QC): 6 Car Transfer (QC): 6 Does the Patient Walk: Yes Walk 10 feet (QC): 6 Walk 10ft-Uneven Surface(QC): 6 Walk 50ft with 2 Turns (QC): 6 Walk 150 ft (QC): 6 Does the Pt use WC or Scooter?: No Wheel 50 feet with 2 turns (QC: 9 1 Step (curb) (QC): 6 4 Steps (QC): 6 12 Steps (QC): 4 Picking up an Object (QC): 6 OT Boom Crane Operator Goals Nursing Home Goals Time Frame: Dec 30, 2021 Eating (QC): 6 (met) Oral Hygiene (QC): 6 (met) Shower/Bathe Self (QC): 6 (met) Upper Body Dressing (QC): 6 (not met, set up) Lower Body Dressing (QC): 5 (met) On/Off Footwear (QC): 4 (met) Toileting Hygiene (QC): 6 (met) Toilet/Commode Transfer (QC): 6 (met) Additional Goals: 1-Demonstrate ADL Tasks, 2-Verbalize Understanding, 3- ImproveStrength/Sherry 1=Demonstrate adherence to instructed precautions during ADL tasks. 2=Patient will verbalize/demonstrate understanding of assistive devices/modifications for ADL. 3=Patient will improve strength/tolerance for activity to enable patient to perform ADL's. GUSTAVO BAH PT Dec 21, 2021 15:45
== END 2021-12-21 11:10 | disposition home or self-care (01) | DRG 93 ==
PROVIDERS: ADMIT Internal Medicine; ATTEND Internal Medicine
DX: G95.89 Other specified diseases of spinal cord (principal); M48.02 Spinal stenosis, cervical region; S83.412A Sprain of medial collateral ligament of left knee, initial encounter; I12.9 Hypertensive chronic kidney disease with stage 1 through stage 4 chronic kidney disease, or unspecified chronic kidney disease; N18.30 Chronic kidney disease, stage 3 unspecified; I25.10 Atherosclerotic heart disease of native coronary artery without angina pectoris; N40.0 Benign prostatic hyperplasia without lower urinary tract symptoms; K21.9 Gastro-esophageal reflux disease without esophagitis; M19.91 Primary osteoarthritis, unspecified site; E78.5 Hyperlipidemia, unspecified; I65.23 Occlusion and stenosis of bilateral carotid arteries; E66.9 Obesity, unspecified; M10.9 Gout, unspecified; Z79.82 Long term (current) use of aspirin; Z82.61 Family history of arthritis; Z82.49 Family history of ischemic heart disease and other diseases of the circulatory system; Z68.31 Body mass index [BMI] 31.0-31.9, adult; W19.XXXA Unspecified fall, initial encounter; Y92.239 Unspecified place in hospital as the place of occurrence of the external cause
CPT/HCPCS: 36415; 73562; 80053; 85025; 93005

== ENCOUNTER 2022-01-03 09:40 | Outpatient (RCR) | payer MEDICARE, OTHER | END 2022-01-06 | disposition home or self-care (01) | PROVIDERS: ATTEND Family Medicine | DX: M54.9 Dorsalgia, unspecified (principal); M79.606 Pain in leg, unspecified; R20.2 Paresthesia of skin; R20.0 Anesthesia of skin ==

== ENCOUNTER 2022-01-08 16:31 | Inpatient (IN) | payer MEDICARE, OTHER ==
[~2022-01-08] VITALS: Ht 182.9 cm; Wt 96.5 kg
[2022-01-13] MEDS ORDERED: ACETAMINOPHEN 325 MG TABLET PO PRN (21:30)
[2022-01-13] MEDS ORDERED: BISACODYL 10 MG SUPP (DULCOLAX) PR PRN (21:30)
[2022-01-13] MEDS ORDERED: DOCUSATE SODIUM 100 MG (COLACE) CAP PO PRN (21:30)
[2022-01-13] MEDS ORDERED: FLEET ENEMA ADULT 1 EA BTL PR PRN (21:30)
[2022-01-13] MEDS ORDERED: guaiFENesin/CODEINE (ROBITUSSIN AC) 10ML UDC PO PRN (21:30)
[2022-01-13] MEDS ORDERED: LACTULOSE SYRUP 10GM/15ML (ENULOSE) 30ML UDC PO PRN (21:30)
[2022-01-13] MEDS ORDERED: CALCIUM CARBONATE 500 MG (TUMS) TAB.CHEW PO PRN (21:30)
[2022-01-13] MEDS ORDERED: LOPERAMIDE 2 MG (IMODIUM) TABLET PO PRN (21:30)
[2022-01-13] MEDS ORDERED: MELATONIN 3 MG TABLET PO PRN (21:30)
[2022-01-13] MEDS ORDERED: ALPRAZolam 0.25 MG (XANAX) TAB PO PRN (21:30)
[2022-01-13] MEDS ORDERED: diphenhydrAMINE 25 MG TAB (BENADRYL) PO PRN (21:30)
[2022-01-13] MEDS ORDERED: ONDANSETRON 4 MG (ZOFRAN) ORAL DISSOLVE TAB PO PRN (21:30)
[2022-01-15] MEDS: polyethylene glycoL POWDER 17 GM (MIRALAX) PACK PO SCH ×2 (11:30→21:00)
[2022-01-15] MEDS: SENNA W/DOCUSATE (SENOKOT S) TABLET PO SCH ×2 (11:30→21:04)
[2022-01-15] MEDS: DOCUSATE SODIUM 100 MG (COLACE) CAP PO SCH ×2 (11:30→21:04)
--- NOTE | 2022-01-15 12:18 | PM&R Post Admission Assessment ---
PM&R Date of Visit: Jan 15, 2022 Time of Visit: 15:00 History of Present Illness Chief complaint: Debility from cervical spine stenosis surgical resolution HPI: This is a 76-year-old male known to me from 2 prior ARU admissions who presents with weakness severe debility and inability to ambulate following cervical spine surgery on 01/05/[address] Thorpe at [facility]. He has had a long and painful last 2 months and is frustrated with his lack of progress. Patient is voiding well but has not had a BM since 01/04/2022. He could not eat normally because of the difficulty swallowing from cervical spine surgery edema which required another week of hospital stay at [facility] last week. We will work on aggressive bowel regimen since he is able to eat and drink a regular diet and transition to Ultram from hydrocodone of which he prefers. Prior level of functioning before his issues started was independent and able to ambulate without assistive devices. Past Ofchyxg-Vpiach-Iegerk Hx Past Med/Social Hx: Reviewed Nursing Past Med/Soc Hx, Reviewed and Corrections made Patient Social History Marrital Status: Employed/Student: employed Alcohol Use: Denies Use Smoking Status: Never a Smoker 2nd Hand Smoke Exposure: No Immunizations Up To Date Tetanus Booster (TDap): More than 5yrs Pediatric: Yes Seasonal Allergies Seasonal Allergies: No Past Medical History Surgeries: Orthopedic Currently Using CPAP: No Currently Using BIPAP: No Cardiac: Coronary Artery Disease, Hypertension Reproductive: No Sexually Transmitted Disease: No HIV/AIDS: No Genitourinary: Renal Failure Gastrointestinal: Gastroesophageal Reflux Musculoskeletal: Arthritis Loss of Vision: Denies Hearing Impairment: Denies Cancer: Skin Adverse Reaction to Blood Hickman: No Family History Alzheimer's disease 19 FATHER Arthritis 19 MOTHER G8 SISTER Cardiovascular disease 19 MOTHER Cataracts 19 MOTHER Dementia 19 FATHER Diabetes mellitus 19 MOTHER G8 SISTER Hypercholesterolemia 19 MOTHER G8 SISTER Hypertension 19 MOTHER G8 SISTER G8 SISTER Visual disorder G8 SISTER Heart Disease, Diabetes, Hypertension PM&R Allergy/Meds/Data Review Allergies Coded Allergies: Penicillins (Verified Allergy, Unknown, 07/09/08) Home Medications Scheduled Allopurinol (Allopurinol), 100 MG PO DAILY, (Reported) Aspirin (Aspirin), 81 MG PO DAILY, (Reported) Gabapentin (Neurontin), 900 MG PO BID, (Reported) Losartan Potassium (Losartan Potassium), 25 MG PO DAILY, (Reported) Metoprolol Succinate (Metoprolol Succinate), 100 MG PO HS, (Reported) Wylie-3/Dha/Epa/Fish Oil (Fish Oil 1,000 mg Softgel), 1,000 MG PO DAILY, (Reported) Rosuvastatin Calcium (Rosuvastatin Calcium), 5 MG PO HS, (Reported) Tamsulosin HCl (Flomax), 0.4 MG PO HS, (Reported) Ubidecarenone (Coq-10), 100 MG PO DAILY, (Reported) Vitamin B Complex (B Complex), 1 EACH PO DAILY, (Reported) Scheduled PRN Oxymetazoline HCl (Afrin), 1 SPRAY NSEACH UD PRN for CONGESTION, (Reported) Tramadol HCl (Tramadol HCl), 50 MG PO Q4H PRN for PAIN-MODERATE (5-7) Current Medications Current Medications Reviewed Review of Systems Constitutional: see HPI, malaise, weakness EENTM: no symptoms reported Respiratory: no symptoms reported Cardiovascular: no symptoms reported Gastrointestinal: constipation Genitourinary: no symptoms reported Musculoskeletal: back pain, joint pain, muscle pain, muscle stiffness, muscle cramps Skin: no symptoms reported Psychiatric/Neurological: Anxiety, Depressed, Weakness All Other Systems Reviewed Negative Unless Noted: Yes Physical Exam Physical Exam Vital Signs Capillary Refill : Height, Weight, BMI Height: 6'0.00" Weight: 241lbs. oz. 109.782224lh; 29.44 BMI Method: General Appearance: No Apparent Distress, WD/WN, Chronically ill Eyes: Bilateral Eye Normal Inspection, Bilateral Eye PERRL HEENT: PERRL/EOMI, Normal ENT Inspection, Pharynx Normal Neck: Full Range of Motion, Normal Inspection, Non Tender, Supple, Carotid Bruit Respiratory: Chest Non Tender, Lungs Clear, Normal Breath Sounds, No Accessory Muscle Use, No Respiratory Distress Cardiovascular: Regular Rate, Rhythm, No Edema, No Gallop, No JVD, No Murmur, Normal Peripheral Pulses Gastrointestinal: Normal Bowel Sounds, No Organomegaly, No Pulsatile Mass, Non Tender, Soft Back: Normal Inspection, No CVA Tenderness, No Vertebral Tenderness Extremity: Normal Capillary Refill, Normal Inspection, Normal Range of Motion, Non Tender, No Calf Tenderness, No Pedal Edema Neurologic/Psychiatric: Alert, Oriented x3, 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 Norm as Tested, Abnormal Gait, Depressed Affect, Motor Weakness (Severe weakness of lower extremities 2/5) Skin: Normal Color, Warm/Dry Lymphatic: No Adenopathy PM&R Medical Assessment & Plan REHAB/MEDICAL ASSESSMENT AND PLAN: REHAB IMPAIRMENT GROUP: Cervical spine myelopathy ETIOLOGIC DIAGNOSIS: Cervical spine myelopathy The comorbidities that impact the patients function and/or functional outcome by: Severe weakness, inability to ambulate, depression situational type REHAB PLAN: The patient is being admitted to our comprehensive inpatient rehabilitation facility and can tolerate the intensity of service consisting of at least: 180 minutes of therapy a day, 5 out of 7 days a week Rehab treatment will consist of: PT and OT will focus on regaining function of lower extremities with use of assistive devices in order to regain ambulatory function ADLs in order to return back home with spouse The patient/family has a good understanding of our discharge process and will benefit from an interdisciplinary inpatient rehabilitation program. The patient has potential to make improvement and is in need of at least two of the following multidisciplinary therapies including but not limited to physical, occupational, speech, and prosthetics and orthotics. Additionally the patient will need services from respiratory, nutritional services, wound care, psychology, etc. (Customize this to each patient). Given the patients complex condition and risk of further medical complications, rehabilitation services cannot be safely or effectively provided at a lower level of care such as a detention facility. BARRIERS TO DISCHARGE: Inability to ambulate ESTIMATED LOS: 14 days DISPOSITION: Home RELEVANT CHANGES SINCE PREADMISSION SCREENING: I have compared the patients medical and functional status at the time of the preadmission screening and there are: No changes PROGNOSIS: Fair REHABILITATION GOALS: 1. PT and OT will focus on regaining function of lower extremities with use of assistive devices in order to regain ambulatory function ADLs in order to return back home with spouse All the above goals were reviewed with the patient and he/she is in agreement. By signing this document, I acknowledge that I have personally performed a full physical examination on this patient within 24 hours of admission to this inpatient rehabilitation facility and have determined the patient to be able to tolerate the above course of treatment at an intensive level for a reasonable period of time. I will be completing a detailed individualized Plan of Care for this patient by day #4 of the patients stay based upon the Preadmission Screen, the Post-Admission Evaluation, and the therapy evaluations. 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 ICD Codes: M47.12 - Other spondylosis with myelopathy, cervical region (2) Bilateral leg weakness Status: Acute ICD Codes: R29.898 - Other symptoms and signs involving the musculoskeletal system (3) Presence of stent in LAD coronary artery Status: Acute ICD Codes: Z95.5 - Presence of stent in LAD coronary artery (4) Presence of stent in right coronary artery Status: Acute ICD Codes: Z95.5 - Presence of stent in right coronary artery (5) Chronic kidney disease, stage 3 Status: Acute ICD Codes: N18.3 - Chronic kidney disease, stage 3 (6) 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 Status: Acute ICD Codes: I13.10 - 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; N18.3 - Chronic kidney disease, stage 3 (moderate) (7) Paresthesia of both lower extremities Status: Acute ICD Codes: R20.2 - Paresthesia of skin (8) Paresthesia of both hands Status: Acute ICD Codes: R20.2 - Paresthesia of skin (9) Essential hypertension Status: Acute ICD Codes: I10 - Essential hypertension Assessment/Plan Assessment and Plan Assess & Plan/Chief Complaint Assessment: Severe leg weakness due to cervical spine stenosis causing myelopathy status post surgical resolution 01/05/2022 Severe constipation last BM 01/04/2022 Postop dysphagia Profound weight loss due to inability to eat Back pain with lumbar spine disease chronic CKD Stage III usual baseline creat 2.1 HTN CAD HLP Gout Plan: Aggressive PT and OT Aggressive bowel regimen Supportive care GUSTAVO SALAZAR DO Jan 15, 2022 12:18
[2022-01-15] MEDS ORDERED: OXYMETAZOLINE (AFRIN) 0.05% NA 30 ML BTL PRN (12:30)
[2022-01-15 20:30] VITALS: BP 182/99
[2022-01-15 20:40] VITALS: BP 162/81
[2022-01-15] MEDS: meTOprolol SUCCINATE 100 MG (TOPROL XL) TAB PO SCH (21:04)
[2022-01-15] MEDS: GABAPENTIN 300 MG (NEURONTIN) CAP PO SCH (21:04)
[2022-01-15] MEDS: ROSUVASTATIN 5 MG (CRESTOR) TABLET PO SCH (21:04)
[2022-01-15] MEDS: TAMSULOSIN 0.4 MG (FLOMAX) CAP PO SCH (21:04)
[2022-01-15 23:30] VITALS: BP 157/84
[2022-01-16 05:23] LABS: BASOPHILS % (AUTO) 0 % (0-10); EOSINOPHILS # (AUTO) 0.1 10^3/uL (0.0-0.3); EOSINOPHILS % (AUTO) 0 % (0-10); HEMATOCRIT 32 % (40-54); HEMOGLOBIN 10.7 g/dL (13.3-17.7); LYMPHOCYTES # (AUTO) 1.6 10^3/uL (1.0-4.0); LYMPHOCYTES % (AUTO) 12 % (12-44); MEAN CORPUSCULAR HEMOGLOBIN 33 pg (25-34); MEAN CORPUSCULAR HGB CONC 34 g/dL (32-36); MEAN CORPUSCULAR VOLUME 97 fL (80-99); MEAN PLATELET VOLUME 10.4 fL (9.0-12.2); MONOCYTES % (AUTO) 8 % (0-12); NEUTROPHILS # (AUTO) 9.6 10^3/uL (1.8-7.8); NEUTROPHILS % (AUTO) 74 % (42-75); PLATELET COUNT 239 10^3/uL (130-400)
[2022-01-16 05:30] LABS: SMEAR SCAN COMMENT YES
[2022-01-16 05:47] LABS: BILIRUBIN,TOTAL 0.5 MG/DL (0.1-1.0); CALCIUM 9.5 MG/DL (8.5-10.1); CREATININE SERUM 1.42 MG/DL (0.60-1.30); POTASSIUM 4.8 MMOL/L (3.6-5.0); TOTAL PROTEIN 6.1 GM/DL (6.4-8.2)
--- NOTE | 2022-01-16 06:03 | PM&R Progress Note ---
Subjective HPI/CC On Admission Date Seen by Provider: Jan 16, 2022 Time Seen by Provider: 08:30 Subjective/Events-last exam 01/16/2022: Doing well overall Regular diet tolerated No pain reported except neck Ultram is preferred per patient BM+ and feels better No falls Review of Systems General: Fatigue, Malaise Objective Exam Vital Signs Vital Signs Date Time Temp Pulse Resp B/P (MAP) Pulse Ox O2 Delivery O2 Flow Rate FiO2 01/16/22 19:25 Room Air 01/16/22 19:05 36.7 79 24 154/83 (106) 94 Capillary Refill : General Appearance: No Apparent Distress, WD/WN, Chronically ill HEENT: PERRL/EOMI, Normal ENT Inspection, Pharynx Normal Neck: Full Range of Motion, Normal Inspection, Non Tender, Supple, Carotid Bruit Respiratory: Chest Non Tender, Lungs Clear, Normal Breath Sounds, No Accessory Muscle Use, No Respiratory Distress Cardiovascular: Regular Rate, Rhythm, No Edema, No Gallop, No JVD, No Murmur, Normal Peripheral Pulses Gastrointestinal: Normal Bowel Sounds, No Organomegaly, No Pulsatile Mass, Non Tender, Soft Back: Normal Inspection, No CVA Tenderness, No Vertebral Tenderness Extremity: Normal Capillary Refill, Normal Inspection, Normal Range of Motion, Non Tender, No Calf Tenderness, No Pedal Edema Neurologic/Psychiatric: Alert, Oriented x3, 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 FIM Transfers Therapy Code Descriptions/Definitions Functional [place] Measure: 0=Not Assessed/NA 4=Minimal Assistance 1=Total Assistance 5=Supervision or Setup 2=Maximal Assistance 6=Modified [place] 3=Moderate Assistance 7=Complete IndependenceSCALE: Activities may be completed with or without assistive devices. 9-Eyrtndnizr-iqeuovd completes the activity by him/herself with no assistance from a helper. 5-Set-up or Clean-up Assistance-helper sets up or cleans up; patient completes activity. Linn assists only prior to or following the activity. 4-Supervision or Touching Assistance-helper provides verbal cues and/or touching/steadying and/or contact guard assistance as patient completes activity. Assistance may be provided throughout the activity or intermittently. 3-Partial/Moderate Assistance-helper does LESS THAN HALF the effort. Linn lifts, holds or supports trunk or limbs, but provides less than half the effort. 2-Substantial/Maximal Assistance-helper does MORE THAN HALF the effort. Linn lifts or holds trunk or limbs and provides more than half the effort. 8-Rtedfonsg-gkkzfw does ALL the effort. Patient does none of the effort to complete the activity. Or, the assistance of 2 or more helpers is required for the patient to complete the activity. If activity was not attempted, code reason: 7-Patient Refused. 9-Not Applicable-not attempted and the patient did not perform the activity before the current illness, exacerbation or injury. 10-Not Attempted due to Environmental Limitations-(lack of equipment, weather restraints, etc.). 88-Not Attempted due to Medical Conditions or Safety Concerns. Assessment/Plan Assessment and Plan Assess & Plan/Chief Complaint Assessment: Severe leg weakness due to cervical spine stenosis causing myelopathy status post surgical resolution 01/05/2022 Severe constipation last BM 01/04/2022 resolved 01/16/2022 Postop dysphagia Profound weight loss due to inability to eat Back pain with lumbar spine disease chronic CKD Stage III usual baseline creat 2.1 HTN CAD HLP Gout Plan: Aggressive PT and OT Aggressive bowel regimen Supportive care 01/16/2022: Monitor closely BM+ (1) Myelopathy due to cervical spondylosis (2) Bilateral leg weakness Status: Acute (3) Presence of stent in LAD coronary artery Status: Acute (4) Presence of stent in right coronary artery Status: Acute (5) Chronic kidney disease, stage 3 Status: Acute (6) 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
[2022-01-16] MEDS: polyethylene glycoL POWDER 17 GM (MIRALAX) PACK PO SCH ×2 (07:49→19:21)
[2022-01-16] MEDS: SENNA W/DOCUSATE (SENOKOT S) TABLET PO SCH ×2 (07:49→19:16)
[2022-01-16] MEDS: DOCUSATE SODIUM 100 MG (COLACE) CAP PO SCH ×2 (07:50→19:15)
[2022-01-16 07:51] VITALS: BP 143/78
[2022-01-16] MEDS: ASPIRIN 81 MG CHEW (CHILDREN'S ASA) PO SCH (08:46)
[2022-01-16] MEDS: LOSARTAN 25 MG (COZAAR) TAB PO SCH (08:47)
[2022-01-16] MEDS: OMEGA 3 (FISH OIL) 1000 MG CAP PO SCH (08:47)
[2022-01-16] MEDS: ALLOPURINOL 100 MG (ZYLOPRIM) TAB PO SCH (08:47)
[2022-01-16] MEDS: GABAPENTIN 300 MG (NEURONTIN) CAP PO SCH ×2 (08:47→19:15)
--- NOTE | 2022-01-16 09:44 | ST Cognitive Linguistic Eval ---
Speech Evaluation-General Medical Diagnosis Debility s/p Cervical Spine Procedure Onset Date: Jan 15, 2022 Therapy Diagnosis Therapy Diagnosis: Intact Cognition Precautions Precautions: Fall, Pressure Ulcer Precautions/Isolations: Fall Prevention, Contact/Enteric Isolation, Pressure Ulcer Referral Referring Physician: Dr. Cunningham Reason for Referral: Evaluation/Treatment Medical History Pertinent Medical History: Back Injury, CAD, HTN Current History The patient is a 76-year-old male, who presents to the acute rehabilitation unit with severe debility and inability to ambulate following a cervical spine surgery on 01/05/2022. Speech PLF-Current Status Prior Level of Function The patient denied prior challenges with his speech, language, or cognition. The patient experienced post-operative dysphagia secondary to pharyngeal edema, however, is currently tolerating a regular consistency diet with thin liquids. The patient was observed swallowing multiple pills for the RN with thin liquid. The patient consumed pills one at a time and did not display s/s of suspected aspiration. The patient's swallowing strategies were discussed which the patient recalled independently. At this time, the patient does not require skilled dysphagia treatment. Subjective The patient was seated upright in his recliner, awake and alert upon entrance to his room by the clinician. The patient greeted the clinician appropriately and was agreeable to participation in the cognitive linguistic assessment. Language Eval: Auditory Comprehends Simple Yes/No Ques: Functional Indent/Objects Multiple Hooks: Functional Ident/Pics in Multiple Hooks: Functional Follows 1-Step Commands: Functional Follows Complex Directions: Functional Follows General Conversations: Functional Language Eval: Verbal Language Completes Spontaneous Greeting: Functional Produces Auto, Serial Info: Functional Imitates Simple Words/Phrases: Functional Word Finding: Functional Requests Basic Needs: Functional States Basic Personal Info: Functional Expresses Complex Ideas: Functional Language Evaluation: Reading Follows Simple Written Direct: Functional Language Evaluation: Writing Writes to Simple Dictation: Functional Cognitive Patient Orientation The patient was independently oriented to self, location, month, day of the week, date, and year. Objective Cognitive Domain Attention: WNL Memory: WNL Problem Solving: Functional Executive Functions: WNL Visuospatial Skills: WNL Composite Severity Rating: WNL Clock Drawing Severity Rating: WNL Objective Formal/Standardized Tests [facility] Mental Status ([facility]) Results The patient demonstrated a result of +30/30 on the UMS correlating to cognitive linguistic skills within normal limits. Oral Motor/Speech Production The patient does not display dysarthria or apraxia of speech. Impression The patient displays cognitive linguistic skills within normal limits. Speech Patient Assess Expression of Ideas/Wants: Expression (4) Understanding Verbal Content: Understands (4) Brief Interview-Mental Status: Yes Repetition of Three Words: Three (3) Temporal Orientation: Year: Correct (3) Temporal Orientation: Month: Accurate within 5 days(2) Temporal Orientation: Day: Correct (1) Recall : Wear to say "Sock": Yes, no cue required (2) Recall : Color: Yes, no cue required (2) Recall : Bed: Yes, no cue required (2) Memory/Recall Ability: Current season, Location of own room, Staff names and faces, That he or she is in a hsp/hsp unit Speech-Plan Treatment Plan Speech Therapy Treatment Plan: Discontinue ST Treatment Duration: Jan 16, 2022 Frequency: 1 time per week Estimated Hrs Per Day: .5 hour per day Rehab Potential: Fair Safety Risks/Education Teaching Recipient: Patient Teaching Methods: Discussion Response to Teaching: Verbalize Understanding Education Topics Provided: Results, Recommendations, Plan of Care Time Speech Therapy Time In: 08:30 Speech Therapy Time Out: 09:00 Total Billed Time: 30 Billed Treatment Time 1, MARLON CUTLER [facility] Jan 16, 2022 09:44
--- NOTE | 2022-01-16 10:33 | Occupational Therapy Eval ---
OT Evaluation-General/PLF Medical Diagnosis Admission Date Jan 15, 2022 at 10:50 Medical Diagnosis: Debility s/p Cervical Spine Procedure Onset Date: Jan 15, 2022 Therapy Diagnosis Therapy Diagnosis: Reduced ADL status Height/Weight Height (Feet): 6 Height (Inches): 0.00 Weight (Pounds): 241 Precautions Precautions/Isolations: Fall Prevention, Contact/Enteric Isolation, Pressure Ulcer Referral Physician: Marisa Referral Reason: Evaluation/Treatment Medical History Pertinent Medical History: Back Injury, CAD, HTN Current History Pt came from [place] after having a cervical spine procedure at [facility]. He is showing weakness in L UE, and R LE. Pt lives with his in a multilevel home. He has a walk in shower with a shower chair. Everything he needs is on one level. He was not using any AD prior to his hospitalization stays. Reviewed History: Yes Social History Home: Multilevel Current Living Status: Spouse Entry Into Home: Stairs With Railing Steps Into Home: 3 ADL-Prior Level of Function SCALE: Activities may be completed with or without assistive devices. 5-Lzmnidsxxb-qnexysq completes the activity by him/herself with no assistance from a helper. 5-Set-up or Clean-up Assistance-helper sets up or cleans up; patient completes activity. [place] assists only prior to or following the activity. 4-Supervision or Touching Assistance-helper provides verbal cues and/or touching/steadying and/or contact guard assistance as patient completes activity. Assistance may be provided throughout the activity or intermittently. 3-Partial/Moderate Assistance-helper does LESS THAN HALF the effort. [place] lifts, holds or supports trunk or limbs, but provides less than half the effort. 2-Substantial/Maximal Assistance-helper does MORE THAN HALF the effort. [place] lifts or holds trunk or limbs and provides more than half the effort. 1-Aovhcepmw-vxqqpd does ALL the effort. Patient does none of the effort to comp lete the activity. Or, the assistance of 2 or more helpers is required for the patient to complete the activity. If activity was not attempted, code reason: 7-Patient Refused. 9-Not Applicable-not attempted and the patient did not perform the activity before the current illness, exacerbation or injury. 10-Not Attempted due to Environmental Limitations-(lack of equipment, weather restraints, etc.). 88-Not Attempted due to Medical Conditions or Safety Concerns. Self Care: Needed Some Help (with socks and shoes) Functional Cognition: Independent DME/Equipment: Bath Chair OT Current Status Subjective Pt sitting in recliner upon arrival. He agrees to therapy eval and a shower. Appearance Pt left in recliner with all needs within reach. Mental Status/Objective Patient Orientation: Person, Place, Time, Situation Current Glasses/Contacts: Yes Upper Extremity ROM Severely impaired L UE: ~45 degrees Upper Extremity Strength Not tested due to C-spine precautions Moderately weak per clinical judgment and functional performance with ADLs ADL-Treatment Eating (QC): 5 Oral Hygiene (QC): 1 (unable to use L UE. Baseline is standing) Shower/Bathe Self (QC): 3 Upper Body Dressing (QC): 2 Lower Body Dressing (QC): 1 On/Off Footwear (QC): 1 Toileting Hygiene (QC): 1 Nursing and doctor was inquired about appropriateness for shower due to cervical collar guidelines. Sit<>stand transfers: Min assist. Pt has frequent LOB's after initially standing and needs time to regain balance. Pt doffs LB clothes with max assist and shirt with mod assist, due to c-spine precautions. Cervical collar doffed for shower. Pt completed shower 100% in sitting, needing mod cues for follow through with c-spine precautions. OT issued a LHS to wash LB secondary to c-spine precautions. Post instruction, able to wash/ reach legs and feet without physical assistance. Pt unable to reach R axilla due to lack of L UE ROM. Cervical collar immediately donned following shower. Pt donned UE clothing with max assist for head hole and threading L UE. Post instruction and demonstration of sock aide, and grabber; pt still required max assist for LB dressing. Pt required assistance to pull underwear/pants over hips due to precautions, balance and coordination. Pt completed grooming tasks sitting at sink with mod assist due to weakness and lack of ROM in L UE. Pt needs extra assistance and cues to follow c-spine precautions, and to use AE. Education OT Patient Education: Correct positioning, Energy conservation, Modified ADL techniques, Progress toward Goal/Update tx plan, Purpose of tx/functional activities, Reviewed precautions, Rehab process, Safety issues, Transfer techniques, Use of adapted equipment Teaching Recipient: Patient Teaching Methods: Demonstration, Discussion Response to Teaching: Verbalize Understanding, Return Demonstration, Reinforcement Needed BIMS CAM BIMS Expression of Ideas and Wants: Without Difficulty Understanding Verbal Content: Understands Brief Interview/Mental Status: Yes IRF GERONIMO BIMS: IRF GERONIMO BIMS Response (Comments) Value Repitition of Three Words Three 3 Recalls Socks Yes, No Cue Required 2 Recalls Blue Yes, No Cue Required 2 Recalls Bed Yes, No Cue Required 2 Year Correct Month Accurate Within 5 Days Day Correct Total 9 Should Staff Asses. Mental St.: No Notes: CAM Mental Status Change/Baseline: 0 Inattention: 0 Disorganized thinkin Altered level of consciousness: 0 OT Short Term Goals Short Term Goals Time Frame: Jan 27, 2022 Eatin Oral hygiene: 2 Toileting hygiene: 2 Shower/bathe self: 4 Upper body dressin Lower body dressin Putting on/taking off footwear: 2 OT Assisted Goals Assisted Goals Time Frame: Feb 13, 2022 Acute change in mental status: 0 Inattention: 0 Disorganized thinkin Altered level of consciousness: 0 Eating (QC): 5 Oral Hygiene (QC): 4 Toileting Hygiene (QC): 4 Shower/Bathe Self (QC): 5 Upper Body Dressing (QC): 5 Lower Body Dressing (QC): 4 On/Off Footwear (QC): 4 Additional Goals: 1-Demonstrate ADL Tasks, 2-Verbalize Understanding, 3- ImproveStrength/Sherry 1=Demonstrate adherence to instructed precautions during ADL tasks. 2=Patient will verbalize/demonstrate understanding of assistive device s/modifications for ADL. 3=Patient will improve strength/tolerance for activity to enable patient to perform ADL's. OT Education/Plan Problem List/Assessment Assessment: Decreased Activ Tolerance, Decreased Safety Aware, Decreased UE Strength, Impaired Coordination, Impaired Funct Balance, Impaired I ADL's, Impaired Self-Care Skills, Restricted Funct UE ROM Discharge Recommendations Plan/Recommendations: Continue POC Treatment Plan/Plan of Care Treatment,Training & Education: Yes Patient would benefit from OT for education, treatment and training to promote independence in ADL's, mobility, safety and/or upper extremity function for ADL's. Plan of Care: ADL Retraining, Caregiver Training, Functional Mobility, Group Exercise/Act as Ind, UE Funct Exercise/Act, UE Neuromus Re-Ed/Coord Treatment Duration: Feb 13, 2022 Frequency: At least 5 of 7 days/Wk (IRF) Estimated Hrs Per Day: 1.5 hours per day (60-90 min/day) Agreement: Yes Rehab Potential: Fair Time/GCodes Start Time: 09:15 Stop Time: 10:30 Total Time Billed (hr/min): 75 Billed Treatment Time 1 visit EVM (10 min) ADL x4 (65 min) Gniny Wells OT Jan 16, 2022 10:33
--- NOTE | 2022-01-16 11:56 | Physical Therapy Evaluation ---
PT Evaluation-General Medical Diagnosis Admission Date Jan 15, 2022 at 10:50 Medical Diagnosis: Debility s/p Cervical Spine Procedure Onset Date: Jan 15, 2022 Therapy Diagnosis Therapy Diagnosis: impaired mobility, strength, endurance Height/Weight Height (Feet): 6 Height (Inches): 0.00 Weight (Pounds): 241 Precautions Precautions/Isolations: Fall Prevention, Contact/Enteric Isolation, Pressure Ulcer Referral Physician: Estella Cunningham DO Reason for Referral: Evaluation/Treatment Medical History Pertinent Medical History: Back Injury, CAD, HTN Reviewed History: Yes Social History Home: Multilevel Current Living Status: Spouse Entry Into Home: Stairs Without Railing PT Steps Into Home: 2 Prior Prior Level of Function SCALE: Activities may be completed with or without assistive devices. 9-Qfacxbdwnl-asvxbju completes the activity by him/herself with no assistance from a helper. 5-Set-up or Clean-up Assistance-helper sets up or cleans up; patient completes activity. [place] assists only prior to or following the activity. 4-Supervision or Touching Assistance-helper provides verbal cues and/or touching/steadying and/or contact guard assistance as patient completes activity. Assistance may be provided throughout the activity or intermittently. 3-Partial/Moderate Assistance-helper does LESS THAN HALF the effort. [place] lifts, holds or supports trunk or limbs, but provides less than half the effort. 2-Substantial/Maximal Assistance-helper does MORE THAN HALF the effort. [place] lifts or holds trunk or limbs and provides more than half the effort. 3-Aejuozfsp-tvtpyo does ALL the effort. Patient does none of the effort to complete the activity. Or, the assistance of 2 or more helpers is required for the patient to complete the activity. If activity was not attempted, code reason: 7-Patient Refused. 9-Not Applicable-not attempted and the patient did not perform the activity before the current illness, exacerbation or injury. 10-Not Attempted due to Environmental Limitations-(lack of equipment, weather restraints, etc.). 88-Not Attempted due to Medical Conditions or Safety Concerns. Bed Mobility: 6 Transfers (B,C,W/C): 6 Gait: 6 Stairs: 6 Indoor Mobility (Ambulation): Independent Stairs: Independent Patient previously didn't use any assistive devices for mobility but that has b een a couple of months ago PT Evaluation-Current Subjective Patient in recliner pre tx, agrees to PT, has minor pain in right knee, no pain in his neck, after tx knee pain was 5/10. Pain Section J - Health Conditions 1. Rarely or not at all 2. Occasionally 3. Frequently 4. Almost constantly 8. Unable to answer Pain Effect on Sleep: 1 Pain Interference with Therapy: 2 Pain Interference w/Day-to-Day: 2 Pt/Family Goals to be independent at home Objective Patient Orientation: Person, Place, Situation soft cervical collar ROM/Strength ROM Lower Extremities WNL Strength Lower Extremities LLE (hip flexion 2/5, knee flexion 4-/5, knee extension 4-/5, dorsiflexion 1/5), RLE (hip flexion 2/5, knee flexion 4-/5, knee extension 3-/5, dorsiflexion 1/5) Sensory Vision: Wears Glasses Hearing: Functional Sensation Right Lower Extremit: Intact Sensation Left Lower Extremity: Intact Transfers Roll Left & Right (QC): 4 Sit to Lying (QC): 3 Lying to Sitting/Side of Bed(Q: 3 Sit to Stand (QC): 3 Chair/Hdg-gv-Fculp Xfer(QC): 4 Toilet Transfer (QC): 3 Car Transfer (QC): 3 Patient performs rolling with SBA, supine <-> sit mod assist, sit <-> stand min assist, transfers CGA, car transfer mod assist. Patient needs cues for hand placement and safety. With fatigue sit <-> stand can be mod assist. Has some right knee buckling but no LOB. Gait Does the Patient Walk?: Yes Mode of Locomotion: Walk Anticipated Mode of Locomotion: Walk Walk 10 feet (QC): 4 Walk 50 ft with 2 Turns(QC): 88 Walk 150 ft (QC): 88 Walking 10ft/uneven surface-QC: 88 Distance: 10' Gait Assistive Device: FWW Comments/Gait Description Patient can ambulate 10' with a rolling walker with CGA, has some right knee buckling, has some minor bilateral foot drop, poor foot clearance and heel strike, patient cannot lift his leg enough to try walking over an uneven s urface. Wheelchair Training Wheel 50 ft with 2 turns (QC): 4 Wheel 150 ft (QC): 4 Type of Wheelchair: Manual SBA, very slow, has a hard time gripping with left hand, needs rest breaks Stairs 1 Step (curb) (QC): 88 4 Steps (QC): 88 12 Steps (QC): 88 Balance Sitting Static: Normal Sitting Dynamic: Normal Standing Static: Fair Standing Dynamic: Fair Picking up an Object (QC): 4 (CGA using a human resources consultant) Treatment NuStep level 1 for 10' Assessment/Needs Patient in recliner post tx with nurse call, phone, tray, all needs met. Patient has impaired mobility, strength, endurance. Min assist for sit to stand can be mod assist with fatigue. Rehab Potential: Fair PT Short Term Goals Short Term Goals Time Frame: Jan 23, 2022 Roll Left & Right: 6 Sit to lyin (Jorge) Lying to sitting on side of be: 3 (Jorge) Sit to stand: 4 (CGA) Chair/nes-de-ysdxg transfer: 4 (CGA) Walk 10 feet: 4 (CGA) Walk 50 feet with two turns: 4 (CGA) PT Chcf Goals Electrical Transmission Engineer Goals PT Electrical Transmission Engineer Goals Time Frame: Feb 06, 2022 Scoring Section J - Health Conditions 1. Rarely or not at all 2. Occasionally 3. Frequently 4. Almost constantly 8. Unable to answer Roll Left to Right (QC): 6 Sit to Lying (QC): 4 (SBA) Lying-Sitting on Side/Bed(QC): 4 (SBA) Sit to Stand (QC): 4 (SBA) Chair/Zrf-fq-Ttpnl Xfer(QC): 4 (SBA) Car Transfer (QC): 4 (SBA) Does the Patient Walk: Yes Walk 10 feet (QC): 4 (SBA) Walk 10ft-Uneven Surface(QC): 4 (SBA) Walk 50ft with 2 Turns (QC): 4 (SBA) Walk 150 ft (QC): 88 Wheel 50 feet with 2 turns (QC: 9 1 Step (curb) (QC): 4 (CGA) 4 Steps (QC): 4 (CGA) 12 Steps (QC): 88 Picking up an Object (QC): 4 (SBA using a human resources consultant) toilet transfer 4-SBA, WC 150' 9 PT Plan Problem List Problem List: Activity Tolerance, Functional Strength, Safety, Balance, Gait, Transfer, Bed Mobility, ROM Treatment/Plan Treatment Plan: Continue Plan of Care Treatment Plan: Bed Mobility, Education, Functional Activity Sherry, Functional Strength, Group Therapy, Gait, Safety, Therapeutic Exercise, Transfers Treatment Duration: Feb 06, 2022 Frequency: At least 5 of 7 days/Wk (IRF) Estimated Hrs Per Day: 1.5 hours per day Patient and/or Family Agrees t: Yes Safety Risks/Education Patient Education: Gait Training, Transfer Techniques, Reviewed Precautions, Correct Positioning, W/C Management, Reviewed Don/Doff Brace, Safety Issues Teaching Recipient: Patient Teaching Methods: Demonstration, Discussion Response to Teaching: Reinforcement Needed Discharge Recommendations Plan Patient will perform bed mobility and transfer training, balance and endurance training, functional strengthening, stair training, gait training, and education, to improve functional mobility and independence at home. Therapy Discharge Recommendati: Scheduled Assistance, Home & Family, Post Acute PT Time/GCodes Time In: 1100 Time Out: 1200 Total Billed Treatment Time: 60 Total Billed Treatment 1 visit EVM 15' EX 10' FA 35' GUSTAVO BAH PT Jan 16, 2022 11:56
[2022-01-16] MEDS: predniSONE 20 MG TAB PO SCH (12:56)
[2022-01-16] MEDS ORDERED: PATIENT MAY USE OWN MED,SINGLE MED PO SCH (13:00)
--- NOTE | 2022-01-16 13:15 | Physical Therapy Daily Note ---
PT Daily Note-Current Subjective Patient in recliner pre tx, agrees to PT, has 3/10 pain in right knee. Pain Section J - Health Conditions 1. Rarely or not at all 2. Occasionally 3. Frequently 4. Almost constantly 8. Unable to answer Pain Effect on Sleep: 1 Pain Interference with Therapy: 2 Pain Interference w/Day-to-Day: 2 Appearance Patient in recliner post tx with nurse call, phone, tray, all needs met. Mental Status Patient Orientation: Person, Place, Situation Transfers SCALE: Activities may be completed with or without assistive devices. 6-Hmsctjlkqe-ssgifkn completes the activity by him/herself with no assistance from a helper. 5-Set-up or Clean-up Assistance-helper sets up or cleans up; patient completes activity. [place] assists only prior to or following the activity. 4-Supervision or Touching Assistance-helper provides verbal cues and/or touching/steadying and/or contact guard assistance as patient completes act ivity. Assistance may be provided throughout the activity or intermittently. 3-Partial/Moderate Assistance-helper does LESS THAN HALF the effort. [place] lifts, holds or supports trunk or limbs, but provides less than half the effort. 2-Substantial/Maximal Assistance-helper does MORE THAN HALF the effort. [place] lifts or holds trunk or limbs and provides more than half the effort. 3-Xpyakwuuh-lynqxb does ALL the effort. Patient does none of the effort to complete the activity. Or, the assistance of 2 or more helpers is required for the patient to complete the activity. If activity was not attempted, code reason: 7-Patient Refused. 9-Not Applicable-not attempted and the patient did not perform the activity before the current illness, exacerbation or injury. 10-Not Attempted due to Environmental Limitations-(lack of equipment, weather restraints, etc.). 88-Not Attempted due to Medical Conditions or Safety Concerns. Sit to Stand (QC): 3 Chair/Roa-vn-Qzzwu Xfer(QC): 4 Gait Training Distance: 15'x2 Walk 10 feet (QC): 4 Gait Persons Needed: 1 Gait Assistive Device: FWW slow ambulation, poor foot clearance, less knee buckling Exercises Seated Therapy Exercises: Ankle pumps, Long arc quads, Hip flexion Seated Reps: 20 Treatments transfers, ambulation, LE ROM Assessment Current Status: Fair Progress needs some assist with ROM on the right leg PT Short Term Goals Short Term Goals Time Frame: Jan 23, 2022 Roll Left & Right: 6 Sit to lyin (Jorge) Lying to sitting on side of be: 3 (Jorge) Sit to stand: 4 (CGA) Chair/lxo-al-dqttj transfer: 4 (CGA) Walk 10 feet: 4 (CGA) Walk 50 feet with two turns: 4 (CGA) PT Residential Goals Weft Straightener Goals PT Residential Goals Time Frame: Feb 06, 2022 Roll Left & Right (QC): 6 Sit to Lying (QC): 4 (SBA) Lying-Sitting on Side/Bed(QC): 4 (SBA) Sit to Stand (QC): 4 (SBA) Chair/Wjo-zz-Bkkqx Xfer(QC): 4 (SBA) Toilet Transfer (QC): 4 Car Transfer (QC): 4 (SBA) Does the Patient Walk: Yes Walk 10 feet (QC): 4 (SBA) Walk 50ft with 2 Turns (QC): 4 (SBA) Walk 150 ft (QC): 88 Walking 10ft on Uneven Surface: 4 (SBA) 1 Step (curb) (QC): 4 (CGA) 4 Steps (QC): 4 (CGA) 12 Steps (QC): 88 Picking up an Object (QC): 4 (SBA using a key entry operator) Wheel 50 feet with 2 turns (QC: 9 Wheel 150 feet: 9 PT Plan Problem List Problem List: Activity Tolerance, Functional Strength, Safety, Balance, Gait, Transfer, Bed Mobility, ROM Treatment/Plan Treatment Plan: Continue Plan of Care Treatment Plan: Bed Mobility, Education, Functional Activity Sherry, Functional Strength, Group Therapy, Gait, Safety, Therapeutic Exercise, Transfers Treatment Duration: Feb 06, 2022 Frequency: At least 5 of 7 days/Wk (IRF) Estimated Hrs Per Day: 1.5 hours per day Patient and/or Family Agrees t: Yes Safety Risks/Education Patient Education: Gait Training, Transfer Techniques, Correct Positioning, Safety Issues Teaching Recipient: Patient Teaching Methods: Demonstration, Discussion Response to Teaching: Reinforcement Needed Time/GCodes Time In: 1300 Time Out: 1315 Total Billed Treatment Time: 15 Total Billed Treatment 1 visit FA GUSTAVO SUNSHINE PT Jan 16, 2022 13:15
[2022-01-16] MEDS: SUPER B COMPLEX PO SCH (13:58)
[2022-01-16] MEDS: UBIDECARENONE PO SCH (13:58)
[2022-01-16 19:05] VITALS: BP 154/83
[2022-01-16] MEDS: ROSUVASTATIN 5 MG (CRESTOR) TABLET PO SCH (19:16)
[2022-01-16] MEDS: meTOprolol SUCCINATE 100 MG (TOPROL XL) TAB PO SCH (19:16)
[2022-01-16] MEDS: TAMSULOSIN 0.4 MG (FLOMAX) CAP PO SCH (19:16)
--- NOTE | 2022-01-17 06:01 | Individualized Plan of Care ---
Individualized Plan of Care Rehab Nursing IPOC Order Admission Date Jan 15, 2022 at 10:50 Current Orders Orders Admission Order(Inpt,Obs,Sdc) (01/13/22 21:18) Vital Signs: Per Unit Policy ( 08,16,00 (01/13/22 21:18) Shane Florez (01/13/22 21:18) Sequential Compression Device (01/13/22:18) Chute Boss-Inpt Rehab Con (01/13/22:18) Rehab Nursing Orders-Ipoc (01/13/22 21:18) Physical Therapy Rehab Orders (01/13/22 21:18) Occupational Therapy Rehab Ord (01/13/22:18) Speech Therapy Rehab Orders (01/13/22:18) Cbc With Automated Diff (01/16/22 06:00) Comprehensive Metabolic Panel (01/16/22 06:00) Precautions (Aru) (01/13/22 21:18) Weekly Weight WEEK (01/13/22:18) Rehab-Intensity Of Therapy (01/13/22 21:18) Initiate Admission Nursing Pro .admission (01/13/22 21:18) Alprazolam Tablet (Xanax Tablet) (01/13/22 21:30) Calcium Carbonate Chew Tablet (Antacid C (01/13/22 21:30) Diphenhydramine Tablet (Benadryl Tablet) (01/13/22 21:30) Docusate Sodium Capsule (Colace Capsule) (01/14/22 09:00) Docusate Sodium Capsule (Colace Capsule) (01/13/22 21:30) Bisacodyl Suppository (Dulcolax Supposit (01/13/22 21:30) Lactulose Oral Solution (Enulose Oral So (01/13/22 21:30) Na Phos/Na Biphos Enema (Fleet Enema Fox (01/13/22 21:30) Guaifenesin/Codeine Syrup (Robitussin Ac (01/13/22 21:30) Loperamide Tablet (Imodium Tablet) (01/13/22 21:30) Melatonin Tablet (Melatonin Tablet) (01/13/22 21:30) Polyethylene Glycol Powder Pkt (Miralax (01/14/22 09:00) Ondansetron Oral Dissolve Tab (Zofran (01/13/22 21:30) Senna S Tablet (Senokot S Tablet) (01/14/22 09:00) Acetaminophen Tablet/Caplet (Tylenol T (01/13/22 21:30) Code/Resuscitation (01/13/22 21:18) Allopurinol Tablet (Zyloprim Tablet) (01/16/22 09:00) Aspirin Chewable Tablet (Baby Aspirin Ch (01/16/22 09:00) Gabapentin Capsule/Tablet (Neurontin Cap (01/15/22 21:00) Losartan Tablet (Cozaar Tablet) (01/16/22 09:00) Metoprolol Succinate (Xl) Tab (Toprol Xl (01/15/22 21:00) [place] 3 Capsule (Fish Oil Capsule) (01/16/22 09:00) Oxymetazoline 0.05% Nasal [place] (Afrin 0. (01/15/22 12:30) Rosuvastatin Tablet (Crestor Tablet) (01/15/22 21:00) Tamsulosin Capsule (Flomax Capsule) (01/15/22 21:00) Tramadol Tablet (Ultram Tablet) (01/15/22 12:30) (Nf) Ubidecarenone (Coq-10) (01/16/22 14:00) (Nf) Vitamin B Complex (B Complex) (01/16/22 14:00) General/Regular (01/15/22 Dinner) Patient Visit (01/16/22 ) Speech Sound Lang Comp (01/16/22 ) Treat. Speech/Lang/Voice (01/16/22 ) Nursing Communication (Order) (01/16/22 10:39) Nursing Communication (Order) (01/16/22 10:44) Prednisone Tablet (Deltasone Tablet) (01/16/22 11:15) Patient May Use Own Med,Single (Patient (01/16/22 13:00) Patient Visit (01/16/22 ) Pt Eval Moderate Complexity (01/16/22 ) Exercise Therap, Ea 15 Min (01/16/22 ) Functional Activities, Ea 15 (01/16/22 ) Patient Visit (01/17/22 ) Exercise Therap, Ea 15 Min (01/17/22 ) Functional Activities, Ea 15 (01/17/22 ) Rehab Nursing Orders: Ongoing Assess. of Function Status, Bladder Management, Bladder Scan, Bladder Training, Bowel Management, Bowel Training, Disease Management & Educaiton, DVT Prophylaxis, Fall Prevention, Fluid/Electrolyte/Nutrition Mgmt, Infection Prevention, Medication Management & Education, Management of Risks & Complications, Nutrition Management, Pain Management, Patient/Family Support, Safety Management Intensity of Therapy to be met Patient to be seen: Min.3h per day/5 of 7d PT IPOC Problem List: Activity Tolerance, Functional Strength, Safety, Balance, Gait, Transfer, Bed Mobility, ROM Treatment Plan: Continue Plan of Care Bed Mobility, Education, Functional Activity Sherry, Functional Strength, Group Therapy, Gait, Safety, Therapeutic Exercise, Transfers Treatment Duration: Feb 06, 2022 Frequency: At least 5 of 7 days/Wk (IRF) Estimated Hrs Per Day: 1.5 hours per day OT IPOC Problems: Decreased Activ Tolerance, Decreased Safety Aware, Decreased UE Strength, Impaired Coordination, Impaired Funct Balance, Impaired I ADL's, Impaired Self-Care Skills, Restricted Funct UE ROM OT Treatment, Training and Edu: Yes Plan of Care: ADL Retraining, Caregiver Training, Functional Mobility, Group Exercise/Act as Ind, UE Funct Exercise/Act, UE Neuromus Re-Ed/Coord Treatment Duration: Feb 13, 2022 Frequency: At least 5 of 7 days/Wk (IRF) Estimated Hrs Per Day: 1.5 hours per day (60-90 min/day) ST IPOC Speech Therapy Treatment Plan: Discontinue ST Treatment Duration: Jan 16, 2022 Frequency: 1 time per week Estimated Hrs Per Day: .5 hour per day Chute Boss/Case Mgmt Chute Boss/Case Managemen: Discharge Planning Dietitian/Sales Contract Administrator Dietitian/Sales Contract Administrator to monitor nutritional status and make changes and/or recommendations as needed and work with speech pathology on dietary upgrades as the occur. Physician IPOC Medical Issues being managed closely and that require the 24 hour availability of a physician: Recent cervical spine surgery with residual weakness will require close monitoring of any post op complications and will require close monitoring of kidney function Medical Issues: Bowel/Bladder Function, DVT Prophylaxis, Falls Precautions, Fluid/Electrolyte/Nutrition Balance, Infection Protection, Pain Management, Wound Care Brief Synthesis of Preadmission Screen, Post-Admission Evaluation, and Therapy Evaluations: PT OT will initiate aggressive therapy techniques in order to regain function of legs and arms in order to ambulate safely and return back to independent living Medical Prognosis: Fair Anticipated Length of Stay: 10 days GUSTAVO SALAZAR DO Jan 17, 2022 06:01
--- NOTE | 2022-01-17 06:01 | PM&R Progress Note ---
Subjective HPI/CC On Admission Date Seen by Provider: Jan 17, 2022 Time Seen by Provider: 08:30 Subjective/Events-last exam 01/17/2022: Doing well Slow recovery Pain controlled with Ultram No falls 01/16/2022: Doing well overall Regular diet tolerated No pain reported except neck Ultram is preferred per patient BM+ and feels better No falls Review of Systems General: Fatigue, Malaise Neurological: Weakness, Incoordination Objective Exam Vital Signs Vital Signs Date Time Temp Pulse Resp B/P (MAP) Pulse Ox O2 Delivery O2 Flow Rate FiO2 01/17/22 20:18 Room Air 01/17/22 19:26 36.3 72 16 147/85 (105) 96 Capillary Refill : General Appearance: No Apparent Distress, WD/WN, Chronically ill HEENT: PERRL/EOMI, Normal ENT Inspection, Pharynx Normal Neck: Full Range of Motion, Normal Inspection, Non Tender, Supple, Carotid Bruit Respiratory: Chest Non Tender, Lungs Clear, Normal Breath Sounds, No Accessory Muscle Use, No Respiratory Distress Cardiovascular: Regular Rate, Rhythm, No Edema, No Gallop, No JVD, No Murmur, Normal Peripheral Pulses Gastrointestinal: Normal Bowel Sounds, No Organomegaly, No Pulsatile Mass, Non Tender, Soft Back: Normal Inspection, No CVA Tenderness, No Vertebral Tenderness Extremity: Normal Capillary Refill, Normal Inspection, Normal Range of Motion, Non Tender, No Calf Tenderness, No Pedal Edema Neurologic/Psychiatric: Alert, Oriented x3, car designer II-XII Norm as Tested, Abnormal Gait, Depressed Affect, Motor Weakness (Severe weakness of lower extremities 2/5) Skin: Normal Color, Warm/Dry Lymphatic: No Adenopathy Results/Procedures Lab Patient resulted labs reviewed. FIM Transfers Therapy Code Descriptions/Definitions Functional [place] Measure: 0=Not Assessed/NA 4=Minimal Assistance 1=Total Assistance 5=Supervision or Setup 2=Maximal Assistance 6=Modified [place] 3=Moderate Assistance 7=Complete IndependenceSCALE: Activities may be completed with or without assistive devices. 2-Pvfbpqjxdv-ozzehnh completes the activity by him/herself with no assistance from a helper. 5-Set-up or Clean-up Assistance-helper sets up or cleans up; patient completes activity. [place] assists only prior to or following the activity. 4-Supervision or Touching Assistance-helper provides verbal cues and/or touching/steadying and/or contact guard assistance as patient completes ac tivity. Assistance may be provided throughout the activity or intermittently. 3-Partial/Moderate Assistance-helper does LESS THAN HALF the effort. [place] lifts, holds or supports trunk or limbs, but provides less than half the effort. 2-Substantial/Maximal Assistance-helper does MORE THAN HALF the effort. [place] lifts or holds trunk or limbs and provides more than half the effort. 4-Easgtyavk-tefsot does ALL the effort. Patient does none of the effort to complete the activity. Or, the assistance of 2 or more helpers is required for the patient to complete the activity. If activity was not attempted, code reason: 7-Patient Refused. 9-Not Applicable-not attempted and the patient did not perform the activity before the current illness, exacerbation or injury. 10-Not Attempted due to Environmental Limitations-(lack of equipment, weather restraints, etc.). 88-Not Attempted due to Medical Conditions or Safety Concerns. Roll Left to Right (QC): 4 Sit to Lying (QC): 3 Sit to Stand (QC): 3 Chair/Ctm-ky-Lwpqd Xfer(QC): 4 Car Transfer (QC): 3 Gait Training Does the Patient Walk?: Yes Distance: 15'x2 Walk 10 feet (QC): 4 Walk 50 ft with 2 Turns(QC): 88 Walk 150 ft (QC): 88 Walking 10ft/uneven surface-QC: 88 Gait Persons Needed: 1 Gait Assistive Device: FWW Wheelchair Training Wheel 50 ft with 2 turns (QC): 4 Wheel 150 ft (QC): 4 Type of Wheelchair: Manual Stair Training 1 Step (curb) (QC): 88 4 Steps (QC): 88 12 Steps (QC): 88 Balance Picking up an Object (QC): 4 (CGA using a inspector packager) ADL-Treatment Eating (QC): 5 Oral Hygiene (QC): 1 (unable to use L UE. Baseline is standing) Shower/Bathe Self (QC): 3 Upper Body Dressing (QC): 2 Lower Body Dressing (QC): 1 On/Off Footwear (QC): 1 Toileting Hygiene (QC): 1 Assessment/Plan Assessment and Plan Assess & Plan/Chief Complaint Assessment: Severe leg weakness due to cervical spine stenosis causing myelopathy status post surgical resolution 01/05/2022 Severe constipation last BM 01/04/2022 resolved 01/16/2022 Postop dysphagia Profound weight loss due to inability to eat Back pain with lumbar spine disease chronic CKD Stage III usual baseline creat 2.1 HTN CAD HLP Gout Plan: Aggressive PT and OT Aggressive bowel regimen Supportive care 01/16/2022: Monitor closely BM+ 01/17/2022: Supportive care Increase ambulation (1) Myelopathy due to cervical spondylosis (2) Bilateral leg weakness Status: Acute (3) Presence of stent in LAD coronary artery Status: Acute (4) Presence of stent in right coronary artery Status: Acute (5) Chronic kidney disease, stage 3 Status: Acute (6) 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
[2022-01-17] MEDS: predniSONE 20 MG TAB PO SCH (06:33)
[2022-01-17 08:00] VITALS: BP 153/85
--- NOTE | 2022-01-17 08:56 | Physical Therapy Daily Note ---
PT Daily Note-Current Subjective Patient sitting EOB pre tx, agrees to PT, has no complaints of pain. Will be co-treating with OT due to poor patient mobility, strength, endurance, severe debility, coordinate UE and LE during activity, safety and reduce risk of falls. Pain Section J - Health Conditions 1. Rarely or not at all 2. Occasionally 3. Frequently 4. Almost constantly 8. Unable to answer Pain Effect on Sleep: 1 Pain Interference with Therapy: 2 Pain Interference w/Day-to-Day: 2 Appearance Patient in therapy gym post tx to continue for a bit with OT Mental Status Patient Orientation: Person, Place, Situation soft cervical collar Transfers SCALE: Activities may be completed with or without assistive devices. 4-Gfcrthvsyr-fdtdcno completes the activity by him/herself with no assistance from a helper. 5-Set-up or Clean-up Assistance-helper sets up or cleans up; patient completes activity. [place] assists only prior to or following the activity. 4-Supervision or Touching Assistance-helper provides verbal cues and/or touching/steadying and/or contact guard assistance as patient completes activity. Assistance may be provided throughout the activity or intermittently. 3-Partial/Moderate Assistance-helper does LESS THAN HALF the effort. [place] lifts, holds or supports trunk or limbs, but provides less than half the effort. 2-Substantial/Maximal Assistance-helper does MORE THAN HALF the effort. [place] lifts or holds trunk or limbs and provides more than half the effort. 1-Xlgqrvmxx-hhfzjd does ALL the effort. Patient does none of the effort to complete the activity. Or, the assistance of 2 or more helpers is required for the patient to complete the activity. If activity was not attempted, code reason: 7-Patient Refused. 9-Not Applicable-not attempted and the patient did not perform the activity before the current illness, exacerbation or injury. 10-Not Attempted due to Environmental Limitations-(lack of equipment, weather restraints, etc.). 88-Not Attempted due to Medical Conditions or Safety Concerns. Sit to Stand (QC): 3 Chair/Xet-ks-Usblg Xfer(QC): 4 mod assist for sit to stand. From the bed patient stands to pull shorts on and then ambulates into the restroom to brush his teeth, patient needs assist with balance and standing. Gait Training Distance: 10', 20'x2 Walk 10 feet (QC): 4 Gait Assistive Device: FWW WC follow, slight right side knee buckling Wheelchair Training Does the Pt Use a Wheelchair?: Yes Wheel 50 ft with 2 turns (QC): 4 Type of Wheelchair: Manual SBA, 120', needs several rest breaks, very slow, has difficulty pushing with left arm Exercises manually resisted leg press in WC 3 sets of 10 Treatments PT performed standing and positioning during dressing and ADL's, ambulation, WC mobility, leg press, OT performed dressing, ADL's, UE positioning and safety during activity, assist with positioning during leg press. Assessment Current Status: Fair Progress slightly improved distance of ambulation PT Short Term Goals Short Term Goals Time Frame: Jan 23, 2022 Roll Left & Right: 6 Sit to lyin (Jorge) Lying to sitting on side of be: 3 (Jorge) Sit to stand: 4 (CGA) Chair/ide-uu-tuzfv transfer: 4 (CGA) Walk 10 feet: 4 (CGA) Walk 50 feet with two turns: 4 (CGA) PT Trim Master Operator Goals Longterm Goals PT Longterm Goals Time Frame: Feb 06, 2022 Roll Left & Right (QC): 6 Sit to Lying (QC): 4 (SBA) Lying-Sitting on Side/Bed(QC): 4 (SBA) Sit to Stand (QC): 4 (SBA) Chair/Hzr-di-Kxsfw Xfer(QC): 4 (SBA) Toilet Transfer (QC): 4 Car Transfer (QC): 4 (SBA) Does the Patient Walk: Yes Walk 10 feet (QC): 4 (SBA) Walk 50ft with 2 Turns (QC): 4 (SBA) Walk 150 ft (QC): 88 Walking 10ft on Uneven Surface: 4 (SBA) 1 Step (curb) (QC): 4 (CGA) 4 Steps (QC): 4 (CGA) 12 Steps (QC): 88 Picking up an Object (QC): 4 (SBA using a biomass technician) Wheel 50 feet with 2 turns (QC: 9 Wheel 150 feet: 9 PT Plan Problem List Problem List: Activity Tolerance, Functional Strength, Safety, Balance, Gait, Transfer, Bed Mobility, ROM Treatment/Plan Treatment Plan: Continue Plan of Care Treatment Plan: Bed Mobility, Education, Functional Activity Sherry, Functional Strength, Group Therapy, Gait, Safety, Therapeutic Exercise, Transfers Treatment Duration: Feb 06, 2022 Frequency: At least 5 of 7 days/Wk (IRF) Estimated Hrs Per Day: 1.5 hours per day Patient and/or Family Agrees t: Yes Safety Risks/Education Patient Education: Gait Training, Transfer Techniques, Correct Positioning, W/C Management, Safety Issues Teaching Recipient: Patient Teaching Methods: Demonstration, Discussion Response to Teaching: Reinforcement Needed Time/GCodes Time In: 0800 Time Out: 0900 Total Billed Treatment Time: 60 Total Billed Treatment 1 visit EX 15' FA 45' co-treated for 60 min GUSTAVO BAH PT Jan 17, 2022 08:56
--- NOTE | 2022-01-17 09:10 | Occupational Ther Daily Note ---
OT Current Status-Daily Note Subjective Pt was in bed upon arrival. He reported sleeping well and not having any pain at this moment. Co-treat with PT for part of treatment ([id number]) secondary to poor mobility, fall risk, and need of 2 skilled clinicians to progress indep and safety for adls and functional mobility. Appearance Pt left sitting in recliner with all needs within reach. Mental Status/Objective Patient Orientation: Person, Place, Time, Situation ADL-Treatment Therapy Code Descriptions/Definitions Functional [place] Measure: 0=Not Assessed/NA 4=Minimal Assistance 1=Total Assistance 5=Supervision or Setup 2=Maximal Assistance 6=Modified [place] 3=Moderate Assistance 7=Complete IndependenceSCALE: Activities may be completed with or without assistive devices. 9-Tnmqylhaod-qnrrpvs completes the activity by him/herself with no assistance from a helper. 5-Set-up or Clean-up Assistance-helper sets up or cleans up; patient completes activity. [place] assists only prior to or following the activity. 4-Supervision or Touching Assistance-helper provides verbal cues and/or touching/steadying and/or contact guard assistance as patient completes activity. Assistance may be provided throughout the activity or intermittently. 3-Partial/Moderate Assistance-helper does LESS THAN HALF the effort. [place] lifts, holds or supports trunk or limbs, but provides less than half the effort. 2-Substantial/Maximal Assistance-helper does MORE THAN HALF the effort. [place] lifts or holds trunk or limbs and provides more than half the effort. 5-Gzexqejvq-npkzvv does ALL the effort. Patient does none of the effort to complete the activity. Or, the assistance of 2 or more helpers is required for the patient to complete the activity. If activity was not attempted, code reason: 7-Patient Refused. 9-Not Applicable-not attempted and the patient did not perform the activity before the current illness, exacerbation or injury. 10-Not Attempted due to Environmental Limitations-(lack of equipment, weather restraints, etc.). 88-Not Attempted due to Medical Conditions or Safety Concerns. Eating (QC): 5 Oral Hygiene (QC): 5 Lower Body Dressing (QC): 2 (Extra time to complete and problem-solve through) On/Off Footwear: 3 Supine>sit: mod assist. Sat EOB with good balance. Therapist donned estuardo hose. Pt used mortar worker to don pants needing extra time and mod cues to complete task. No physical assist required for threading legs. Pt stood to pull pants over hips requiring max assist, and min assist for standing balance. Pt unable to don belt or zip up pants due to unsteadiness, and c-spine precautions/not being able to look down. Assist to don socks onto sock aid due to impaired FM coordination and electrogalvanizing machine operator strength. Sit<>stand transfers: min-mod assist depending on fatigue level. Pt ambulated to bathroom with min assist, no knee buckling noted in this session. Pt sat at sink to perform grooming with set up. Other Treatment W/c mobility: fair but unable to use R LE to propel. With use of walker, Pt ambulated ~60 ft in total with adequate breaks in between. He participated in leg press with moderate resistance 3x10 to improve endurance, balance, coordination, and strengthening needed for adls tasks. Physical assist to keep R LE on mat during press was required. Therapist performed bilateral hip external rotation and knee flexion (figure 4) to improve flexibility for LB dressing/bathing; LLE worse than right. Therapist performed AAROM in all planes of fingers, wrist, elbow for L UE to improve ROM and overall functional performance in L UE. Education OT Patient Education: Correct positioning, Energy conservation, Exercise program, Modified ADL techniques, Progress toward Goal/Update tx plan, Purpose of tx/functional activities, Reviewed precautions, Rehab process, Safety issues, Use of adapted equipment, W/C management Teaching Recipient: Patient Teaching Methods: Demonstration, Discussion Response to Teaching: Verbalize Understanding, Return Demonstration OT Short Term Goals Short Term Goals Time Frame: Jan 27, 2022 Eatin Oral hygiene: 2 Toileting hygiene: 2 Shower/bathe self: 4 Upper body dressin Lower body dressin Putting on/taking off footwear: 2 OT Capacity Analyst Goals Detention Goals Time Frame: Feb 13, 2022 Acute change in mental status: 0 Inattention: 0 Disorganized thinkin Altered level of consciousness: 0 Eating (QC): 5 Oral Hygiene (QC): 4 Toileting Hygiene (QC): 4 Shower/Bathe Self (QC): 5 Upper Body Dressing (QC): 5 Lower Body Dressing (QC): 4 On/Off Footwear (QC): 4 Additional Goals: 1-Demonstrate ADL Tasks, 2-Verbalize Understanding, 3- ImproveStrength/Sherry 1=Demonstrate adherence to instructed precautions during ADL tasks. 2=Patient will verbalize/demonstrate understanding of assistive devices/modifications for ADL. 3=Patient will improve strength/tolerance for activity to enable patient to perform ADL's. OT Education/Plan Problem List/Assessment Assessment: Decreased Activ Tolerance, Decreased UE Strength, Dependent Transfers, Impaired Coordination, Impaired Funct Balance, Impaired I ADL's, Impaired Self-Care Skills, Restricted Funct UE ROM Discharge Recommendations Plan/Recommendations: Continue POC Treatment Plan/Plan of Care Treatment,Training & Education: Yes Patient would benefit from OT for education, treatment and training to promote independence in ADL's, mobility, safety and/or upper extremity function for ADL's. Plan of Care: ADL Retraining, Caregiver Training, Functional Mobility, Group Exercise/Act as Ind, UE Funct Exercise/Act, UE Neuromus Re-Ed/Coord Treatment Duration: Feb 13, 2022 Frequency: At least 5 of 7 days/Wk (IRF) Estimated Hrs Per Day: 1.5 hours per day (60-90 min/day) Agreement: Yes Rehab Potential: Fair Time/GCodes Start Time: 07:40 Stop Time: 09:10 Total Time Billed (hr/min): 90 Billed Treatment Time 1 visit ADL x3 (40 min) EX x3 (50 min) Co-treat with PT ([id number]) Ginny Wells OT Jan 17, 2022 09:10
[2022-01-17] MEDS: DOCUSATE SODIUM 100 MG (COLACE) CAP PO SCH ×2 (09:34→20:03)
[2022-01-17] MEDS: ALLOPURINOL 100 MG (ZYLOPRIM) TAB PO SCH (09:34)
[2022-01-17] MEDS: LOSARTAN 25 MG (COZAAR) TAB PO SCH (09:34)
[2022-01-17] MEDS: GABAPENTIN 300 MG (NEURONTIN) CAP PO SCH ×2 (09:34→20:04)
[2022-01-17] MEDS: SENNA W/DOCUSATE (SENOKOT S) TABLET PO SCH ×2 (09:34→20:03)
[2022-01-17] MEDS: ASPIRIN 81 MG CHEW (CHILDREN'S ASA) PO SCH (09:34)
[2022-01-17] MEDS: OMEGA 3 (FISH OIL) 1000 MG CAP PO SCH (09:34)
[2022-01-17] MEDS: polyethylene glycoL POWDER 17 GM (MIRALAX) PACK PO SCH ×2 (09:37→19:20)
[2022-01-17] MEDS: SUPER B COMPLEX PO SCH (09:39)
[2022-01-17] MEDS: UBIDECARENONE PO SCH (09:40)
--- NOTE | 2022-01-17 13:21 | Physical Therapy Daily Note ---
PT Daily Note-Current Subjective Patient in recliner pre tx, agrees to PT, has no complaints of pain Pain Section J - Health Conditions 1. Rarely or not at all 2. Occasionally 3. Frequently 4. Almost constantly 8. Unable to answer Pain Effect on Sleep: 1 Pain Interference with Therapy: 2 Pain Interference w/Day-to-Day: 2 Appearance Patient in recliner post tx with nurse call, phone, tray, all needs met. Mental Status Patient Orientation: Person, Place, Situation soft cervical collar Transfers SCALE: Activities may be completed with or without assistive devices. 8-Tubxgiaqkk-bwzeomt completes the activity by him/herself with no assistance from a helper. 5-Set-up or Clean-up Assistance-helper sets up or cleans up; patient completes activity. [place] assists only prior to or following the activity. 4-Supervision or Touching Assistance-helper provides verbal cues and/or touching/steadying and/or contact guard assistance as patient completes activity. Assistance may be provided throughout the activity or intermittently. 3-Partial/Moderate Assistance-helper does LESS THAN HALF the effort. [place] lifts, holds or supports trunk or limbs, but provides less than half the effort. 2-Substantial/Maximal Assistance-helper does MORE THAN HALF the effort. [place] lifts or holds trunk or limbs and provides more than half the effort. 7-Mlltucves-gsqyra does ALL the effort. Patient does none of the effort to complete the activity. Or, the assistance of 2 or more helpers is required for the patient to complete the activity. If activity was not attempted, code reason: 7-Patient Refused. 9-Not Applicable-not attempted and the patient did not perform the activity before the current illness, exacerbation or injury. 10-Not Attempted due to Environmental Limitations-(lack of equipment, weather restraints, etc.). 88-Not Attempted due to Medical Conditions or Safety Concerns. Sit to Stand (QC): 3 Chair/Kog-ix-Ydgsg Xfer(QC): 4 min assist for sit to stand Wheelchair Training Does the Pt Use a Wheelchair?: Yes Wheel 50 ft with 2 turns (QC): 4 Wheel 150 ft (QC): 4 Type of Wheelchair: Manual 150'x2, SBA needs several rest breaks Exercises NuStep Minutes: 15 NuStep Workload: 2 (very little resistance so doesn't violate push/pull restriction) Treatments transfers, WC mobility, strengthening/ROM Assessment Current Status: Fair Progress improved sit to stand PT Short Term Goals Short Term Goals Time Frame: Jan 23, 2022 Roll Left & Right: 6 Sit to lyin (Jorge) Lying to sitting on side of be: 3 (Jorge) Sit to stand: 4 (CGA) Chair/jyw-sp-sdjrs transfer: 4 (CGA) Walk 10 feet: 4 (CGA) Walk 50 feet with two turns: 4 (CGA) PT Shutdown Planner Goals Usp Goals PT Usp Goals Time Frame: Feb 06, 2022 Roll Left & Right (QC): 6 Sit to Lying (QC): 4 (SBA) Lying-Sitting on Side/Bed(QC): 4 (SBA) Sit to Stand (QC): 4 (SBA) Chair/Fyn-mv-Gtfao Xfer(QC): 4 (SBA) Toilet Transfer (QC): 4 Car Transfer (QC): 4 (SBA) Does the Patient Walk: Yes Walk 10 feet (QC): 4 (SBA) Walk 50ft with 2 Turns (QC): 4 (SBA) Walk 150 ft (QC): 88 Walking 10ft on Uneven Surface: 4 (SBA) 1 Step (curb) (QC): 4 (CGA) 4 Steps (QC): 4 (CGA) 12 Steps (QC): 88 Picking up an Object (QC): 4 (SBA using a packing machine tender) Wheel 50 feet with 2 turns (QC: 9 Wheel 150 feet: 9 PT Plan Problem List Problem List: Activity Tolerance, Functional Strength, Safety, Balance, Gait, Transfer, Bed Mobility, ROM Treatment/Plan Treatment Plan: Continue Plan of Care Treatment Plan: Bed Mobility, Education, Functional Activity Sherry, Functional Strength, Group Therapy, Gait, Safety, Therapeutic Exercise, Transfers Treatment Duration: Feb 06, 2022 Frequency: At least 5 of 7 days/Wk (IRF) Estimated Hrs Per Day: 1.5 hours per day Patient and/or Family Agrees t: Yes Safety Risks/Education Patient Education: Transfer Techniques, Correct Positioning, W/C Management, Safety Issues Teaching Recipient: Patient Teaching Methods: Demonstration, Discussion Response to Teaching: Reinforcement Needed Time/GCodes Time In: 1250 Time Out: 1320 Total Billed Treatment Time: 30 Total Billed Treatment 1 visit EX 15' FA 15' GUSTAVO BAH PT Jan 17, 2022 13:21
[2022-01-17 19:26] VITALS: BP 147/85
[2022-01-17] MEDS: ROSUVASTATIN 5 MG (CRESTOR) TABLET PO SCH (20:03)
[2022-01-17] MEDS: meTOprolol SUCCINATE 100 MG (TOPROL XL) TAB PO SCH (20:03)
[2022-01-17] MEDS: TAMSULOSIN 0.4 MG (FLOMAX) CAP PO SCH (20:03)
--- NOTE | 2022-01-18 05:44 | PM&R Progress Note ---
Subjective HPI/CC On Admission Date Seen by Provider: Jan 18, 2022 Time Seen by Provider: 08:00 Subjective/Events-last exam 01/18/2022: No major issues Gaining strength Less pain BM regimen 01/17/2022: Doing well Slow recovery Pain controlled with Ultram No falls 01/16/2022: Doing well overall Regular diet tolerated No pain reported except neck Ultram is preferred per patient BM+ and feels better No falls Review of Systems General: Fatigue, Malaise Neurological: Weakness, Incoordination Objective Exam Vital Signs Vital Signs Date Time Temp Pulse Resp B/P (MAP) Pulse Ox O2 Delivery O2 Flow Rate FiO2 01/18/22 09:39 Room Air 01/18/22 08:00 36.0 61 18 146/80 (102) 94 Capillary Refill : General Appearance: No Apparent Distress, WD/WN, Chronically ill HEENT: PERRL/EOMI, Normal ENT Inspection, Pharynx Normal Neck: Full Range of Motion, Normal Inspection, Non Tender, Supple, Carotid Bruit Respiratory: Chest Non Tender, Lungs Clear, Normal Breath Sounds, No Accessory Muscle Use, No Respiratory Distress Cardiovascular: Regular Rate, Rhythm, No Edema, No Gallop, No JVD, No Murmur, Normal Peripheral Pulses Gastrointestinal: Normal Bowel Sounds, No Organomegaly, No Pulsatile Mass, Non Tender, Soft Back: Normal Inspection, No CVA Tenderness, No Vertebral Tenderness Extremity: Normal Capillary Refill, Normal Inspection, Normal Range of Motion, Non Tender, No Calf Tenderness, No Pedal Edema Neurologic/Psychiatric: Alert, Oriented x3, project scheduler II-XII Norm as Tested, Abnormal Gait, Depressed Affect, Motor Weakness (Severe weakness of lower extremities 2/5) Skin: Normal Color, Warm/Dry Lymphatic: No Adenopathy Results/Procedures Lab Patient resulted labs reviewed. FIM Transfers Therapy Code Descriptions/Definitions Functional [place] Measure: 0=Not Assessed/NA 4=Minimal Assistance 1=Total Assistance 5=Supervision or Setup 2=Maximal Assistance 6=Modified [place] 3=Moderate Assistance 7=Complete IndependenceSCALE: Activities may be completed with or without assistive devices. 7-Nanpmvspoe-xvizckw completes the activity by him/herself with no assistance from a helper. 5-Set-up or Clean-up Assistance-helper sets up or cleans up; patient completes activity. [place] assists only prior to or following the activity. 4-Supervision or Touching Assistance-helper provides verbal cues and/or touchi ng/steadying and/or contact guard assistance as patient completes activity. Assistance may be provided throughout the activity or intermittently. 3-Partial/Moderate Assistance-helper does LESS THAN HALF the effort. [place] lifts, holds or supports trunk or limbs, but provides less than half the effort. 2-Substantial/Maximal Assistance-helper does MORE THAN HALF the effort. [place] lifts or holds trunk or limbs and provides more than half the effort. 5-Cickecpzi-ntmvty does ALL the effort. Patient does none of the effort to complete the activity. Or, the assistance of 2 or more helpers is required for the patient to complete the activity. If activity was not attempted, code reason: 7-Patient Refused. 9-Not Applicable-not attempted and the patient did not perform the activity before the current illness, exacerbation or injury. 10-Not Attempted due to Environmental Limitations-(lack of equipment, weather restraints, etc.). 88-Not Attempted due to Medical Conditions or Safety Concerns. Roll Left to Right (QC): 4 Sit to Lying (QC): 3 Sit to Stand (QC): 3 Chair/Jry-gu-Qdipu Xfer(QC): 4 Car Transfer (QC): 3 Gait Training Does the Patient Walk?: Yes Distance: 10', 20'x2 Walk 10 feet (QC): 4 Walk 50 ft with 2 Turns(QC): 88 Walk 150 ft (QC): 88 Walking 10ft/uneven surface-QC: 88 Gait Persons Needed: 1 Gait Assistive Device: FWW Wheelchair Training Does the Pt Use a Wheelchair?: Yes Wheel 50 ft with 2 turns (QC): 4 Wheel 150 ft (QC): 4 Type of Wheelchair: Manual Stair Training 1 Step (curb) (QC): 88 4 Steps (QC): 88 12 Steps (QC): 88 Balance Picking up an Object (QC): 4 (CGA using a anatomic pathology assistant) ADL-Treatment Eating (QC): 5 Oral Hygiene (QC): 5 Shower/Bathe Self (QC): 3 Upper Body Dressing (QC): 2 Lower Body Dressing (QC): 2 (Extra time to complete and problem-solve through) On/Off Footwear (QC): 3 Toileting Hygiene (QC): 1 Assessment/Plan Assessment and Plan Assess & Plan/Chief Complaint Assessment: Severe leg weakness due to cervical spine stenosis causing myelopathy status post surgical resolution 01/05/2022 Severe constipation last BM 01/04/2022 resolved 01/16/2022 Postop dysphagia Profound weight loss due to inability to eat Back pain with lumbar spine disease chronic CKD Stage III usual baseline creat 2.1 HTN CAD HLP Gout Plan: Aggressive PT and OT Aggressive bowel regimen Supportive care 01/16/2022: Monitor closely BM+ 01/17/2022: Supportive care Increase ambulation 01/18/2022: Ultram Increase therapy (1) Myelopathy due to cervical spondylosis (2) Bilateral leg weakness Status: Acute (3) Presence of stent in LAD coronary artery Status: Acute (4) Presence of stent in right coronary artery Status: Acute (5) Chronic kidney disease, stage 3 Status: Acute (6) 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
[2022-01-18] MEDS: predniSONE 20 MG TAB PO SCH (07:24)
[2022-01-18 08:00] VITALS: BP 146/80
[2022-01-18] MEDS: OMEGA 3 (FISH OIL) 1000 MG CAP PO SCH (08:23)
[2022-01-18] MEDS: LOSARTAN 25 MG (COZAAR) TAB PO SCH (08:23)
[2022-01-18] MEDS: ALLOPURINOL 100 MG (ZYLOPRIM) TAB PO SCH (08:23)
[2022-01-18] MEDS: DOCUSATE SODIUM 100 MG (COLACE) CAP PO SCH ×2 (08:23→20:37)
[2022-01-18] MEDS: SENNA W/DOCUSATE (SENOKOT S) TABLET PO SCH ×2 (08:23→20:37)
[2022-01-18] MEDS: ASPIRIN 81 MG CHEW (CHILDREN'S ASA) PO SCH (08:24)
[2022-01-18] MEDS: GABAPENTIN 300 MG (NEURONTIN) CAP PO SCH ×2 (08:24→20:37)
[2022-01-18] MEDS: UBIDECARENONE PO SCH (08:25)
[2022-01-18] MEDS: SUPER B COMPLEX PO SCH (08:25)
[2022-01-18] MEDS: polyethylene glycoL POWDER 17 GM (MIRALAX) PACK PO SCH ×2 (08:26→20:35)
--- NOTE | 2022-01-18 10:04 | Physical Therapy Daily Note ---
PT Daily Note-Current Subjective Pt. agrees to Rx and feels he is making progress Pain Location: No Pain Reported Section J - Health Conditions 1. Rarely or not at all 2. Occasionally 3. Frequently 4. Almost constantly 8. Unable to answer Pain Effect on Sleep: 1 Pain Interference with Therapy: 2 Pain Interference w/Day-to-Day: 2 Mental Status Patient Orientation: Normal For Age Attachments: Other-See Comments (spft collar) Transfers SCALE: Activities may be completed with or without assistive devices. 5-Dttfrwttqx-smvrinx completes the activity by him/herself with no assistance from a helper. 5-Set-up or Clean-up Assistance-helper sets up or cleans up; patient completes activity. [place] assists only prior to or following the activity. 4-Supervision or Touching Assistance-helper provides verbal cues and/or touching/steadying and/or contact guard assistance as patient completes activity. Assistance may be provided throughout the activity or intermittently. 3-Partial/Moderate Assistance-helper does LESS THAN HALF the effort. [place] lifts, holds or supports trunk or limbs, but provides less than half the effort. 2-Substantial/Maximal Assistance-helper does MORE THAN HALF the effort. [place] lifts or holds trunk or limbs and provides more than half the effort. 3-Zzlbttbqn-ihiyvf does ALL the effort. Patient does none of the effort to complete the activity. Or, the assistance of 2 or more helpers is required for the patient to complete the activity. If activity was not attempted, code reason: 7-Patient Refused. 9-Not Applicable-not attempted and the patient did not perform the activity before the current illness, exacerbation or injury. 10-Not Attempted due to Environmental Limitations-(lack of equipment, weather restraints, etc.). 88-Not Attempted due to Medical Conditions or Safety Concerns. Roll Left & Right (QC): 3 Sit to Lying (QC): 3 Lying to Sitting/Side of Bed(Q: 3 Sit to Stand (QC): 4 Chair/Nll-qb-Ahbxg Xfer(QC): 4 Gait Training Does the Patient Walk?: Yes Walk 10 feet (QC): 4 Walk 50 ft with 2 Turns(QC): 4 Walk 150 ft (QC): 4 Gait Persons Needed: 1 Gait Assistive Device: FWW followed by w/c pt. ambulated 150 ft, 50 ft and 100 ft with CGA . no melt of right leg , good control, pt. sharing when he felt he should rest Wheelchair Training Does the Pt Use a Wheelchair?: Yes Wheel 50 ft with 2 turns (QC): 6 Wheel 150 ft (QC): 6 Type of Wheelchair: Manual Exercises Supine Ex: Ankle pumps, Quad Set, Rolling, Glut sets, Heel Slides, Short Arc Quads (asssited), Scooting, Straight leg raise (assisted), Hip abd/add (ass sited) Supine Reps: 15 Seated Therapy Exercises: Ankle pumps, Sit to stand, Long arc quads, Hip flexion, Hip abd/add Seated Reps: 15 NuStep Minutes: 10 NuStep Workload: 2 Treatments therex with assist on right, TRFs with assist sup to side to sit flat bed, sit to stand from raised height and arms o chair CGA, gait 150 ft, 100 ft, 50 ft CGA Assessment Current Status: Good Progress PT Short Term Goals Short Term Goals Time Frame: Jan 23, 2022 Roll Left & Right: 6 Sit to lyin (Jorge) Lying to sitting on side of be: 3 (Jorge) Sit to stand: 4 (CGA) Chair/oov-ot-enisy transfer: 4 (CGA) Walk 10 feet: 4 (CGA) Walk 50 feet with two turns: 4 (CGA) PT Wire Tinner Goals Jail Goals PT Jail Goals Time Frame: Feb 06, 2022 Roll Left & Right (QC): 6 Sit to Lying (QC): 4 (SBA) Lying-Sitting on Side/Bed(QC): 4 (SBA) Sit to Stand (QC): 4 (SBA) Chair/Jqa-do-Pjfck Xfer(QC): 4 (SBA) Toilet Transfer (QC): 4 Car Transfer (QC): 4 (SBA) Does the Patient Walk: Yes Walk 10 feet (QC): 4 (SBA) Walk 50ft with 2 Turns (QC): 4 (SBA) Walk 150 ft (QC): 88 Walking 10ft on Uneven Surface: 4 (SBA) 1 Step (curb) (QC): 4 (CGA) 4 Steps (QC): 4 (CGA) 12 Steps (QC): 88 Picking up an Object (QC): 4 (SBA using a email marketing assistant) Wheel 50 feet with 2 turns (QC: 9 Wheel 150 feet: 9 PT Plan Treatment/Plan Treatment Plan: Continue Plan of Care Treatment Plan: Bed Mobility, Education, Functional Activity Sherry, Functional Strength, Group Therapy, Gait, Safety, Therapeutic Exercise, Transfers Treatment Duration: Feb 06, 2022 Frequency: At least 5 of 7 days/Wk (IRF) Estimated Hrs Per Day: 1.5 hours per day Patient and/or Family Agrees t: Yes Safety Risks/Education Patient Education: Gait Training, Transfer Techniques, Correct Positioning, W/C Management, Disease Process, Safety Issues Teaching Recipient: Patient Teaching Methods: Demonstration, Discussion Response to Teaching: Verbalize Understanding, Return Demonstration, Reinforcement Needed Time/GCodes Time In: 800 Time Out: 900 Total Billed Treatment Time: 60 Total Billed Treatment 1,GT25m,EX35m SISSY BOBO [employer] Jan 18, 2022 10:04
--- NOTE | 2022-01-18 11:32 | Occupational Ther Daily Note ---
OT Current Status-Daily Note Subjective Pt alert, sitting in recliner. Pt agrees to therapy. No c/o pain. Mental Status/Objective Patient Orientation: Person, Place, Time, Situation Attachments: Other-See Comments (neck brace) ADL-Treatment Pt declines shower or changing lower body clothing. Pt agrees to grooming, oral care and changing upper body clothing. CGA to SBA for safety during ambulati on/transfers. Sitting at sink, pt able to complete oral care and grooming independently. Modifications by building up handles of utensils for easier at risk specialist completed. Pt takes increased time to complete all functional tasks. Adheres to cervical precautions during tasks. Pt educated on upper body dressing strategies to adhere to precautions-doffing: B UE pulled out of sleeves first then over head, donning: complete in reverse. Due to limitations with L shldr flex ROM, pt utilizes R UE when needed. Min A for upper body dressing. Pt given built up handles for eating utensils. Therapy Code Descriptions/Definitions Functional [place] Measure: 0=Not Assessed/NA 4=Minimal Assistance 1=Total Assistance 5=Supervision or Setup 2=Maximal Assistance 6=Modified [place] 3=Moderate Assistance 7=Complete IndependenceSCALE: Activities may be completed with or without assistive devices. 7-Agegzvcqtb-tivgomx completes the activity by him/herself with no assistance from a helper. 5-Set-up or Clean-up Assistance-helper sets up or cleans up; patient completes activity. [place] assists only prior to or following the activity. 4-Supervision or Touching Assistance-helper provides verbal cues and/or touching/steadying and/or contact guard assistance as patient completes activity. Assistance may be provided throughout the activity or intermittently. 3-Partial/Moderate Assistance-helper does LESS THAN HALF the effort. [place] lifts, holds or supports trunk or limbs, but provides less than half the effort. 2-Substantial/Maximal Assistance-helper does MORE THAN HALF the effort. [place] lifts or holds trunk or limbs and provides more than half the effort. 4-Jfhmikiqy-gztjnv does ALL the effort. Patient does none of the effort to complete the activity. Or, the assistance of 2 or more helpers is required for the patient to complete the activity. If activity was not attempted, code reason: 7-Patient Refused. 9-Not Applicable-not attempted and the patient did not perform the activity before the current illness, exacerbation or injury. 10-Not Attempted due to Environmental Limitations-(lack of equipment, weather restraints, etc.). 88-Not Attempted due to Medical Conditions or Safety Concerns. Oral Hygiene (QC): 6 Upper Body Dressing (QC): 3 (min A) Other Treatment Pt completed isometric shldr exercises to increase strength while adhering to cervical precautions, 1 set 10 reps each for 6 exercises. Pt completed fine motor strengthening and wt bearing with individual fingers for sensory. After session, pt sitting in recliner with call light/phone in reach. All needs met. OT Short Term Goals Short Term Goals Time Frame: Jan 27, 2022 Eatin Oral hygiene: 2 Toileting hygiene: 2 Shower/bathe self: 4 Upper body dressin Lower body dressin Putting on/taking off footwear: 2 OT Prison Goals Aluminum Molding Machine Operator Goals Time Frame: Feb 13, 2022 Acute change in mental status: 0 Inattention: 0 Disorganized thinkin Altered level of consciousness: 0 Eating (QC): 5 Oral Hygiene (QC): 4 Toileting Hygiene (QC): 4 Shower/Bathe Self (QC): 5 Upper Body Dressing (QC): 5 Lower Body Dressing (QC): 4 On/Off Footwear (QC): 4 Additional Goals: 1-Demonstrate ADL Tasks, 2-Verbalize Understanding, 3- ImproveStrength/Sherry 1=Demonstrate adherence to instructed precautions during ADL tasks. 2=Patient will verbalize/demonstrate understanding of assistive devices/modifications for ADL. 3=Patient will improve strength/tolerance for activity to enable patient to perform ADL's. OT Education/Plan Problem List/Assessment Assessment: Decreased Activ Tolerance, Decreased UE Strength, Impaired Self- Care Skills, Restricted Funct UE ROM Discharge Recommendations Plan/Recommendations: Continue POC Treatment Plan/Plan of Care Patient would benefit from OT for education, treatment and training to promote independence in ADL's, mobility, safety and/or upper extremity function for ADL's. Plan of Care: ADL Retraining, Caregiver Training, Functional Mobility, Group Exercise/Act as Ind, UE Funct Exercise/Act, UE Neuromus Re-Ed/Coord Treatment Duration: Feb 13, 2022 Frequency: At least 5 of 7 days/Wk (IRF) Estimated Hrs Per Day: 1.5 hours per day (60-90 min/day) Agreement: Yes Rehab Potential: Fair Time/GCodes Start Time: 10:00 Stop Time: 11:30 Total Time Billed (hr/min): 90 Billed Treatment Time 1 visit-ADL 4 (60 min) EX 2 (30 min) BLOSSOM BROWN Jan 18, 2022 11:32
--- NOTE | 2022-01-18 14:00 | Physical Therapy Daily Note ---
PT Daily Note-Current Subjective Pt. agreeable to Rx. present and offers to bring pts knee brace. Pt. denies any pain Pain Location: No Pain Reported Section J - Health Conditions 1. Rarely or not at all 2. Occasionally 3. Frequently 4. Almost constantly 8. Unable to answer Pain Effect on Sleep: 1 Pain Interference with Therapy: 2 Pain Interference w/Day-to-Day: 2 Mental Status Patient Orientation: Listless Transfers SCALE: Activities may be completed with or without assistive devices. 7-Nmnxqcdrgx-dldqouk completes the activity by him/herself with no assistance from a helper. 5-Set-up or Clean-up Assistance-helper sets up or cleans up; patient completes activity. [place] assists only prior to or following the activity. 4-Supervision or Touching Assistance-helper provides verbal cues and/or touching/steadying and/or contact guard assistance as patient completes activity. Assistance may be provided throughout the activity or intermittently. 3-Partial/Moderate Assistance-helper does LESS THAN HALF the effort. [place] lifts, holds or supports trunk or limbs, but provides less than half the effort. 2-Substantial/Maximal Assistance-helper does MORE THAN HALF the effort. [place] lifts or holds trunk or limbs and provides more than half the effort. 4-Jdowrylpa-vjqgvo does ALL the effort. Patient does none of the effort to complete the activity. Or, the assistance of 2 or more helpers is required for the patient to complete the activity. If activity was not attempted, code reason: 7-Patient Refused. 9-Not Applicable-not attempted and the patient did not perform the activity before the current illness, exacerbation or injury. 10-Not Attempted due to Environmental Limitations-(lack of equipment, weather restraints, etc.). 88-Not Attempted due to Medical Conditions or Safety Concerns. Sit to Stand (QC): 6 Chair/Xbm-sv-Tbniy Xfer(QC): 3 pt. with one incident of approach to recliner and LOB requiring mod assist to recover, retropulsive, this SOLUTION STRATEGIST assisting pt. to sit safely Gait Training Does the Patient Walk?: Yes Walk 150 ft (QC): 4 Gait Persons Needed: 1 Gait Assistive Device: FWW no LOB, slow careful gait , decreased step length but equal Exercises Seated Therapy Exercises: Ankle pumps, Sit to stand, Long arc quads, Hip flexion, Hip abd/add Seated Reps: 20 Treatments gait, TRFs, chair approaches, seated LE ex, Assessment Current Status: Good Progress noted increased right quad strength, greater indep for sit to stand but one incident of LOB in retropulsion while backing up to the recliner PT Short Term Goals Short Term Goals Time Frame: Jan 23, 2022 Roll Left & Right: 6 Sit to lyin (Jorge) Lying to sitting on side of be: 3 (Jorge) Sit to stand: 4 (CGA) Chair/fvj-qn-prgoe transfer: 4 (CGA) Walk 10 feet: 4 (CGA) Walk 50 feet with two turns: 4 (CGA) PT Luncheonette Operator Goals Luncheonette Operator Goals PT Jail Goals Time Frame: Feb 06, 2022 Roll Left & Right (QC): 6 Sit to Lying (QC): 4 (SBA) Lying-Sitting on Side/Bed(QC): 4 (SBA) Sit to Stand (QC): 4 (SBA) Chair/Cfc-wa-Qinsb Xfer(QC): 4 (SBA) Toilet Transfer (QC): 4 Car Transfer (QC): 4 (SBA) Does the Patient Walk: Yes Walk 10 feet (QC): 4 (SBA) Walk 50ft with 2 Turns (QC): 4 (SBA) Walk 150 ft (QC): 88 Walking 10ft on Uneven Surface: 4 (SBA) 1 Step (curb) (QC): 4 (CGA) 4 Steps (QC): 4 (CGA) 12 Steps (QC): 88 Picking up an Object (QC): 4 (SBA using a out patient therapist) Wheel 50 feet with 2 turns (QC: 9 Wheel 150 feet: 9 PT Plan Treatment/Plan Treatment Plan: Continue Plan of Care Treatment Plan: Bed Mobility, Education, Functional Activity Sherry, Functional Strength, Group Therapy, Gait, Safety, Therapeutic Exercise, Transfers Treatment Duration: Feb 06, 2022 Frequency: At least 5 of 7 days/Wk (IRF) Estimated Hrs Per Day: 1.5 hours per day Patient and/or Family Agrees t: Yes Safety Risks/Education Patient Education: Gait Training, Transfer Techniques, Correct Positioning, W/C Management, Disease Process, Safety Issues Teaching Recipient: Patient Teaching Methods: Demonstration, Discussion Response to Teaching: Verbalize Understanding, Return Demonstration, Reinforcement Needed Time/GCodes Time In: 1330 Time Out: 1400 Total Billed Treatment Time: 30 Total Billed Treatment 1,GT20m,EX10m SISSY BOBO PTA Jan 18, 2022 14:00
[2022-01-18 20:00] VITALS: BP 121/67
[2022-01-18] MEDS: meTOprolol SUCCINATE 100 MG (TOPROL XL) TAB PO SCH (20:37)
[2022-01-18] MEDS: TAMSULOSIN 0.4 MG (FLOMAX) CAP PO SCH (20:37)
[2022-01-18] MEDS: ROSUVASTATIN 5 MG (CRESTOR) TABLET PO SCH (20:37)
--- NOTE | 2022-01-19 05:29 | PM&R Progress Note ---
Subjective HPI/CC On Admission Date Seen by Provider: Jan 19, 2022 Time Seen by Provider: 12:00 Subjective/Events-last exam 01/19/2022: Patient doing very well Pain is much improved Moving around very well 01/18/2022: No major issues Gaining strength Less pain BM regimen 01/17/2022: Doing well Slow recovery Pain controlled with Ultram No falls 01/16/2022: Doing well overall Regular diet tolerated No pain reported except neck Ultram is preferred per patient BM+ and feels better No falls Review of Systems General: Fatigue, Malaise Objective Exam Vital Signs Vital Signs Date Time Temp Pulse Resp B/P (MAP) Pulse Ox O2 Delivery O2 Flow Rate FiO2 01/19/22 20:15 36.9 69 20 145/87 (106) 96 Room Air Capillary Refill : General Appearance: No Apparent Distress, WD/WN, Chronically ill HEENT: PERRL/EOMI, Normal ENT Inspection, Pharynx Normal Neck: Full Range of Motion, Normal Inspection, Non Tender, Supple, Carotid Bruit Respiratory: Chest Non Tender, Lungs Clear, Normal Breath Sounds, No Accessory Muscle Use, No Respiratory Distress Cardiovascular: Regular Rate, Rhythm, No Edema, No Gallop, No JVD, No Murmur, Normal Peripheral Pulses Gastrointestinal: Normal Bowel Sounds, No Organomegaly, No Pulsatile Mass, Non Tender, Soft Back: Normal Inspection, No CVA Tenderness, No Vertebral Tenderness Extremity: Normal Capillary Refill, Normal Inspection, Normal Range of Motion, Non Tender, No Calf Tenderness, No Pedal Edema Neurologic/Psychiatric: Alert, Oriented x3, senior sales executive II-XII Norm as Tested, Abnormal Gait, Depressed Affect, Motor Weakness (Severe weakness of lower extremities 2/5) Skin: Normal Color, Warm/Dry Lymphatic: No Adenopathy Results/Procedures Lab Patient resulted labs reviewed. FIM Transfers Therapy Code Descriptions/Definitions Functional [place] Measure: 0=Not Assessed/NA 4=Minimal Assistance 1=Total Assistance 5=Supervision or Setup 2=Maximal Assistance 6=Modified [place] 3=Moderate Assistance 7=Complete IndependenceSCALE: Activities may be completed with or without assistive devices. 0-Tvjetkhgmu-haqcqfc completes the activity by him/herself with no assistance from a helper. 5-Set-up or Clean-up Assistance-helper sets up or cleans up; patient completes activity. [place] assists only prior to or following the activity. 4-Supervision or Touching Assistance-helper provides verbal cues and/or touching /steadying and/or contact guard assistance as patient completes activity. Assistance may be provided throughout the activity or intermittently. 3-Partial/Moderate Assistance-helper does LESS THAN HALF the effort. [place] lifts, holds or supports trunk or limbs, but provides less than half the effort. 2-Substantial/Maximal Assistance-helper does MORE THAN HALF the effort. [place] lifts or holds trunk or limbs and provides more than half the effort. 2-Fhqaojkhd-ehxlbv does ALL the effort. Patient does none of the effort to complete the activity. Or, the assistance of 2 or more helpers is required for the patient to complete the activity. If activity was not attempted, code reason: 7-Patient Refused. 9-Not Applicable-not attempted and the patient did not perform the activity before the current illness, exacerbation or injury. 10-Not Attempted due to Environmental Limitations-(lack of equipment, weather restraints, etc.). 88-Not Attempted due to Medical Conditions or Safety Concerns. Roll Left to Right (QC): 3 Sit to Lying (QC): 3 Sit to Stand (QC): 6 Chair/Biw-fs-Rgnhw Xfer(QC): 3 Car Transfer (QC): 3 Gait Training Does the Patient Walk?: Yes Distance: 10', 20'x2 Walk 10 feet (QC): 4 Walk 50 ft with 2 Turns(QC): 4 Walk 150 ft (QC): 4 Walking 10ft/uneven surface-QC: 88 Gait Persons Needed: 1 Gait Assistive Device: FWW Wheelchair Training Does the Pt Use a Wheelchair?: Yes Wheel 50 ft with 2 turns (QC): 6 Wheel 150 ft (QC): 6 Type of Wheelchair: Manual Stair Training 1 Step (curb) (QC): 88 4 Steps (QC): 88 12 Steps (QC): 88 Balance Picking up an Object (QC): 4 (CGA using a claim clerk) ADL-Treatment Eating (QC): 5 Oral Hygiene (QC): 6 Shower/Bathe Self (QC): 3 Upper Body Dressing (QC): 3 (min A) Lower Body Dressing (QC): 2 (Extra time to complete and problem-solve through) On/Off Footwear (QC): 3 Toileting Hygiene (QC): 1 Assessment/Plan Assessment and Plan Assess & Plan/Chief Complaint Assessment: Severe leg weakness due to cervical spine stenosis causing myelopathy status post surgical resolution 01/05/2022 Severe constipation last BM 01/04/2022 resolved 01/16/2022 Postop dysphagia Profound weight loss due to inability to eat Back pain with lumbar spine disease chronic CKD Stage III usual baseline creat 2.1 HTN CAD HLP Gout Plan: Aggressive PT and OT Aggressive bowel regimen Supportive care 01/16/2022: Monitor closely BM+ 01/17/2022: Supportive care Increase ambulation 01/18/2022: Ultram Increase therapy 01/19/2022: Monitor closely (1) Myelopathy due to cervical spondylosis (2) Bilateral leg weakness Status: Acute (3) Presence of stent in LAD coronary artery Status: Acute (4) Presence of stent in right coronary artery Status: Acute (5) Chronic kidney disease, stage 3 Status: Acute (6) 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
[2022-01-19] MEDS: predniSONE 20 MG TAB PO SCH (06:30)
[2022-01-19 07:23] VITALS: BP 167/83
[2022-01-19] MEDS: ALLOPURINOL 100 MG (ZYLOPRIM) TAB PO SCH (08:07)
[2022-01-19] MEDS: GABAPENTIN 300 MG (NEURONTIN) CAP PO SCH ×2 (08:07→19:54)
[2022-01-19] MEDS: SENNA W/DOCUSATE (SENOKOT S) TABLET PO SCH ×2 (08:07→19:54)
[2022-01-19] MEDS: OMEGA 3 (FISH OIL) 1000 MG CAP PO SCH (08:08)
[2022-01-19] MEDS: LOSARTAN 25 MG (COZAAR) TAB PO SCH (08:08)
[2022-01-19] MEDS: DOCUSATE SODIUM 100 MG (COLACE) CAP PO SCH ×2 (08:08→19:54)
[2022-01-19] MEDS: ASPIRIN 81 MG CHEW (CHILDREN'S ASA) PO SCH (08:10)
[2022-01-19] MEDS: polyethylene glycoL POWDER 17 GM (MIRALAX) PACK PO SCH ×2 (08:10→19:55)
[2022-01-19] MEDS: SUPER B COMPLEX PO SCH (08:11)
[2022-01-19] MEDS: UBIDECARENONE PO SCH (08:12)
--- NOTE | 2022-01-19 09:02 | Physical Therapy Daily Note ---
PT Daily Note-Current Subjective Pt. states he slept well, no c/o pain. Pain Location: No Pain Reported Section J - Health Conditions 1. Rarely or not at all 2. Occasionally 3. Frequently 4. Almost constantly 8. Unable to answer Pain Effect on Sleep: 1 Pain Interference with Therapy: 1 Pain Interference w/Day-to-Day: 1 Mental Status Patient Orientation: Normal For Age Attachments: Other-See Comments (soft cervical collar) Transfers SCALE: Activities may be completed with or without assistive devices. 4-Uuoftvwhwv-btsledk completes the activity by him/herself with no assistance from a helper. 5-Set-up or Clean-up Assistance-helper sets up or cleans up; patient completes activity. [place] assists only prior to or following the activity. 4-Supervision or Touching Assistance-helper provides verbal cues and/or touching/steadying and/or contact guard assistance as patient completes activity. Assistance may be provided throughout the activity or intermittently. 3-Partial/Moderate Assistance-helper does LESS THAN HALF the effort. [place] lifts, holds or supports trunk or limbs, but provides less than half the effort. 2-Substantial/Maximal Assistance-helper does MORE THAN HALF the effort. [place] lifts or holds trunk or limbs and provides more than half the effort. 7-Bvocchdrs-qcnyxp does ALL the effort. Patient does none of the effort to complete the activity. Or, the assistance of 2 or more helpers is required for the patient to complete the activity. If activity was not attempted, code reason: 7-Patient Refused. 9-Not Applicable-not attempted and the patient did not perform the activity before the current illness, exacerbation or injury. 10-Not Attempted due to Environmental Limitations-(lack of equipment, weather restraints, etc.). 88-Not Attempted due to Medical Conditions or Safety Concerns. Roll Left & Right (QC): 3 Lying to Sitting/Side of Bed(Q: 3 Sit to Stand (QC): 4 Chair/Mjc-hf-Fzkvf Xfer(QC): 4 needs assist to complete rolling as well as assist to reach with left hand for rail to come to sit, sit to stand CGA to SBA Gait Training Does the Patient Walk?: Yes Walk 10 feet (QC): 4 Walk 50 ft with 2 Turns(QC): 4 Walk 150 ft (QC): 4 Gait Persons Needed: 1 Gait Assistive Device: FWW slow, plans every step to be careful, occas noted right knee instability but pt. corrects it, head down , pt watching his feet etc, Wheelchair Training Does the Pt Use a Wheelchair?: Yes Wheel 50 ft with 2 turns (QC): 5 Type of Wheelchair: Manual assist for 1 brake and instruction for using feet to step forward and propel Exercises Supine Ex: Ankle pumps, Quad Set, Rolling, Glut sets, Heel Slides, Short Arc Quads, Scooting, Straight leg raise, Hip abd/add Supine Reps: 15 Seated Therapy Exercises: Ankle pumps, Sit to stand, Long arc quads, Hip flexion Seated Reps: 15 Standing: Heel/toe raises, Marching Standing Reps: 12 NuStep Minutes: 10 NuStep Workload: 4 Assessment Current Status: Good Progress progressing in all areas, gait more stable today PT Short Term Goals Short Term Goals Time Frame: Jan 23, 2022 Roll Left & Right: 6 Sit to lyin (Jorge) Lying to sitting on side of be: 3 (Jorge) Sit to stand: 4 (CGA) Chair/czx-ts-xemwf transfer: 4 (CGA) Walk 10 feet: 4 (CGA) Walk 50 feet with two turns: 4 (CGA) PT [facility] Goals Oil Burner Mechanic Goals PT [facility] Goals Time Frame: Feb 06, 2022 Roll Left & Right (QC): 6 Sit to Lying (QC): 4 (SBA) Lying-Sitting on Side/Bed(QC): 4 (SBA) Sit to Stand (QC): 4 (SBA) Chair/Qhy-cm-Uhmme Xfer(QC): 4 (SBA) Toilet Transfer (QC): 4 Car Transfer (QC): 4 (SBA) Does the Patient Walk: Yes Walk 10 feet (QC): 4 (SBA) Walk 50ft with 2 Turns (QC): 4 (SBA) Walk 150 ft (QC): 88 Walking 10ft on Uneven Surface: 4 (SBA) 1 Step (curb) (QC): 4 (CGA) 4 Steps (QC): 4 (CGA) 12 Steps (QC): 88 Picking up an Object (QC): 4 (SBA using a general repair mechanic) Wheel 50 feet with 2 turns (QC: 9 Wheel 150 feet: 9 PT Plan Treatment/Plan Treatment Plan: Continue Plan of Care Treatment Plan: Bed Mobility, Education, Functional Activity Sherry, Functional Strength, Group Therapy, Gait, Safety, Therapeutic Exercise, Transfers Treatment Duration: Feb 06, 2022 Frequency: At least 5 of 7 days/Wk (IRF) Estimated Hrs Per Day: 1.5 hours per day Patient and/or Family Agrees t: Yes Safety Risks/Education Patient Education: Gait Training, Transfer Techniques, Correct Positioning, W/C Management, Disease Process, Safety Issues Teaching Recipient: Patient Teaching Methods: Demonstration, Discussion Response to Teaching: Verbalize Understanding, Return Demonstration, Reinforcement Needed Time/GCodes Time In: 800 Time Out: 900 Total Billed Treatment Time: 60 Total Billed Treatment 1,GT30m,EX30m SISSY BOBO PTA Jan 19, 2022 09:02
--- NOTE | 2022-01-19 10:23 | Occupational Ther Daily Note ---
OT Current Status-Daily Note Subjective Pt alert, sitting in recliner. Pt agrees to therapy. No c/o pain. Mental Status/Objective Patient Orientation: Person, Place, Time, Situation Attachments: Other-See Comments (neck brace) ADL-Treatment Pt agrees to shower. Sit to stand, SBA. Ambulation with FWW, CGA for safety. As pt transferred into shower, R knee buckled and assist given to right self. Using AE pt able to doff clothing over feet by self, CGA to hike over hips. Due to tight neck on shirt assist to pipe puller pt's head. Pt is using modified technique to don/doff shirt (B UE then head-doff, head then B UE-don). Pt able to complete shower sitting on shower bench 100% of the time using hand held shower, grabbars and LH sponge. Pt educated on modified drying technique for feet if needed. Min A for donning shirt. Independent in sitting to complete oral care. Pt unable to stand safely for the length of time it would take to complete oral care. Pt threaded feet into pants then CGA while standing as pt hiked pants over hips. Assist to don RICHAR hose then set up to don socks using AE. Modified zipper pull for pt's shorts to allow pt to more efficiently zip/unzip for toileting. After therapy, pt sitting in recliner with call light/phone in reach. All needs met in room. Therapy Code Descriptions/Definitions Functional [place] Measure: 0=Not Assessed/NA 4=Minimal Assistance 1=Total Assistance 5=Supervision or Setup 2=Maximal Assistance 6=Modified [place] 3=Moderate Assistance 7=Complete IndependenceSCALE: Activities may be completed with or without assistive devices. 6-Kcjznlfvlf-ueotykp completes the activity by him/herself with no assistance from a helper. 5-Set-up or Clean-up Assistance-helper sets up or cleans up; patient completes activity. [place] assists only prior to or following the activity. 4-Supervision or Touching Assistance-helper provides verbal cues and/or touching/steadying and/or contact guard assistance as patient completes activity. Assistance may be provided throughout the activity or intermittently. 3-Partial/Moderate Assistance-helper does LESS THAN HALF the effort. [place] lifts, holds or supports trunk or limbs, but provides less than half the effort. 2-Substantial/Maximal Assistance-helper does MORE THAN HALF the effort. [place] lifts or holds trunk or limbs and provides more than half the effort. 6-Hjvedolzw-dkslsm does ALL the effort. Patient does none of the effort to complete the activity. Or, the assistance of 2 or more helpers is required for the patient to complete the activity. If activity was not attempted, code reason: 7-Patient Refused. 9-Not Applicable-not attempted and the patient did not perform the activity befo re the current illness, exacerbation or injury. 10-Not Attempted due to Environmental Limitations-(lack of equipment, weather re straints, etc.). 88-Not Attempted due to Medical Conditions or Safety Concerns. Oral Hygiene (QC): 6 (in sitting) Shower/Bathe Self (QC): 4 (verbal cues for modifications to dry feet) Upper Body Dressing (QC): 3 (min A) Lower Body Dressing (QC): 4 (CGA) On/Off Footwear: 2 OT Short Term Goals Short Term Goals Time Frame: Jan 27, 2022 Eatin Oral hygiene: 2 Toileting hygiene: 2 Shower/bathe self: 4 Upper body dressin Lower body dressin Putting on/taking off footwear: 2 OT Longterm Goals Powertrain Control Systems Engineer Goals Time Frame: Feb 13, 2022 Acute change in mental status: 0 Inattention: 0 Disorganized thinkin Altered level of consciousness: 0 Eating (QC): 5 Oral Hygiene (QC): 4 Toileting Hygiene (QC): 4 Shower/Bathe Self (QC): 5 Upper Body Dressing (QC): 5 Lower Body Dressing (QC): 4 On/Off Footwear (QC): 4 Additional Goals: 1-Demonstrate ADL Tasks, 2-Verbalize Understanding, 3- ImproveStrength/Sherry 1=Demonstrate adherence to instructed precautions during ADL tasks. 2=Patient will verbalize/demonstrate understanding of assistive d evices/modifications for ADL. 3=Patient will improve strength/tolerance for activity to enable patient to perform ADL's. OT Education/Plan Problem List/Assessment Assessment: Decreased Activ Tolerance, Decreased UE Strength, Impaired Funct Balance, Impaired Self-Care Skills, Restricted Funct UE ROM Discharge Recommendations Plan/Recommendations: Continue POC Treatment Plan/Plan of Care Patient would benefit from OT for education, treatment and training to promote independence in ADL's, mobility, safety and/or upper extremity function for ADL's. Plan of Care: ADL Retraining, Caregiver Training, Functional Mobility, Group Exercise/Act as Ind, UE Funct Exercise/Act, UE Neuromus Re-Ed/Coord Treatment Duration: Feb 13, 2022 Frequency: At least 5 of 7 days/Wk (IRF) Estimated Hrs Per Day: 1.5 hours per day (60-90 min/day) Agreement: Yes Rehab Potential: Fair Time/GCodes Start Time: 10:00 Stop Time: 11:30 Total Time Billed (hr/min): 90 Billed Treatment Time 1 visit-ADL 6 (90 min) BLOSSOM BROWN Jan 19, 2022 10:23
--- NOTE | 2022-01-19 13:41 | Physical Therapy Daily Note ---
PT Daily Note-Current Subjective Pt. up in recliner , agrees to Rx, wants to work on getting in out bed from supine , log rolling etc from firmer surface in Gym on Rx table. No c/o pain Pain Location: No Pain Reported Section J - Health Conditions 1. Rarely or not at all 2. Occasionally 3. Frequently 4. Almost constantly 8. Unable to answer Pain Effect on Sleep: 1 Pain Interference with Therapy: 1 Pain Interference w/Day-to-Day: 1 Mental Status Patient Orientation: Normal For Age Attachments: Other-See Comments (saoft cervical collar) Transfers SCALE: Activities may be completed with or without assistive devices. 4-Qmgtbtjcmr-skryyxe completes the activity by him/herself with no assistance from a helper. 5-Set-up or Clean-up Assistance-helper sets up or cleans up; patient completes activity. [place] assists only prior to or following the activity. 4-Supervision or Touching Assistance-helper provides verbal cues and/or touching/steadying and/or contact guard assistance as patient completes activity. Assistance may be provided throughout the activity or intermittently. 3-Partial/Moderate Assistance-helper does LESS THAN HALF the effort. [place] lifts, holds or supports trunk or limbs, but provides less than half the effort. 2-Substantial/Maximal Assistance-helper does MORE THAN HALF the effort. [place] lifts or holds trunk or limbs and provides more than half the effort. 6-Qoxtwjigz-qzemgu does ALL the effort. Patient does none of the effort to complete the activity. Or, the assistance of 2 or more helpers is required for the patient to complete the activity. If activity was not attempted, code reason: 7-Patient Refused. 9-Not Applicable-not attempted and the patient did not perform the activity before the current illness, exacerbation or injury. 10-Not Attempted due to Environmental Limitations-(lack of equipment, weather restraints, etc.). 88-Not Attempted due to Medical Conditions or Safety Concerns. Roll Left & Right (QC): 6 Sit to Lying (QC): 4 Lying to Sitting/Side of Bed(Q: 6 Sit to Stand (QC): 6 Chair/Nbm-il-Lhhxl Xfer(QC): 6 instruction for safe technique for sit to supine and supine to right side to sit using walker at side as rail . Pt. had much improved success on firmer surface vs hosp bed. Gait Training Does the Patient Walk?: Yes Gait Assistive Device: FWW 150 ft x1, 75 ft x 1 no LOB, slow CGA, pt. aware every step with RLE to extend and use safety awareness for stability R knee. Exercises Supine Ex: Ankle pumps, Quad Set, Rolling, Glut sets, Heel Slides, Short Arc Quads (assisted right), Scooting, Straight leg raise (assisted right), Hip abd/add Supine Reps: 15 Assessment Current Status: Good Progress continues good progress in all phases of Rx PT Short Term Goals Short Term Goals Time Frame: Jan 23, 2022 Roll Left & Right: 6 Sit to lyin (Jorge) Lying to sitting on side of be: 3 (Jorge) Sit to stand: 4 (CGA) Chair/bhz-wg-jgiik transfer: 4 (CGA) Walk 10 feet: 4 (CGA) Walk 50 feet with two turns: 4 (CGA) PT Ent Consultant Goals Ent Consultant Goals PT [facility] Goals Time Frame: Feb 06, 2022 Roll Left & Right (QC): 6 Sit to Lying (QC): 4 (SBA) Lying-Sitting on Side/Bed(QC): 4 (SBA) Sit to Stand (QC): 4 (SBA) Chair/Jkk-pg-Oafei Xfer(QC): 4 (SBA) Toilet Transfer (QC): 4 Car Transfer (QC): 4 (SBA) Does the Patient Walk: Yes Walk 10 feet (QC): 4 (SBA) Walk 50ft with 2 Turns (QC): 4 (SBA) Walk 150 ft (QC): 88 Walking 10ft on Uneven Surface: 4 (SBA) 1 Step (curb) (QC): 4 (CGA) 4 Steps (QC): 4 (CGA) 12 Steps (QC): 88 Picking up an Object (QC): 4 (SBA using a industrial refrigeration mechanic) Wheel 50 feet with 2 turns (QC: 9 Wheel 150 feet: 9 PT Plan Treatment/Plan Treatment Plan: Continue Plan of Care Treatment Plan: Bed Mobility, Education, Functional Activity Sherry, Functional Strength, Group Therapy, Gait, Safety, Therapeutic Exercise, Transfers Treatment Duration: Feb 06, 2022 Frequency: At least 5 of 7 days/Wk (IRF) Estimated Hrs Per Day: 1.5 hours per day Patient and/or Family Agrees t: Yes Safety Risks/Education Patient Education: Gait Training, Transfer Techniques, Correct Positioning, Disease Process, Safety Issues Teaching Recipient: Patient Teaching Methods: Demonstration, Discussion Response to Teaching: Verbalize Understanding, Return Demonstration, Reinforcem ent Needed Time/GCodes Time In: 1300 Time Out: 1335 Total Billed Treatment Time: 35 Total Billed Treatment 1,GT15m,EX20m SISSY BOBO CRYPTOGRAPHY TEACHER Jan 19, 2022 13:41
[2022-01-19] MEDS: TAMSULOSIN 0.4 MG (FLOMAX) CAP PO SCH (19:54)
[2022-01-19] MEDS: ROSUVASTATIN 5 MG (CRESTOR) TABLET PO SCH (19:54)
[2022-01-19] MEDS: meTOprolol SUCCINATE 100 MG (TOPROL XL) TAB PO SCH (19:54)
[2022-01-19 20:15] VITALS: BP 145/87
--- NOTE | 2022-01-20 06:16 | PM&R Progress Note ---
Subjective HPI/CC On Admission Date Seen by Provider: Jan 20, 2022 Time Seen by Provider: 12:00 Subjective/Events-last exam 01/20/2022: No major issues No pain Improved movement 01/19/2022: Patient doing very well Pain is much improved Moving around very well 01/18/2022: No major issues Gaining strength Less pain BM regimen 01/17/2022: Doing well Slow recovery Pain controlled with Ultram No falls 01/16/2022: Doing well overall Regular diet tolerated No pain reported except neck Ultram is preferred per patient BM+ and feels better No falls Review of Systems General: Fatigue, Malaise Objective Exam Vital Signs Vital Signs Date Time Temp Pulse Resp B/P (MAP) Pulse Ox O2 Delivery O2 Flow Rate FiO2 01/20/22 19:49 36.4 69 20 163/91 (115) 95 Room Air Capillary Refill : General Appearance: No Apparent Distress, WD/WN, Chronically ill HEENT: PERRL/EOMI, Normal ENT Inspection, Pharynx Normal Neck: Full Range of Motion, Normal Inspection, Non Tender, Supple, Carotid Bruit Respiratory: Chest Non Tender, Lungs Clear, Normal Breath Sounds, No Accessory Muscle Use, No Respiratory Distress Cardiovascular: Regular Rate, Rhythm, No Edema, No Gallop, No JVD, No Murmur, Normal Peripheral Pulses Gastrointestinal: Normal Bowel Sounds, No Organomegaly, No Pulsatile Mass, Non Tender, Soft Back: Normal Inspection, No CVA Tenderness, No Vertebral Tenderness Extremity: Normal Capillary Refill, Normal Inspection, Normal Range of Motion, Non Tender, No Calf Tenderness, No Pedal Edema Neurologic/Psychiatric: Alert, Oriented x3, air brake man II-XII Norm as Tested, Abnormal Gait, Depressed Affect, Motor Weakness (Severe weakness of lower extremities 2/5) Skin: Normal Color, Warm/Dry Lymphatic: No Adenopathy Results/Procedures Lab Patient resulted labs reviewed. FIM Transfers Therapy Code Descriptions/Definitions Functional [place] Measure: 0=Not Assessed/NA 4=Minimal Assistance 1=Total Assistance 5=Supervision or Setup 2=Maximal Assistance 6=Modified [place] 3=Moderate Assistance 7=Complete IndependenceSCALE: Activities may be completed with or without assistive devices. 4-Vvjzfvnvae-sgiyekh completes the activity by him/herself with no assistance from a helper. 5-Set-up or Clean-up Assistance-helper sets up or cleans up; patient completes activity. [place] assists only prior to or following the activity. 4-Supervision or Touching Assistance-helper provides verbal cues and/or touching/steadying and/or contact guard assistance as patient completes activity . Assistance may be provided throughout the activity or intermittently. 3-Partial/Moderate Assistance-helper does LESS THAN HALF the effort. [place] lifts, holds or supports trunk or limbs, but provides less than half the effort. 2-Substantial/Maximal Assistance-helper does MORE THAN HALF the effort. [place] lifts or holds trunk or limbs and provides more than half the effort. 1-Yscrgzrut-huagms does ALL the effort. Patient does none of the effort to complete the activity. Or, the assistance of 2 or more helpers is required for the patient to complete the activity. If activity was not attempted, code reason: 7-Patient Refused. 9-Not Applicable-not attempted and the patient did not perform the activity before the current illness, exacerbation or injury. 10-Not Attempted due to Environmental Limitations-(lack of equipment, weather restraints, etc.). 88-Not Attempted due to Medical Conditions or Safety Concerns. Roll Left to Right (QC): 6 Sit to Lying (QC): 4 Sit to Stand (QC): 6 Chair/Njd-yp-Tgprs Xfer(QC): 6 Car Transfer (QC): 3 Gait Training Does the Patient Walk?: Yes Distance: 10', 20'x2 Walk 10 feet (QC): 4 Walk 50 ft with 2 Turns(QC): 4 Walk 150 ft (QC): 4 Walking 10ft/uneven surface-QC: 88 Gait Persons Needed: 1 Gait Assistive Device: FWW Wheelchair Training Does the Pt Use a Wheelchair?: Yes Wheel 50 ft with 2 turns (QC): 5 Wheel 150 ft (QC): 6 Type of Wheelchair: Manual Stair Training 1 Step (curb) (QC): 88 4 Steps (QC): 88 12 Steps (QC): 88 Balance Picking up an Object (QC): 4 (CGA using a cold header) ADL-Treatment Eating (QC): 5 Oral Hygiene (QC): 6 (in sitting) Shower/Bathe Self (QC): 4 (verbal cues for modifications to dry feet) Upper Body Dressing (QC): 3 (min A) Lower Body Dressing (QC): 4 (CGA) On/Off Footwear (QC): 2 Toileting Hygiene (QC): 1 Assessment/Plan Assessment and Plan Assess & Plan/Chief Complaint Assessment: Severe leg weakness due to cervical spine stenosis causing myelopathy status post surgical resolution 01/05/2022 Severe constipation last BM 01/04/2022 resolved 01/16/2022 Postop dysphagia Profound weight loss due to inability to eat Back pain with lumbar spine disease chronic CKD Stage III usual baseline creat 2.1 HTN CAD HLP Gout Plan: Aggressive PT and OT Aggressive bowel regimen Supportive care 01/16/2022: Monitor closely BM+ 01/17/2022: Supportive care Increase ambulation 01/18/2022: Ultram Increase therapy 01/19/2022: Monitor closely 01/20/2022: Supportive care (1) Myelopathy due to cervical spondylosis (2) Bilateral leg weakness Status: Acute (3) Presence of stent in LAD coronary artery Status: Acute (4) Presence of stent in right coronary artery Status: Acute (5) Chronic kidney disease, stage 3 Status: Acute (6) 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
[2022-01-20] MEDS: predniSONE 20 MG TAB PO SCH (06:50)
[2022-01-20 07:10] VITALS: BP 133/82
--- NOTE | 2022-01-20 07:23 | Occupational Ther Daily Note ---
OT Current Status-Daily Note Subjective Pt alert, sitting on EOB with nrsg. Pt agrees to therapy. No c/o pain. Mental Status/Objective Patient Orientation: Person, Place, Time, Situation Attachments: Other-See Comments (neck brace) ADL-Treatment Pt is demonstrating increased mobility and strength in hands and B LE's. After setup, pt able to thread feet into pants then CGA for safety in standing while pt hikes pants over hips. Pt requires assistance to open smaller containers though is able to open bottles(larger turn lids). Pt is able to use built up utensils to cut, scoop, spear and bring to mouth by self. Ambulate using FWW with CGA for safety to bathroom. CGA for toilet transfer. Min A to manipulate clothing, pt cleanse self sitting on toilet though not thoroughly. Sitting at sink, pt completes oral care independently. Therapy Code Descriptions/Definitions Functional [place] Measure: 0=Not Assessed/NA 4=Minimal Assistance 1=Total Assistance 5=Supervision or Setup 2=Maximal Assistance 6=Modified [place] 3=Moderate Assistance 7=Complete IndependenceSCALE: Activities may be completed with or without assistive devices. 0-Tialzdnijk-hrjgcca completes the activity by him/herself with no assistance from a helper. 5-Set-up or Clean-up Assistance-helper sets up or cleans up; patient completes activity. [place] assists only prior to or following the activity. 4-Supervision or Touching Assistance-helper provides verbal cues and/or touching/steadying and/or contact guard assistance as patient completes activity. Assistance may be provided throughout the activity or intermittently. 3-Partial/Moderate Assistance-helper does LESS THAN HALF the effort. [place] lif ts, holds or supports trunk or limbs, but provides less than half the effort. 2-Substantial/Maximal Assistance-helper does MORE THAN HALF the effort. [place] lifts or holds trunk or limbs and provides more than half the effort. 3-Rbwjfvdle-wmyufv does ALL the effort. Patient does none of the effort to complete the activity. Or, the assistance of 2 or more helpers is required for the patient to complete the activity. If activity was not attempted, code reason: 7-Patient Refused. 9-Not Applicable-not attempted and the patient did not perform the activity before the current illness, exacerbation or injury. 10-Not Attempted due to Environmental Limitations-(lack of equipment, weather restraints, etc.). 88-Not Attempted due to Medical Conditions or Safety Concerns. Eating (QC): 5 Oral Hygiene (QC): 6 Lower Body Dressing (QC): 3 (min A) Toileting Hygiene (QC): 4 Toilet Transfer (QC): 4 Other Treatment Pt given HEP for shldr isometric exercises, pt verbalized understanding of exercises. Pt then completed UE pulleys without resistance for 4 min to increase AROM and decrease tightness. After session, pt sitting in recliner with call light/phone in reach. All needs met in room. OT Short Term Goals Short Term Goals Time Frame: Jan 27, 2022 Eatin Oral hygiene: 2 Toileting hygiene: 2 Shower/bathe self: 4 Upper body dressin Lower body dressin Putting on/taking off footwear: 2 OT Penitentiary Goals Penitentiary Goals Time Frame: Feb 13, 2022 Acute change in mental status: 0 Inattention: 0 Disorganized thinkin Altered level of consciousness: 0 Eating (QC): 5 Oral Hygiene (QC): 4 Toileting Hygiene (QC): 4 Shower/Bathe Self (QC): 5 Upper Body Dressing (QC): 5 Lower Body Dressing (QC): 4 On/Off Footwear (QC): 4 Additional Goals: 1-Demonstrate ADL Tasks, 2-Verbalize Understanding, 3- ImproveStrength/Sherry 1=Demonstrate adherence to instructed precautions during ADL tasks. 2=Patient will verbalize/demonstrate understanding of assistive devices/modifications for ADL. 3=Patient will improve strength/tolerance for activity to enable patient to perform ADL's. OT Education/Plan Problem List/Assessment Assessment: Decreased Activ Tolerance, Decreased UE Strength, Impaired Self- Care Skills, Restricted Funct UE ROM Discharge Recommendations Plan/Recommendations: Continue POC Treatment Plan/Plan of Care Patient would benefit from OT for education, treatment and training to promote independence in ADL's, mobility, safety and/or upper extremity function for ADL's. Plan of Care: ADL Retraining, Caregiver Training, Functional Mobility, Group Exercise/Act as Ind, UE Funct Exercise/Act, UE Neuromus Re-Ed/Coord Treatment Duration: Feb 13, 2022 Frequency: At least 5 of 7 days/Wk (IRF) Estimated Hrs Per Day: 1.5 hours per day (60-90 min/day) Agreement: Yes Rehab Potential: Fair Time/GCodes Start Time: 06:50 Stop Time: 08:20 Total Time Billed (hr/min): 90 Billed Treatment Time 1 visit-ADL 4 (65 min) EX 2 (25 min) BLOSSOM BROWN Jan 20, 2022 07:23
[2022-01-20] MEDS: OMEGA 3 (FISH OIL) 1000 MG CAP PO SCH (08:16)
[2022-01-20] MEDS: DOCUSATE SODIUM 100 MG (COLACE) CAP PO SCH ×2 (08:16→21:02)
[2022-01-20] MEDS: LOSARTAN 25 MG (COZAAR) TAB PO SCH (08:16)
[2022-01-20] MEDS: GABAPENTIN 300 MG (NEURONTIN) CAP PO SCH ×2 (08:16→21:02)
[2022-01-20] MEDS: ASPIRIN 81 MG CHEW (CHILDREN'S ASA) PO SCH (08:16)
[2022-01-20] MEDS: SENNA W/DOCUSATE (SENOKOT S) TABLET PO SCH ×2 (08:16→21:02)
[2022-01-20] MEDS: ALLOPURINOL 100 MG (ZYLOPRIM) TAB PO SCH (08:17)
[2022-01-20] MEDS: SUPER B COMPLEX PO SCH (08:18)
[2022-01-20] MEDS: UBIDECARENONE PO SCH (08:19)
[2022-01-20] MEDS: polyethylene glycoL POWDER 17 GM (MIRALAX) PACK PO SCH ×2 (08:20→21:06)
--- NOTE | 2022-01-20 11:05 | Physical Therapy Daily Note ---
PT Daily Note-Current Subjective Pt. agrees to Rx, states he feels a little stronger every day. Pain Location: No Pain Reported Section J - Health Conditions 1. Rarely or not at all 2. Occasionally 3. Frequently 4. Almost constantly 8. Unable to answer Pain Effect on Sleep: 1 Pain Interference with Therapy: 1 Pain Interference w/Day-to-Day: 1 Mental Status Patient Orientation: Normal For Age Attachments: Other-See Comments (cervical soft collar) Transfers SCALE: Activities may be completed with or without assistive devices. 1-Envlnclxuc-honndkl completes the activity by him/herself with no assistance from a helper. 5-Set-up or Clean-up Assistance-helper sets up or cleans up; patient completes activity. [place] assists only prior to or following the activity. 4-Supervision or Touching Assistance-helper provides verbal cues and/or touching/steadying and/or contact guard assistance as patient completes activity. Assistance may be provided throughout the activity or intermittently. 3-Partial/Moderate Assistance-helper does LESS THAN HALF the effort. [place] lifts, holds or supports trunk or limbs, but provides less than half the effort. 2-Substantial/Maximal Assistance-helper does MORE THAN HALF the effort. [place] lifts or holds trunk or limbs and provides more than half the effort. 3-Nwzesufha-hdozoz does ALL the effort. Patient does none of the effort to complete the activity. Or, the assistance of 2 or more helpers is required for the patient to complete the activity. If activity was not attempted, code reason: 7-Patient Refused. 9-Not Applicable-not attempted and the patient did not perform the activity before the current illness, exacerbation or injury. 10-Not Attempted due to Environmental Limitations-(lack of equipment, weather restraints, etc.). 88-Not Attempted due to Medical Conditions or Safety Concerns. Roll Left & Right (QC): 6 Sit to Lying (QC): 6 Lying to Sitting/Side of Bed(Q: 6 Sit to Stand (QC): 6 Chair/Exd-xl-Rfeiq Xfer(QC): 6 Gait Training Does the Patient Walk?: Yes Walk 10 feet (QC): 6 Walk 50 ft with 2 Turns(QC): 6 Walk 150 ft (QC): 6 Gait Persons Needed: 1 Gait Assistive Device: FWW SBA for all gait, w/c follow at times as pt. fatigued, no "melting " of R knee, pt. flexed over FWW a bit, slow, careful with good awareness of R knee stability Stair Training Stair Training: Handrails/: 2 handrails #of Steps: 5 4 Steps (QC): 4 Stairs: Pattern: Step to steps initiated inside parallel bars with small wooden steps, then on stairs with rail at small height steps with CGA and instruction for all and sequence Exercises Supine Ex: Bridging, Ankle pumps, Quad Set, Rolling, Glut sets, Heel Slides, Short Arc Quads, Scooting, Straight leg raise, Hip abd/add Supine Reps: 12 Seated Therapy Exercises: Ankle pumps, Sit to stand, Long arc quads, Hip flexion, Hip abd/add Seated Reps: 12 Treatments gait, TRFs, steps, therex Assessment Current Status: Good Progress noted progress in all phases, pt. gives full effort PT Short Term Goals Short Term Goals Time Frame: Jan 23, 2022 Roll Left & Right: 6 Sit to lyin (Jorge) Lying to sitting on side of be: 3 (Jorge) Sit to stand: 4 (CGA) Chair/snv-tk-kyxhs transfer: 4 (CGA) Walk 10 feet: 4 (CGA) Walk 50 feet with two turns: 4 (CGA) PT Care Home Goals Underwater Hunter Trapper Goals PT Care Home Goals Time Frame: Feb 06, 2022 Roll Left & Right (QC): 6 Sit to Lying (QC): 4 (SBA) Lying-Sitting on Side/Bed(QC): 4 (SBA) Sit to Stand (QC): 4 (SBA) Chair/Kkl-un[employer] Xfer(QC): 4 (SBA) Toilet Transfer (QC): 4 Car Transfer (QC): 4 (SBA) Does the Patient Walk: Yes Walk 10 feet (QC): 4 (SBA) Walk 50ft with 2 Turns (QC): 4 (SBA) Walk 150 ft (QC): 88 Walking 10ft on Uneven Surface: 4 (SBA) 1 Step (curb) (QC): 4 (CGA) 4 Steps (QC): 4 (CGA) 12 Steps (QC): 88 Picking up an Object (QC): 4 (SBA using a passenger service representative) Wheel 50 feet with 2 turns (QC: 9 Wheel 150 feet: 9 PT Plan Treatment/Plan Treatment Plan: Continue Plan of Care Treatment Plan: Bed Mobility, Education, Functional Activity Sherry, Functional Strength, Group Therapy, Gait, Safety, Therapeutic Exercise, Transfers Treatment Duration: Feb 06, 2022 Frequency: At least 5 of 7 days/Wk (IRF) Estimated Hrs Per Day: 1.5 hours per day Patient and/or Family Agrees t: Yes Safety Risks/Education Patient Education: Gait Training, Transfer Techniques, Steps, Correct Positioning, Disease Process, Safety Issues Teaching Recipient: Patient Teaching Methods: Demonstration, Discussion Response to Teaching: Verbalize Understanding, Return Demonstration, Reinforcement Needed Time/GCodes Time In: 1000 Time Out: 1100 Total Billed Treatment Time: 60 Total Billed Treatment 1,FA30m,GT15m,EX15m 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
--- NOTE | 2022-01-20 13:55 | Physical Therapy Daily Note ---
PT Daily Note-Current Subjective Patient in recliner pre tx, agrees to PT, has no complaints of pain. Pain Section J - Health Conditions 1. Rarely or not at all 2. Occasionally 3. Frequently 4. Almost constantly 8. Unable to answer Pain Effect on Sleep: 1 Pain Interference with Therapy: 1 Pain Interference w/Day-to-Day: 1 Appearance Patient in recliner post tx with nurse call, phone, tray, all needs met. Mental Status Patient Orientation: Person, Place, Situation soft cervical collar Transfers SCALE: Activities may be completed with or without assistive devices. 9-Algwsvnbto-uvzkenm completes the activity by him/herself with no assistance from a helper. 5-Set-up or Clean-up Assistance-helper sets up or cleans up; patient completes activity. [place] assists only prior to or following the activity. 4-Supervision or Touching Assistance-helper provides verbal cues and/or touching/steadying and/or contact guard assistance as patient completes activity. Assistance may be provided throughout the activity or intermittently. 3-Partial/Moderate Assistance-helper does LESS THAN HALF the effort. [place] lifts, holds or supports trunk or limbs, but provides less than half the effort. 2-Substantial/Maximal Assistance-helper does MORE THAN HALF the effort. [place] lifts or holds trunk or limbs and provides more than half the effort. 6-Qtnuyaouc-bxlzrb does ALL the effort. Patient does none of the effort to complete the activity. Or, the assistance of 2 or more helpers is required for the patient to complete the activity. If activity was not attempted, code reason: 7-Patient Refused. 9-Not Applicable-not attempted and the patient did not perform the activity before the current illness, exacerbation or injury. 10-Not Attempted due to Environmental Limitations-(lack of equipment, weather restraints, etc.). 88-Not Attempted due to Medical Conditions or Safety Concerns. Sit to Stand (QC): 4 Chair/Rha-lk-Kaowi Xfer(QC): 4 SBA Gait Training Distance: 120'x2 Walk 10 feet (QC): 4 Walk 50 ft with 2 Turns(QC): 4 Gait Persons Needed: 1 Gait Assistive Device: FWW slow ambulation, no right knee buckling, close SBA Exercises Standing: Hip Abduction, Hamstring curls, Heel/toe raises, Marching, Mini squats Standing Reps: 15 Treatments transfers, ambulation, LE strengthening Assessment Current Status: Fair Progress (steadily improving general mobility) PT Short Term Goals Short Term Goals Time Frame: Jan 23, 2022 Roll Left & Right: 6 Sit to lyin (Jorge) Lying to sitting on side of be: 3 (Jorge) Sit to stand: 4 (CGA) Chair/tbh-rd-cpcjc transfer: 4 (CGA) Walk 10 feet: 4 (CGA) Walk 50 feet with two turns: 4 (CGA) PT Ticket Chopper Assembler Goals Ticket Chopper Assembler Goals PT [facility] Goals Time Frame: Feb 06, 2022 Roll Left & Right (QC): 6 Sit to Lying (QC): 4 (SBA) Lying-Sitting on Side/Bed(QC): 4 (SBA) Sit to Stand (QC): 4 (SBA) Chair/Xkj-ry-Djazm Xfer(QC): 4 (SBA) Toilet Transfer (QC): 4 Car Transfer (QC): 4 (SBA) Does the Patient Walk: Yes Walk 10 feet (QC): 4 (SBA) Walk 50ft with 2 Turns (QC): 4 (SBA) Walk 150 ft (QC): 88 Walking 10ft on Uneven Surface: 4 (SBA) 1 Step (curb) (QC): 4 (CGA) 4 Steps (QC): 4 (CGA) 12 Steps (QC): 88 Picking up an Object (QC): 4 (SBA using a ice scraper) Wheel 50 feet with 2 turns (QC: 9 Wheel 150 feet: 9 PT Plan Problem List Problem List: Activity Tolerance, Functional Strength, Safety, Balance, Gait, Transfer, Bed Mobility, ROM Treatment/Plan Treatment Plan: Continue Plan of Care Treatment Plan: Bed Mobility, Education, Functional Activity Sherry, Functional Strength, Group Therapy, Gait, Safety, Therapeutic Exercise, Transfers Treatment Duration: Feb 06, 2022 Frequency: At least 5 of 7 days/Wk (IRF) Estimated Hrs Per Day: 1.5 hours per day Patient and/or Family Agrees t: Yes Safety Risks/Education Patient Education: Gait Training, Transfer Techniques, Correct Positioning, Safety Issues Teaching Recipient: Patient Teaching Methods: Demonstration, Discussion Response to Teaching: Reinforcement Needed Time/GCodes Time In: 1325 Time Out: 1355 Total Billed Treatment Time: 30 Total Billed Treatment 1 visit EX 15' GT 15' GUSTAVO BAH PT Jan 20, 2022 13:55
[2022-01-20 19:49] VITALS: BP 163/91
[2022-01-20] MEDS: ROSUVASTATIN 5 MG (CRESTOR) TABLET PO SCH (21:02)
[2022-01-20] MEDS: meTOprolol SUCCINATE 100 MG (TOPROL XL) TAB PO SCH (21:02)
[2022-01-20] MEDS: TAMSULOSIN 0.4 MG (FLOMAX) CAP PO SCH (21:02)
--- NOTE | 2022-01-21 05:30 | PM&R Progress Note ---
Subjective HPI/CC On Admission Date Seen by Provider: Jan 21, 2022 Time Seen by Provider: 09:00 Subjective/Events-last exam 01/21/2022: Patient doing well No pain reported Dramatic improvement in activity now 01/20/2022: No major issues No pain Improved movement 01/19/2022: Patient doing very well Pain is much improved Moving around very well 01/18/2022: No major issues Gaining strength Less pain BM regimen 01/17/2022: Doing well Slow recovery Pain controlled with Ultram No falls 01/16/2022: Doing well overall Regular diet tolerated No pain reported except neck Ultram is preferred per patient BM+ and feels better No falls Review of Systems General: Fatigue, Malaise Objective Exam Vital Signs Vital Signs Date Time Temp Pulse Resp B/P (MAP) Pulse Ox O2 Delivery O2 Flow Rate FiO2 01/21/22 09:18 Room Air 01/21/22 07:25 36.7 60 20 133/79 (97) 94 Capillary Refill : General Appearance: No Apparent Distress, WD/WN, Chronically ill HEENT: PERRL/EOMI, Normal ENT Inspection, Pharynx Normal Neck: Full Range of Motion, Normal Inspection, Non Tender, Supple, Carotid Bruit Respiratory: Chest Non Tender, Lungs Clear, Normal Breath Sounds, No Accessory Muscle Use, No Respiratory Distress Cardiovascular: Regular Rate, Rhythm, No Edema, No Gallop, No JVD, No Murmur, Normal Peripheral Pulses Gastrointestinal: Normal Bowel Sounds, No Organomegaly, No Pulsatile Mass, Non Tender, Soft Back: Normal Inspection, No CVA Tenderness, No Vertebral Tenderness Extremity: Normal Capillary Refill, Normal Inspection, Normal Range of Motion, Non Tender, No Calf Tenderness, No Pedal Edema Neurologic/Psychiatric: Alert, Oriented x3, ice skater II-XII Norm as Tested, Abnormal Gait, Depressed Affect, Motor Weakness (Severe weakness of lower extremities 2/5) Skin: Normal Color, Warm/Dry Lymphatic: No Adenopathy Results/Procedures Lab Patient resulted labs reviewed. FIM Transfers Therapy Code Descriptions/Definitions Functional [place] Measure: 0=Not Assessed/NA 4=Minimal Assistance 1=Total Assistance 5=Supervision or Setup 2=Maximal Assistance 6=Modified [place] 3=Moderate Assistance 7=Complete IndependenceSCALE: Activities may be completed with or without assistive devices. 6-Kvfsavxnyj-twrsxup completes the activity by him/herself with no assistance from a helper. 5-Set-up or Clean-up Assistance-helper sets up or cleans up; patient completes activity. [place] assists only prior to or following the activity. 4-Supervision or Touching Assistance-helper provides verbal cues and/or touching/steadying and/or contact guard assistance as patient completes activity. Assistance may be provided throughout the activity or intermittently. 3-Partial/Moderate Assistance-helper does LESS THAN HALF the effort. [place] lifts, holds or supports trunk or limbs, but provides less than half the effort. 2-Substantial/Maximal Assistance-helper does MORE THAN HALF the effort. [place] lifts or holds trunk or limbs and provides more than half the effort. 1-Gqwbwgiqj-otrerl does ALL the effort. Patient does none of the effort to complete the activity. Or, the assistance of 2 or more helpers is required for the patient to complete the activity. If activity was not attempted, code reason: 7-Patient Refused. 9-Not Applicable-not attempted and the patient did not perform the activity before the current illness, exacerbation or injury. 10-Not Attempted due to Environmental Limitations-(lack of equipment, weather restraints, etc.). 88-Not Attempted due to Medical Conditions or Safety Concerns. Roll Left to Right (QC): 6 Sit to Lying (QC): 6 Sit to Stand (QC): 4 Chair/Smo-cx-Epwbw Xfer(QC): 4 Car Transfer (QC): 3 Gait Training Does the Patient Walk?: Yes Distance: 120'x2 Walk 10 feet (QC): 4 Walk 50 ft with 2 Turns(QC): 4 Walk 150 ft (QC): 6 Walking 10ft/uneven surface-QC: 88 Gait Persons Needed: 1 Gait Assistive Device: FWW Wheelchair Training Does the Pt Use a Wheelchair?: Yes Wheel 50 ft with 2 turns (QC): 5 Wheel 150 ft (QC): 6 Type of Wheelchair: Manual Stair Training Stair Training: Handrails/: 2 handrails #of Steps: 5 1 Step (curb) (QC): 88 4 Steps (QC): 4 12 Steps (QC): 88 Stairs: Pattern: Step to Balance Picking up an Object (QC): 4 (CGA using a baseball inspector) ADL-Treatment Eating (QC): 5 Oral Hygiene (QC): 6 Shower/Bathe Self (QC): 4 (verbal cues for modifications to dry feet) Upper Body Dressing (QC): 3 (min A) Lower Body Dressing (QC): 3 (min A) On/Off Footwear (QC): 2 Toileting Hygiene (QC): 4 Toilet Transfer (QC): 4 Assessment/Plan Assessment and Plan Assess & Plan/Chief Complaint Assessment: Severe leg weakness due to cervical spine stenosis causing myelopathy status post surgical resolution 01/05/2022 Severe constipation last BM 01/04/2022 resolved 01/16/2022 Postop dysphagia Profound weight loss due to inability to eat Back pain with lumbar spine disease chronic CKD Stage III usual baseline creat 2.1 HTN CAD HLP Gout Plan: Aggressive PT and OT Aggressive bowel regimen Supportive care 01/16/2022: Monitor closely BM+ 01/17/2022: Supportive care Increase ambulation 01/18/2022: Ultram Increase therapy 01/19/2022: Monitor closely 01/20/2022: Supportive care 01/21/2022: Monitor closely (1) Myelopathy due to cervical spondylosis (2) Bilateral leg weakness Status: Acute (3) Presence of stent in LAD coronary artery Status: Acute (4) Presence of stent in right coronary artery Status: Acute (5) Chronic kidney disease, stage 3 Status: Acute (6) 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
[2022-01-21] MEDS: predniSONE 20 MG TAB PO SCH (06:53)
[2022-01-21 07:25] VITALS: BP 133/79
[2022-01-21] MEDS: SENNA W/DOCUSATE (SENOKOT S) TABLET PO SCH ×2 (08:32→20:55)
[2022-01-21] MEDS: LOSARTAN 25 MG (COZAAR) TAB PO SCH (08:32)
[2022-01-21] MEDS: OMEGA 3 (FISH OIL) 1000 MG CAP PO SCH (08:32)
[2022-01-21] MEDS: ASPIRIN 81 MG CHEW (CHILDREN'S ASA) PO SCH (08:33)
[2022-01-21] MEDS: DOCUSATE SODIUM 100 MG (COLACE) CAP PO SCH ×2 (08:33→20:55)
[2022-01-21] MEDS: polyethylene glycoL POWDER 17 GM (MIRALAX) PACK PO SCH ×2 (08:33→20:58)
[2022-01-21] MEDS: GABAPENTIN 300 MG (NEURONTIN) CAP PO SCH ×2 (08:33→20:55)
[2022-01-21] MEDS: ALLOPURINOL 100 MG (ZYLOPRIM) TAB PO SCH (08:33)
[2022-01-21] MEDS: SUPER B COMPLEX PO SCH (08:35)
[2022-01-21] MEDS: UBIDECARENONE PO SCH (08:35)
--- NOTE | 2022-01-21 10:38 | Physical Therapy Daily Note ---
PT Daily Note-Current Subjective Pt in bed upon arrival and agrees to PT. No pain reported this date. Pain Section J - Health Conditions 1. Rarely or not at all 2. Occasionally 3. Frequently 4. Almost constantly 8. Unable to answer Pain Effect on Sleep: 1 Pain Interference with Therapy: 1 Pain Interference w/Day-to-Day: 1 Mental Status Patient Orientation: Person, Place, Time, Situation Transfers SCALE: Activities may be completed with or without assistive devices. 5-Zbeotavnsr-ivohrik completes the activity by him/herself with no assistance from a helper. 5-Set-up or Clean-up Assistance-helper sets up or cleans up; patient completes activity. [place] assists only prior to or following the activity. 4-Supervision or Touching Assistance-helper provides verbal cues and/or touching/steadying and/or contact guard assistance as patient completes activity. Assistance may be provided throughout the activity or intermittently. 3-Partial/Moderate Assistance-helper does LESS THAN HALF the effort. [place] lifts, holds or supports trunk or limbs, but provides less than half the effort. 2-Substantial/Maximal Assistance-helper does MORE THAN HALF the effort. [place] lifts or holds trunk or limbs and provides more than half the effort. 8-Otgmfmvus-vhwjqf does ALL the effort. Patient does none of the effort to complete the activity. Or, the assistance of 2 or more helpers is required for the patient to complete the activity. If activity was not attempted, code reason: 7-Patient Refused. 9-Not Applicable-not attempted and the patient did not perform the activity before the current illness, exacerbation or injury. 10-Not Attempted due to Environmental Limitations-(lack of equipment, weather restraints, etc.). 88-Not Attempted due to Medical Conditions or Safety Concerns. Roll Left & Right (QC): 4 Lying to Sitting/Side of Bed(Q: 4 Sit to Stand (QC): 4 Gait Training Does the Patient Walk?: Yes Distance: 150' x 2 Walk 10 feet (QC): 4 Walk 50 ft with 2 Turns(QC): 4 Walk 150 ft (QC): 4 Gait Persons Needed: 1 Gait Assistive Device: FWW Exercises NuStep Minutes: 10 NuStep Workload: 4 Treatments Pt Tfs from bed and then amb to therapy gym and TFs to nustep. Following nustep pt amb back to room and TFs to recliner. All needs met and call light nearby as PT departs. Assessment Current Status: Good Progress Pt required cues for hand and foot placement during TFs. PT Short Term Goals Short Term Goals Time Frame: Jan 23, 2022 Roll Left & Right: 6 Sit to lyin (Jorge) Lying to sitting on side of be: 3 (Jorge) Sit to stand: 4 (CGA) Chair/ldy-qi-idxnc transfer: 4 (CGA) Walk 10 feet: 4 (CGA) Walk 50 feet with two turns: 4 (CGA) PT [facility] Goals Psychologists Goals PT [facility] Goals Time Frame: Feb 06, 2022 Roll Left & Right (QC): 6 Sit to Lying (QC): 4 (SBA) Lying-Sitting on Side/Bed(QC): 4 (SBA) Sit to Stand (QC): 4 (SBA) Chair/Nqf-hg-Udgqg Xfer(QC): 4 (SBA) Toilet Transfer (QC): 4 Car Transfer (QC): 4 (SBA) Does the Patient Walk: Yes Walk 10 feet (QC): 4 (SBA) Walk 50ft with 2 Turns (QC): 4 (SBA) Walk 150 ft (QC): 88 Walking 10ft on Uneven Surface: 4 (SBA) 1 Step (curb) (QC): 4 (CGA) 4 Steps (QC): 4 (CGA) 12 Steps (QC): 88 Picking up an Object (QC): 4 (SBA using a stereo plotter operator) Wheel 50 feet with 2 turns (QC: 9 Wheel 150 feet: 9 PT Plan Problem List Problem List: Activity Tolerance, Safety Treatment/Plan Treatment Plan: Continue Plan of Care Treatment Plan: Bed Mobility, Education, Functional Activity Sherry, Functional Strength, Group Therapy, Gait, Safety, Therapeutic Exercise, Transfers Treatment Duration: Feb 06, 2022 Frequency: At least 5 of 7 days/Wk (IRF) Estimated Hrs Per Day: 1.5 hours per day Patient and/or Family Agrees t: Yes Safety Risks/Education Patient Education: Transfer Techniques Teaching Recipient: Patient Teaching Methods: Discussion Response to Teaching: Return Demonstration Time/GCodes Time In: 845 Time Out: 0905 Total Billed Treatment Time: 20 Total Billed Treatment 1, Ex SERGEIFRANCIS TRUCK SHOP MECHANIC Jan 21, 2022 10:38
[2022-01-21 20:30] VITALS: BP 124/78
[2022-01-21] MEDS: TAMSULOSIN 0.4 MG (FLOMAX) CAP PO SCH (20:55)
[2022-01-21] MEDS: ROSUVASTATIN 5 MG (CRESTOR) TABLET PO SCH (20:55)
[2022-01-21] MEDS: meTOprolol SUCCINATE 100 MG (TOPROL XL) TAB PO SCH (20:55)
--- NOTE | 2022-01-22 07:49 | PM&R Progress Note ---
Subjective HPI/CC On Admission Date Seen by Provider: Jan 22, 2022 Time Seen by Provider: 12:00 Subjective/Events-last exam 01/22/2022: Dramatic improvement No falls Pain improved 01/21/2022: Patient doing well No pain reported Dramatic improvement in activity now 01/20/2022: No major issues No pain Improved movement 01/19/2022: Patient doing very well Pain is much improved Moving around very well 01/18/2022: No major issues Gaining strength Less pain BM regimen 01/17/2022: Doing well Slow recovery Pain controlled with Ultram No falls 01/16/2022: Doing well overall Regular diet tolerated No pain reported except neck Ultram is preferred per patient BM+ and feels better No falls Review of Systems General: Fatigue, Malaise Objective Exam Vital Signs Vital Signs Date Time Temp Pulse Resp B/P (MAP) Pulse Ox O2 Delivery O2 Flow Rate FiO2 01/22/22 09:28 Room Air 01/22/22 08:45 36.3 66 18 117/68 (84) 95 Capillary Refill : General Appearance: No Apparent Distress, WD/WN, Chronically ill HEENT: PERRL/EOMI, Normal ENT Inspection, Pharynx Normal Neck: Full Range of Motion, Normal Inspection, Non Tender, Supple, Carotid Bruit Respiratory: Chest Non Tender, Lungs Clear, Normal Breath Sounds, No Accessory Muscle Use, No Respiratory Distress Cardiovascular: Regular Rate, Rhythm, No Edema, No Gallop, No JVD, No Murmur, Normal Peripheral Pulses Gastrointestinal: Normal Bowel Sounds, No Organomegaly, No Pulsatile Mass, Non Tender, Soft Back: Normal Inspection, No CVA Tenderness, No Vertebral Tenderness Extremity: Normal Capillary Refill, Normal Inspection, Normal Range of Motion, Non Tender, No Calf Tenderness, No Pedal Edema Neurologic/Psychiatric: Alert, Oriented x3, store team leader II-XII Norm as Tested, Abnormal Gait, Depressed Affect, Motor Weakness (Severe weakness of lower extremities 2/5) Skin: Normal Color, Warm/Dry Lymphatic: No Adenopathy Results/Procedures Lab Patient resulted labs reviewed. FIM Transfers Therapy Code Descriptions/Definitions Functional [place] Measure: 0=Not Assessed/NA 4=Minimal Assistance 1=Total Assistance 5=Supervision or Setup 2=Maximal Assistance 6=Modified [place] 3=Moderate Assistance 7=Complete IndependenceSCALE: Activities may be completed with or without assistive devices. 2-Mtagccfggp-safjxcs completes the activity by him/herself with no assistance from a helper. 5-Set-up or Clean-up Assistance-helper sets up or cleans up; patient completes activity. [place] assists only prior to or following the activity. 4-Supervision or Touching Assistance-helper provides verbal cues and/or touching/steadying and/or contact guard assistance as patient completes activity. Assistance may be provided throughout the activity or intermittently. 3-Partial/Moderate Assistance-helper does LESS THAN HALF the effort. [place] lifts, holds or supports trunk or limbs, but provides less than half the effort. 2-Substantial/Maximal Assistance-helper does MORE THAN HALF the effort. [place] lifts or holds trunk or limbs and provides more than half the effort. 5-Yyzoobaqg-jrnyas does ALL the effort. Patient does none of the effort to complete the activity. Or, the assistance of 2 or more helpers is required for the patient to complete the activity. If activity was not attempted, code reason: 7-Patient Refused. 9-Not Applicable-not attempted and the patient did not perform the activity before the current illness, exacerbation or injury. 10-Not Attempted due to Environmental Limitations-(lack of equipment, weather restraints, etc.). 88-Not Attempted due to Medical Conditions or Safety Concerns. Roll Left to Right (QC): 4 Sit to Lying (QC): 6 Sit to Stand (QC): 4 Chair/Nkx-mt-Krmgp Xfer(QC): 4 Car Transfer (QC): 3 Gait Training Does the Patient Walk?: Yes Distance: 150' x 2 Walk 10 feet (QC): 4 Walk 50 ft with 2 Turns(QC): 4 Walk 150 ft (QC): 4 Walking 10ft/uneven surface-QC: 88 Gait Persons Needed: 1 Gait Assistive Device: FWW Wheelchair Training Does the Pt Use a Wheelchair?: Yes Wheel 50 ft with 2 turns (QC): 5 Wheel 150 ft (QC): 6 Type of Wheelchair: Manual Stair Training Stair Training: Handrails/: 2 handrails #of Steps: 5 1 Step (curb) (QC): 88 4 Steps (QC): 4 12 Steps (QC): 88 Stairs: Pattern: Step to Balance Picking up an Object (QC): 4 (CGA using a door cutter) ADL-Treatment Eating (QC): 5 Oral Hygiene (QC): 6 Shower/Bathe Self (QC): 4 (verbal cues for modifications to dry feet) Upper Body Dressing (QC): 3 (min A) Lower Body Dressing (QC): 3 (min A) On/Off Footwear (QC): 2 Toileting Hygiene (QC): 4 Toilet Transfer (QC): 4 Assessment/Plan Assessment and Plan Assess & Plan/Chief Complaint Assessment: Severe leg weakness due to cervical spine stenosis causing myelopathy status post surgical resolution 01/05/2022 Severe constipation last BM 01/04/2022 resolved 01/16/2022 Postop dysphagia Profound weight loss due to inability to eat Back pain with lumbar spine disease chronic CKD Stage III usual baseline creat 2.1 HTN CAD HLP Gout Plan: Aggressive PT and OT Aggressive bowel regimen Supportive care 01/16/2022: Monitor closely BM+ 01/17/2022: Supportive care Increase ambulation 01/18/2022: Ultram Increase therapy 01/19/2022: Monitor closely 01/20/2022: Supportive care 01/21/2022: Monitor closely 01/22/2022: Monitor closely (1) Myelopathy due to cervical spondylosis (2) Bilateral leg weakness Status: Acute (3) Presence of stent in LAD coronary artery Status: Acute (4) Presence of stent in right coronary artery Status: Acute (5) Chronic kidney disease, stage 3 Status: Acute (6) 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
[2022-01-22] MEDS: SENNA W/DOCUSATE (SENOKOT S) TABLET PO SCH ×2 (08:38→21:00)
[2022-01-22] MEDS: OMEGA 3 (FISH OIL) 1000 MG CAP PO SCH (08:38)
[2022-01-22] MEDS: GABAPENTIN 300 MG (NEURONTIN) CAP PO SCH ×2 (08:38→21:13)
[2022-01-22] MEDS: ASPIRIN 81 MG CHEW (CHILDREN'S ASA) PO SCH (08:38)
[2022-01-22] MEDS: ALLOPURINOL 100 MG (ZYLOPRIM) TAB PO SCH (08:38)
[2022-01-22] MEDS: LOSARTAN 25 MG (COZAAR) TAB PO SCH (08:38)
[2022-01-22] MEDS: DOCUSATE SODIUM 100 MG (COLACE) CAP PO SCH ×2 (08:38→21:00)
[2022-01-22] MEDS: SUPER B COMPLEX PO SCH (08:40)
[2022-01-22] MEDS: UBIDECARENONE PO SCH (08:40)
[2022-01-22] MEDS: polyethylene glycoL POWDER 17 GM (MIRALAX) PACK PO SCH ×2 (08:41→21:00)
[2022-01-22 08:45] VITALS: BP 117/68
[2022-01-22 20:45] VITALS: BP 105/61
[2022-01-22] MEDS: meTOprolol SUCCINATE 100 MG (TOPROL XL) TAB PO SCH (21:13)
[2022-01-22] MEDS: ROSUVASTATIN 5 MG (CRESTOR) TABLET PO SCH (21:13)
[2022-01-22] MEDS: TAMSULOSIN 0.4 MG (FLOMAX) CAP PO SCH (21:13)
[2022-01-23 05:52] LABS: BASOPHILS % (AUTO) 0 % (0-10); EOSINOPHILS # (AUTO) 0.3 10^3/uL (0.0-0.3); EOSINOPHILS % (AUTO) 2 % (0-10); HEMATOCRIT 33 % (40-54); HEMOGLOBIN 10.9 g/dL (13.3-17.7); LYMPHOCYTES # (AUTO) 2.1 10^3/uL (1.0-4.0); LYMPHOCYTES % (AUTO) 15 % (12-44); MEAN CORPUSCULAR HEMOGLOBIN 33 pg (25-34); MEAN CORPUSCULAR HGB CONC 33 g/dL (32-36); MEAN CORPUSCULAR VOLUME 99 fL (80-99); MEAN PLATELET VOLUME 9.9 fL (9.0-12.2); MONOCYTES # (AUTO) 1.1 10^3/uL (0.0-1.0); MONOCYTES % (AUTO) 8 % (0-12); NEUTROPHILS # (AUTO) 9.9 10^3/uL (1.8-7.8); NEUTROPHILS % (AUTO) 71 % (42-75); PLATELET COUNT 201 10^3/uL (130-400); WHITE BLOOD COUNT 13.9 10^3/uL (4.3-11.0)
[2022-01-23 05:59] LABS: ALBUMIN 2.9 GM/DL (3.2-4.5)
[2022-01-23 06:00] LABS: POTASSIUM 4.6 MMOL/L (3.6-5.0)
[2022-01-23 06:01] LABS: CALCIUM 8.7 MG/DL (8.5-10.1)
[2022-01-23 06:02] LABS: TOTAL PROTEIN 5.5 GM/DL (6.4-8.2)
[2022-01-23 06:04] LABS: BILIRUBIN,TOTAL 0.4 MG/DL (0.1-1.0)
[2022-01-23 06:06] LABS: CREATININE SERUM 1.5 MG/DL (0.60-1.30)
[2022-01-23 07:27] VITALS: BP 124/68
[2022-01-23] MEDS: ALLOPURINOL 100 MG (ZYLOPRIM) TAB PO SCH (08:14)
[2022-01-23] MEDS: OMEGA 3 (FISH OIL) 1000 MG CAP PO SCH (08:14)
[2022-01-23] MEDS: GABAPENTIN 300 MG (NEURONTIN) CAP PO SCH ×2 (08:14→21:22)
[2022-01-23] MEDS: LOSARTAN 25 MG (COZAAR) TAB PO SCH (08:14)
[2022-01-23] MEDS: ASPIRIN 81 MG CHEW (CHILDREN'S ASA) PO SCH (08:14)
[2022-01-23] MEDS: SENNA W/DOCUSATE (SENOKOT S) TABLET PO SCH ×3 (08:14→21:22)
[2022-01-23] MEDS: SUPER B COMPLEX PO SCH (08:17)
[2022-01-23] MEDS: UBIDECARENONE PO SCH (08:17)
--- NOTE | 2022-01-23 09:37 | Physical Therapy Daily Note ---
PT Daily Note-Current Subjective Pt sitting in recliner upon arrival. Nurse is present and giving morning meds to start tx. Pt agrees to PT. Pain Location: Right Location Body Site: Ankle Pain Description: Ache, Tightness Section J - Health Conditions 1. Rarely or not at all 2. Occasionally 3. Frequently 4. Almost constantly 8. Unable to answer Pain Effect on Sleep: 1 Pain Interference with Therapy: 1 Pain Interference w/Day-to-Day: 1 Mental Status Patient Orientation: Person, Place, Time, Situation Attachments: Other-See Comments (Soft Cervical Collar ) Transfers SCALE: Activities may be completed with or without assistive devices. 6-Ttrlqnrbfq-frwulia completes the activity by him/herself with no assistance from a helper. 5-Set-up or Clean-up Assistance-helper sets up or cleans up; patient completes activity. [place] assists only prior to or following the activity. 4-Supervision or Touching Assistance-helper provides verbal cues and/or touching/steadying and/or contact guard assistance as patient completes activity. Assistance may be provided throughout the activity or intermittently. 3-Partial/Moderate Assistance-helper does LESS THAN HALF the effort. [place] lifts, holds or supports trunk or limbs, but provides less than half the effort. 2-Substantial/Maximal Assistance-helper does MORE THAN HALF the effort. [place] lifts or holds trunk or limbs and provides more than half the effort. 1-Bbyboenwt-giugfz does ALL the effort. Patient does none of the effort to complete the activity. Or, the assistance of 2 or more helpers is required for the patient to complete the activity. If activity was not attempted, code reason: 7-Patient Refused. 9-Not Applicable-not attempted and the patient did not perform the activity before the current illness, exacerbation or injury. 10-Not Attempted due to Environmental Limitations-(lack of equipment, weather restraints, etc.). 88-Not Attempted due to Medical Conditions or Safety Concerns. Sit to Stand (QC): 6 Weight Bearing Full Weight Bearing Full Weight Bearing Gait Training Does the Patient Walk?: Yes Distance: 150' x2 Walk 10 feet (QC): 6 Walk 50 ft with 2 Turns(QC): 6 Walk 150 ft (QC): 6 Gait Assistive Device: FWW Exercises Standing: Hip Abduction, Hamstring curls, Marching, Mini squats Standing Reps: 15 NuStep Minutes: 15 NuStep Workload: 4 Treatments Nurse gives morning meds. Pt declines need for BR. TF to standing and amb. in hallway. Pt uses NuStep, taking RB after for fatigue. Pt completes Standing EX at //bars, couple short RB as needed. Pt takes RB before amb. in hallway and returning to room. Pt sits in recliner with B feet elevated. VIRTUALIZATION ARCHITECT observed and notified Nurse of B ankle/foot swelling awa. on R lateral side. Pt's feet elevated on pillow and reclined. All needs met, call light in hand. Assessment Current Status: Good Progress Pt is improving with movement and independence of tasks but still needs RB for fatigue. Pt still reporting tingling in B UE which has been ongoing. PT Short Term Goals Short Term Goals Time Frame: Jan 23, 2022 Roll Left & Right: 6 Sit to lyin (Jorge) Lying to sitting on side of be: 3 (Jorge) Sit to stand: 4 (CGA) Chair/anv-je-hvdld transfer: 4 (CGA) Walk 10 feet: 4 (CGA) Walk 50 feet with two turns: 4 (CGA) PT Tractor Sweeper Driver Goals Tractor Sweeper Driver Goals PT Tractor Sweeper Driver Goals Time Frame: Feb 06, 2022 Roll Left & Right (QC): 6 Sit to Lying (QC): 4 (SBA) Lying-Sitting on Side/Bed(QC): 4 (SBA) Sit to Stand (QC): 4 (SBA) Chair/Kbm-cg-Ehybf Xfer(QC): 4 (SBA) Toilet Transfer (QC): 4 Car Transfer (QC): 4 (SBA) Does the Patient Walk: Yes Walk 10 feet (QC): 4 (SBA) Walk 50ft with 2 Turns (QC): 4 (SBA) Walk 150 ft (QC): 88 Walking 10ft on Uneven Surface: 4 (SBA) 1 Step (curb) (QC): 4 (CGA) 4 Steps (QC): 4 (CGA) 12 Steps (QC): 88 Picking up an Object (QC): 4 (SBA using a adolescent specialist) Wheel 50 feet with 2 turns (QC: 9 Wheel 150 feet: 9 PT Plan Problem List Problem List: Activity Tolerance Treatment/Plan Treatment Plan: Continue Plan of Care Treatment Plan: Bed Mobility, Education, Functional Activity Sherry, Functional Strength, Group Therapy, Gait, Safety, Therapeutic Exercise, Transfers Treatment Duration: Feb 06, 2022 Frequency: At least 5 of 7 days/Wk (IRF) Estimated Hrs Per Day: 1.5 hours per day Patient and/or Family Agrees t: Yes Time/GCodes Time In: 800 Time Out: 930 Total Billed Treatment Time: 90 Total Billed Treatment 1, GT x2 (30m), EX x2 (35m) & FA x2 (25m) ADY GILLETTE VIRTUALIZATION ARCHITECT Jan 23, 2022 09:37
[2022-01-23] MEDS: DOCUSATE SODIUM 100 MG (COLACE) CAP PO SCH ×2 (09:57→21:22)
[2022-01-23] MEDS: polyethylene glycoL POWDER 17 GM (MIRALAX) PACK PO SCH ×2 (09:57→21:22)
--- NOTE | 2022-01-23 10:51 | PM&R Progress Note ---
Subjective HPI/CC On Admission Date Seen by Provider: Jan 23, 2022 Time Seen by Provider: 11:00 Subjective/Events-last exam 01/23/2022: Continued dramatic improvement in status Overall moving around well Pain minimal Ankle ulceration will be addressed 01/22/2022: Dramatic improvement No falls Pain improved 01/21/2022: Patient doing well No pain reported Dramatic improvement in activity now 01/20/2022: No major issues No pain Improved movement 01/19/2022: Patient doing very well Pain is much improved Moving around very well 01/18/2022: No major issues Gaining strength Less pain BM regimen 01/17/2022: Doing well Slow recovery Pain controlled with Ultram No falls 01/16/2022: Doing well overall Regular diet tolerated No pain reported except neck Ultram is preferred per patient BM+ and feels better No falls Review of Systems General: Fatigue, Malaise Objective Exam Vital Signs Vital Signs Date Time Temp Pulse Resp B/P (MAP) Pulse Ox O2 Delivery O2 Flow Rate FiO2 01/23/22 21:20 94 Room Air 01/23/22 20:00 36.6 75 18 119/65 (83) Capillary Refill : General Appearance: No Apparent Distress, WD/WN, Chronically ill HEENT: PERRL/EOMI, Normal ENT Inspection, Pharynx Normal Neck: Full Range of Motion, Normal Inspection, Non Tender, Supple, Carotid Bruit Respiratory: Chest Non Tender, Lungs Clear, Normal Breath Sounds, No Accessory Muscle Use, No Respiratory Distress Cardiovascular: Regular Rate, Rhythm, No Edema, No Gallop, No JVD, No Murmur, Normal Peripheral Pulses Gastrointestinal: Normal Bowel Sounds, No Organomegaly, No Pulsatile Mass, Non Tender, Soft Back: Normal Inspection, No CVA Tenderness, No Vertebral Tenderness Extremity: Normal Capillary Refill, Normal Inspection, Normal Range of Motion, Non Tender, No Calf Tenderness, No Pedal Edema Neurologic/Psychiatric: Alert, Oriented x3, chainstitch elastic attacher II-XII Norm as Tested, Abnormal Gait, Depressed Affect, Motor Weakness (Severe weakness of lower extremities 2/5) Skin: Normal Color, Warm/Dry Lymphatic: No Adenopathy Results/Procedures Lab Laboratory Tests 01/23/22 05:39 Patient resulted labs reviewed. FIM Transfers Therapy Code Descriptions/Definitions Functional [place] Measure: 0=Not Assessed/NA 4=Minimal Assistance 1=Total Assistance 5=Supervision or Setup 2=Maximal Assistance 6=Modified [place] 3=Moderate Assistance 7=Complete IndependenceSCALE: Activities may be completed with or without assistive devices. 9-Rrxhfosouk-qjlzmgt completes the activity by him/herself with no assistance from a helper. 5-Set-up or Clean-up Assistance-helper sets up or cleans up; patient completes activity. [place] assists only prior to or following the activity. 4-Supervision or Touching Assistance-helper provides verbal cues and/or touching/steadying and/or contact guard assistance as patient completes activity. Assistance may be provided throughout the activity or intermittently. 3-Partial/Moderate Assistance-helper does LESS THAN HALF the effort. [place] lifts, holds or supports trunk or limbs, but provides less than half the effort. 2-Substantial/Maximal Assistance-helper does MORE THAN HALF the effort. [place] lifts or holds trunk or limbs and provides more than half the effort. 5-Hpplnbskd-lzfesz does ALL the effort. Patient does none of the effort to complete the activity. Or, the assistance of 2 or more helpers is required for the patient to complete the activity. If activity was not attempted, code reason: 7-Patient Refused. 9-Not Applicable-not attempted and the patient did not perform the activity before the current illness, exacerbation or injury. 10-Not Attempted due to Environmental Limitations-(lack of equipment, weather restraints, etc.). 88-Not Attempted due to Medical Conditions or Safety Concerns. Roll Left to Right (QC): 4 Sit to Lying (QC): 6 Sit to Stand (QC): 6 Chair/Otb-yq-Pnocz Xfer(QC): 4 Car Transfer (QC): 3 Gait Training Does the Patient Walk?: Yes Distance: 150' x2 Walk 10 feet (QC): 6 Walk 50 ft with 2 Turns(QC): 6 Walk 150 ft (QC): 6 Walking 10ft/uneven surface-QC: 88 Gait Persons Needed: 1 Gait Assistive Device: FWW Wheelchair Training Does the Pt Use a Wheelchair?: Yes Wheel 50 ft with 2 turns (QC): 5 Wheel 150 ft (QC): 6 Type of Wheelchair: Manual Stair Training Stair Training: Handrails/: 2 handrails #of Steps: 5 1 Step (curb) (QC): 88 4 Steps (QC): 4 12 Steps (QC): 88 Stairs: Pattern: Step to Balance Picking up an Object (QC): 4 (CGA using a daylight driller) ADL-Treatment Eating (QC): 5 Oral Hygiene (QC): 6 Shower/Bathe Self (QC): 4 (verbal cues for modifications to dry feet) Upper Body Dressing (QC): 3 (min A) Lower Body Dressing (QC): 3 (min A) On/Off Footwear (QC): 2 Toileting Hygiene (QC): 4 Toilet Transfer (QC): 4 Assessment/Plan Assessment and Plan Assess & Plan/Chief Complaint Assessment: Severe leg weakness due to cervical spine stenosis causing myelopathy status post surgical resolution 01/05/2022 Severe constipation last BM 01/04/2022 resolved 01/16/2022 Postop dysphagia-resolved Profound weight loss due to inability to eat-resolved Back pain with lumbar spine disease chronic CKD Stage III usual baseline creat 2.1 HTN CAD HLP Gout Elevated LFT's Plan: Aggressive PT and OT Aggressive bowel regimen Supportive care 01/16/2022: Monitor closely BM+ 01/17/2022: Supportive care Increase ambulation 01/18/2022: Ultram Increase therapy 01/19/2022: Monitor closely 01/20/2022: Supportive care 01/21/2022: Monitor closely 01/22/2022: Monitor closely 01/23/2022: Monitor closely Eval wound on ankle (1) Myelopathy due to cervical spondylosis (2) Bilateral leg weakness Status: Acute (3) Presence of stent in LAD coronary artery Status: Acute (4) Presence of stent in right coronary artery Status: Acute (5) Chronic kidney disease, stage 3 Status: Acute (6) 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 Status: Acute (7) Paresthesia of both lower extremities Status: Acute (8) Paresthesia of both hands Status: Acute (9) Essential hypertension Status: Acute GUSTAVO SALAZAR DO Jan 23, 2022 10:51
--- NOTE | 2022-01-23 12:54 | Occupational Ther Daily Note ---
OT Current Status-Daily Note Subjective Pt alert, sitting in recliner. Pt agrees to therapy. No c/o pain. R foot appears to have increase in edema. Mental Status/Objective Patient Orientation: Person, Place, Time, Situation Attachments: Other-See Comments (neck brace) ADL-Treatment Pt agrees to shower. Pt ambulates using FWW into bathroom with CGA for safety. Sitting at sink, pt completes oral care and grooming independently. Pt sitting on shower bench 100% of the time to complete shower using grabbars. LH sponge and hand held shower. Pt leans side to side to cleanse buttocks. After set up, pt requires min A for doffing shirt, independent donning shirt. Pt able to thread clothing over feet by self then SBA for safety to hike over hips. Pt then ambulated to recliner using FWW. Pt requires assistance to don RICHAR hose. Pt using dressing stick to doff socks. After session, pt sitting in recliner with call light/phone in reach. All needs met in room. Therapy Code Descriptions/Definitions Functional [place] Measure: 0=Not Assessed/NA 4=Minimal Assistance 1=Total Assistance 5=Supervision or Setup 2=Maximal Assistance 6=Modified [place] 3=Moderate Assistance 7=Complete IndependenceSCALE: Activities may be completed with or without assistive devices. 3-Uhdjacqaex-ovukvar completes the activity by him/herself with no assistance from a helper. 5-Set-up or Clean-up Assistance-helper sets up or cleans up; patient completes activity. [place] assists only prior to or following the activity. 4-Supervision or Touching Assistance-helper provides verbal cues and/or touching/steadying and/or contact guard assistance as patient completes activity. Assistance may be provided throughout the activity or intermittently. 3-Partial/Moderate Assistance-helper does LESS THAN HALF the effort. [place] li fts, holds or supports trunk or limbs, but provides less than half the effort. 2-Substantial/Maximal Assistance-helper does MORE THAN HALF the effort. [place] lifts or holds trunk or limbs and provides more than half the effort. 0-Ntbxjevty-lwxifi does ALL the effort. Patient does none of the effort to complete the activity. Or, the assistance of 2 or more helpers is required for the patient to complete the activity. If activity was not attempted, code reason: 7-Patient Refused. 9-Not Applicable-not attempted and the patient did not perform the activity before the current illness, exacerbation or injury. 10-Not Attempted due to Environmental Limitations-(lack of equipment, weather restraints, etc.). 88-Not Attempted due to Medical Conditions or Safety Concerns. Oral Hygiene (QC): 6 Shower/Bathe Self (QC): 6 Upper Body Dressing (QC): 3 (Min A) Lower Body Dressing (QC): 4 (CGA) OT Short Term Goals Short Term Goals Time Frame: Jan 27, 2022 Eatin Oral hygiene: 2 Toileting hygiene: 2 Shower/bathe self: 4 Upper body dressin Lower body dressin Putting on/taking off footwear: 2 OT Chcf Goals Book Reviewer Goals Time Frame: Feb 13, 2022 Acute change in mental status: 0 Inattention: 0 Disorganized thinkin Altered level of consciousness: 0 Eating (QC): 5 Oral Hygiene (QC): 4 Toileting Hygiene (QC): 4 Shower/Bathe Self (QC): 5 Upper Body Dressing (QC): 5 Lower Body Dressing (QC): 4 On/Off Footwear (QC): 4 Additional Goals: 1-Demonstrate ADL Tasks, 2-Verbalize Understanding, 3- ImproveStrength/Sherry 1=Demonstrate adherence to instructed precautions during ADL tasks. 2=Patient will verbalize/demonstrate understanding of assistive devices/modifications for ADL. 3=Patient will improve strength/tolerance for activity to enable patient to perform ADL's. OT Education/Plan Problem List/Assessment Assessment: Decreased Activ Tolerance, Impaired Self-Care Skills, Restricted Funct UE ROM Discharge Recommendations Plan/Recommendations: Continue POC Treatment Plan/Plan of Care Patient would benefit from OT for education, treatment and training to promote independence in ADL's, mobility, safety and/or upper extremity function for ADL's. Plan of Care: ADL Retraining, Caregiver Training, Functional Mobility, Group Exercise/Act as Ind, UE Funct Exercise/Act, UE Neuromus Re-Ed/Coord Treatment Duration: Feb 13, 2022 Frequency: At least 5 of 7 days/Wk (IRF) Estimated Hrs Per Day: 1.5 hours per day (60-90 min/day) Agreement: Yes Rehab Potential: Fair Time/GCodes Start Time: 10:30 Stop Time: 12:00 Total Time Billed (hr/min): 90 Billed Treatment Time 1 visit-ADL 6 (90 min) BLOSSOM BROWN Jan 23, 2022 12:54
--- NOTE | 2022-01-23 17:05 | Podiatry Progress Note ---
Standard Progress Note Progress Notes/Assess & Plan Date Seen by a Provider: Jan 23, 2022 Time Seen by a Provider: 17:03 Progress/Assessment & Plan Consultation dictated. Foot care given. Recommend three view x-rays of the right foot. Betadine and light dressing to the right hallux lesion, daily until healed. Final Diagnosis Onychomycosis, Neuropathy, Edema, Foot Drop NIKO MCDONALD DPM Jan 23, 2022 17:05
[2022-01-23 20:00] VITALS: BP 119/65
--- NOTE | 2022-01-23 20:40 | Diagnostic Imaging Report ---
INDICATION: Pain in the foot and ankle region. EXAMINATION: Right foot 01/23/2022 FINDINGS: 3 views of the foot. There is marked chronic degenerative disease at the 1st metatarsal phalangeal joint with narrowing, sclerosis and spurring. There are subchondral cystic change with periarticular erosions also seen at the base of the proximal 1st phalanx. No acute fractures or dislocations appreciated. There are degenerative changes at the 1st and 2nd tarsometatarsal joint spaces. There is a nonspecific lucency along the medial border of the proximal 5th phalanx possibly a cyst. This has a fairly benign appearance. Nonspecific densities noted along the dorsal border of the forefoot overlying the distal metatarsals possibly associated with the 1st metatarsophalangeal joint space. IMPRESSION: 1. Diffuse chronic changes most marked at the 1st metatarsal phalangeal joint where there are periarticular erosions noted suggestive of either a history of rheumatoid enteritis or even gout. 2. Nonspecific but fairly benign appearing lucency in the 5th proximal phalanx. If there is focal point tenderness, nonemergent MRI could provide further characterization. Dictated by: Dictated on workstation # [id number]
[2022-01-23] MEDS: meTOprolol SUCCINATE 100 MG (TOPROL XL) TAB PO SCH (21:22)
[2022-01-23] MEDS: TAMSULOSIN 0.4 MG (FLOMAX) CAP PO SCH (21:22)
[2022-01-23] MEDS: ROSUVASTATIN 5 MG (CRESTOR) TABLET PO SCH (21:22)
--- NOTE | 2022-01-23 21:42 | CONSULTATION REPORT ---
DATE OF SERVICE: 01/23/2022 REASON FOR CONSULTATION: Foot care. HISTORY OF PRESENT ILLNESS: This 76-year-old male was admitted to second floor rehabilitation at [facility] secondary to severe weakness and severe disability after a cervical spine surgery performed on 01/05/2022 at [facility]. He has difficulty with activities of daily living. The patient indicated that right before his surgery, he fell and scraped his right great toe. He has had an abrasion on the toe ever since. However, it is not problematic for him as far as he can tell, there is no pain and no problems with range of motion. Recently, he has also noticed some swelling of the right foot. He is not sure the cause of this might be. He has been going through some physical therapy activities, but he does not recall any particular injury. PAST MEDICAL HISTORY: Includes coronary artery disease, hypertension, renal failure, gastroesophageal reflux, arthritis, skin cancer and the above-mentioned cervical spine issues with subsequent surgical intervention. ALLERGIES: HE IS ALLERGIC TO PENICILLIN. CURRENT MEDICATIONS: Listed on the patient's chart. SOCIAL HISTORY: The patient is currently . He is a never smoker. Denies any alcohol or illicit drug use. PHYSICAL EXAMINATION: LOWER EXTREMITY: The patient has 2/4 dorsalis pedis pulse, 0/4 posterior tibial pulse bilaterally. Cap refill time is less than 3 seconds. He has edema noted bilaterally, right worse than left foot. NEUROLOGIC: He has decreased protective sensation with 10 gram monofilament wire examination bilaterally. He does have a positive Tinel's sign with percussion of the right tarsal tunnel. Decreased vibratory sensation is noted to the forefoot bilaterally. INTEGUMENTARY: The patient has an abrasion, which is stable to the medial aspect of the right hallux that measures approximately 25 x 10 mm. There is no deep probing. There is no active exudate, no proximal streaking is identified. Thick yellow dystrophic toenails with subungual debris associated with R2, 3, 4, L1, 2, 5 digits. MUSCULOSKELETAL FINDINGS: The patient has 5/5 muscle strength for plantarflexion and inversion bilaterally, but only 4/5 muscle strength for dorsiflexion and eversion bilaterally. ASSESSMENT: 1. Onychomycosis. 2. Edema, right. 3. Idiopathic neuropathy, peripheral neuropathy bilaterally. 4. Foot drop. PLAN: Various treatment options were discussed with the patient today. His toenails were subsequently debrided. This was because he has difficulty reaching for and care for the feet and because of his neuropathy, he cannot distinguish between normal tissue of the nail and the surrounding soft tissue of the skin. Due to his edema of the right foot, I will order 3 views x-rays to rule out any kind of osseous condition. He had minimal to no pain with range of motion of the foot from the ankle, subtalar joint, midtarsal or tarsometatarsal joints bilaterally; however, he does have some neuropathy, so this could not rule out any kind of a stress fracture or dislocation. Betadine was applied to the eschar of the right hallux. I would continue with this until completely healed. Job ID: [id number] DocumentID: [id number] Dictated Date: 01/23/2022 17:03:04 Loom Control Chain Builder Date: 01/23/2022 21:41:16 Dictated By: NIKO MCDONALD DPM MTDAlbert
--- NOTE | 2022-01-24 06:25 | PM&R Progress Note ---
Subjective HPI/CC On Admission Date Seen by Provider: Jan 24, 2022 Time Seen by Provider: 08:30 Subjective/Events-last exam 01/24/2022: Doing well No pain Improved overall X-ray obtained by Dr. Jim Bilateral foot drop will require braces 01/23/2022: Continued dramatic improvement in status Overall moving around well Pain minimal Ankle ulceration will be addressed 01/22/2022: Dramatic improvement No falls Pain improved 01/21/2022: Patient doing well No pain reported Dramatic improvement in activity now 01/20/2022: No major issues No pain Improved movement 01/19/2022: Patient doing very well Pain is much improved Moving around very well 01/18/2022: No major issues Gaining strength Less pain BM regimen 01/17/2022: Doing well Slow recovery Pain controlled with Ultram No falls 01/16/2022: Doing well overall Regular diet tolerated No pain reported except neck Ultram is preferred per patient BM+ and feels better No falls Review of Systems General: Fatigue, Malaise Objective Exam Vital Signs Vital Signs Date Time Temp Pulse Resp B/P (MAP) Pulse Ox O2 Delivery O2 Flow Rate FiO2 01/24/22 21:35 96 Room Air 01/24/22 19:38 36.4 69 16 116/75 (89) Capillary Refill : General Appearance: No Apparent Distress, WD/WN, Chronically ill HEENT: PERRL/EOMI, Normal ENT Inspection, Pharynx Normal Neck: Full Range of Motion, Normal Inspection, Non Tender, Supple, Carotid Bruit Respiratory: Chest Non Tender, Lungs Clear, Normal Breath Sounds, No Accessory Muscle Use, No Respiratory Distress Cardiovascular: Regular Rate, Rhythm, No Edema, No Gallop, No JVD, No Murmur, Normal Peripheral Pulses Gastrointestinal: Normal Bowel Sounds, No Organomegaly, No Pulsatile Mass, Non Tender, Soft Back: Normal Inspection, No CVA Tenderness, No Vertebral Tenderness Extremity: Normal Capillary Refill, Normal Inspection, Normal Range of Motion, Non Tender, No Calf Tenderness, No Pedal Edema Neurologic/Psychiatric: Alert, Oriented x3, asset protection agent II-XII Norm as Tested, Abnormal Gait, Depressed Affect, Motor Weakness (Severe weakness of lower extremities 2/5) Skin: Normal Color, Warm/Dry Lymphatic: No Adenopathy Results/Procedures Lab Patient resulted labs reviewed. FIM Transfers Therapy Code Descriptions/Definitions Functional [place] Measure: 0=Not Assessed/NA 4=Minimal Assistance 1=Total Assistance 5=Supervision or Setup 2=Maximal Assistance 6=Modified [place] 3=Moderate Assistance 7=Complete IndependenceSCALE: Activities may be completed with or without assistive devices. 9-Uledxsylva-wairikl completes the activity by him/herself with no assistance from a helper. 5-Set-up or Clean-up Assistance-helper sets up or cleans up; patient completes activity. [place] assists only prior to or following the activity. 4-Supervision or Touching Assistance-helper provides verbal cues and/or touching/steadying and/or contact guard assistance as patient completes activity. Assistance may be provided throughout the activity or intermittently. 3-Partial/Moderate Assistance-helper does LESS THAN HALF the effort. [place] lifts, holds or supports trunk or limbs, but provides less than half the effort. 2-Substantial/Maximal Assistance-helper does MORE THAN HALF the effort. [place] lifts or holds trunk or limbs and provides more than half the effort. 7-Aicyicddx-nsuwzi does ALL the effort. Patient does none of the effort to complete the activity. Or, the assistance of 2 or more helpers is required for the patient to complete the activity. If activity was not attempted, code reason: 7-Patient Refused. 9-Not Applicable-not attempted and the patient did not perform the activity before the current illness, exacerbation or injury. 10-Not Attempted due to Environmental Limitations-(lack of equipment, weather restraints, etc.). 88-Not Attempted due to Medical Conditions or Safety Concerns. Roll Left to Right (QC): 4 Sit to Lying (QC): 6 Sit to Stand (QC): 6 Chair/Pui-mw-Soywp Xfer(QC): 4 Car Transfer (QC): 3 Gait Training Does the Patient Walk?: Yes Distance: 150' x2 Walk 10 feet (QC): 6 Walk 50 ft with 2 Turns(QC): 6 Walk 150 ft (QC): 6 Walking 10ft/uneven surface-QC: 88 Gait Persons Needed: 1 Gait Assistive Device: FWW Wheelchair Training Does the Pt Use a Wheelchair?: Yes Wheel 50 ft with 2 turns (QC): 5 Wheel 150 ft (QC): 6 Type of Wheelchair: Manual Stair Training Stair Training: Handrails/: 2 handrails #of Steps: 5 1 Step (curb) (QC): 88 4 Steps (QC): 4 12 Steps (QC): 88 Stairs: Pattern: Step to Balance Picking up an Object (QC): 4 (CGA using a refrigerator tester) ADL-Treatment Eating (QC): 5 Oral Hygiene (QC): 6 Shower/Bathe Self (QC): 6 Upper Body Dressing (QC): 3 (Min A) Lower Body Dressing (QC): 4 (CGA) On/Off Footwear (QC): 2 Toileting Hygiene (QC): 4 Toilet Transfer (QC): 4 Assessment/Plan Assessment and Plan Assess & Plan/Chief Complaint Assessment: Severe leg weakness due to cervical spine stenosis causing myelopathy status post surgical resolution 01/05/2022 Severe constipation last BM 01/04/2022 resolved 01/16/2022 Postop dysphagia-resolved Profound weight loss due to inability to eat-resolved Back pain with lumbar spine disease chronic CKD Stage III usual baseline creat 2.1 HTN CAD HLP Gout Elevated LFT's Plan: Aggressive PT and OT Aggressive bowel regimen Supportive care 01/16/2022: Monitor closely BM+ 01/17/2022: Supportive care Increase ambulation 01/18/2022: Ultram Increase therapy 01/19/2022: Monitor closely 01/20/2022: Supportive care 01/21/2022: Monitor closely 01/22/2022: Monitor closely 01/23/2022: Monitor closely Eval wound on ankle 01/24/2022: Supportive care Betadine to toe ulceration (1) Myelopathy due to cervical spondylosis (2) Bilateral leg weakness Status: Acute (3) Presence of stent in LAD coronary artery Status: Acute (4) Presence of stent in right coronary artery Status: Acute (5) Chronic kidney disease, stage 3 Status: Acute (6) 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 Status: Acute (7) Paresthesia of both lower extremities Status: Acute (8) Paresthesia of both hands Status: Acute (9) Essential hypertension Status: Acute GUSTAVO SALAZAR DO Jan 24, 2022 06:25
[2022-01-24 07:16] VITALS: BP 131/68
[2022-01-24] MEDS: DOCUSATE SODIUM 100 MG (COLACE) CAP PO SCH ×2 (08:04→21:49)
[2022-01-24] MEDS: LOSARTAN 25 MG (COZAAR) TAB PO SCH (08:04)
[2022-01-24] MEDS: GABAPENTIN 300 MG (NEURONTIN) CAP PO SCH ×2 (08:04→21:49)
[2022-01-24] MEDS: ALLOPURINOL 100 MG (ZYLOPRIM) TAB PO SCH (08:04)
[2022-01-24] MEDS: OMEGA 3 (FISH OIL) 1000 MG CAP PO SCH (08:04)
[2022-01-24] MEDS: SENNA W/DOCUSATE (SENOKOT S) TABLET PO SCH ×2 (08:04→21:49)
[2022-01-24] MEDS: ASPIRIN 81 MG CHEW (CHILDREN'S ASA) PO SCH (08:05)
[2022-01-24] MEDS: SUPER B COMPLEX PO SCH (08:06)
[2022-01-24] MEDS: UBIDECARENONE PO SCH (08:06)
[2022-01-24] MEDS: polyethylene glycoL POWDER 17 GM (MIRALAX) PACK PO SCH ×2 (08:07→21:55)
--- NOTE | 2022-01-24 09:37 | Physical Therapy Daily Note ---
PT Daily Note-Current Subjective Pt sitting in recliner taking morning meds upon arrival. Pt agrees to PT. Pain Location: Right, Left Location Body Site: Hand Pain Description: Tingling Section J - Health Conditions 1. Rarely or not at all 2. Occasionally 3. Frequently 4. Almost constantly 8. Unable to answer Pain Effect on Sleep: 1 Pain Interference with Therapy: 1 Pain Interference w/Day-to-Day: 1 Mental Status Patient Orientation: Person, Place, Time, Situation Attachments: Other-See Comments (Soft Cervical Collar) Transfers SCALE: Activities may be completed with or without assistive devices. 8-Fpcibokhlh-wxwxpxw completes the activity by him/herself with no assistance from a helper. 5-Set-up or Clean-up Assistance-helper sets up or cleans up; patient completes activity. [place] assists only prior to or following the activity. 4-Supervision or Touching Assistance-helper provides verbal cues and/or touching/steadying and/or contact guard assistance as patient completes activity. Assistance may be provided throughout the activity or intermittently. 3-Partial/Moderate Assistance-helper does LESS THAN HALF the effort. [place] lifts, holds or supports trunk or limbs, but provides less than half the effort. 2-Substantial/Maximal Assistance-helper does MORE THAN HALF the effort. [place] lifts or holds trunk or limbs and provides more than half the effort. 2-Ebztizrbk-ascfxd does ALL the effort. Patient does none of the effort to complete the activity. Or, the assistance of 2 or more helpers is required for the patient to complete the activity. If activity was not attempted, code reason: 7-Patient Refused. 9-Not Applicable-not attempted and the patient did not perform the activity before the current illness, exacerbation or injury. 10-Not Attempted due to Environmental Limitations-(lack of equipment, weather restraints, etc.). 88-Not Attempted due to Medical Conditions or Safety Concerns. Sit to Stand (QC): 5 Weight Bearing Full Weight Bearing Full Weight Bearing Gait Training Does the Patient Walk?: Yes Distance: 150' x2 Walk 10 feet (QC): 5 Walk 50 ft with 2 Turns(QC): 5 Walk 150 ft (QC): 5 Gait Persons Needed: 1 Gait Assistive Device: FWW Exercises NuStep Minutes: 16 NuStep Workload: 4 Treatments Pt finishes morning med. then TF to standing. Pt declines need for BR. Pt amb. in hallway, RB as needed. Pt uses NuStep starting at WL 4 then increasing to WL 5 for last few minutes. Pt completes Seated Ex. Pt focuses on stairs at Pt currently has no railing at home to assist w/stairs. Pt attempts w/hand rail and second time w/R ascending rail & L CYTOMETRY TECHNOLOGIST. Pt takes RB before returning to room to rest in recliner. All needs met, call light in hand. Assessment Current Status: Good Progress Pt is not able to complete w/o hand rails at this time. Pt will look into getting railing for home. Pt takes RB as needed for fatigue. PT Short Term Goals Short Term Goals Time Frame: Jan 23, 2022 Roll Left & Right: 6 Sit to lyin (Jorge) Lying to sitting on side of be: 3 (Jorge) Sit to stand: 4 (CGA) Chair/urj-vx-ayyjl transfer: 4 (CGA) Walk 10 feet: 4 (CGA) Walk 50 feet with two turns: 4 (CGA) PT Correction Goals Correction Goals PT Correction Goals Time Frame: Feb 06, 2022 Roll Left & Right (QC): 6 Sit to Lying (QC): 4 (SBA) Lying-Sitting on Side/Bed(QC): 4 (SBA) Sit to Stand (QC): 4 (SBA) Chair/Mxl-da-Tzoto Xfer(QC): 4 (SBA) Toilet Transfer (QC): 4 Car Transfer (QC): 4 (SBA) Does the Patient Walk: Yes Walk 10 feet (QC): 4 (SBA) Walk 50ft with 2 Turns (QC): 4 (SBA) Walk 150 ft (QC): 88 Walking 10ft on Uneven Surface: 4 (SBA) 1 Step (curb) (QC): 4 (CGA) 4 Steps (QC): 4 (CGA) 12 Steps (QC): 88 Picking up an Object (QC): 4 (SBA using a service parts driver) Wheel 50 feet with 2 turns (QC: 9 Wheel 150 feet: 9 PT Plan Problem List Problem List: Activity Tolerance Treatment/Plan Treatment Plan: Continue Plan of Care Treatment Plan: Bed Mobility, Education, Functional Activity Sherry, Functional Strength, Group Therapy, Gait, Safety, Therapeutic Exercise, Transfers Treatment Duration: Feb 06, 2022 Frequency: At least 5 of 7 days/Wk (IRF) Estimated Hrs Per Day: 1.5 hours per day Patient and/or Family Agrees t: Yes Safety Risks/Education Patient Education: Steps, Correct Positioning, Safety Issues Teaching Recipient: Patient Teaching Methods: Discussion Response to Teaching: Verbalize Understanding Time/GCodes Time In: 800 Time Out: 930 Total Billed Treatment Time: 90 Total Billed Treatment 1, GT x2 (30m), EX x2 (30m) & FA x2 (30m) ADY GILLETTE AGRICULTURAL COMMODITIES GRADER Jan 24, 2022 09:37
[2022-01-24] MEDS: POVIDONE (BETADINE) 10% SOLN 240 ML BTL TOP SCH (10:29)
--- NOTE | 2022-01-24 11:59 | Occupational Ther Daily Note ---
OT Current Status-Daily Note Subjective Pt sitting in recliner upon arrival. Pt agrees to therapy. Pt c/o no pain. Mental Status/Objective Patient Orientation: Person, Place, Time, Situation Attachments: Other-See Comments (neck brace) ADL-Treatment Pt ambulated using FWW with CGA for safety to bathroom then w/c placed behind pt to sit. Pt participated in oral hygiene independently sitting at the sink. Pt participated in donning/doffing pants and required the use of a business unit controller to thread L foot into pant leg. Pt able to stand and pull pants up with SBA. Therapy Code Descriptions/Definitions Functional [place] Measure: 0=Not Assessed/NA 4=Minimal Assistance 1=Total Assistance 5=Supervision or Setup 2=Maximal Assistance 6=Modified [place] 3=Moderate Assistance 7=Complete IndependenceSCALE: Activities may be completed with or without assistive devices. 6-Xtvqkutijc-eabogug completes the activity by him/herself with no assistance from a helper. 5-Set-up or Clean-up Assistance-helper sets up or cleans up; patient completes activity. [place] assists only prior to or following the activity. 4-Supervision or Touching Assistance-helper provides verbal cues and/or touching/steadying and/or contact guard assistance as patient completes activity. Assistance may be provided throughout the activity or intermittently. 3-Partial/Moderate Assistance-helper does LESS THAN HALF the effort. [place] lifts, holds or supports trunk or limbs, but provides less than half the effort. 2-Substantial/Maximal Assistance-helper does MORE THAN HALF the effort. [place] lifts or holds trunk or limbs and provides more than half the effort. 6-Ycbmxlikj-zahoxj does ALL the effort. Patient does none of the effort to complete the activity. Or, the assistance of 2 or more helpers is required for the patient to complete the activity. If activity was not attempted, code reason: 7-Patient Refused. 9-Not Applicable-not attempted and the patient did not perform the activity before the current illness, exacerbation or injury. 10-Not Attempted due to Environmental Limitations-(lack of equipment, weather restraints, etc.). 88-Not Attempted due to Medical Conditions or Safety Concerns. Oral Hygiene (QC): 6 Lower Body Dressing (QC): 4 Other Treatment Pt participated in 4 minute reps(x2) of front arm teo exercises. Pt required break inbetween reps. Pt was unable to perform side to side teo exercises due to weakness in L shoulder. Pt participated in nut/bolt activity at table top using BUE. Pt demonstrates difficulty with LUE shoulder flexion and weakness in L hand dry can tender strength. Pt participated in placing rubberbands on nail board at ta ble top following a pattern card. Pt used BUE (mainly using LUE for assistance when needed). Pt displayed minimal difficulty ambulating to therapy gym with SBA and required no breaks. Pt participated in sponge exercises with B hands and pullling, pinching and squeezing theraputty. After session, pt sitting in recliner with call light/phone in reach. All needs met in room. present in room. Education OT Patient Education: Exercise program, Reviewed precautions, Use of adapted equipment Teaching Recipient: Patient Teaching Methods: Discussion Response to Teaching: Verbalize Understanding, Return Demonstration, Reinforcement Needed OT Short Term Goals Short Term Goals Time Frame: Jan 27, 2022 Eatin Oral hygiene: 2 Toileting hygiene: 2 Shower/bathe self: 4 Upper body dressin Lower body dressin Putting on/taking off footwear: 2 OT Mud Worker Goals Longterm Goals Time Frame: Feb 13, 2022 Acute change in mental status: 0 Inattention: 0 Disorganized thinkin Altered level of consciousness: 0 Eating (QC): 5 Oral Hygiene (QC): 4 Toileting Hygiene (QC): 4 Shower/Bathe Self (QC): 5 Upper Body Dressing (QC): 5 Lower Body Dressing (QC): 4 On/Off Footwear (QC): 4 Additional Goals: 1-Demonstrate ADL Tasks, 2-Verbalize Understanding, 3- ImproveStrength/Sherry 1=Demonstrate adherence to instructed precautions during ADL tasks. 2=Patient will verbalize/demonstrate understanding of assistive devices/modifications for ADL. 3=Patient will improve strength/tolerance for activity to enable patient to perform ADL's. OT Education/Plan Problem List/Assessment Assessment: Decreased UE Strength Discharge Recommendations Plan/Recommendations: Continue POC Treatment Plan/Plan of Care Patient would benefit from OT for education, treatment and training to promote independence in ADL's, mobility, safety and/or upper extremity function for ADL's. Plan of Care: ADL Retraining, Caregiver Training, Functional Mobility, Group Exercise/Act as Ind, UE Funct Exercise/Act, UE Neuromus Re-Ed/Coord Treatment Duration: Feb 13, 2022 Frequency: At least 5 of 7 days/Wk (IRF) Estimated Hrs Per Day: 1.5 hours per day (60-90 min/day) Agreement: Yes Rehab Potential: Fair Time/GCodes Start Time: 10:30 Stop Time: 12:00 Total Time Billed (hr/min): 90 Billed Treatment Time 1 visit-ADL 2 (30 min) EX 4 (60 min) BLOSSOM BROWN Jan 24, 2022 11:59
[2022-01-24 19:38] VITALS: BP 116/75
[2022-01-24] MEDS: TAMSULOSIN 0.4 MG (FLOMAX) CAP PO SCH (21:49)
[2022-01-24] MEDS: meTOprolol SUCCINATE 100 MG (TOPROL XL) TAB PO SCH (21:49)
[2022-01-24] MEDS: ROSUVASTATIN 5 MG (CRESTOR) TABLET PO SCH (21:50)
--- NOTE | 2022-01-25 07:10 | PM&R Progress Note ---
Subjective HPI/CC On Admission Date Seen by Provider: Jan 25, 2022 Time Seen by Provider: 08:30 Subjective/Events-last exam 01/25/2022: Doing well DC this weekend No pain except right side of neck 01/24/2022: Doing well No pain Improved overall X-ray obtained by Dr. Jim Bilateral foot drop will require braces 01/23/2022: Continued dramatic improvement in status Overall moving around well Pain minimal Ankle ulceration will be addressed 01/22/2022: Dramatic improvement No falls Pain improved 01/21/2022: Patient doing well No pain reported Dramatic improvement in activity now 01/20/2022: No major issues No pain Improved movement 01/19/2022: Patient doing very well Pain is much improved Moving around very well 01/18/2022: No major issues Gaining strength Less pain BM regimen 01/17/2022: Doing well Slow recovery Pain controlled with Ultram No falls 01/16/2022: Doing well overall Regular diet tolerated No pain reported except neck Ultram is preferred per patient BM+ and feels better No falls Review of Systems General: Fatigue, Malaise Objective Exam Vital Signs Vital Signs Date Time Temp Pulse Resp B/P (MAP) Pulse Ox O2 Delivery O2 Flow Rate FiO2 01/25/22 09:33 Room Air 01/25/22 07:40 36.8 65 18 131/69 (89) 96 Capillary Refill : General Appearance: No Apparent Distress, WD/WN, Chronically ill HEENT: PERRL/EOMI, Normal ENT Inspection, Pharynx Normal Neck: Full Range of Motion, Normal Inspection, Non Tender, Supple, Carotid Bruit Respiratory: Chest Non Tender, Lungs Clear, Normal Breath Sounds, No Accessory Muscle Use, No Respiratory Distress Cardiovascular: Regular Rate, Rhythm, No Edema, No Gallop, No JVD, No Murmur, Normal Peripheral Pulses Gastrointestinal: Normal Bowel Sounds, No Organomegaly, No Pulsatile Mass, Non Tender, Soft Back: Normal Inspection, No CVA Tenderness, No Vertebral Tenderness Extremity: Normal Capillary Refill, Normal Inspection, Normal Range of Motion, Non Tender, No Calf Tenderness, No Pedal Edema Neurologic/Psychiatric: Alert, Oriented x3, mall plant caretaker II-XII Norm as Tested, Abnormal Gait, Depressed Affect, Motor Weakness (Severe weakness of lower extremities 2/5) Skin: Normal Color, Warm/Dry Lymphatic: No Adenopathy Results/Procedures Lab Patient resulted labs reviewed. FIM Transfers Therapy Code Descriptions/Definitions Functional [place] Measure: 0=Not Assessed/NA 4=Minimal Assistance 1=Total Assistance 5=Supervision or Setup 2=Maximal Assistance 6=Modified [place] 3=Moderate Assistance 7=Complete IndependenceSCALE: Activities may be completed with or without assistive devices. 2-Cjqaouvfwk-zzejbpj completes the activity by him/herself with no assistance from a helper. 5-Set-up or Clean-up Assistance-helper sets up or cleans up; patient completes activity. [place] assists only prior to or following the activity. 4-Supervision or Touching Assistance-helper provides verbal cues and/or touching/steadying and/or contact guard assistance as patient completes activity. Assistance may be provided throughout the activity or intermittently. 3-Partial/Moderate Assistance-helper does LESS THAN HALF the effort. [place] lifts, holds or supports trunk or limbs, but provides less than half the effort. 2-Substantial/Maximal Assistance-helper does MORE THAN HALF the effort. [place] lifts or holds trunk or limbs and provides more than half the effort. 0-Alxccapdz-pyxprg does ALL the effort. Patient does none of the effort to complete the activity. Or, the assistance of 2 or more helpers is required for the patient to complete the activity. If activity was not attempted, code reason: 7-Patient Refused. 9-Not Applicable-not attempted and the patient did not perform the activity before the current illness, exacerbation or injury. 10-Not Attempted due to Environmental Limitations-(lack of equipment, weather restraints, etc.). 88-Not Attempted due to Medical Conditions or Safety Concerns. Roll Left to Right (QC): 4 Sit to Lying (QC): 6 Sit to Stand (QC): 5 Chair/Nik-hi-Ebfcm Xfer(QC): 4 Car Transfer (QC): 3 Gait Training Does the Patient Walk?: Yes Distance: 150' x2 Walk 10 feet (QC): 5 Walk 50 ft with 2 Turns(QC): 5 Walk 150 ft (QC): 5 Walking 10ft/uneven surface-QC: 88 Gait Persons Needed: 1 Gait Assistive Device: FWW Wheelchair Training Does the Pt Use a Wheelchair?: Yes Wheel 50 ft with 2 turns (QC): 5 Wheel 150 ft (QC): 6 Type of Wheelchair: Manual Stair Training Stair Training: Handrails/: 2 handrails #of Steps: 5 1 Step (curb) (QC): 88 4 Steps (QC): 4 12 Steps (QC): 88 Stairs: Pattern: Step to Balance Picking up an Object (QC): 4 (CGA using a bridge saw operator) ADL-Treatment Eating (QC): 5 Oral Hygiene (QC): 6 Shower/Bathe Self (QC): 6 Upper Body Dressing (QC): 3 (Min A) Lower Body Dressing (QC): 4 On/Off Footwear (QC): 2 Toileting Hygiene (QC): 4 Toilet Transfer (QC): 4 Assessment/Plan Assessment and Plan Assess & Plan/Chief Complaint Assessment: Severe leg weakness due to cervical spine stenosis causing myelopathy status post surgical resolution 01/05/2022 Severe constipation last BM 01/04/2022 resolved 01/16/2022 Postop dysphagia-resolved Profound weight loss due to inability to eat-resolved Back pain with lumbar spine disease chronic CKD Stage III usual baseline creat 2.1 HTN CAD HLP Gout Elevated LFT's Plan: Aggressive PT and OT Aggressive bowel regimen Supportive care 01/16/2022: Monitor closely BM+ 01/17/2022: Supportive care Increase ambulation 01/18/2022: Ultram Increase therapy 01/19/2022: Monitor closely 01/20/2022: Supportive care 01/21/2022: Monitor closely 01/22/2022: Monitor closely 01/23/2022: Monitor closely Eval wound on ankle 01/24/2022: Supportive care Betadine to toe ulceration 01/25/2022: Much improved status (1) Myelopathy due to cervical spondylosis (2) Bilateral leg weakness Status: Acute (3) Presence of stent in LAD coronary artery Status: Acute (4) Presence of stent in right coronary artery Status: Acute (5) Chronic kidney disease, stage 3 Status: Acute (6) 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
[2022-01-25 07:40] VITALS: BP 131/69
[2022-01-25] MEDS: DOCUSATE SODIUM 100 MG (COLACE) CAP PO SCH ×2 (09:21→20:15)
[2022-01-25] MEDS: OMEGA 3 (FISH OIL) 1000 MG CAP PO SCH (09:21)
[2022-01-25] MEDS: ASPIRIN 81 MG CHEW (CHILDREN'S ASA) PO SCH (09:21)
[2022-01-25] MEDS: ALLOPURINOL 100 MG (ZYLOPRIM) TAB PO SCH (09:21)
[2022-01-25] MEDS: GABAPENTIN 300 MG (NEURONTIN) CAP PO SCH ×2 (09:21→20:14)
[2022-01-25] MEDS: LOSARTAN 25 MG (COZAAR) TAB PO SCH (09:21)
[2022-01-25] MEDS: SENNA W/DOCUSATE (SENOKOT S) TABLET PO SCH ×2 (09:21→20:14)
[2022-01-25] MEDS: UBIDECARENONE PO SCH (09:22)
[2022-01-25] MEDS: SUPER B COMPLEX PO SCH (09:22)
[2022-01-25] MEDS: polyethylene glycoL POWDER 17 GM (MIRALAX) PACK PO SCH ×2 (09:23→21:00)
[2022-01-25] MEDS: POVIDONE (BETADINE) 10% SOLN 240 ML BTL TOP SCH (09:23)
--- NOTE | 2022-01-25 09:34 | Physical Therapy Daily Note ---
PT Daily Note-Current Subjective Pt sitting up in bed upon arrival. Pt agrees to PT. Pain Numeric Pain Scale: 5-Moderate Pain Location: Lower Location Body Site: Back Pain Description: Ache, Tightness Comment: Stairs tend to bring out the LBP, subsides w/rest Section J - Health Conditions 1. Rarely or not at all 2. Occasionally 3. Frequently 4. Almost constantly 8. Unable to answer Pain Effect on Sleep: 1 Pain Interference with Therapy: 1 Pain Interference w/Day-to-Day: 1 Mental Status Patient Orientation: Person, Place, Time, Situation Attachments: Other-See Comments (Soft Cervical Collar) Transfers SCALE: Activities may be completed with or without assistive devices. 8-Yrtludhirc-hxzdefc completes the activity by him/herself with no assistance from a helper. 5-Set-up or Clean-up Assistance-helper sets up or cleans up; patient completes activity. [place] assists only prior to or following the activity. 4-Supervision or Touching Assistance-helper provides verbal cues and/or touching/steadying and/or contact guard assistance as patient completes acti vity. Assistance may be provided throughout the activity or intermittently. 3-Partial/Moderate Assistance-helper does LESS THAN HALF the effort. [place] lifts, holds or supports trunk or limbs, but provides less than half the effort. 2-Substantial/Maximal Assistance-helper does MORE THAN HALF the effort. [place] lifts or holds trunk or limbs and provides more than half the effort. 0-Ujmfxjcnv-vlehcn does ALL the effort. Patient does none of the effort to complete the activity. Or, the assistance of 2 or more helpers is required for the patient to complete the activity. If activity was not attempted, code reason: 7-Patient Refused. 9-Not Applicable-not attempted and the patient did not perform the activity before the current illness, exacerbation or injury. 10-Not Attempted due to Environmental Limitations-(lack of equipment, weather restraints, etc.). 88-Not Attempted due to Medical Conditions or Safety Concerns. Sit to Stand (QC): 5 SBA w/most surfaces but lower surface can be CGA Weight Bearing Full Weight Bearing Full Weight Bearing Gait Training Does the Patient Walk?: Yes Distance: 150', 250' Walk 10 feet (QC): 5 Walk 50 ft with 2 Turns(QC): 5 Walk 150 ft (QC): 5 Gait Assistive Device: FWW RB as needed for fatigue and increased pressure/tingling in hands when walking w/FWW Stair Training Stair Training: Handrails/: 2 handrails #of Steps: 4 1 Step (curb) (QC): 4 4 Steps (QC): 4 Stairs: Pattern: Step to Exercises Seated Therapy Exercises: Ankle pumps, Long arc quads, Hip flexion Seated Reps: 15 NuStep Minutes: 15 NuStep Workload: 4 Treatments TF to EOB and dons pants then stands using FWW. Pt amb. in hallway, taking a RB at Therapy Gym. Pt uses NuStep then takes short RB. Pt completes set of steps then Seated EX before taking extended walk in hallway. RB as needed and returns to room to rest in recliner. All needs met, call light in hand. Assessment Current Status: Good Progress Pt continues to report tingling in hands throughout tx. Pt's son informs SENIOR CENTER MANAGER that pt has steps deep enough to get FWW on them so this will be worked on next session. RB needed as pt fatigues. PT Short Term Goals Short Term Goals Time Frame: Jan 23, 2022 Roll Left & Right: 6 Sit to lyin (Jorge) Lying to sitting on side of be: 3 (Jorge) Sit to stand: 4 (CGA) Chair/myt-sw-ithay transfer: 4 (CGA) Walk 10 feet: 4 (CGA) Walk 50 feet with two turns: 4 (CGA) PT Half-Way Goals Half-Way Goals PT Half-Way Goals Time Frame: Feb 06, 2022 Roll Left & Right (QC): 6 Sit to Lying (QC): 4 (SBA) Lying-Sitting on Side/Bed(QC): 4 (SBA) Sit to Stand (QC): 4 (SBA) Chair/Ggp-rr-Pmpml Xfer(QC): 4 (SBA) Toilet Transfer (QC): 4 Car Transfer (QC): 4 (SBA) Does the Patient Walk: Yes Walk 10 feet (QC): 4 (SBA) Walk 50ft with 2 Turns (QC): 4 (SBA) Walk 150 ft (QC): 88 Walking 10ft on Uneven Surface: 4 (SBA) 1 Step (curb) (QC): 4 (CGA) 4 Steps (QC): 4 (CGA) 12 Steps (QC): 88 Picking up an Object (QC): 4 (SBA using a hedis review nurse) Wheel 50 feet with 2 turns (QC: 9 Wheel 150 feet: 9 PT Plan Problem List Problem List: Activity Tolerance Treatment/Plan Treatment Plan: Continue Plan of Care Treatment Plan: Bed Mobility, Education, Functional Activity Sherry, Functional Strength, Group Therapy, Gait, Safety, Therapeutic Exercise, Transfers Treatment Duration: Feb 06, 2022 Frequency: At least 5 of 7 days/Wk (IRF) Estimated Hrs Per Day: 1.5 hours per day Patient and/or Family Agrees t: Yes Safety Risks/Education Patient Education: Steps Teaching Recipient: Patient Teaching Methods: Discussion Response to Teaching: Verbalize Understanding Time/GCodes Time In: 800 Time Out: 930 Total Billed Treatment Time: 90 Total Billed Treatment 1, GT x3 (40m), FA (15m) & EX x2 (35m) ADY GILLETTE SENIOR CENTER MANAGER Jan 25, 2022 09:34
--- NOTE | 2022-01-25 11:38 | Occupational Ther Daily Note ---
OT Current Status-Daily Note Subjective Pt alert, sitting in recliner. Pt c/o neck and knee pain with increased swelling and warmth in knee, did not rate, reported to nrsg. Nrsg had just brought pain meds and ice pack placed on R knee by KAREEM. Pt agrees to therapy. Mental Status/Objective Patient Orientation: Person, Place, Time, Situation Attachments: Other-See Comments (neck brace) ADL-Treatment Due to temperature issue with hospital's water supply, pt had to take a sponge bath. Pt c/o of fatigue, pain and swelling throughout body, which affected ability to complete ADLs with the independence pt normally demonstrates. Pt ambulated to bathroom using FWW with close SBA for safety then transferred to w/c. Sitting at sink in w/c, pt completed oral care independent. Pt transferred into shower with SBA using grabbars and shower bench. Due to water temp issues, pt had to take sponge bath in shower independently sitting 100% of the time. Max A for sit to stand from shower bench using grabbars. Assist given to pt to dress upper/lower body and footwear due to increased fatigue and weakness. Pt requested to go to bed. SBA for EOB to supine. After session, pt lying in bed with call light/phone in reach. All needs met in room. Therapy Code Descriptions/Definitions Functional [place] Measure: 0=Not Assessed/NA 4=Minimal Assistance 1=Total Assistance 5=Supervision or Setup 2=Maximal Assistance 6=Modified [place] 3=Moderate Assistance 7=Complete IndependenceSCALE: Activities may be completed with or without assistive devices. 2-Crtqddfqod-dglocjx completes the activity by him/herself with no assistance from a helper. 5-Set-up or Clean-up Assistance-helper sets up or cleans up; patient completes activity. [place] assists only prior to or following the activity. 4-Supervision or Touching Assistance-helper provides verbal cues and/or touching/steadying and/or contact guard assistance as patient completes activity. Assistance may be provided throughout the activity or intermittently. 3-Partial/Moderate Assistance-helper does LESS THAN HALF the effort. [place] lifts, holds or supports trunk or limbs, but provides less than half the effort. 2-Substantial/Maximal Assistance-helper does MORE THAN HALF the effort. [place] lifts or holds trunk or limbs and provides more than half the effort. 1-Dlfdvcdyp-nvleuz does ALL the effort. Patient does none of the effort to complete the activity. Or, the assistance of 2 or more helpers is required for the patient to complete the activity. If activity was not attempted, code reason: 7-Patient Refused. 9-Not Applicable-not attempted and the patient did not perform the activity before the current illness, exacerbation or injury. 10-Not Attempted due to Environmental Limitations-(lack of equipment, weather restraints, etc.). 88-Not Attempted due to Medical Conditions or Safety Concerns. OT Short Term Goals Short Term Goals Time Frame: Jan 27, 2022 Eatin Oral hygiene: 2 Toileting hygiene: 2 Shower/bathe self: 4 Upper body dressin Lower body dressin Putting on/taking off footwear: 2 OT Batch Mixer Operator Goals Batch Mixer Operator Goals Time Frame: Feb 13, 2022 Acute change in mental status: 0 Inattention: 0 Disorganized thinkin Altered level of consciousness: 0 Eating (QC): 5 Oral Hygiene (QC): 4 Toileting Hygiene (QC): 4 Shower/Bathe Self (QC): 5 Upper Body Dressing (QC): 5 Lower Body Dressing (QC): 4 On/Off Footwear (QC): 4 Additional Goals: 1-Demonstrate ADL Tasks, 2-Verbalize Understanding, 3- ImproveStrength/Sherry 1=Demonstrate adherence to instructed precautions during ADL tasks. 2=Patient will verbalize/demonstrate understanding of assistive devices/modifications for ADL. 3=Patient will improve strength/tolerance for activity to enable patient to perform ADL's. OT Education/Plan Problem List/Assessment Assessment: Decreased Activ Tolerance, Decreased UE Strength, Impaired Self- Care Skills Discharge Recommendations Plan/Recommendations: Continue POC Treatment Plan/Plan of Care Patient would benefit from OT for education, treatment and training to promote independence in ADL's, mobility, safety and/or upper extremity function for ADL's. Plan of Care: ADL Retraining, Caregiver Training, Functional Mobility, Group Exercise/Act as Ind, UE Funct Exercise/Act, UE Neuromus Re-Ed/Coord Treatment Duration: Feb 13, 2022 Frequency: At least 5 of 7 days/Wk (IRF) Estimated Hrs Per Day: 1.5 hours per day (60-90 min/day) Agreement: Yes Rehab Potential: Fair Time/GCodes Start Time: 10:30 Stop Time: 11:30 Total Time Billed (hr/min): 60 Billed Treatment Time 1 visit-ADL 4 (60 min) BLOSSOM BROWN Jan 25, 2022 11:38
--- NOTE | 2022-01-25 13:17 | Occupational Ther Daily Note ---
OT Current Status-Daily Note Subjective Pt alert, lying in bed. Pt agrees to therapy. No c/o pain though is fatigued. Mental Status/Objective Patient Orientation: Person, Place, Time, Situation Attachments: Other-See Comments (neck brace) ADL-Treatment Therapy Code Descriptions/Definitions Functional [place] Measure: 0=Not Assessed/NA 4=Minimal Assistance 1=Total Assistance 5=Supervision or Setup 2=Maximal Assistance 6=Modified [place] 3=Moderate Assistance 7=Complete IndependenceSCALE: Activities may be completed with or without assistive devices. 7-Yptflawape-mlxrvcx completes the activity by him/herself with no assistance from a helper. 5-Set-up or Clean-up Assistance-helper sets up or cleans up; patient completes activity. [place] assists only prior to or following the activity. 4-Supervision or Touching Assistance-helper provides verbal cues and/or touching/steadying and/or contact guard assistance as patient completes activity. Assistance may be provided throughout the activity or intermittently. 3-Partial/Moderate Assistance-helper does LESS THAN HALF the effort. [place] lifts, holds or supports trunk or limbs, but provides less than half the effort. 2-Substantial/Maximal Assistance-helper does MORE THAN HALF the effort. [place] lifts or holds trunk or limbs and provides more than half the effort. 4-Bdsjqwmtr-udccee does ALL the effort. Patient does none of the effort to complete the activity. Or, the assistance of 2 or more helpers is required for the patient to complete the activity. If activity was not attempted, code reason: 7-Patient Refused. 9-Not Applicable-not attempted and the patient did not perform the activity before the current illness, exacerbation or injury. 10-Not Attempted due to Environmental Limitations-(lack of equipment, weather restraints, etc.). 88-Not Attempted due to Medical Conditions or Safety Concerns. Other Treatment Supine to EOB with HOB raised. Pt able to ambulate from EOB to recliner using FWW with SBA for safety. Pt completed 5 B UE exercises against gravity and pinch/electrical timing device calibrator using medium theraputty, 1 set 10 reps. Skilled instructions for correct technique and modifications due to decrease AROM of L shldr. After therapy, pt sitting in recliner with call light/phone in reach. All needs met in room. OT Short Term Goals Short Term Goals Time Frame: Jan 27, 2022 Eatin Oral hygiene: 2 Toileting hygiene: 2 Shower/bathe self: 4 Upper body dressin Lower body dressin Putting on/taking off footwear: 2 OT Educational Institution Curator Goals Snf Goals Time Frame: Feb 13, 2022 Acute change in mental status: 0 Inattention: 0 Disorganized thinkin Altered level of consciousness: 0 Eating (QC): 5 Oral Hygiene (QC): 4 Toileting Hygiene (QC): 4 Shower/Bathe Self (QC): 5 Upper Body Dressing (QC): 5 Lower Body Dressing (QC): 4 On/Off Footwear (QC): 4 Additional Goals: 1-Demonstrate ADL Tasks, 2-Verbalize Understanding, 3- ImproveStrength/Sherry 1=Demonstrate adherence to instructed precautions during ADL tasks. 2=Patient will verbalize/demonstrate understanding of assistive devices/modifications for ADL. 3=Patient will improve strength/tolerance for activity to enable patient to perform ADL's. OT Education/Plan Problem List/Assessment Assessment: Decreased Activ Tolerance, Decreased UE Strength Discharge Recommendations Plan/Recommendations: Continue POC Treatment Plan/Plan of Care Patient would benefit from OT for education, treatment and training to promote independence in ADL's, mobility, safety and/or upper extremity function for ADL's. Plan of Care: ADL Retraining, Caregiver Training, Functional Mobility, Group Exercise/Act as Ind, UE Funct Exercise/Act, UE Neuromus Re-Ed/Coord Treatment Duration: Feb 13, 2022 Frequency: At least 5 of 7 days/Wk (IRF) Estimated Hrs Per Day: 1.5 hours per day (60-90 min/day) Agreement: Yes Rehab Potential: Fair Time/GCodes Start Time: 13:00 Stop Time: 13:30 Total Time Billed (hr/min): 30 Billed Treatment Time 1 visit-FA 1 (15 min) EX 1 (15 min) BLOSSOM BROWN Jan 25, 2022 13:17
[2022-01-25] MEDS: meTOprolol SUCCINATE 100 MG (TOPROL XL) TAB PO SCH (20:14)
[2022-01-25] MEDS: ROSUVASTATIN 5 MG (CRESTOR) TABLET PO SCH (20:15)
[2022-01-25] MEDS: TAMSULOSIN 0.4 MG (FLOMAX) CAP PO SCH (20:15)
[2022-01-25 20:30] VITALS: BP 126/68
--- NOTE | 2022-01-26 05:47 | PM&R Progress Note ---
Subjective HPI/CC On Admission Date Seen by Provider: Jan 26, 2022 Time Seen by Provider: 12:00 Subjective/Events-last exam 01/26/2022: Patient doing well Pain is being controlled on Ultram Ambulating well No concerns 01/25/2022: Doing well DC this weekend No pain except right side of neck 01/24/2022: Doing well No pain Improved overall X-ray obtained by Dr. Jim Bilateral foot drop will require braces 01/23/2022: Continued dramatic improvement in status Overall moving around well Pain minimal Ankle ulceration will be addressed 01/22/2022: Dramatic improvement No falls Pain improved 01/21/2022: Patient doing well No pain reported Dramatic improvement in activity now 01/20/2022: No major issues No pain Improved movement 01/19/2022: Patient doing very well Pain is much improved Moving around very well 01/18/2022: No major issues Gaining strength Less pain BM regimen 01/17/2022: Doing well Slow recovery Pain controlled with Ultram No falls 01/16/2022: Doing well overall Regular diet tolerated No pain reported except neck Ultram is preferred per patient BM+ and feels better No falls Review of Systems General: Fatigue, Malaise Objective Exam Vital Signs Vital Signs Date Time Temp Pulse Resp B/P (MAP) Pulse Ox O2 Delivery O2 Flow Rate FiO2 01/26/22 21:30 Room Air 01/26/22 20:00 36.8 68 16 110/58 (75) 97 Capillary Refill : General Appearance: No Apparent Distress, WD/WN, Chronically ill HEENT: PERRL/EOMI, Normal ENT Inspection, Pharynx Normal Neck: Full Range of Motion, Normal Inspection, Non Tender, Supple, Carotid Bruit Respiratory: Chest Non Tender, Lungs Clear, Normal Breath Sounds, No Accessory Muscle Use, No Respiratory Distress Cardiovascular: Regular Rate, Rhythm, No Edema, No Gallop, No JVD, No Murmur, Normal Peripheral Pulses Gastrointestinal: Normal Bowel Sounds, No Organomegaly, No Pulsatile Mass, Non Tender, Soft Back: Normal Inspection, No CVA Tenderness, No Vertebral Tenderness Extremity: Normal Capillary Refill, Normal Inspection, Normal Range of Motion, Non Tender, No Calf Tenderness, No Pedal Edema Neurologic/Psychiatric: Alert, Oriented x3, inclusion paraeducator II-XII Norm as Tested, Abnormal Gait, Depressed Affect, Motor Weakness (Severe weakness of lower extremities 2/5) Skin: Normal Color, Warm/Dry Lymphatic: No Adenopathy Results/Procedures Lab Laboratory Tests 01/26/22 07:16 Patient resulted labs reviewed. FIM Transfers Therapy Code Descriptions/Definitions Functional [place] Measure: 0=Not Assessed/NA 4=Minimal Assistance 1=Total Assistance 5=Supervision or Setup 2=Maximal Assistance 6=Modified [place] 3=Moderate Assistance 7=Complete IndependenceSCALE: Activities may be completed with or without assistive devices. 0-Jeguwzupld-vzkulni completes the activity by him/herself with no assistance from a helper. 5-Set-up or Clean-up Assistance-helper sets up or cleans up; patient completes activity. [place] assists only prior to or following the activity. 4-Supervision or Touching Assistance-helper provides verbal cues and/or touching/steadying and/or contact guard assistance as patient completes acti vity. Assistance may be provided throughout the activity or intermittently. 3-Partial/Moderate Assistance-helper does LESS THAN HALF the effort. [place] lifts, holds or supports trunk or limbs, but provides less than half the effort. 2-Substantial/Maximal Assistance-helper does MORE THAN HALF the effort. [place] lifts or holds trunk or limbs and provides more than half the effort. 4-Azphbujcn-nfyszo does ALL the effort. Patient does none of the effort to complete the activity. Or, the assistance of 2 or more helpers is required for the patient to complete the activity. If activity was not attempted, code reason: 7-Patient Refused. 9-Not Applicable-not attempted and the patient did not perform the activity before the current illness, exacerbation or injury. 10-Not Attempted due to Environmental Limitations-(lack of equipment, weather restraints, etc.). 88-Not Attempted due to Medical Conditions or Safety Concerns. Roll Left to Right (QC): 4 Sit to Lying (QC): 6 Sit to Stand (QC): 5 Chair/Gpd-cw-Cqjxy Xfer(QC): 4 Car Transfer (QC): 3 Gait Training Does the Patient Walk?: Yes Distance: 150', 250' Walk 10 feet (QC): 5 Walk 50 ft with 2 Turns(QC): 5 Walk 150 ft (QC): 5 Walking 10ft/uneven surface-QC: 88 Gait Persons Needed: 1 Gait Assistive Device: FWW Wheelchair Training Does the Pt Use a Wheelchair?: Yes Wheel 50 ft with 2 turns (QC): 5 Wheel 150 ft (QC): 6 Type of Wheelchair: Manual Stair Training Stair Training: Handrails/: 2 handrails #of Steps: 4 1 Step (curb) (QC): 4 4 Steps (QC): 4 12 Steps (QC): 88 Stairs: Pattern: Step to Balance Picking up an Object (QC): 4 (CGA using a web content executive) ADL-Treatment Eating (QC): 5 Oral Hygiene (QC): 6 Shower/Bathe Self (QC): 6 Upper Body Dressing (QC): 3 (Min A) Lower Body Dressing (QC): 4 On/Off Footwear (QC): 2 Toileting Hygiene (QC): 4 Toilet Transfer (QC): 4 Assessment/Plan Assessment and Plan Assess & Plan/Chief Complaint Assessment: Severe leg weakness due to cervical spine stenosis causing myelopathy status post surgical resolution 01/05/2022 Severe constipation last BM 01/04/2022 resolved 01/16/2022 Postop dysphagia-resolved Profound weight loss due to inability to eat-resolved Back pain with lumbar spine disease chronic CKD Stage III usual baseline creat 2.1 HTN CAD HLP Gout Elevated LFT's Plan: Aggressive PT and OT Aggressive bowel regimen Supportive care 01/16/2022: Monitor closely BM+ 01/17/2022: Supportive care Increase ambulation 01/18/2022: Ultram Increase therapy 01/19/2022: Monitor closely 01/20/2022: Supportive care 01/21/2022: Monitor closely 01/22/2022: Monitor closely 01/23/2022: Monitor closely Eval wound on ankle 01/24/2022: Supportive care Betadine to toe ulceration 01/25/2022: Much improved status 01/26/2022: Supportive care Monitor closely (1) Myelopathy due to cervical spondylosis (2) Bilateral leg weakness Status: Acute (3) Presence of stent in LAD coronary artery Status: Acute (4) Presence of stent in right coronary artery Status: Acute (5) Chronic kidney disease, stage 3 Status: Acute (6) 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
[2022-01-26 07:23] LABS: BASOPHILS # (AUTO) 0.1 10^3/uL (0.0-0.1); BASOPHILS % (AUTO) 1 % (0-10); EOSINOPHILS # (AUTO) 0.3 10^3/uL (0.0-0.3); EOSINOPHILS % (AUTO) 3 % (0-10); HEMATOCRIT 34 % (40-54); HEMOGLOBIN 11.3 g/dL (13.3-17.7); LYMPHOCYTES # (AUTO) 1.5 10^3/uL (1.0-4.0); LYMPHOCYTES % (AUTO) 14 % (12-44); MEAN CORPUSCULAR HEMOGLOBIN 33 pg (25-34); MEAN CORPUSCULAR HGB CONC 34 g/dL (32-36); MEAN CORPUSCULAR VOLUME 99 fL (80-99); MEAN PLATELET VOLUME 9.7 fL (9.0-12.2); MONOCYTES % (AUTO) 9 % (0-12); NEUTROPHILS # (AUTO) 7.2 10^3/uL (1.8-7.8); NEUTROPHILS % (AUTO) 71 % (42-75); PLATELET COUNT 154 10^3/uL (130-400); WHITE BLOOD COUNT 10.2 10^3/uL (4.3-11.0)
[2022-01-26 07:24] VITALS: BP 107/71
[2022-01-26 07:48] LABS: ALBUMIN 3.1 GM/DL (3.2-4.5); POTASSIUM 4.3 MMOL/L (3.6-5.0)
[2022-01-26 07:50] LABS: CALCIUM 8.9 MG/DL (8.5-10.1)
[2022-01-26 07:51] LABS: TOTAL PROTEIN 5.9 GM/DL (6.4-8.2)
[2022-01-26 07:53] LABS: BILIRUBIN,TOTAL 0.7 MG/DL (0.1-1.0)
[2022-01-26 07:54] LABS: CREATININE SERUM 1.65 MG/DL (0.60-1.30)
[2022-01-26] MEDS: ASPIRIN 81 MG CHEW (CHILDREN'S ASA) PO SCH (08:32)
[2022-01-26] MEDS: SENNA W/DOCUSATE (SENOKOT S) TABLET PO SCH ×2 (08:33→21:50)
[2022-01-26] MEDS: ALLOPURINOL 100 MG (ZYLOPRIM) TAB PO SCH (08:33)
[2022-01-26] MEDS: polyethylene glycoL POWDER 17 GM (MIRALAX) PACK PO SCH ×2 (08:33→21:49)
[2022-01-26] MEDS: OMEGA 3 (FISH OIL) 1000 MG CAP PO SCH (08:33)
[2022-01-26] MEDS: GABAPENTIN 300 MG (NEURONTIN) CAP PO SCH ×2 (08:33→21:49)
[2022-01-26] MEDS: DOCUSATE SODIUM 100 MG (COLACE) CAP PO SCH ×2 (08:33→21:49)
[2022-01-26] MEDS: LOSARTAN 25 MG (COZAAR) TAB PO SCH (08:33)
[2022-01-26] MEDS: SUPER B COMPLEX PO SCH (08:34)
[2022-01-26] MEDS: UBIDECARENONE PO SCH (08:34)
[2022-01-26] MEDS: POVIDONE (BETADINE) 10% SOLN 240 ML BTL TOP SCH (08:35)
--- NOTE | 2022-01-26 09:52 | Physical Therapy Daily Note ---
PT Daily Note-Current Subjective Patient in recliner pre-tx, reports of a little pain in hands, agrees to PT. Pain Section J - Health Conditions 1. Rarely or not at all 2. Occasionally 3. Frequently 4. Almost constantly 8. Unable to answer Pain Effect on Sleep: 1 Pain Interference with Therapy: 1 Pain Interference w/Day-to-Day: 1 Appearance Patient on toilet with nurse call post-tx. Mental Status Patient Orientation: Person, Place, Situation cervical soft collar Transfers SCALE: Activities may be completed with or without assistive devices. 4-Impovsalbw-bvpgsgq completes the activity by him/herself with no assistance from a helper. 5-Set-up or Clean-up Assistance-helper sets up or cleans up; patient completes activity. [place] assists only prior to or following the activity. 4-Supervision or Touching Assistance-helper provides verbal cues and/or touching/steadying and/or contact guard assistance as patient completes activi ty. Assistance may be provided throughout the activity or intermittently. 3-Partial/Moderate Assistance-helper does LESS THAN HALF the effort. [place] lifts, holds or supports trunk or limbs, but provides less than half the effort. 2-Substantial/Maximal Assistance-helper does MORE THAN HALF the effort. [place] lifts or holds trunk or limbs and provides more than half the effort. 6-Rkklzsrml-odmvds does ALL the effort. Patient does none of the effort to complete the activity. Or, the assistance of 2 or more helpers is required for the patient to complete the activity. If activity was not attempted, code reason: 7-Patient Refused. 9-Not Applicable-not attempted and the patient did not perform the activity before the current illness, exacerbation or injury. 10-Not Attempted due to Environmental Limitations-(lack of equipment, weather restraints, etc.). 88-Not Attempted due to Medical Conditions or Safety Concerns. Sit to Stand (QC): 4 Toilet Transfer (QC): 4 CGA Weight Bearing Full Weight Bearing Full Weight Bearing Gait Training Distance: 130ft x 2 Walk 10 feet (QC): 4 Walk 50 ft with 2 Turns(QC): 4 Gait Persons Needed: 1 Gait Assistive Device: Walker Standard Slow esdras, decreased step length, decreased foot clearance, and patient leans slightly forward when walking. Wheelchair Training Does the Pt Use a Wheelchair?: No Stair Training Stair Training: Handrails/: 2 handrails #of Steps: 4 1 Step (curb) (QC): 4 4 Steps (QC): 4 Stairs: Pattern: Step to Step up with stronger (left leg), step down with right leg). Patient walked up 4 steps, turned, walked down 4 steps. Took break afterwards before moving on to next activity. Exercises Seated Therapy Exercises: Long arc quads, Hip abd/add (Adduct w/ ball, abduct manual resistance) Seated Reps: 15 Standing: Hamstring curls (10 reps each leg in parallel bars), Stepping over objects (stepped over pvc piping 4 times using standard walker, CGA) Standing Reps: 10 CGA NuStep Minutes: 15 NuStep Workload: 4 Treatments Strengthening, FA, Stairs, Stepping Over Objects Assessment Current Status: Fair Progress Patient has decreased strength, balance, and reaching with left arm/hand. Patient needed help putting left hand on railing pre-stairs. PT Short Term Goals Short Term Goals Time Frame: Jan 23, 2022 Roll Left & Right: 6 Sit to lyin (Jorge) Lying to sitting on side of be: 3 (Jorge) Sit to stand: 4 (CGA) Chair/jws-vx-wgqwy transfer: 4 (CGA) Walk 10 feet: 4 (CGA) Walk 50 feet with two turns: 4 (CGA) PT Director Pharmacology Goals Director Pharmacology Goals PT Director Pharmacology Goals Time Frame: Feb 06, 2022 Roll Left & Right (QC): 6 Sit to Lying (QC): 4 (SBA) Lying-Sitting on Side/Bed(QC): 4 (SBA) Sit to Stand (QC): 4 (SBA) Chair/Vck-nx-Sfgim Xfer(QC): 4 (SBA) Toilet Transfer (QC): 4 Car Transfer (QC): 4 (SBA) Does the Patient Walk: Yes Walk 10 feet (QC): 4 (SBA) Walk 50ft with 2 Turns (QC): 4 (SBA) Walk 150 ft (QC): 88 Walking 10ft on Uneven Surface: 4 (SBA) 1 Step (curb) (QC): 4 (CGA) 4 Steps (QC): 4 (CGA) 12 Steps (QC): 88 Picking up an Object (QC): 4 (SBA using a autocad) Wheel 50 feet with 2 turns (QC: 9 Wheel 150 feet: 9 PT Plan Problem List Problem List: Activity Tolerance, Functional Strength, Safety, Balance, Gait, Transfer, Bed Mobility, ROM Treatment/Plan Treatment Plan: Continue Plan of Care Treatment Plan: Bed Mobility, Education, Functional Activity Sherry, Functional Strength, Group Therapy, Gait, Safety, Therapeutic Exercise, Transfers Treatment Duration: Feb 06, 2022 Frequency: At least 5 of 7 days/Wk (IRF) Estimated Hrs Per Day: 1.5 hours per day Patient and/or Family Agrees t: Yes Safety Risks/Education Patient Education: Gait Training, Transfer Techniques, Steps, Reviewed Precautions, Correct Positioning, Safety Issues Teaching Recipient: Patient Teaching Methods: Demonstration, Discussion Response to Teaching: Reinforcement Needed Time/GCodes Time In: 0900 Time Out: 1000 Total Billed Treatment Time: 60 Total Billed Treatment 1 visit FA 25min Ex 35min GUSTAVO BHA PT Jan 26, 2022 09:52
--- NOTE | 2022-01-26 11:31 | Occupational Ther Daily Note ---
OT Current Status-Daily Note Subjective Pt on toilet at arrival. Pt c/o no pain. Pt agrees to therapy. Pt appears well rested. Mental Status/Objective Patient Orientation: Person, Place, Time, Situation Attachments: Other-See Comments (neck brace) ADL-Treatment Pt able to complete toileting task independently. Pt used FWW to transfer from toilet to w/c. Pt sat at the sink in w/c to perform oral hygiene independently. Therapy Code Descriptions/Definitions Functional [place] Measure: 0=Not Assessed/NA 4=Minimal Assistance 1=Total Assistance 5=Supervision or Setup 2=Maximal Assistance 6=Modified [place] 3=Moderate Assistance 7=Complete IndependenceSCALE: Activities may be completed with or without assistive devices. 8-Qiukdxguqk-lywefjk completes the activity by him/herself with no assistance fr om a helper. 5-Set-up or Clean-up Assistance-helper sets up or cleans up; patient completes activity. [place] assists only prior to or following the activity. 4-Supervision or Touching Assistance-helper provides verbal cues and/or touching/steadying and/or contact guard assistance as patient completes activity. Assistance may be provided throughout the activity or intermittently. 3-Partial/Moderate Assistance-helper does LESS THAN HALF the effort. [place] lifts, holds or supports trunk or limbs, but provides less than half the effort. 2-Substantial/Maximal Assistance-helper does MORE THAN HALF the effort. [place] lifts or holds trunk or limbs and provides more than half the effort. 9-Xhzvjslgb-jfdsxy does ALL the effort. Patient does none of the effort to complete the activity. Or, the assistance of 2 or more helpers is required for the patient to complete the activity. If activity was not attempted, code reason: 7-Patient Refused. 9-Not Applicable-not attempted and the patient did not perform the activity before the current illness, exacerbation or injury. 10-Not Attempted due to Environmental Limitations-(lack of equipment, weather restraints, etc.). 88-Not Attempted due to Medical Conditions or Safety Concerns. Oral Hygiene (QC): 6 Toileting Hygiene (QC): 6 Toilet Transfer (QC): 6 Other Treatment Pt able to transfer from sitting to standing with SBA. Pt stood with FWW to throw objects to designated area. Displayed good standing balance. Pt participated in grasping clips with L (yellow only) and R (all color) hand. Displays weakness in L UE. Pt did 10 reps of 5 wrist/arm exercises with 2 lb weight. Pt squeezed, pinched sponges (yellow in L blue in R). Pt transferred from w/c to EOB with FWW and SBA. Pt able to get in supine independently. Pt performed 10 reps of 3 dowel exercises while in supine position. Pt did 5 minutes of overhead arm teo exercises in supine. Pt in bed at incline at end of session. Phone/call light in reach. All needs met in room. Education OT Patient Education: Exercise program Teaching Recipient: Patient Teaching Methods: Demonstration Response to Teaching: Return Demonstration OT Short Term Goals Short Term Goals Time Frame: Jan 27, 2022 Eatin Oral hygiene: 2 Toileting hygiene: 2 Shower/bathe self: 4 Upper body dressin Lower body dressin Putting on/taking off footwear: 2 OT Air Launch Weapons Technician Goals Air Launch Weapons Technician Goals Time Frame: Feb 13, 2022 Acute change in mental status: 0 Inattention: 0 Disorganized thinkin Altered level of consciousness: 0 Eating (QC): 5 Oral Hygiene (QC): 4 Toileting Hygiene (QC): 4 Shower/Bathe Self (QC): 5 Upper Body Dressing (QC): 5 Lower Body Dressing (QC): 4 On/Off Footwear (QC): 4 Additional Goals: 1-Demonstrate ADL Tasks, 2-Verbalize Understanding, 3- ImproveStrength/Sherry 1=Demonstrate adherence to instructed precautions during ADL tasks. 2=Patient will verbalize/demonstrate understanding of assistive devices/modifications for ADL. 3=Patient will improve strength/tolerance for activity to enable patient to perform ADL's. OT Education/Plan Problem List/Assessment Assessment: Decreased Activ Tolerance, Decreased UE Strength Discharge Recommendations Plan/Recommendations: Continue POC Treatment Plan/Plan of Care Patient would benefit from OT for education, treatment and training to promote independence in ADL's, mobility, safety and/or upper extremity function for ADL's. Plan of Care: ADL Retraining, Caregiver Training, Functional Mobility, Group Exercise/Act as Ind, UE Funct Exercise/Act, UE Neuromus Re-Ed/Coord Treatment Duration: Feb 13, 2022 Frequency: At least 5 of 7 days/Wk (IRF) Estimated Hrs Per Day: 1.5 hours per day (60-90 min/day) Agreement: Yes Rehab Potential: Fair Time/GCodes Start Time: 10:00 Stop Time: 11:30 Total Time Billed (hr/min): 90 Billed Treatment Time 1 visit ADL 2 (30 min) EX 4 (60 minutes) BLOSSOM BROWN Jan 26, 2022 11:31
--- NOTE | 2022-01-26 13:31 | Physical Therapy Daily Note ---
PT Daily Note-Current Subjective Patient in bed pre-tx, reports 1-2/10 pain, agrees to PT. Pain Section J - Health Conditions 1. Rarely or not at all 2. Occasionally 3. Frequently 4. Almost constantly 8. Unable to answer Pain Effect on Sleep: 1 Pain Interference with Therapy: 1 Pain Interference w/Day-to-Day: 1 Appearance Patient in recliner post-tx with nurse call, water, table in reach, and all needs met. Mental Status Patient Orientation: Person, Place, Situation soft cervical collar Transfers SCALE: Activities may be completed with or without assistive devices. 4-Ayamvlpkoq-xxkfwjy completes the activity by him/herself with no assistance from a helper. 5-Set-up or Clean-up Assistance-helper sets up or cleans up; patient completes activity. [place] assists only prior to or following the activity. 4-Supervision or Touching Assistance-helper provides verbal cues and/or touching/steadying and/or contact guard assistance as patient completes activity. Assistance may be provided throughout the activity or intermittently. 3-Partial/Moderate Assistance-helper does LESS THAN HALF the effort. [place] lifts, holds or supports trunk or limbs, but provides less than half the effort. 2-Substantial/Maximal Assistance-helper does MORE THAN HALF the effort. [place] lifts or holds trunk or limbs and provides more than half the effort. 3-Plumlkbir-qfaeir does ALL the effort. Patient does none of the effort to complete the activity. Or, the assistance of 2 or more helpers is required for the patient to complete the activity. If activity was not attempted, code reason: 7-Patient Refused. 9-Not Applicable-not attempted and the patient did not perform the activity before the current illness, exacerbation or injury. 10-Not Attempted due to Environmental Limitations-(lack of equipment, weather restraints, etc.). 88-Not Attempted due to Medical Conditions or Safety Concerns. Sit to Lying (QC): 6 Lying to Sitting/Side of Bed(Q: 4 Sit to Stand (QC): 4 CGA Weight Bearing Full Weight Bearing Full Weight Bearing Gait Training Does the Patient Walk?: Yes Distance: 130ft x 2 Walk 10 feet (QC): 4 Walk 50 ft with 2 Turns(QC): 4 Gait Persons Needed: 1 Gait Assistive Device: Walker Standard CGA, slow but steady ambulation Wheelchair Training Does the Pt Use a Wheelchair?: No Exercises Supine Ex: Bridging (w/ red ball under legs), Quad Set, Lower trunk rotation (using theraball), Heel Slides, Straight leg raise (only able to do L leg) Supine Reps: 10 Treatments Strengthening, functional ambulation, balance, and ROM. Assessment Current Status: Fair Progress Patient had better posture when walking to the gym with walker, but still can improve. Patient has decreased step length, foot clearance, and esdras. Patient unable to do SLR on R leg due to weakness. PT Short Term Goals Short Term Goals Time Frame: Jan 23, 2022 Roll Left & Right: 6 Sit to lyin (Jorge) Lying to sitting on side of be: 3 (Jorge) Sit to stand: 4 (CGA) Chair/ztc-qb-nuvzq transfer: 4 (CGA) Walk 10 feet: 4 (CGA) Walk 50 feet with two turns: 4 (CGA) PT Cash Analyst Goals Senior Care Goals PT Cash Analyst Goals Time Frame: Feb 06, 2022 Roll Left & Right (QC): 6 Sit to Lying (QC): 4 (SBA) Lying-Sitting on Side/Bed(QC): 4 (SBA) Sit to Stand (QC): 4 (SBA) Chair/Jut-cv-Jvtfu Xfer(QC): 4 (SBA) Toilet Transfer (QC): 4 Car Transfer (QC): 4 (SBA) Does the Patient Walk: Yes Walk 10 feet (QC): 4 (SBA) Walk 50ft with 2 Turns (QC): 4 (SBA) Walk 150 ft (QC): 88 Walking 10ft on Uneven Surface: 4 (SBA) 1 Step (curb) (QC): 4 (CGA) 4 Steps (QC): 4 (CGA) 12 Steps (QC): 88 Picking up an Object (QC): 4 (SBA using a senior mobile solutions architect) Wheel 50 feet with 2 turns (QC: 9 Wheel 150 feet: 9 PT Plan Problem List Problem List: Activity Tolerance, Functional Strength, Safety, Balance, Gait, Transfer, Bed Mobility, ROM Treatment/Plan Treatment Plan: Continue Plan of Care Treatment Plan: Bed Mobility, Education, Functional Activity Sherry, Functional Strength, Group Therapy, Gait, Safety, Therapeutic Exercise, Transfers Treatment Duration: Feb 06, 2022 Frequency: At least 5 of 7 days/Wk (IRF) Estimated Hrs Per Day: 1.5 hours per day Patient and/or Family Agrees t: Yes Safety Risks/Education Patient Education: Gait Training, Transfer Techniques, Reviewed Precautions, Correct Positioning, Safety Issues Teaching Recipient: Patient Teaching Methods: Demonstration, Discussion Response to Teaching: Reinforcement Needed Time/GCodes Time In: 1300 Time Out: 1330 Total Billed Treatment Time: 30 Total Billed Treatment 1 visit FA 10min EX 20min GUSTAVO BAH PT Jan 26, 2022 13:31
[2022-01-26 20:00] VITALS: BP 110/58
[2022-01-26] MEDS: ROSUVASTATIN 5 MG (CRESTOR) TABLET PO SCH (21:48)
[2022-01-26] MEDS: meTOprolol SUCCINATE 100 MG (TOPROL XL) TAB PO SCH (21:48)
[2022-01-26] MEDS: TAMSULOSIN 0.4 MG (FLOMAX) CAP PO SCH (21:48)
--- NOTE | 2022-01-27 06:19 | PM&R Progress Note ---
Subjective HPI/CC On Admission Date Seen by Provider: Jan 27, 2022 Time Seen by Provider: 12:30 Subjective/Events-last exam 01/27/2022: Patient doing well Ready for discharge on Sunday Pain is controlled Monitoring closely 01/26/2022: Patient doing well Pain is being controlled on Ultram Ambulating well No concerns 01/25/2022: Doing well DC this weekend No pain except right side of neck 01/24/2022: Doing well No pain Improved overall X-ray obtained by Dr. Jim Bilateral foot drop will require braces 01/23/2022: Continued dramatic improvement in status Overall moving around well Pain minimal Ankle ulceration will be addressed 01/22/2022: Dramatic improvement No falls Pain improved 01/21/2022: Patient doing well No pain reported Dramatic improvement in activity now 01/20/2022: No major issues No pain Improved movement 01/19/2022: Patient doing very well Pain is much improved Moving around very well 01/18/2022: No major issues Gaining strength Less pain BM regimen 01/17/2022: Doing well Slow recovery Pain controlled with Ultram No falls 01/16/2022: Doing well overall Regular diet tolerated No pain reported except neck Ultram is preferred per patient BM+ and feels better No falls Review of Systems General: Fatigue, Malaise Objective Exam Vital Signs Vital Signs Date Time Temp Pulse Resp B/P (MAP) Pulse Ox O2 Delivery O2 Flow Rate FiO2 01/27/22 20:29 Room Air 01/27/22 20:00 36.6 75 24 126/81 (96) 96 Capillary Refill : General Appearance: No Apparent Distress, WD/WN, Chronically ill HEENT: PERRL/EOMI, Normal ENT Inspection, Pharynx Normal Neck: Full Range of Motion, Normal Inspection, Non Tender, Supple, Carotid Bruit Respiratory: Chest Non Tender, Lungs Clear, Normal Breath Sounds, No Accessory Muscle Use, No Respiratory Distress Cardiovascular: Regular Rate, Rhythm, No Edema, No Gallop, No JVD, No Murmur, Normal Peripheral Pulses Gastrointestinal: Normal Bowel Sounds, No Organomegaly, No Pulsatile Mass, Non Tender, Soft Back: Normal Inspection, No CVA Tenderness, No Vertebral Tenderness Extremity: Normal Capillary Refill, Normal Inspection, Normal Range of Motion, Non Tender, No Calf Tenderness, No Pedal Edema Neurologic/Psychiatric: Alert, Oriented x3, computer operations supervisor II-XII Norm as Tested, Abnormal Gait, Depressed Affect, Motor Weakness (Severe weakness of lower extremities 2/5) Skin: Normal Color, Warm/Dry Lymphatic: No Adenopathy Results/Procedures Lab Patient resulted labs reviewed. FIM Transfers Therapy Code Descriptions/Definitions Functional [place] Measure: 0=Not Assessed/NA 4=Minimal Assistance 1=Total Assistance 5=Supervision or Setup 2=Maximal Assistance 6=Modified [place] 3=Moderate Assistance 7=Complete IndependenceSCALE: Activities may be completed with or without assistive devices. 2-Okxfkjbbdi-gboslla completes the activity by him/herself with no assistance from a helper. 5-Set-up or Clean-up Assistance-helper sets up or cleans up; patient completes activity. [place] assists only prior to or following the activity. 4-Supervision or Touching Assistance-helper provides verbal cues and/or touching/steadying and/or contact guard assistance as patient completes activity. Assistance may be provided throughout the activity or intermittently. 3-Partial/Moderate Assistance-helper does LESS THAN HALF the effort. [place] lifts, holds or supports trunk or limbs, but provides less than half the effort. 2-Substantial/Maximal Assistance-helper does MORE THAN HALF the effort. [place] lifts or holds trunk or limbs and provides more than half the effort. 2-Oiiqtozfa-rgwzao does ALL the effort. Patient does none of the effort to c omplete the activity. Or, the assistance of 2 or more helpers is required for the patient to complete the activity. If activity was not attempted, code reason: 7-Patient Refused. 9-Not Applicable-not attempted and the patient did not perform the activity before the current illness, exacerbation or injury. 10-Not Attempted due to Environmental Limitations-(lack of equipment, weather restraints, etc.). 88-Not Attempted due to Medical Conditions or Safety Concerns. Roll Left to Right (QC): 4 Sit to Lying (QC): 6 Sit to Stand (QC): 4 Chair/Mjg-rv-Dwbfx Xfer(QC): 4 Car Transfer (QC): 3 Gait Training Does the Patient Walk?: Yes Distance: 130ft x 2 Walk 10 feet (QC): 4 Walk 50 ft with 2 Turns(QC): 4 Walk 150 ft (QC): 5 Walking 10ft/uneven surface-QC: 88 Gait Persons Needed: 1 Gait Assistive Device: Walker Standard Wheelchair Training Does the Pt Use a Wheelchair?: No Wheel 50 ft with 2 turns (QC): 5 Wheel 150 ft (QC): 6 Type of Wheelchair: Manual Stair Training Stair Training: Handrails/: 2 handrails #of Steps: 4 1 Step (curb) (QC): 4 4 Steps (QC): 4 12 Steps (QC): 88 Stairs: Pattern: Step to Balance Picking up an Object (QC): 4 (CGA using a tube splicer) ADL-Treatment Eating (QC): 5 Oral Hygiene (QC): 6 Shower/Bathe Self (QC): 6 Upper Body Dressing (QC): 3 (Min A) Lower Body Dressing (QC): 4 On/Off Footwear (QC): 2 Toileting Hygiene (QC): 6 Toilet Transfer (QC): 6 Assessment/Plan Assessment and Plan Assess & Plan/Chief Complaint Assessment: Severe leg weakness due to cervical spine stenosis causing myelopathy status post surgical resolution 01/05/2022 Severe constipation last BM 01/04/2022 resolved 01/16/2022 Postop dysphagia-resolved Profound weight loss due to inability to eat-resolved Back pain with lumbar spine disease chronic CKD Stage III usual baseline creat 2.1 HTN CAD HLP Gout Elevated LFT's Plan: Aggressive PT and OT Aggressive bowel regimen Supportive care 01/16/2022: Monitor closely BM+ 01/17/2022: Supportive care Increase ambulation 01/18/2022: Ultram Increase therapy 01/19/2022: Monitor closely 01/20/2022: Supportive care 01/21/2022: Monitor closely 01/22/2022: Monitor closely 01/23/2022: Monitor closely Eval wound on ankle 01/24/2022: Supportive care Betadine to toe ulceration 01/25/2022: Much improved status 01/26/2022: Supportive care Monitor closely 01/27/2022: Supportive care Monitoring closely (1) Myelopathy due to cervical spondylosis (2) Bilateral leg weakness Status: Acute (3) Presence of stent in LAD coronary artery Status: Acute (4) Presence of stent in right coronary artery Status: Acute (5) Chronic kidney disease, stage 3 Status: Acute (6) 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
[2022-01-27] MEDS: GABAPENTIN 300 MG (NEURONTIN) CAP PO SCH ×2 (07:40→20:04)
[2022-01-27] MEDS: OMEGA 3 (FISH OIL) 1000 MG CAP PO SCH (07:41)
[2022-01-27] MEDS: LOSARTAN 25 MG (COZAAR) TAB PO SCH (07:41)
[2022-01-27] MEDS: SUPER B COMPLEX PO SCH (07:41)
[2022-01-27] MEDS: UBIDECARENONE PO SCH (07:41)
[2022-01-27] MEDS: ASPIRIN 81 MG CHEW (CHILDREN'S ASA) PO SCH (07:41)
[2022-01-27] MEDS: ALLOPURINOL 100 MG (ZYLOPRIM) TAB PO SCH (07:41)
[2022-01-27] MEDS: POVIDONE (BETADINE) 10% SOLN 240 ML BTL TOP SCH (07:42)
[2022-01-27] MEDS: DOCUSATE SODIUM 100 MG (COLACE) CAP PO SCH ×2 (07:43→20:17)
[2022-01-27] MEDS: polyethylene glycoL POWDER 17 GM (MIRALAX) PACK PO SCH ×2 (07:43→19:51)
[2022-01-27] MEDS: SENNA W/DOCUSATE (SENOKOT S) TABLET PO SCH ×2 (07:43→20:17)
[2022-01-27 07:49] VITALS: BP 139/67
--- NOTE | 2022-01-27 08:30 | Physical Therapy Daily Note ---
PT Daily Note-Current Subjective Patient in recliner pre-tx, reports 3/10 pain in hands and medial R knee. Pain Section J - Health Conditions 1. Rarely or not at all 2. Occasionally 3. Frequently 4. Almost constantly 8. Unable to answer Pain Effect on Sleep: 1 Pain Interference with Therapy: 1 Pain Interference w/Day-to-Day: 1 Appearance Patient in recliner post tx with nurse call, phone, tray, all needs met. Mental Status Patient Orientation: Person, Place, Situation Cervical Soft Collar Transfers SCALE: Activities may be completed with or without assistive devices. 2-Kwxqiltbji-mrfvotg completes the activity by him/herself with no assistance from a helper. 5-Set-up or Clean-up Assistance-helper sets up or cleans up; patient completes activity. [place] assists only prior to or following the activity. 4-Supervision or Touching Assistance-helper provides verbal cues and/or touching/steadying and/or contact guard assistance as patient completes activity. Assistance may be provided throughout the activity or intermittently. 3-Partial/Moderate Assistance-helper does LESS THAN HALF the effort. [place] lifts, holds or supports trunk or limbs, but provides less than half the effort. 2-Substantial/Maximal Assistance-helper does MORE THAN HALF the effort. [place] lifts or holds trunk or limbs and provides more than half the effort. 2-Hlhkvpuih-lxects does ALL the effort. Patient does none of the effort to complete the activity. Or, the assistance of 2 or more helpers is required for the patient to complete the activity. If activity was not attempted, code reason: 7-Patient Refused. 9-Not Applicable-not attempted and the patient did not perform the activity before the current illness, exacerbation or injury. 10-Not Attempted due to Environmental Limitations-(lack of equipment, weather restraints, etc.). 88-Not Attempted due to Medical Conditions or Safety Concerns. Roll Left & Right (QC): 6 Sit to Lying (QC): 6 Lying to Sitting/Side of Bed(Q: 6 Sit to Stand (QC): 4 Chair/Skq-wh-Otcla Xfer(QC): 4 Toilet Transfer (QC): 4 Car Transfer (QC): 4 close SBA with careful guarding because he can be unsteady at times, although no LOB yet. Weight Bearing Full Weight Bearing Full Weight Bearing Gait Training Does the Patient Walk?: Yes Distance: 130ft, 150ft Walk 10 feet (QC): 4 Walk 50 ft with 2 Turns(QC): 4 Walk 150 ft (QC): 4 Walking 10ft/uneven surface-QC: 4 Gait Persons Needed: 1 Gait Assistive Device: Walker Standard SBA, very slow ambulation, painful right knee, poor foot clearance Wheelchair Training Does the Pt Use a Wheelchair?: No Wheel 50 ft with 2 turns (QC): 9 Wheel 150 ft (QC): 9 Balance Picking up an Object (QC): 4 (with package designer, SBA) Exercises Standing: Hip Abduction, Heel/toe raises (Only Heel Raises bilateral) Standing Reps: 10 Hip Extension 10 reps each leg, Hip Flexion 10 reps each leg NuStep Minutes: 15 NuStep Workload: 4 Neuromuscular Tinetti Treatments LE Strengthening, Functional Ambulation Assessment Current Status: Fair Progress Patient walks with step through gait pattern equal bilaterally, slower speed, decreased foot clearance, little bit more arm support today due to increased knee pain. PT Short Term Goals Short Term Goals Time Frame: Jan 23, 2022 Roll Left & Right: 6 Sit to lyin (Jorge) Lying to sitting on side of be: 3 (Jorge) Sit to stand: 4 (CGA) Chair/hlj-vx-jelss transfer: 4 (CGA) Walk 10 feet: 4 (CGA) Walk 50 feet with two turns: 4 (CGA) PT Long-Term Goals Long-Term Goals PT Concrete Stone Finisher Goals Time Frame: Feb 06, 2022 Roll Left & Right (QC): 6 Sit to Lying (QC): 4 (SBA) Lying-Sitting on Side/Bed(QC): 4 (SBA) Sit to Stand (QC): 4 (SBA) Chair/Jea-uu-Tovvd Xfer(QC): 4 (SBA) Toilet Transfer (QC): 4 Car Transfer (QC): 4 (SBA) Does the Patient Walk: Yes Walk 10 feet (QC): 4 (SBA) Walk 50ft with 2 Turns (QC): 4 (SBA) Walk 150 ft (QC): 88 Walking 10ft on Uneven Surface: 4 (SBA) 1 Step (curb) (QC): 4 (CGA) 4 Steps (QC): 4 (CGA) 12 Steps (QC): 88 Picking up an Object (QC): 4 (SBA using a package designer) Wheel 50 feet with 2 turns (QC: 9 Wheel 150 feet: 9 PT Plan Problem List Problem List: Activity Tolerance, Functional Strength, Safety, Balance, Gait, Transfer, Bed Mobility, ROM Treatment/Plan Treatment Plan: Continue Plan of Care Treatment Plan: Bed Mobility, Education, Functional Activity Sherry, Functional Strength, Group Therapy, Gait, Safety, Therapeutic Exercise, Transfers Treatment Duration: Feb 06, 2022 Frequency: At least 5 of 7 days/Wk (IRF) Estimated Hrs Per Day: 1.5 hours per day Patient and/or Family Agrees t: Yes Safety Risks/Education Patient Education: Gait Training, Transfer Techniques, Reviewed Precautions, Correct Positioning, Safety Issues Teaching Recipient: Patient Teaching Methods: Demonstration, Discussion Response to Teaching: Reinforcement Needed Time/GCodes Time In: 0800 Time Out: 0900 Total Billed Treatment Time: 60 Total Billed Treatment 1 visit FA 15min EX 45min GUSTAVO BAH PT Jan 27, 2022 08:30
--- NOTE | 2022-01-27 08:35 | Podiatry Progress Note ---
Standard Progress Note Progress Notes/Assess & Plan Date Seen by a Provider: Jan 27, 2022 Time Seen by a Provider: 08:29 Progress/Assessment & Plan Follow up of swollen right foot. The patient reports no pain to the right foot. The wound is healing well and there is no drainage. Rehab is doing well and he is expected to discharged tomorrow. There remains some edema to the right foot but it seems slightly improved. T here is no pain with ankle, subtalar, midtarsal or tarsometatarsal joints, right foot. He has 4/5 muscle strength right foot. Radiographs were reviewed. There is no gross fracture or dislocation to the right foot. There is a stable eschar to the medial right hallux, no open wound, no erythema, no gross signs of infection. A/P: Edema - Recommend compression therapy as needed. Increase activity to tolerance and follow up in the office as needed. Partial thickness Wound, Right Hallux - Wound is healing well. Continue with betadine daily until healed. Recommend appropriate width of shoe. Follow up if any questions or concerns. Final Diagnosis Edema, right foot Partial Thickness Wound Right Hallux - improved NIKO MCDONALD DPM Jan 27, 2022 08:35
--- NOTE | 2022-01-27 12:30 | Occupational Ther Daily Note ---
OT Current Status-Daily Note Subjective Pt alert in recliner. Pt c/o no pain. Pt agrees to therapy. at bedside at end of session. Appearance Pt appears well rested and motivated. Mental Status/Objective Patient Orientation: Person, Place, Time, Situation Attachments: Other-See Comments (neck brace) ADL-Treatment Pt ambulated from recliner to sink using FWW with SBA. Pt sat at the sink in w/c to perform oral hygiene and shave independently. Pt doffed clothing using hammerer helper. Pt transferred from w/c to shower chair with SBA. Pt showered independently using shower bench, handheld shower, grabbars and LH sponge. Pt transferred from shower chair to w/c with SBA. Pt was able to apply deodorant independently to L and R under arm today. Pt donned clothing using hammerer helper and stood from w/c to hike pants over hips independently with safety concerns. Pt transferred from w/c to recliner with FWW and SBA. Pt doffed/donned socks using socks aid. Pt displayed increased strength and coordination in L UE. Continues t o display swelling and weakness in R knee. Call light/phone within reach and pt in recliner at end of session. All needs met in room. Therapy Code Descriptions/Definitions Functional [place] Measure: 0=Not Assessed/NA 4=Minimal Assistance 1=Total Assistance 5=Supervision or Setup 2=Maximal Assistance 6=Modified [place] 3=Moderate Assistance 7=Complete IndependenceSCALE: Activities may be completed with or without assistive devices. 4-Koybnkphws-nhclmin completes the activity by him/herself with no assistance from a helper. 5-Set-up or Clean-up Assistance-helper sets up or cleans up; patient completes activity. [place] assists only prior to or following the activity. 4-Supervision or Touching Assistance-helper provides verbal cues and/or touching/steadying and/or contact guard assistance as patient completes activity. Assistance may be provided throughout the activity or intermittently. 3-Partial/Moderate Assistance-helper does LESS THAN HALF the effort. [place] lifts, holds or supports trunk or limbs, but provides less than half the effort. 2-Substantial/Maximal Assistance-helper does MORE THAN HALF the effort. [place] lifts or holds trunk or limbs and provides more than half the effort. 6-Lmqsxqsvy-rpprfi does ALL the effort. Patient does none of the effort to complete the activity. Or, the assistance of 2 or more helpers is required for the patient to complete the activity. If activity was not attempted, code reason: 7-Patient Refused. 9-Not Applicable-not attempted and the patient did not perform the activity before the current illness, exacerbation or injury. 10-Not Attempted due to Environmental Limitations-(lack of equipment, weather restraints, etc.). 88-Not Attempted due to Medical Conditions or Safety Concerns. Eating (QC): 5 (Per clinical judgement, pt requires assistance to open small packages then completes rest of eating by self.) Oral Hygiene (QC): 6 Shower/Bathe Self (QC): 6 Upper Body Dressing (QC): 6 Lower Body Dressing (QC): 6 On/Off Footwear: 6 Toileting Hygiene (QC): 6 (Per clinical judgement, pt able to complete independently. ) Toilet Transfer (QC): 6 (Per clinical judgement, pt able to complete independently. ) BIMS CAM BIMS Expression of Ideas and Wants: Without Difficulty Understanding Verbal Content: Understands Brief Interview/Mental Status: Yes IRF GERONIMO BIMS: IRF GERONIMO BIMS Response (Comments) Value Repitition of Three Words Three 3 Recalls Socks Yes, No Cue Required 2 Recalls Blue Yes, No Cue Required 2 Recalls Bed Yes, No Cue Required 2 Year Correct 3 Month Accurate Within 5 Days 2 Day Correct 1 Total 15 Patient Normally Able to Recal: Current Session, Location of own room, Staff Names and faces, That he/she in a [facility] Should Staff Asses. Mental St.: No Notes: CAM Mental Status Change/Baseline: 0 Inattention: 0 Disorganized thinkin Altered level of consciousness: 0 OT Short Term Goals Short Term Goals Time Frame: Jan 27, 2022 Eatin Oral hygiene: 2 Toileting hygiene: 2 Shower/bathe self: 4 Upper body dressin Lower body dressin Putting on/taking off footwear: 2 OT Senior Living Goals Senior Living Goals Time Frame: Feb 13, 2022 Acute change in mental status: 0 Inattention: 0 Disorganized thinkin Altered level of consciousness: 0 Eating (QC): 5 (met) Oral Hygiene (QC): 4 (Met) Toileting Hygiene (QC): 4 (Met) Shower/Bathe Self (QC): 5 (Met) Upper Body Dressing (QC): 5 (Met) Lower Body Dressing (QC): 4 (Met) On/Off Footwear (QC): 4 (Met) Additional Goals: 1-Demonstrate ADL Tasks, 2-Verbalize Understanding, 3- ImproveStrength/Sherry 1=Demonstrate adherence to instructed precautions during ADL tasks. 2=Patient will verbalize/demonstrate understanding of assistive devices/modifications for ADL. 3=Patient will improve strength/tolerance for activity to enable patient to perform ADL's. OT Education/Plan Problem List/Assessment Assessment: Decreased Activ Tolerance, Decreased UE Strength, Impaired Self- Care Skills, Restricted Funct UE ROM Discharge Recommendations Plan/Recommendations: Continue POC Therapy Discharge Recommendati: Home & Family Equpiment Recommendations-D/C: Hip Kit (requires wide sock aide) Treatment Plan/Plan of Care Patient would benefit from OT for education, treatment and training to promote independence in ADL's, mobility, safety and/or upper extremity function for ADL's. Plan of Care: ADL Retraining, Caregiver Training, Functional Mobility, Group Exercise/Act as Ind, UE Funct Exercise/Act, UE Neuromus Re-Ed/Coord Treatment Duration: Feb 13, 2022 Frequency: At least 5 of 7 days/Wk (IRF) Estimated Hrs Per Day: 1.5 hours per day (60-90 min/day) Agreement: Yes Rehab Potential: Fair Time/GCodes Start Time: 10:30 Stop Time: 12:00 Total Time Billed (hr/min): 90 Billed Treatment Time 1 visit ADL 6 (90 min) BLOSSOM BROWN Jan 27, 2022 12:30
--- NOTE | 2022-01-27 13:55 | Physical Therapy Daily Note ---
PT Daily Note-Current Subjective Patient in recliner on phone pre-tx, reports 3/10 only in R knee, agrees to PT. Pain Section J - Health Conditions 1. Rarely or not at all 2. Occasionally 3. Frequently 4. Almost constantly 8. Unable to answer Pain Effect on Sleep: 1 Pain Interference with Therapy: 1 Pain Interference w/Day-to-Day: 1 Mental Status Patient Orientation: Person, Place, Situation Transfers SCALE: Activities may be completed with or without assistive devices. 6-Orlbkqcqcs-jxtnezj completes the activity by him/herself with no assistance from a helper. 5-Set-up or Clean-up Assistance-helper sets up or cleans up; patient completes activity. [place] assists only prior to or following the activity. 4-Supervision or Touching Assistance-helper provides verbal cues and/or touching/steadying and/or contact guard assistance as patient completes activity. Assistance may be provided throughout the activity or intermittently. 3-Partial/Moderate Assistance-helper does LESS THAN HALF the effort. [place] lifts, holds or supports trunk or limbs, but provides less than half the effort. 2-Substantial/Maximal Assistance-helper does MORE THAN HALF the effort. [place] lifts or holds trunk or limbs and provides more than half the effort. 2-Zkrxccunm-vezvfu does ALL the effort. Patient does none of the effort to complete the activity. Or, the assistance of 2 or more helpers is required for the patient to complete the activity. If activity was not attempted, code reason: 7-Patient Refused. 9-Not Applicable-not attempted and the patient did not perform the activity before the current illness, exacerbation or injury. 10-Not Attempted due to Environmental Limitations-(lack of equipment, weather restraints, etc.). 88-Not Attempted due to Medical Conditions or Safety Concerns. Sit to Stand (QC): 4 Chair/Ejz-xo-Xongf Xfer(QC): 4 SBA Weight Bearing Full Weight Bearing Full Weight Bearing Gait Training Does the Patient Walk?: Yes Distance: 130ft x 2 Walk 10 feet (QC): 4 Walk 50 ft with 2 Turns(QC): 4 Gait Persons Needed: 1 Gait Assistive Device: FWW Patient exhibited slower gait speed, decreased foot clearance, and forward posture. Wheelchair Training Does the Pt Use a Wheelchair?: No Stair Training Stair Training: Handrails/: 2 handrails #of Steps: 4 1 Step (curb) (QC): 4 4 Steps (QC): 4 Stairs: Pattern: Step to Very close CGA Treatments Gait Training, Stair Training Assessment Current Status: Fair Progress Patient's knee bothering him still since this morning, causing patient to take a bit longer when walking and doing stairs. Needed break after walking to the gym and after doing stairs. PT Short Term Goals Short Term Goals Time Frame: Jan 23, 2022 Roll Left & Right: 6 Sit to lyin (Jorge) Lying to sitting on side of be: 3 (Jorge) Sit to stand: 4 (CGA) Chair/jwg-we-gjebk transfer: 4 (CGA) Walk 10 feet: 4 (CGA) Walk 50 feet with two turns: 4 (CGA) PT Care Home Goals Care Home Goals PT Speed Reading Teacher Goals Time Frame: Feb 06, 2022 Roll Left & Right (QC): 6 Sit to Lying (QC): 4 (SBA) Lying-Sitting on Side/Bed(QC): 4 (SBA) Sit to Stand (QC): 4 (SBA) Chair/Hck-rr-Qimhx Xfer(QC): 4 (SBA) Toilet Transfer (QC): 4 Car Transfer (QC): 4 (SBA) Does the Patient Walk: Yes Walk 10 feet (QC): 4 (SBA) Walk 50ft with 2 Turns (QC): 4 (SBA) Walk 150 ft (QC): 88 Walking 10ft on Uneven Surface: 4 (SBA) 1 Step (curb) (QC): 4 (CGA) 4 Steps (QC): 4 (CGA) 12 Steps (QC): 88 Picking up an Object (QC): 4 (SBA using a shear grinder operator helper) Wheel 50 feet with 2 turns (QC: 9 Wheel 150 feet: 9 PT Plan Problem List Problem List: Activity Tolerance, Functional Strength, Safety, Balance, Gait, Transfer Treatment/Plan Treatment Plan: Continue Plan of Care Treatment Plan: Bed Mobility, Education, Functional Activity Sherry, Functional Strength, Group Therapy, Gait, Safety, Therapeutic Exercise, Transfers Treatment Duration: Feb 06, 2022 Frequency: At least 5 of 7 days/Wk (IRF) Estimated Hrs Per Day: 1.5 hours per day Patient and/or Family Agrees t: Yes Safety Risks/Education Patient Education: Gait Training, Transfer Techniques, Steps, Correct Positioning, Safety Issues Teaching Recipient: Patient Teaching Methods: Demonstration, Discussion Response to Teaching: Reinforcement Needed Time/GCodes Time In: 1330 Time Out: 1400 Total Billed Treatment Time: 30 Total Billed Treatment 1 visit 30' FA GUSTAVO BAH PT Jan 27, 2022 13:55
--- NOTE | 2022-01-27 17:13 | Diagnostic Imaging Report ---
CLINICAL HISTORY: Follow-up. Spinal fusion. COMPARISON: None. TECHNIQUE: Two views of the cervical spine. FINDINGS: There is no acute fracture or dislocation of the cervical spine. Alignment is anatomic. ACDF changes are visualized from C4 to C7. No evidence of hardware fracture or loosening. The prevertebral soft tissues are unremarkable. IMPRESSION: 1. No acute fracture or dislocation in the cervical spine. 2. ACDF changes from C4 to C7. No evidence of hardware failure. Dictated by: Dictated on workstation # [id number]
[2022-01-27 20:00] VITALS: BP 126/81
[2022-01-27] MEDS: meTOprolol SUCCINATE 100 MG (TOPROL XL) TAB PO SCH (20:04)
[2022-01-27] MEDS: TAMSULOSIN 0.4 MG (FLOMAX) CAP PO SCH (20:04)
[2022-01-27] MEDS: ROSUVASTATIN 5 MG (CRESTOR) TABLET PO SCH (20:04)
[2022-01-28] MEDS ORDERED: TRM50T PO (05:34)
--- NOTE | 2022-01-28 05:36 | Discharge Summary ---
Diagnosis/Chief Complaint Date of Admission Jan 15, 2022 at 10:50 Date of Discharge Discharge Date: Jan 28, 2022 Discharge Diagnosis Assessment: Severe leg weakness due to cervical spine stenosis causing myelopathy status post surgical resolution 01/05/2022 Severe constipation last BM 01/04/2022 resolved 01/16/2022 Postop dysphagia-resolved Profound weight loss due to inability to eat-resolved Back pain with lumbar spine disease chronic CKD Stage III usual baseline creat 2.1 HTN CAD HLP Gout Elevated LFT's Plan: Aggressive PT and OT Aggressive bowel regimen Supportive care 01/16/2022: Monitor closely BM+ 01/17/2022: Supportive care Increase ambulation 01/18/2022: Ultram Increase therapy 01/19/2022: Monitor closely 01/20/2022: Supportive care 01/21/2022: Monitor closely 01/22/2022: Monitor closely 01/23/2022: Monitor closely Eval wound on ankle 01/24/2022: Supportive care Betadine to toe ulceration 01/25/2022: Much improved status 01/26/2022: Supportive care Monitor closely 01/27/2022: Supportive care Monitoring closely (1) Myelopathy due to cervical spondylosis (2) Bilateral leg weakness Status: Acute (3) Presence of stent in LAD coronary artery Status: Acute (4) Presence of stent in right coronary artery Status: Acute (5) Chronic kidney disease, stage 3 Status: Acute (6) 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 Discharge Summary Discharge Physical Examination Allergies: Coded Allergies: Penicillins (Verified Allergy, Unknown, 07/09/08) Vitals & I&Os Vital Signs Date Time Temp Pulse Resp B/P (MAP) Pulse Ox O2 Delivery O2 Flow Rate FiO2 01/28/22 10:22 36.8 67 18 117/74 95 Room Air General Appearance: Alert, Oriented X3, Cooperative Respiratory: Clear to Auscultation Cardiovascular: Regular Rate Psych/Mental Status: Mental Status NL Hospital Course Was the Problem List Reviewed?: Yes Hospital course: Patient had an uncomplicated hospital course after he was admitted following cervical spine surgery with debilitating lower extremity weakness with dysphagia and profound weight loss and weakness. Patient was able to participate in all therapy including speech therapy and diet was advanced and he was ultimately able to ambulate with walker and walk upstairs. Labs remained stable along with chronic kidney disease was monitored there was no decompensation during hospital course and patient was ready for discharge with outpatient therapy. Labs (last 24 hrs) Laboratory Tests 01/16/22 05:03: White Blood Count 13.0H, Red Blood Count 3.26L, Hemoglobin 10.7L, Hematocrit 32L , Mean Corpuscular Volume 97, Mean Corpuscular Hemoglobin 33, Mean Corpuscular Hemoglobin Concent 34, Red Cell Distribution Width 12.6, Platelet Count 239, Mean Platelet Volume 10.4, Immature Granulocyte % (Auto) 6, Neutrophils (%) (Auto) 74, Lymphocytes (%) (Auto) 12, Monocytes (%) (Auto) 8, Eosinophils (%) (Auto) 0, Basophils (%) (Auto) 0, Neutrophils # (Auto) 9.6H, Lymphocytes # (Auto) 1.6, Monocytes # (Auto) 1.0, Eosinophils # (Auto) 0.1, Basophils # (Auto) 0.0, Immature Granulocyte # (Auto) 0.8H, Sodium Level 138, Potassium Level 4.8, Chloride Level 108H, Carbon Dioxide Level 18L, Anion Gap 12, Blood Urea Nitrogen 38H, Creatinine 1.42H, Estimat Glomerular Filtration Rate 52, BUN/Creatinine Ratio 27, Glucose Level 103, Calcium Level 9.5, Corrected Calcium 10.3H, Total Bilirubin 0.5, Aspartate Amino Transf (AST/SGOT) 104H, Alanine Aminotransferase (ALT/SGPT) 135H, Alkaline Phosphatase 130, Total Protein 6.1L, Albumin 3.0L, Smear Scan YES 01/23/22 05:39: White Blood Count 13.9H, Red Blood Count 3.29L, Hemoglobin 10.9L, Hematocrit 33L , Mean Corpuscular Volume 99, Mean Corpuscular Hemoglobin 33, Mean Corpuscular Hemoglobin Concent 33, Red Cell Distribution Width 13.4, Platelet Count 201, Me an Platelet Volume 9.9, Immature Granulocyte % (Auto) 4, Neutrophils (%) (Auto) 71, Lymphocytes (%) (Auto) 15, Monocytes (%) (Auto) 8, Eosinophils (%) (Auto) 2, Basophils (%) (Auto) 0, Neutrophils # (Auto) 9.9H, Lymphocytes # (Auto) 2.1, Monocytes # (Auto) 1.1H, Eosinophils # (Auto) 0.3, Basophils # (Auto) 0.0, Immature Granulocyte # (Auto) 0.6H, Sodium Level 135, Potassium Level 4.6, Chloride Level 106, Carbon Dioxide Level 21, Anion Gap 8, Blood Urea Nitrogen 39H, Creatinine 1.50H, Estimat Glomerular Filtration Rate 48, BUN/Creatinine Ratio 26, Glucose Level 95, Calcium Level 8.7, Corrected Calcium 9.6, Total Bilirubin 0.4, Aspartate Amino Transf (AST/SGOT) 55H, Alanine Aminotransferase (ALT/SGPT) 69H, Alkaline Phosphatase 166H, Total Protein 5.5L, Albumin 2.9L 01/26/22 07:16: White Blood Count 10.2, Red Blood Count 3.39L, Hemoglobin 11.3L, Hematocrit 34L, Mean Corpuscular Volume 99, Mean Corpuscular Hemoglobin 33, Mean Corpuscular Hemoglobin Concent 34, Red Cell Distribution Width 13.3, Platelet Count 154, Mean Platelet Volume 9.7, Immature Granulocyte % (Auto) 2, Neutrophils (%) (Auto) 71, Lymphocytes (%) (Auto) 14, Monocytes (%) (Auto) 9, Eosinophils (%) (Auto) 3, Basophils (%) (Auto) 1, Neutrophils # (Auto) 7.2, Lymphocytes # (Auto) 1.5, Monocytes # (Auto) 1.0, Eosinophils # (Auto) 0.3, Basophils # (Auto) 0.1, Immature Granulocyte # (Auto) 0.2H, Sodium Level 136, Potassium Level 4.3, Chloride Level 105, Carbon Dioxide Level 21, Anion Gap 10, Blood Urea Nitrogen 34H, Creatinine 1.65H, Estimat Glomerular Filtration Rate 43, BUN/Creatinine Ratio 21, Glucose Level 101, Calcium Level 8.9, Corrected Calcium 9.6, Total Bilirubin 0.7, Aspartate Amino Transf (AST/SGOT) 43H, Alanine Aminotransferase (ALT/SGPT) 45, Alkaline Phosphatase 120, Total Protein 5.9L, Albumin 3.1L Pending Labs Laboratory Tests 01/16/22 05:03: White Blood Count 13.0, Red Blood Count 3.26, Hemoglobin 10.7, Hematocrit 32, Mean Corpuscular Volume 97, Mean Corpuscular Hemoglobin 33, Mean Corpuscular Hemoglobin Concent 34, Red Cell Distribution Width 12.6, Platelet Count 239, Mean Platelet Volume 10.4, Immature Granulocyte % (Auto) 6, Neutrophils (%) (Auto) 74, Lymphocytes (%) (Auto) 12, Monocytes (%) (Auto) 8, Eosinophils (%) (Auto) 0, Basophils (%) (Auto) 0, Neutrophils # (Auto) 9.6, Lymphocytes # (Auto) 1.6, Monocytes # (Auto) 1.0, Eosinophils # (Auto) 0.1, Basophils # (Auto) 0.0, Immature Granulocyte # (Auto) 0.8, Sodium Level 138, Potassium Level 4.8, Chloride Level 108, Carbon Dioxide Level 18, Anion Gap 12, Blood Urea Nitrogen 38, Creatinine 1.42, Estimat Glomerular Filtration Rate 52, BUN/Creatinine Ratio 27, Glucose Level 103, Calcium Level 9.5, Corrected Calcium 10.3, Total Bilirubin 0.5, Aspartate Amino Transf (AST/SGOT) 104, Alanine Aminotransferase (ALT/SGPT) 135, Alkaline Phosphatase 130, Total Protein 6.1, Albumin 3.0, Smear Scan YES 01/23/22 05:39: White Blood Count 13.9, Red Blood Count 3.29, Hemoglobin 10.9, Hematocrit 33, Mean Corpuscular Volume 99, Mean Corpuscular Hemoglobin 33, Mean Corpuscular Hemoglobin Concent 33, Red Cell Distribution Width 13.4, Platelet Count 201, Mean Platelet Volume 9.9, Immature Granulocyte % (Auto) 4, Neutrophils (%) (Auto) 71, Lymphocytes (%) (Auto) 15, Monocytes (%) (Auto) 8, Eosinophils (%) (Auto) 2, Basophils (%) (Auto) 0, Neutrophils # (Auto) 9.9, Lymphocytes # (Auto) 2.1, Monocytes # (Auto) 1.1, Eosinophils # (Auto) 0.3, Basophils # (Auto) 0.0, Immature Granulocyte # (Auto) 0.6, Sodium Level 135, Potassium Level 4.6, Ch loride Level 106, Carbon Dioxide Level 21, Anion Gap 8, Blood Urea Nitrogen 39, Creatinine 1.50, Estimat Glomerular Filtration Rate 48, BUN/Creatinine Ratio 26, Glucose Level 95, Calcium Level 8.7, Corrected Calcium 9.6, Total Bilirubin 0.4, Aspartate Amino Transf (AST/SGOT) 55, Alanine Aminotransferase (ALT/SGPT) 69, Alkaline Phosphatase 166, Total Protein 5.5, Albumin 2.9 01/26/22 07:16: White Blood Count 10.2, Red Blood Count 3.39, Hemoglobin 11.3, Hematocrit 34, Mean Corpuscular Volume 99, Mean Corpuscular Hemoglobin 33, Mean Corpuscular Hemoglobin Concent 34, Red Cell Distribution Width 13.3, Platelet Count 154, Mean Platelet Volume 9.7, Immature Granulocyte % (Auto) 2, Neutrophils (%) (Auto) 71, Lymphocytes (%) (Auto) 14, Monocytes (%) (Auto) 9, Eosinophils (%) (Auto) 3, Basophils (%) (Auto) 1, Neutrophils # (Auto) 7.2, Lymphocytes # (Auto) 1.5, Monocytes # (Auto) 1.0, Eosinophils # (Auto) 0.3, Basophils # (Auto) 0.1, Immature Granulocyte # (Auto) 0.2, Sodium Level 136, Potassium Level 4.3, Chloride Level 105, Carbon Dioxide Level 21, Anion Gap 10, Blood Urea Nitrogen 34, Creatinine 1.65, Estimat Glomerular Filtration Rate 43, BUN/Creatinine Ratio 21, Glucose Level 101, Calcium Level 8.9, Corrected Calcium 9.6, Total Bilirubin 0.7, Aspartate Amino Transf (AST/SGOT) 43, Alanine Aminotransferase (ALT/SGPT) 45, Alkaline Phosphatase 120, Total Protein 5.9, Albumin 3.1 Discharge Home Medications: Active Scripts Active Tramadol HCl 50 Mg Tablet 50 Mg PO Q4H PRN Reported Afrin (Oxymetazoline HCl) 0.05 % [place] 1 [place] NSEACH UD PRN Aspirin 81 Mg Tab.chew 81 Mg PO DAILY Fish Oil 1,000 mg Softgel ([place]-3/Dha/Epa/Fish Oil) 1,000 Mg (120 Mg-180 Mg) Capsule 1,000 Mg PO DAILY B Complex (Vitamin B Complex) 1 Each Tablet 1 Each PO DAILY Coq-10 (Ubidecarenone) 100 Mg Capsule 100 Mg PO DAILY Rosuvastatin Calcium 5 Mg Tablet 5 Mg PO HS Metoprolol Succinate 100 Mg Tab.er.24h 100 Mg PO HS Flomax (Tamsulosin HCl) 0.4 Mg Cap 0.4 Mg PO HS Neurontin (Gabapentin) 300 Mg Capsule 900 Mg PO BID TAKES 3 (300MG) CAPS Allopurinol 100 Mg Tablet 100 Mg PO DAILY Losartan Potassium 25 Mg Tablet 25 Mg PO DAILY Instructions to patient/family Please see electronic discharge instructions given to patient. 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
[2022-01-28 07:42] VITALS: BP 117/74
[2022-01-28] MEDS: LOSARTAN 25 MG (COZAAR) TAB PO SCH (08:39)
[2022-01-28] MEDS: SENNA W/DOCUSATE (SENOKOT S) TABLET PO SCH (08:39)
[2022-01-28] MEDS: GABAPENTIN 300 MG (NEURONTIN) CAP PO SCH (08:39)
[2022-01-28] MEDS: OMEGA 3 (FISH OIL) 1000 MG CAP PO SCH (08:39)
[2022-01-28] MEDS: DOCUSATE SODIUM 100 MG (COLACE) CAP PO SCH (08:39)
[2022-01-28] MEDS: ALLOPURINOL 100 MG (ZYLOPRIM) TAB PO SCH (08:39)
[2022-01-28] MEDS: ASPIRIN 81 MG CHEW (CHILDREN'S ASA) PO SCH (08:40)
[2022-01-28] MEDS: polyethylene glycoL POWDER 17 GM (MIRALAX) PACK PO SCH (08:40)
[2022-01-28] MEDS: POVIDONE (BETADINE) 10% SOLN 240 ML BTL TOP SCH (08:41)
[2022-01-28] MEDS: UBIDECARENONE PO SCH (08:41)
[2022-01-28] MEDS: SUPER B COMPLEX PO SCH (08:41)
[2022-01-28 10:22] VITALS: BP 117/74
--- NOTE | 2022-01-30 08:33 | Therapy Team Discharge Summary ---
Therapy Discharge Summary Discharge Recommendations Date of Discharge Jan 28, 2022 at 10:20 Therapy D/C Recommendations: Home w/ Family Support, Occupational Therapy Home Care, Homemaker Support Physical Therapy Roll Left to Right (QC): 6 Sit to Lying (QC): 6 Lying to Sitting/Side of Bed(Q: 6 Sit to Stand (QC): 4 Chair/Nwg-lz-Skwpj Xfer(QC): 4 Toilet Transfer (QC): 5 Car Transfer (QC): 4 Does the Patient Walk: Yes Mode of Locomotion: Walk Anticipated Mode of Locomotion: Walk Walk 10 feet (QC): 4 Walk 50 ft with 2 Turns(QC): 4 Walk 150 ft (QC): 4 Walking 10ft on uneven surface: 4 Distance: 10' Gait Assistive Device: FWW Does the Pt Use a Wheelchair: No Wheel 50 ft with 2 turns (QC): 9 Wheel 150 ft (QC): 9 Type of Wheelchair: Manual #of Steps: 4 1 Step (curb) (QC): 4 4 Steps (QC): 4 12 Steps (QC): 88 Balance Sitting Static: Normal Balance Sitting Dynamic: Normal Balance-Standing Static: Fair Picking up an Object (QC): 4 (with narrow gauge engineer, SBA) Occupational Therapy Pt admitted to ARU with Debility s/p Cervical Spine Procedure. At time of evaluation, he was dependent for toileting, footwear, oral care, and lower body dressing, max a for upper body dressing, mod a for upper body dressing, and set up for eating. During his rehab stay, OT focused on strengthening, fine motor coordination, sensation, setter helper/finger strength, AE, energy conservation, endurance, balance, and safety in order to improve performance and independence in adls and functional transfers. Pt made good progress and met all of his senior care goals. See below for current levels of assistance. Pt has discharged from this facility and will be discharged from OT at this time. Decreased Activ Tolerance, Decreased UE Strength, Impaired Self-Care Skills, Restricted Funct UE ROM Eating (QC): 5 (Per clinical judgement, pt requires assistance to open small packages then completes rest of eating by self.) Oral Hygiene (QC): 6 Shower/Bathe Self (QC): 6 Upper Body Dressing (QC): 6 Lower Body Dressing (QC): 6 On/Off Footwear (QC): 6 Toileting Hygiene (QC): 6 (Per clinical judgement, pt able to complete independently. ) PT Pot Room Supervisor Goals Pot Room Supervisor Goals PT Pot Room Supervisor Goals Time Frame: Feb 06, 2022 PT OT Pain Eval : Comment: Stairs tend to bring out the LBP, subsides w/rest Scoring Section J - Health Conditions 1. Rarely or not at all 2. Occasionally 3. Frequently 4. Almost constantly 8. Unable to answer Roll Left to Right (QC): 6 Sit to Lying (QC): 4 (SBA) Lying-Sitting on Side/Bed(QC): 4 (SBA) Sit to Stand (QC): 4 (SBA) Chair/Vdw-lp-Doldu Xfer(QC): 4 (SBA) Toilet/Commode Transfer (QC): 4 Car Transfer (QC): 4 (SBA) Does the Patient Walk: Yes Walk 10 feet (QC): 4 (SBA) Walk 10ft-Uneven Surface(QC): 4 (SBA) Walk 50ft with 2 Turns (QC): 4 (SBA) Walk 150 ft (QC): 88 Wheel 50 feet with 2 turns (QC: 9 1 Step (curb) (QC): 4 (CGA) 4 Steps (QC): 4 (CGA) 12 Steps (QC): 88 Picking up an Object (QC): 4 (SBA using a narrow gauge engineer) OT Pot Room Supervisor Goals Pot Room Supervisor Goals Time Frame: Feb 13, 2022 Acute change in mental status: 0 Inattention: 0 Disorganized thinkin Altered level of consciousness: 0 Eating (QC): 5 (met) Oral Hygiene (QC): 4 (Met) Toileting Hygiene (QC): 4 (Met) Shower/Bathe Self (QC): 5 (Met) Upper Body Dressing (QC): 5 (Met) Lower Body Dressing (QC): 4 (Met) On/Off Footwear (QC): 4 (Met) Additional Goals: 1-Demonstrate ADL Tasks, 2-Verbalize Understanding, 3- ImproveStrength/Sherry 1=Demonstrate adherence to instructed precautions during ADL tasks. 2=Patient will verbalize/demonstrate understanding of assistive devices/modifications for ADL. 3=Patient will improve strength/tolerance for activity to enable patient to perform ADL's. Ginny Wells OT Jan 30, 2022 08:33
--- NOTE | 2022-01-30 10:04 | Therapy Team Discharge Summary ---
Therapy Discharge Summary Discharge Recommendations Date of Discharge Jan 28, 2022 at 10:20 Therapy D/C Recommendations: Home w/ Family Support, Occupational Therapy Home Care, Homemaker Support Physical Therapy Patient requires close SBA with careful guarding because he can be unsteady at times, although no LOB. SBA, very slow ambulation, painful right knee, poor foot clearance. Patient able to ambulate 150 feet with FWW, with SBA and verbal cues for safety, progression and posture. Able to perform Picking up an Object with freelance art director, SBA. Patient scores Tinetti 21/28. Patient walks with step through gait pattern equal bilaterally, slower speed, decreased foot clearance, little bit more arm support today due to increased knee pain. Roll Left to Right (QC): 6 Sit to Lying (QC): 6 Lying to Sitting/Side of Bed(Q: 6 Sit to Stand (QC): 4 Chair/Ndw-xe-Xgscq Xfer(QC): 4 Toilet Transfer (QC): 5 Car Transfer (QC): 4 Does the Patient Walk: Yes Mode of Locomotion: Walk Anticipated Mode of Locomotion: Walk Walk 10 feet (QC): 4 Walk 50 ft with 2 Turns(QC): 4 Walk 150 ft (QC): 4 Walking 10ft on uneven surface: 4 Distance: 150 ' Gait Assistive Device: FWW Does the Pt Use a Wheelchair: No Wheel 50 ft with 2 turns (QC): 9 Wheel 150 ft (QC): 9 Type of Wheelchair: Manual #of Steps: 4 1 Step (curb) (QC): 4 4 Steps (QC): 4 12 Steps (QC): 88 Balance Sitting Static: Normal Balance Sitting Dynamic: Normal Balance-Standing Static: Fair Picking up an Object (QC): 4 (with freelance art director, SBA) Occupational Therapy Decreased Activ Tolerance, Decreased UE Strength, Impaired Self-Care Skills, Restricted Funct UE ROM Eating (QC): 5 (Per clinical judgement, pt requires assistance to open small packages then completes rest of eating by self.) Oral Hygiene (QC): 6 Shower/Bathe Self (QC): 6 Upper Body Dressing (QC): 6 Lower Body Dressing (QC): 6 On/Off Footwear (QC): 6 Toileting Hygiene (QC): 6 (Per clinical judgement, pt able to complete independently. ) PT [facility] Goals [facility] Goals PT Price Checker Goals Time Frame: Feb 06, 2022 PT OT Pain Eval : Comment: Stairs tend to bring out the LBP, subsides w/rest Scoring Section J - Health Conditions 1. Rarely or not at all 2. Occasionally 3. Frequently 4. Almost constantly 8. Unable to answer Roll Left to Right (QC): 6 Sit to Lying (QC): 4 (SBA) Lying-Sitting on Side/Bed(QC): 4 (SBA) Sit to Stand (QC): 4 (SBA) Chair/Wsl-ib-Lkvkl Xfer(QC): 4 (SBA) Toilet/Commode Transfer (QC): 4 Car Transfer (QC): 4 (SBA) Does the Patient Walk: Yes Walk 10 feet (QC): 4 (SBA) Walk 10ft-Uneven Surface(QC): 4 (SBA) Walk 50ft with 2 Turns (QC): 4 (SBA) Walk 150 ft (QC): 88 Wheel 50 feet with 2 turns (QC: 9 1 Step (curb) (QC): 4 (CGA) 4 Steps (QC): 4 (CGA) 12 Steps (QC): 88 Picking up an Object (QC): 4 (SBA using a freelance art director) OT Price Checker Goals [facility]ci Goals Time Frame: Feb 13, 2022 Acute change in mental status: 0 Inattention: 0 Disorganized thinkin Altered level of consciousness: 0 Eating (QC): 5 (met) Oral Hygiene (QC): 4 (Met) Toileting Hygiene (QC): 4 (Met) Shower/Bathe Self (QC): 5 (Met) Upper Body Dressing (QC): 5 (Met) Lower Body Dressing (QC): 4 (Met) On/Off Footwear (QC): 4 (Met) Additional Goals: 1-Demonstrate ADL Tasks, 2-Verbalize Understanding, 3- ImproveStrength/Sherry 1=Demonstrate adherence to instructed precautions during ADL tasks. 2=Patient will verbalize/demonstrate understanding of assistive devices/modifications for ADL. 3=Patient will improve strength/tolerance for activity to enable patient to perform ADL's. ABHI JULIO PT Jan 30, 2022 10:04
== END 2022-01-28 10:20 | disposition home or self-care (01) | DRG 552 ==
PROVIDERS: ADMIT Internal Medicine; ATTEND Internal Medicine
DX: M47.12 Other spondylosis with myelopathy, cervical region (principal); I25.10 Atherosclerotic heart disease of native coronary artery without angina pectoris; I13.10 Hypertensive heart and chronic kidney disease without heart failure, with stage 1 through stage 4 chronic kidney disease, or unspecified chronic kidney disease; N18.30 Chronic kidney disease, stage 3 unspecified; K59.00 Constipation, unspecified; K21.9 Gastro-esophageal reflux disease without esophagitis; F41.9 Anxiety disorder, unspecified; F43.21 Adjustment disorder with depressed mood; E78.5 Hyperlipidemia, unspecified; M10.9 Gout, unspecified; G62.9 Polyneuropathy, unspecified; B35.1 Tinea unguium; R60.1 Generalized edema; M21.379 Foot drop, unspecified foot; Z95.5 Presence of coronary angioplasty implant and graft; Z82.49 Family history of ischemic heart disease and other diseases of the circulatory system; Z88.0 Allergy status to penicillin; Z79.82 Long term (current) use of aspirin
CPT/HCPCS: 36415; 72040; 73630; 80053; 85025

== ENCOUNTER → 2022-02-06 | Outpatient (RCR) | payer MEDICARE, OTHER | END | disposition home or self-care (01) | PROVIDERS: ATTEND Neurological Surgery | DX: Z48.89 Encounter for other specified surgical aftercare (principal) ==

== ENCOUNTER 2022-03-06 10:24 | Outpatient (RCR) | payer MEDICARE, OTHER | END 2022-03-08 | disposition home or self-care (01) | PROVIDERS: ATTEND Neurological Surgery | DX: Z48.89 Encounter for other specified surgical aftercare (principal) ==

== ENCOUNTER → 2022-03-06 | Outpatient (CLI) | payer MEDICARE, OTHER ==
--- NOTE | 2022-03-06 19:08 | Diagnostic Imaging Report ---
INDICATION: Spinal surgery. Exam compared 01/27/2022 FINDINGS: C4-C7 ACDF is again noted. No findings of its complication. Alignment across above and below the fusion is anatomic. No bony destruction. No osteolysis. No osseous or hardware fracture. IMPRESSION: Anatomically aligned stable multilevel lower cervical ACDF without an apparent complication. Dictated by: Dictated on workstation # [id number]
== END ==
LOC: RAD 14:33
PROVIDERS: ATTEND Family Medicine
DX: M54.2 Cervicalgia (principal); Z98.1 Arthrodesis status
CPT/HCPCS: 72040

== ENCOUNTER 2022-04-07 11:03 | Outpatient (RCR) | payer MEDICARE, OTHER | END 2022-04-08 | disposition home or self-care (01) | PROVIDERS: ATTEND Neurological Surgery | DX: Z48.89 Encounter for other specified surgical aftercare (principal); M25.522 Pain in left elbow; M25.521 Pain in right elbow; M62.81 Muscle weakness (generalized); Z74.09 Other reduced mobility ==

== ENCOUNTER → 2022-05-05 | Outpatient (CLI) | payer MEDICARE, OTHER ==
--- NOTE | 2022-05-05 10:27 | Diagnostic Imaging Report ---
INDICATION: Neck pain AP and lateral views of the cervical spine show postoperative changes from anterior cervical discectomy and fusion at C4-C5, C5-C6 and C6-C7. Hardware appears secured. Alignment is normal. Disc spaces are well-maintained. IMPRESSION: Good alignment of the cervical spine following interbody fusion from C4 through C7. Dictated by: Dictated on workstation # [id number]
== END ==
LOC: RAD 09:45
PROVIDERS: ATTEND Nurse Practitioner Family
DX: M54.2 Cervicalgia (principal); Z98.1 Arthrodesis status
CPT/HCPCS: 72040

== ENCOUNTER → 2022-05-09 | Outpatient (RCR) | payer MEDICARE, OTHER | END | disposition home or self-care (01) | PROVIDERS: ATTEND Neurological Surgery | DX: Z48.89 Encounter for other specified surgical aftercare (principal); M25.522 Pain in left elbow; M25.521 Pain in right elbow; M62.81 Muscle weakness (generalized); Z74.09 Other reduced mobility ==

== ENCOUNTER → 2022-06-06 | Outpatient (RCR) | payer MEDICARE, OTHER | END | disposition home or self-care (01) | PROVIDERS: ATTEND Neurological Surgery | DX: Z48.89 Encounter for other specified surgical aftercare (principal); M25.522 Pain in left elbow; M25.521 Pain in right elbow; M62.81 Muscle weakness (generalized); Z74.09 Other reduced mobility ==

== ENCOUNTER 2022-06-23 06:48 | Emergency (ER) | payer MEDICARE, OTHER ==
[~2022-06-23] VITALS: Ht 182 cm; Wt 98.4 kg
--- NOTE | 2022-06-23 07:03 | ED General ---
General Stated Complaint: COLD,COUGH,SORE THROAT,FEVER,CONGESTION Source of Information: Patient, Family History of Present Illness Date Seen by Provider: Jun 23, 2022 Time Seen by Provider: 07:02 Initial Comments Patient is a 76-year-old male presents with 48 hours of fever chills, sore throat, cough and body aches. Also reports generalized weakness and nausea without vomiting. Patient denies shortness of breath, palpitations or chest pain. No abdominal pain, diarrhea, urinary frequency urgency or dysuria. Patient is taking Tylenol for fever. No other acute symptoms or complaints. Timing/Duration: 1-2 Days Severity: Moderate Modifying Factors: improves with Other Associated Systoms: Other Allergies and Home Medications Allergies Coded Allergies: Penicillins (Verified Allergy, Unknown, 07/09/08) Patient Home Medication List Home Medication List Reviewed: Yes Allopurinol (Allopurinol) 100 Mg Tablet, 100 MG PO DAILY, (Reported) Entered as Reported by: STEPHANIE BAIRD on 06/01/21 113 Aspirin (Aspirin) 81 Mg Tab.chew, 81 MG PO DAILY, (Reported) Entered as Reported by: WILLIAM YUN on 11/22/211647 Gabapentin (Neurontin) 300 Mg Capsule, 900 MG PO BID, (Reported) Entered as Reported by: WILLIAM YUN on 11/22/211647 Losartan Potassium (Losartan Potassium) 25 Mg Tablet, 25 MG PO DAILY, (Reported) Entered as Reported by: STEPHANIE BAIRD on 06/01/211134 Metoprolol Succinate (Metoprolol Succinate) 100 Mg Tab.er.24h, 100 MG PO HS, (Reported) Entered as Reported by: WILLIAM YUN on 11/22/211647 [place]-3/Dha/Epa/Fish Oil (Fish Oil 1,000 mg Softgel) 1,000 Mg (120 Mg-180 Mg) Capsule, 1,000 MG PO DAILY, (Reported) Entered as Reported by: WILLIAM YUN on 11/22/211647 Oxymetazoline HCl (Afrin) 0.05 % [place], 1 SPRAY NSEACH UD PRN for CONGESTION, (Reported) Entered as Reported by: WILLIAM YUN on 11/22/211647 Rosuvastatin Calcium (Rosuvastatin Calcium) 5 Mg Tablet, 5 MG PO HS, (Reported) Entered as Reported by: WILLIAM YUN on 11/22/211647 Tamsulosin HCl (Flomax) 0.4 Mg Cap, 0.4 MG PO HS, (Reported) Entered as Reported by: WILLIAM YUN on 11/22/211647 Tramadol HCl (Tramadol HCl) 50 Mg Tablet, 50 MG PO Q4H PRN for PAIN-MODERATE (5- 7) Prescribed by: GUSTAVO SALAZAR on 01/28/22 0535 Ubidecarenone (Coq-10) 100 Mg Capsule, 100 MG PO DAILY, (Reported) Entered as Reported by: WILLIAM YUN on 11/22/211647 Vitamin B Complex (B Complex) 1 Each Tablet, 1 EACH PO DAILY, (Reported) Entered as Reported by: WILLIAM YUN on 11/22/211647 Review of Systems Review of Systems Constitutional: see HPI EENTM: see HPI Respiratory: see HPI Cardiovascular: see HPI Gastrointestinal: see HPI Genitourinary: see HPI Musculoskeletal: see HPI Skin: see HPI Psychiatric/Neurological: See HPI Hematologic/Lymphatic: See HPI Immunological/Allergic: see HPI All Other Systems Reviewed Negative Unless Noted: No Past Bmnnmwt-Tjnfxh-Ltgpzc Hx Patient Social History Tobacco Use?: No Immunizations Up To Date Tetanus Booster (TDap): More than 5yrs PED Vaccines UTD: Yes First/Initial COVID19 Vaccinat: 2020 Second COVID19 Vaccination Erik: 2020 Seasonal Allergies Seasonal Allergies: No Past Medical History Surgery/Hospitalization HX: BACK SURGERIES, HTN, CAD, 3 CARDIAC STENTS Orthopedic Currently Using CPAP: No Currently Using BIPAP: No Coronary Artery Disease, Hypertension Reproductive Disorders: No Sexually Transmitted Disease: No HIV/AIDS: No Renal Failure Gastroesophageal Reflux Arthritis Loss of Vision: Denies Hearing Impairment: Denies Skin Adverse Reaction/Blood Tranf: No Family Medical History Alzheimer's disease 19 FATHER Arthritis 19 MOTHER G8 SISTER Cardiovascular disease 19 MOTHER Cataracts 19 MOTHER Dementia 19 FATHER Diabetes mellitus 19 MOTHER G8 SISTER Hypercholesterolemia 19 MOTHER G8 SISTER Hypertension 19 MOTHER G8 SISTER G8 SISTER Visual disorder G8 SISTER Heart Disease, Diabetes, Hypertension Physical Exam Vital Signs Vital Signs - First Documented 06/23/22 07:07 Temp 37.0 Pulse 76 Resp 18 B/P (MAP) 124/76 (92) Pulse Ox 97 Capillary Refill : Height, Weight, BMI Height: 6'0.00" Weight: 241lbs. oz. [id number]; 29.74 BMI Method: General Appearance: WD/WN, Anxious Eyes: Bilateral Eye Normal Inspection, Bilateral Eye PERRL, Bilateral Eye EOMI HEENT: PERRL/EOMI, Normal ENT Inspection, Pharynx Normal Neck: Full Range of Motion, Normal Inspection, Non Tender Respiratory: Chest Non Tender, Lungs Clear, Normal Breath Sounds Cardiovascular: Regular Rate, Rhythm Gastrointestinal: Normal Bowel Sounds, Soft Back: Normal Inspection Neurologic/Psychiatric: Oriented x3 Skin: Normal Color Focused Exam Sepsis Stage: Ruled Out Progress/Results/Core Measures Suspected Sepsis SIRS Temperature: Pulse: Respiratory Rate: Blood Pressure / Mean: Results/Orders Lab Results Laboratory Tests Test 06/23/22 07:12 06/23/22 07:37 Range/Units Influenza Type A (RT-PCR) Not Detected Not Detecte Influenza Type B (RT-PCR) Not Detected Not Detecte SARS-CoV-2 RNA (RT-PCR) Detected H Not Detecte Urine Color YELLOW Urine Clarity CLEAR Urine pH 6.0 5-9 Urine Specific [place] 1.020 1.016-1.022 Urine Protein NEGATIVE NEGATIVE Urine Glucose (UA) NEGATIVE NEGATIVE Urine Ketones TRACE H NEGATIVE Urine Nitrite NEGATIVE NEGATIVE Urine Bilirubin NEGATIVE NEGATIVE Urine Urobilinogen 0.2 < = 1.0 MG/DL Urine Leukocyte Esterase NEGATIVE NEGATIVE Urine RBC (Auto) NEGATIVE NEGATIVE Urine RBC NONE /HPF Urine WBC RARE /HPF Urine Squamous Epithelial Cells RARE /HPF Urine Crystals NONE /LPF Urine Bacteria NEGATIVE /HPF Urine Casts PRESENT /LPF Urine Hyaline Casts 0-2 H /LPF Urine Mucus SMALL H /LPF Urine Culture Indicated NO My Orders Orders - INES GARCIA DO Ondansetron Oral Dissolve Tab (Zofran (06/23/22 07:15) Covid 19 Inhouse Test (06/23/22 07:09) Influenza A And B By Pcr (06/23/22 07:09) Isolation Central Supply Req (06/23/22 07:09) Ua Culture If Indicated (06/23/22 07:17) Medications Given in ED Current Medications Medications Dose Ordered Sig/Michelle Route Start Time Stop Time Status Last Admin Dose Admin Ondansetron HCl 4 mg ONCE ONCE PO 06/23/22 07:15 06/23/22 07:16 DC 06/23/22 07:20 4 MG Vital Signs/I&O 06/23/22 07:07 Temp 37.0 Pulse 76 Resp 18 B/P (MAP) 124/76 (92) Pulse Ox 97 Capillary Refill : Departure Communication (Admissions) Viral illness without respiratory compromise or signs of dehydration Influenza negative, COVID-positive. Recommendations supportive care watchful waiting and PCP follow-up. Return precautions reviewed. Patient verbalizes understanding agreement discharge instructions prior to departure. Impression Primary Impression: COVID-19 Additional Impression: Nausea Disposition: 01 HOME, SELF-CARE Condition: Stable Departure-Patient Inst. Decision time for Depature: 08:06 Referrals: GUERLINE CANDELARIO MD (PCP/Family) Primary Care Physician Patient Instructions: COVID-19 (DC) Add. Discharge Instructions: You were evaluated in the emergency department for cough, sore throat and fever. Your COVID-19 test was positive. A urine sample was performed which does not show current evidence of dehydration. Please go home and rest, increase fluids and take vitamin C&D and ibuprofen or Tylenol for fever and sore throat. Take newly prescribed medications as directed follow-up with your PCP for reevaluation in 3 to 5 days if symptoms persist. In the meantime if you develop new or worsening symptoms, return to the emergency department. Scripts Guaifenesin (Mucinex) 1,200 Mg Tab.er.12h 1200 MG PO Q12H, #14 TAB Prov: INES GARCIA DO 06/23/22 Ondansetron (Ondansetron Odt) 4 Mg Tab.rapdis 4 MG SL Q4H PRN for NAUSEA/VOMITING, #10 TAB Prov: INES GARCIA DO 06/23/22 INES GARCIA DO Jun 23, 2022 07:03
[2022-06-23] MEDS ORDERED: ONDANSETRON 4 MG (ZOFRAN) ORAL DISSOLVE TAB PO ONE (07:15)
[2022-06-23 07:45] LABS: BILIRUBIN,URINE NEGATIVE (NEGATIVE); CLARITY,URINE CLEAR; COLOR,URINE YELLOW; GLUCOSE, URINE (UA) NEGATIVE (NEGATIVE); KETONES,URINE TRACE (NEGATIVE); LEUKOCYTE ESTERASE ,URINE NEGATIVE (NEGATIVE); NITRITE,URINE NEGATIVE (NEGATIVE); PROTEIN,URINE NEGATIVE (NEGATIVE)
[2022-06-23 07:54] LABS: BACTERIA,URINE NEGATIVE /HPF; SQUAMOUS EPITHELIAL CELL,UR RARE /HPF; WBC,URINE RARE /HPF
[2022-06-23 07:55] LABS: HYALINE CASTS, URINE 0-2 /LPF
[2022-06-23] MEDS ORDERED: ONDA4TAB11 SL (08:09)
[2022-06-23] MEDS ORDERED: GUAI120013 PO (08:09)
[2022-06-23 08:15] VITALS: BP 124/76
== END 2022-06-23 08:15 | disposition home or self-care (01) ==
LOC: EDUNIT# 06:48 → ER 06:51
DX: U07.1 COVID-19 (principal); R05.9 Cough, unspecified; R11.0 Nausea; R50.9 Fever, unspecified; R53.1 Weakness
CPT/HCPCS: 81000; 87636; 99283

== ENCOUNTER 2022-07-05 08:40 | Outpatient (RCR) | payer MEDICARE, OTHER ==
[~2022-07-05 08:40] MED LIST changes: +GUAI120013 PO; +ONDA4TAB11 SL
== END 2022-07-07 | disposition home or self-care (01) ==
PROVIDERS: ATTEND Neurological Surgery
DX: Z48.89 Encounter for other specified surgical aftercare (principal); M25.522 Pain in left elbow; M25.521 Pain in right elbow; M62.81 Muscle weakness (generalized); Z74.09 Other reduced mobility

== ENCOUNTER 2022-08-03 09:56 | Outpatient (RCR) | payer MEDICARE, OTHER | END 2022-08-06 | disposition home or self-care (01) | PROVIDERS: ATTEND Neurological Surgery | DX: Z48.89 Encounter for other specified surgical aftercare (principal); M25.522 Pain in left elbow; M25.521 Pain in right elbow; M62.81 Muscle weakness (generalized); Z74.09 Other reduced mobility ==

== ENCOUNTER 2022-08-10 09:45 | Outpatient (RCR) | payer MEDICARE, OTHER | END 2022-08-10 12:15 | disposition home or self-care (01) | PROVIDERS: ATTEND Neurological Surgery | DX: Z48.89 Encounter for other specified surgical aftercare (principal); M25.522 Pain in left elbow; M25.521 Pain in right elbow; M62.81 Muscle weakness (generalized); Z74.09 Other reduced mobility ==

== ENCOUNTER → 2022-08-15 | Outpatient (CLI) | payer MEDICARE, OTHER ==
--- NOTE | 2022-08-15 17:10 | Diagnostic Imaging Report ---
CERVICAL SPINE 4 OR 5 VIEWS INDICATION: Postop surveillance after cervical fusion. COMPARISON: 05/05/2022 TECHNIQUE: 4 views of the cervical spine including flexion and extension. FINDINGS: Anterior cervical discectomy with fusion of C4-C7 has well-positioned interbody spacers. The fixation screws and anterior plate are intact. No prevertebral soft tissue swelling. No dynamic instability with flexion and extension. There is limited motion within the cervical spine due to the fusion. IMPRESSION: No dynamic instability associated with the C4-C7 ACDF. Dictated by: Dictated on workstation # [id number]
== END ==
LOC: RAD 08:59
PROVIDERS: ATTEND Neurological Surgery
DX: Z48.89 Encounter for other specified surgical aftercare (principal); Z98.1 Arthrodesis status
CPT/HCPCS: 72050